=== PATIENT | male | born 1950 | race Caucasian/White ===

== ENCOUNTER 2016-12-26 14:03 | Inpatient (IN) | payer OTHER ==
[~2016-12-26] VITALS: Ht 170.2 cm; Wt 80.7 kg
[~2016-12-26 14:03] MED LIST: ASPEC81 PO; LISI-729 PO; MESA1.2T PO; PRAV20TA PO; RISP0.5T10 PO
[2016-12-26] MEDS ORDERED: SODIUM CHLORIDE 0.9% 1000ML 1,000 ML IV STA (14:54)
--- NOTE | 2016-12-26 14:59 | EMERGENCY ROOM VISIT NOTE ---
History Report prepared by Su: Silviano Lazo Under the Supervision of: Dr. Ever Mccartney M.D. First contact with patient: 14:44 Chief Complaint: IRREGULAR HEARTBEAT Stated Complaint: AFIB Nursing Triage Summary: patient was having colonoscopy and was placed on the monitor. found to be in a flutter fib and was brought to the ER for evaluation. denies pain or shorntess of breath History of Present Illness The patient is a 66 year old male who presents to the Emergency Room for an episode of an irregular heartbeat that was discovered prior to arrival today. He states that he was getting evaluated for a colonoscopy that was scheduled for today, when he was found to be in atrial fibrillation. The patient says that this may have happened before, as he thinks he was mentioned by a doctor about an irregular heartbeat during a prior operation. The patient notes that he feels fine and has been feeling fine, with no feelings of palpitations. He adds that he has been eating and drinking well. He denies any chest pain, shortness of breath, nausea, vomiting, headaches, abdominal pain, or dizziness. The patient has Crohn's disease, but has had no recent flare-ups. He has no history of stroke or diabetes. The patient is on Lisinopril daily. He has a history of an aortic valve replacement for a bicuspid valve, as well as a splenectomy for a ruptured spleen. Source of History: patient Onset: Prior to arrival today Position: other (heart) Quality: other (irregular heartbeat - afib) Timing: other (episode) Associated Symptoms: No headache, No chest pain, No SOB, No nausea, No vomiting, No abdominal pain Note: Associated symptoms: Feeling fine. Denies dizziness. Review of Systems See HPI for pertinent positives and negatives. A total of ten systems were reviewed and were otherwise negative. Past Medical & Surgical Medical Problems: (1) HTN (hypertension) Surgical Problems: (1) Aortic valve replaced (2) History of splenectomy Family History Cancer Social History Smoking Status: Never Smoker Smokeless Tobacco Use: No Alcohol Use: occasionally Marital Status: Housing Status: lives with family Occupation Status: employed Current/Historical Medications Scheduled Aspirin Enteric Coated (Ecotrin Or Generic *), 81 MG PO DAILY Lisinopril (Zestril), 5 MG PO DAILY Pravastatin (Pravachol ), 20 MG PO DAILY Risperidone (Risperdal), 0.5 MG PO BID Allergies Coded Allergies: No Known Allergies (Verified , 12/26/16) Physical Exam Vital Signs Date Time Temp Pulse Resp B/P (MAP) Pulse Ox O2 Delivery O2 Flow Rate FiO2 12/26/16 19:01 128/95 12/26/16 19:00 113 18 128/95 96 12/26/16 18:13 110 12/26/16 18:03 104 18 96 12/26/16 18:00 176/154 12/26/16 17:03 99 21 95 12/26/16 17:01 144/104 12/26/16 16:03 103 23 96 12/26/16 16:01 154/105 12/26/16 15:39 139/114 12/26/16 15:37 105 20 139/114 98 Room Air 12/26/16 15:20 143/121 12/26/16 15:10 98 Room Air 12/26/16 15:03 103 19 12/26/16 15:01 163/115 12/26/16 14:17 109 12/26/16 14:16 131/92 12/26/16 14:14 97 Room Air 12/26/16 14:10 36.6 100 20 140/108 97 Room Air 12/26/16 14:07 140/108 Physical Exam GENERAL: Awake, alert, well-appearing, in no distress HENT: Normocephalic, atraumatic. Oropharynx unremarkable. Dry mucous membranes. EYES: Normal conjunctiva. Sclera non-icteric. NECK: Supple. No nuchal rigidity. FROM. No JVD. RESPIRATORY: Clear to auscultation. CARDIAC: Regular heartbeat with ectopy. Extremities warm and well perfused. Pulses equal. ABDOMEN: Soft, non-distended. No tenderness to palpation. No rebound or guarding. No masses. RECTAL: Deferred. MUSCULOSKELETAL: Chest examination reveals no tenderness. The back is symmetrical on inspection without obvious abnormality. There is no CVA tenderness to palpation. No joint edema. LOWER EXTREMITIES: Calves are equal size bilaterally and non-tender. No edema. No discoloration. NEURO: Normal sensorium. No sensory or motor deficits noted. SKIN: No rash or jaundice noted. Medical Decision & Procedures ER Provider Diagnostic Interpretation: X-ray: Per my interpretation, radiologist review. CHEST ONE VIEW PORTABLE HISTORY: 66 years-old Male CHEST PAIN COMPARISON: Chest radiograph 08/05/2013 TECHNIQUE: Portable upright AP view of the chest. FINDINGS: Prior median sternotomy with aortic stent graft again noted. Cardiac silhouette is upper limits of normal. There is no pneumothorax or pleural effusion. There is minimal left lung base linear atelectasis or scarring in a subsegmental distribution. Prosthetic aortic valve is again seen. Metallic coils are seen within the central upper abdomen. The bones are grossly intact. IMPRESSION: No acute cardiopulmonary process. The above report was generated using voice recognition software. It may contain grammatical, syntax or spelling errors. Electronically signed by: Vikas Interiano M.D. 12/26/2016 3:11 PM Dictated Date/Time: 12/26/2016 3:10 PM Laboratory Results 12/26/16 14:27 Red Blood Count 4.84, Mean Corpuscular Volume 93.8, Mean Corpuscular Hemoglobin 31.8, Mean Corpuscular Hemoglobin Concent 33.9, Mean Platelet Volume 10.0, Neutrophils (%) (Auto) 47.1, Lymphocytes (%) (Auto) 37.5, Monocytes (%) (Auto) 12.9, Eosinophils (%) (Auto) 1.8, Basophils (%) (Auto) 0.6, Neutrophils # (Auto ) 3.91, Lymphocytes # (Auto) 3.11, Monocytes # (Auto) 1.07, Eosinophils # (Auto ) 0.15, Basophils # (Auto) 0.05 Test 12/26/16 14:27 White Blood Count 8.30 K/uL (4.8-10.8) Red Blood Count 4.84 M/uL (4.7-6.1) Hemoglobin 15.4 g/dL (14.0-18.0) Hematocrit 45.4 % (42-52) Mean Corpuscular Volume 93.8 fL (80-100) Mean Corpuscular Hemoglobin 31.8 pg (25-34) Mean Corpuscular Hemoglobin Concent 33.9 g/dl (32-36) Platelet Count 317 K/uL (130-400) Mean Platelet Volume 10.0 fL (7.4-10.4) Neutrophils (%) (Auto) 47.1 % Lymphocytes (%) (Auto) 37.5 % Monocytes (%) (Auto) 12.9 % Eosinophils (%) (Auto) 1.8 % Basophils (%) (Auto) 0.6 % Neutrophils # (Auto) 3.91 K/uL (1.4-6.5) Lymphocytes # (Auto) 3.11 K/uL (1.2-3.4) Monocytes # (Auto) 1.07 K/uL (0.11-0.59) Eosinophils # (Auto) 0.15 K/uL (0-0.5) Basophils # (Auto) 0.05 K/uL (0-0.2) RDW Standard Deviation 48.3 fL (36.4-46.3) RDW Coefficient of Variation 14.1 % (11.5-14.5) Immature Granulocyte % (Auto) 0.1 % Immature Granulocyte # (Auto) 0.01 K/uL (0.00-0.02) Thyroid Stimulating Hormone (TSH) 1.190 uIu/ml (0.300-4.500) Laboratory results reviewed by me Medications Administered Medications (Trade) Dose Ordered Sig/Rosemarie Route Start Time Stop Time Status Last Admin Dose Admin Sodium Chloride 1,000 ml @ 999 mls/hr Q1H1M STAT IV 12/26/16 14:54 12/26/16 15:54 DC 12/26/16 14:54 999 MLS/HR Metoprolol Tartrate (Lopressor Tab) 25 mg NOW STAT PO 12/26/16 18:17 12/26/16 18:21 DC 12/26/16 19:09 25 MG Heparin Sodium (Porcine) (Heparin Iv Bolus) 10,000 unit STK-MED ONCE .ROUTE 12/26/16 19:26 12/26/16 19:27 DC 12/26/16 19:42 10,000 UNIT Heparin Sodium/ Dextrose (Heparin 25,000 Unit/500ml D5W) 25,000 unit STK-MED ONCE .ROUTE 12/26/16 19:26 12/26/16 19:27 DC 12/26/16 19:45 25,000 UNIT ECG Indication: palpitations Rate (beats per minute): 104 Rhythm: sinus tachycardia Findings: 1st degree AV block, PAC, no acute ischemic change, other (normal axis) Change: Repeat ECG: Atrial flutter with a rate of 104 bpm, variable AV block, QRS within normal limits, normal axis, no acute ischemic changes. ED Course 145: The patient was evaluated in room C5. A complete history and physical exam was performed. 145: Ordered NSS 1000 ml @ 999 mls/hr IV. 1800: I reevaluated and updated the patient. 1806: I discussed the patient with Dr. Torsten Desai cardiology. 1813: Upon reexamination, the patient was resting. I discussed the test results and treatment plan with him. The patient will be evaluated for further management. 1816: Ordered Heparin Sodium/Dextrose 1 ea N/A, Lopressor Tab 25 mg PO. 183: I discussed the patient with Sirena Desai - she will evaluate the patient for further treatment. Medical Decision I reviewed the patient's past medical history, medications, and the nursing notes as described above. Differential diagnoses: new onset atrial fibrillation, other arrhythmia, dehydration, electrolyte imbalance, infectious cough, pneumonia, bronchitis, ACS less likely, CHF less likely. Patient is a 66-year-old gentleman with a past medical history of Crohn's disease on mesalamine, well as aortic valve replacement secondary to a bicuspid aortic valve was history of coarctation of the aorta is to emergency department after accidentally having been found in a new atrial flutter when preparing for colonoscopy today. Thus, patient was sent to emergency department for evaluation. She denies any lightheadedness chest pain, shortness of breath, palpitations, lightheadedness and otherwise reports feeling in his normal state of health. Upon arrival the patient initially had a sinus tachycardia AV block versus flutter, however after hydration repeat EKG showing clear A flutter with variable he bleed AV block. Labs otherwise unremarkable including TSH. Chest x -ray negative. I discussed the case with cardiology who upon further review of the patient's medical history recommends that since CHADSVASC > 2 will require anticoagulation. Considering this patient's prior vascular disease recommends admission for further evaluation to determine optimal therapeutic approach. Recommends heparin for now and otherwise agrees with low-dose metoprolol for rate control. I discussed this with the patient who was agreeable for admission. Case d/w medicine team who will admit to medicine service for further management and cardiology consultation. Medication Reconcilliation Current Medication List: was personally reviewed by me Blood Pressure Screening Patient's blood pressure: Elevated blood pressure Referred to hospitalist. Consults Time Called: 1803 Consulting Physician: Dr. Torsten Desai cardiology Returned Call: 1806 I discussed the patient with Dr. Torsten Desai cardiology. Additional Consults: Time Called: 1829 Consulted Physician: Sirena Desai Returned Call: 1830 Additional Comments: I discussed the patient with Sirena Desai - she will evaluate the patient for further treatment. Impression Primary Impression: New onset atrial flutter Scribe Attestation The scribe's documentation has been prepared under my direction and personally reviewed by me in its entirety. I confirm that the note above accurately reflects all work, treatment, procedures, and medical decision making performed by me. Departure Information Dispostion Being Evaluated By Hospitalist Referrals Violet Mitchell M.D. (PCP) Patient Instructions My [facility]
--- NOTE | 2016-12-26 15:12 | DIAGNOSTIC IMAGING REPORT ---
CHEST ONE VIEW PORTABLE HISTORY: 66 years-old Male CHEST PAIN COMPARISON: Chest radiograph 08/05/2013 TECHNIQUE: Portable upright AP view of the chest. FINDINGS: Prior median sternotomy with aortic stent graft again noted. Cardiac silhouette is upper limits of normal. There is no pneumothorax or pleural effusion. There is minimal left lung base linear atelectasis or scarring in a subsegmental distribution. Prosthetic aortic valve is again seen. Metallic coils are seen within the central upper abdomen. The bones are grossly intact. IMPRESSION: No acute cardiopulmonary process. The above report was generated using voice recognition software. It may contain grammatical, syntax or spelling errors. Electronically signed by: Vikas Interiano M.D. 12/26/2016 3:11 PM Dictated Date/Time: 12/26/2016 3:10 PM
[2016-12-26 15:13] LABS: BASO % 0.6 %; BASO ABS # 0.05 K/uL (0-0.2); COMPLETE YES; EOS % 1.8 %; HEMATOCRIT 45.4 % (42-52); IG% 0.1 %; LYMPH % 37.5 %; LYMPH ABS # 3.11 K/uL (1.2-3.4); MEAN CELL VOLUME 93.8 fL (80-100); MEAN CORPUSCULAR HEMOGLOBIN 31.8 pg (25-34); MEAN CORPUSCULAR HGB CONC 33.9 g/dl (32-36); MONO % 12.9 %; NEUT % 47.1 %; PLATELET COUNT 317 K/uL (130-400); RED BLOOD COUNT 4.84 M/uL (4.7-6.1)
[2016-12-26 15:21] LABS: BUN/CREATININE RATIO 10.9 (10-20); CALCIUM 8.7 mg/dl (8.5-10.1); CREATININE 1.1 mg/dl (0.60-1.40); POTASSIUM 4.1 mmol/L (3.5-5.1)
[2016-12-26 15:32] LABS: THYROID STIMULATING HORMONE 1.19 uIu/ml (0.300-4.500)
[2016-12-26] MEDS ORDERED: METOPROLOL TARTRATE 50 MG TAB PO STA (18:17)
[2016-12-26] MEDS ORDERED: HEPARIN 25000 UNIT/500 ML D5W ONE (19:26)
[2016-12-26] MEDS ORDERED: HEPARIN SOD (PORCINE) 1000 UNIT/ML 10 ML VIAL ONE (19:26)
[2016-12-26] MEDS ORDERED: ACETAMINOPHEN 325 MG TAB PO PRN (19:30)
[2016-12-26] MEDS ORDERED: ONDANSETRON INJ 2 MG/ML 2 ML VIAL IV PRN (19:30)
[2016-12-26] MEDS ORDERED: NITROGLYCERIN 0.4 MG SL PER TAB CHARGE SL PRN (19:30)
[2016-12-26] MEDS ORDERED: POLYETHYLENE (MIRALAX) 17 GM PACK PO PRN (19:30)
[2016-12-26] MEDS ORDERED: ZOLPIDEM TARTRATE 5 MG TAB PO PRN (19:30)
[2016-12-26] MEDS ORDERED: MAGNESIUM HYDROXIDE SUSP 30 ML UDC PO PRN (19:30)
[2016-12-26] MEDS ORDERED: ALUMINUM/MAGNESIUM/SIMETH (MAALOX MAX) 30 ML UDC PO PRN (19:30)
--- NOTE | 2016-12-26 19:59 | History and Physical ---
History & Physical Date & Time of Service: Dec 26, 2016 at 19:57 Chief Complaint: AFIB Primary Care Physician: Violet Mitchell M.D. History of Present Illness Source: patient This is a 66 yo Male with past medical hx of Mood disorder ( Schizophrenia ? ) , Crohn's colitis , hx of bicuspid heart valve S/P AVR with prosthetic valve replacement , coarctation of aorta s/p repair of thoracic coarctation with stent graft , h/o spontaneous rupture of splenic artery aneurysm , hx of hepatic artery aneurysm was scheduled to have routine colonoscopy done today for inflammatory bowel disease , prior to procedure -EKG done [facility] @ 12: 20 PM shows possible Aflutter with variable degree block , ventricular rate 109 pt was sent to ED for further evaluation pt denies of any symptom of SOB /SEWELL /palpitation /lightheadedness /increased fatigue /decreased exercise tolerance today or in recent few weeks mentions of felt dizzy while going to bathroom multiple time last night for the colonoscopy prep but symptom resolved after rest this morning at [facility] Endoscopy suite -did not had any discomfort or symptom , no symptom after arrival to ED and there after pt was given 25 mg PO Lopressor , started on low dose iV heparin in ED Past Medical/Surgical History Medical Problems: (1) HTN (hypertension) Status: Chronic Surgical Problems: (1) Aortic valve replaced Status: Resolved (2) History of splenectomy Status: Resolved Family History Cancer Social History Smoking Status: Never Smoker Smokeless Tobacco Use: No Marital Status: Occupational Status: employed Immunizations History of Influenza Vaccine: Unknown History of Tetanus Vaccine?: Unknown History of Pneumococcal: Yes Pneumococcal Date: May 30, 2006 History of Hepatitis B Vaccine: No Multi-Drug Resistant Organisms History of MDRO: No Allergies Coded Allergies: No Known Allergies (Verified , 12/26/16) Home Medications Scheduled Aspirin Enteric Coated (Ecotrin Or Generic *), 81 MG PO DAILY Lisinopril (Zestril), 5 MG PO DAILY Pravastatin (Pravachol ), 20 MG PO DAILY Risperidone (Risperdal), 0.5 MG PO BID Review of Systems Constitutional: No fever, No chills, No sweats, No weight loss, No weakness, No fatigue, No problem reported Respiratory: No cough, No sputum, No wheezing, No shortness of breath, No dyspnea on exertion, No dyspnea at rest, No hemoptysis, No problem reported Cardiovascular: No chest pain, No orthopnea, No PND, No edema, No claudication , No palpitations, No problem reported Abdomen: No pain, No nausea, No vomiting, No diarrhea, No constipation, No GI bleeding, No problem reported Genitourinary - Male: No hematuria, No dysuria, No urinary frequency, No urinary urgency, No urinary hesitancy, No urinary retention, No urinary incontinence, No penile discharge, No lesions, No impotence, No problem reported Neurologic: No memory loss, No paralysis, No weakness, No numbness/tingling, No vertigo, No balance problems, No problem reported Psychiatric: No depression symptoms, No anhedonism, No anxiety, No insomnia, No substance abuse, No problem reported Physical Exam Vital Signs Date Time Temp Pulse Resp B/P (MAP) Pulse Ox O2 Delivery O2 Flow Rate FiO2 12/26/16 19:01 128/95 12/26/16 19:00 113 18 128/95 96 12/26/16 18:13 110 12/26/16 18:03 104 18 96 12/26/16 18:00 176/154 12/26/16 17:03 99 21 95 12/26/16 17:01 144/104 12/26/16 16:03 103 23 96 12/26/16 16:01 154/105 12/26/16 15:39 139/114 12/26/16 15:37 105 20 139/114 98 Room Air 12/26/16 15:20 143/121 12/26/16 15:10 98 Room Air 12/26/16 15:03 103 19 12/26/16 15:01 163/115 12/26/16 14:17 109 12/26/16 14:16 131/92 12/26/16 14:14 97 Room Air 12/26/16 14:10 36.6 100 20 140/108 97 Room Air 12/26/16 14:07 140/108 General Appearance: no apparent distress Head: normocephalic, atraumatic Eyes: sclerae normal Neck: supple, no adenopathy, thyroid normal, no carotid bruits Respiratory/Chest: chest non-tender, lungs clear, normal breath sounds, no respiratory distress Cardiovascular: no edema, no JVD, normal peripheral pulses, + irregularly irregular Abdomen/GI: normal bowel sounds, non tender, soft Extremities/Musculoskelatal: normal capillary refill, no pedal edema Neurologic/Psych: no motor/sensory deficits, alert, normal mood/affect, oriented x 3 Skin: normal color, warm/dry, no rash Lymphatic: no adenopathy Diagnostics Laboratory Results Results Past 24 Hours Test 12/26/16 14:27 12/26/16 19:26 Range/Units White Blood Count 8.30 4.8-10.8 K/uL Red Blood Count 4.84 4.7-6.1 M/uL Hemoglobin 15.4 14.0-18.0 g/dL Hematocrit 45.4 42-52 % Mean Corpuscular Volume 93.8 80-100 fL Mean Corpuscular Hemoglobin 31.8 25-34 pg Mean Corpuscular Hemoglobin Concent 33.9 32-36 g/dl Platelet Count 317 130-400 K/uL Mean Platelet Volume 10.0 7.4-10.4 fL Neutrophils (%) (Auto) 47.1 % Lymphocytes (%) (Auto) 37.5 % Monocytes (%) (Auto) 12.9 % Eosinophils (%) (Auto) 1.8 % Basophils (%) (Auto) 0.6 % Neutrophils # (Auto) 3.91 1.4-6.5 K/uL Lymphocytes # (Auto) 3.11 1.2-3.4 K/uL Monocytes # (Auto) 1.07 0.11-0.59 K/uL Eosinophils # (Auto) 0.15 0-0.5 K/uL Basophils # (Auto) 0.05 0-0.2 K/uL RDW Standard Deviation 48.3 36.4-46.3 fL RDW Coefficient of Variation 14.1 11.5-14.5 % Immature Granulocyte % (Auto) 0.1 % Immature Granulocyte # (Auto) 0.01 0.00-0.02 K/uL Activated Partial Thromboplast Time 27.0 21.0-31.0 SECONDS Partial Thromboplastin Ratio 1.0 Sodium Level 138 136-145 mmol/L Potassium Level 4.1 3.5-5.1 mmol/L Chloride Level 107 98-107 mmol/L Carbon Dioxide Level 24 21-32 mmol/L Anion Gap 7.0 3-11 mmol/L Blood Urea Nitrogen 12 7-18 mg/dl Creatinine 1.10 0.60-1.40 mg/dl Est Creatinine Clear Calc Drug Dose 63.4 ml/min Estimated GFR () 81.8 Estimated GFR (Non- 70.6 BUN/Creatinine Ratio 10.9 10-20 Random Glucose 85 70-99 mg/dl Calcium Level 8.7 8.5-10.1 mg/dl Magnesium Level 2.0 1.8-2.4 mg/dl Thyroid Stimulating Hormone (TSH) 1.190 0.300-4.500 uIu/ml Creatine Kinase MB Ratio 0-3.0 Diagnostic Radiology CHEST ONE VIEW PORTABLE HISTORY: 66 years-old Male CHEST PAIN COMPARISON: Chest radiograph 08/05/2013 TECHNIQUE: Portable upright AP view of the chest. FINDINGS: Prior median sternotomy with aortic stent graft again noted. Cardiac silhouette is upper limits of normal. There is no pneumothorax or pleural effusion. There is minimal left lung base linear atelectasis or scarring in a subsegmental distribution. Prosthetic aortic valve is again seen. Metallic coils are seen within the central upper abdomen. The bones are grossly intact. IMPRESSION: No acute cardiopulmonary process. EKG Aflutter with variable AV block HR 104 Qtc 428 Impression Assessment and Plan ARRHYTHMIA/AFLUTTER new diagnosis pt remains symptom free no prior hx of arrhythmia hx of syncope with colonoscopy prep in July 2013 , had out pt Holter 08/17/13 - showed sinus rhythm with frequent PVC 's episodes of dizzy spell was associated with sinus bradycardia with no prolong pause or heart block Cardiac stress test on 08/04/13 : negative for stress induced angina , monitor in tele serial cardiac markers , resting ECHO ordered PO Lopressor 25 mg x1 given in ED will cont Lopressor BID ( started on low dose 12.5 mg -will defer to Cardiology for further adjustment ) IV heparin wt based protocol for stroke prophylaxis further d/w of chronic anticoagulation -Coumadin Vs NOAC will be discussed by Cardiology HX OF CROHN'S DISEASE : follows with GI [facility] Dr Hernandez was on Lialda in past -discontinued due to non compliance not on any active tx for IBD no report of diarrhea /abdominal pain or blood in stool was schedule to have routine colonoscopy today 12/26/16 was cancelled due to cardiac arrhythmia HTN : cont Lisinopril -home med HYPERLIPIDEMIA ; Cont Pravastatin fasting lipid panel ordered in AM labs DEPRESSION /MOOD DISORDER : will hold Risperdal in setting of cardiac arrhythmia FULL CODE DVT PROPHYLAXIS : IV heparin wt based protocol DISPOSITION : expected to be discharged home when medically stable Medicine follow up with Dr Mitchell will need to establish care with Cardiology for ongoing follow up Level of Care Telemetry Resuscitation Status FULL RESUSCITATION VTE Prophylaxis VTE Risk Assessment Done? Y/N: Yes Risk Level: Moderate Additional Copies To Violet Mitchell M.D.
[2016-12-26] MEDS ORDERED: HEPARIN 25,000 UNIT/500ML D5W 500 ML IV PRN (20:45)
[2016-12-26 20:53] VITALS: BP 151/115; PULSE 104; TEMP 36.5; O2SAT 94; Ht 170.2 cm; Wt 80.7 kg
[2016-12-26] MEDS: METOPROLOL TARTRATE 25 MG TAB PO SCH (21:41)
[2016-12-26 22:24] LABS: CKMB/CK RATIO 1.3 (0-3.0)
[2016-12-26 22:35] VITALS: BP 136/76
--- NOTE | 2016-12-26 22:41 | Progress Note ---
Progress Note Date of Service Dec 26, 2016. Progress Note d DIMER elevated > 3000 ordered for CTA of chest to R/O PE ( possible cause of Aflutter ? ) lower ext Doppler for DVT IVF NSS @ 80 ml/hr X1 liter pt got colonoscopic prep yesterday , will get contrast study for CT chest follow PRP in AM
[2016-12-26] MEDS ORDERED: LORAZEPAM INJ 0.5 MG in SYRINGE 0.75 ML IV PRN (22:45)
[2016-12-26] MEDS ORDERED: LORAZEPAM 2 MG/ML 1 ML VIAL IV PRN (22:45)
[2016-12-26] MEDS ORDERED: SODIUM CHLORIDE 0.9% 1000ML 1,000 ML IV SCH (22:45)
[2016-12-26] MEDS ORDERED: OPTIRAY 320 IV PRN (22:45)
[2016-12-27 03:00] VITALS: BP 138/97; PULSE 114; TEMP 36.5; O2SAT 95
[2016-12-27 03:00] LABS: CKMB/CK RATIO 1.4 (0-3.0)
[2016-12-27 03:07] LABS: CALCIUM 8.3 mg/dl (8.5-10.1); CREATININE 0.96 mg/dl (0.60-1.40)
[2016-12-27 03:10] LABS: CHOLESTEROL/HDL RATIO 3.4
[2016-12-27 03:49] LABS: PARTIAL THROMBOPLASTIN RATIO 4.3
--- NOTE | 2016-12-27 06:52 | DIAGNOSTIC IMAGING REPORT ---
CT ANGIOGRAPHY OF THE CHEST, PULMONARY EMBOLUS PROTOCOL CLINICAL HISTORY: Elevated d-dimer. Atrial flutter. COMPARISON STUDY: Chest CT August 04, 2013 and chest radiograph December 26, 2016. TECHNIQUE: Following IV administration of 91 mL of [id number]-320, helical axial images of the chest were obtained utilizing the pulmonary embolus protocol. Maximal intensity projections and sagittal and coronal reformats were viewed on an independent 3D workstation. IV contrast was administered without complication. A dose lowering technique was utilized adhering to the principles of ALARA. FINDINGS: No pulmonary embolus is identified. Moderate cardiomegaly is noted. A prosthetic aortic valve is noted as well as graft repair of the ascending aorta and an endovascular stent within the aortic arch and proximal to mid descending thoracic aorta. The postoperative appearance is unchanged since CT of August 04, 2013. Thoracic aortic opacification is suboptimal but the appearance of the aorta is unchanged and there is no evidence for dissection within opacified portions of the thoracic aorta. There is no pericardial effusion. No enlarged thoracic lymph nodes are present central airways are patent. No consolidation to suggest pneumonia is present. Subpleural linear and groundglass opacities favor atelectasis. There is no pneumothorax or pleural effusion. Central airways are patent. Bony thorax is unremarkable. Visualized portions of the upper abdomen demonstrate mild gallbladder distention and endovascular coils likely within the hepatic artery. IMPRESSION: 1. No pulmonary emboli identified. 2. No acute intrathoracic findings. 3. Stable postoperative findings consistent with aortic valve replacement, graft repair of the ascending aorta and thoracic aortic stent placement. 4. Mild gallbladder distention which could be correlated with right upper quadrant pain. Electronically signed by: Aubrey Middleton M.D. 12/27/2016 6:51 AM Dictated Date/Time: 12/27/2016 6:41 AM
--- NOTE | 2016-12-27 07:13 | DIAGNOSTIC IMAGING REPORT ---
BILATERAL LOWER EXTREMITY VENOUS DOPPLER HISTORY: No onset atrial fibrillation. EVALUATION FOR DVT /ELEVATED D DIMER COMPARISON STUDY: None. FINDINGS: There is normal compressibility, flow, and augmentation within the bilateral lower extremity deep venous systems. IMPRESSION: No DVT within the right or left lower extremity. Electronically signed by: Marvin Ham M.D. 12/27/2016 7:11 AM Dictated Date/Time: 12/27/2016 7:11 AM
[2016-12-27 07:56] VITALS: BP 130/88; PULSE 113; TEMP 36.5; O2SAT 95
[2016-12-27] MEDS: PRAVASTATIN SOD 20 MG TAB PO SCH (08:13)
[2016-12-27] MEDS: ASPIRIN 81 MG ECTAB PO SCH (08:13)
[2016-12-27] MEDS: LISINOPRIL 5 MG TAB PO SCH (08:13)
[2016-12-27] MEDS: METOPROLOL TARTRATE 25 MG TAB PO SCH (08:16)
--- NOTE | 2016-12-27 09:16 | ECHOCARDIOGRAM REPORT ---
*NOTICE TO RECEIVING [facility] This information is strictly Confidential and protected under [place] law. [place] law prohibits you from making any further disclosure of this information unless further disclosure is expressly permitted by the written consent of the person to whom it pertains or is authorized by law. A general authorization for the release of medical or other information is not sufficient for this purpose. Hospital accepts no responsibility if the information is made available to any other person, INCLUDING THE PATIENT. Interpretation Summary * Name: YOLANDA EATON Study Date: 12/27/2016 07:32 AM BP: 138/97 mmHg * Patient Location: C.2T\S\S242\S\2 HR: 114 * : 1950 (M/d/yyyy) Gender: Male Height: 67 in * Age: 66 yrs Ethnicity: [place] Weight: 174 lb * Ordering Physician: Rena Prieto * Referring Physician: Becca Melendez * Performed By: Nimo Velásquez RCS * * Reason For Study: A-FIB * BSA: 1.9 m2 * The study was technically adequate. * There is no comparison study available. * -- Conclusions -- * Ejection Fraction = 60-65%. * There is mild concentric left ventricular hypertrophy. * The left atrium is moderately dilated. * There is a bioprosthetic aortic valve. * Bioprosthetic leaflets are thick and move well. * Systolic gradients are within acceptable range for this type of bioprosthesis. * No significant bioprosthetic valve regurgitation. * There is mild tricuspid regurgitation. * S/p aortic root replacement. * Normal aortic root and ascending aorta diameter. Procedure Details * A complete two-dimensional transthoracic echocardiogram was performed (2D, M-mode, Doppler and color flow Doppler). Left Ventricle * The left ventricle is normal in size. * There is no thrombus. * There is mild concentric left ventricular hypertrophy. * Ejection Fraction = 60-65%. * Left ventricular systolic function is normal. * The left ventricular wall motion is normal. Right Ventricle * The right ventricle is normal size. * The right ventricular systolic function is qualitatively normal. Atria * The left atrium is moderately dilated. * Right atrial size is normal. * There is no evidence of atrial septal defect, but resolution does not allow assessment for a patent foramen ovale. Mitral Valve * The mitral valve is normal. * There is no mitral valve stenosis. * There is trace mitral regurgitation. Tricuspid Valve * The tricuspid valve is normal. * There is no tricuspid stenosis. * There is mild tricuspid regurgitation. * Doppler findings do not suggest pulmonary hypertension. Aortic Valve * There is a bioprosthetic aortic valve. * Bioprosthetic leaflets are thick and move well. * Systolic gradients are within acceptable range for this type of bioprosthesis. No significant bioprosthetic valve regurgitation. Pulmonic Valve * The pulmonary valve is not well seen, but the Doppler examination is normal without significant regurgitation or stenosis. Great Vessels * S/p aortic root replacement. Normal aortic root and ascending aorta diameter. Pericardium/Pleural * There is no pericardial effusion. Great Vessels * Normal inferior vena cava diameter and respiratory variation suggests normal central venous pressure. MMode 2D Measurements and Calculations IVSd 1.0 cm IVSs 1.3 cm LVIDd 3.8 cm LVIDs 2.6 cm LVPWd 1.0 cm LVPWs 1.3 cm IVS/LVPW 10 FS 31.2 % EDV(Teich) 62.9 ml ESV(Teich) 25.4 ml EF(Teich) 59.7 % EDV(cubed) 56.0 ml ESV(cubed) 18.2 ml EF(cubed) 67.4 % % IVS thick 20.7 % % LVPW thick 23.8 % LV mass(C)d 125.8 grams LV mass(C)dI 66.0 grams/m\S\2 LV mass(C)s 101.1 grams LV mass(C)sI 53.1 grams/m\S\2 CO(Teich) 4.3 l/min CI(Teich) 2.2 l/min/m\S\2 SV(Teich) 37.6 ml SI(Teich) 19.7 ml/m\S\2 CO(cubed) 4.3 l/min CI(cubed) 2.3 l/min/m\S\2 SV(cubed) 37.7 ml SI(cubed) 19.8 ml/m\S\2 Ao root diam 3.3 cm Ao root area 8.7 cm\S\2 LA dimension 4.8 cm asc Aorta Diam 3.0 cm LA/Ao 1.4 LVAd ap4 30.2 cm\S\2 LVLd ap4 7.9 cm EDV(MOD-sp4) 94.0 ml LVAs ap4 17.2 cm\S\2 LVLs ap4 7.0 cm ESV(MOD-sp4) 36.0 ml EF(MOD-sp4) 61.7 % LVAd ap2 24.6 cm\S\2 LVLd ap2 7.4 cm EDV(MOD-sp2) 65.0 ml LVAs ap2 15.2 cm\S\2 LVLs ap2 6.6 cm ESV(MOD-sp2) 29.0 ml EF(MOD-sp2) 55.4 % CO(MOD-sp4) 6.6 l/min CI(MOD-sp4) 3.5 l/min/m\S\2 SV(MOD-sp4) 58.0 ml SI(MOD-sp4) 30.4 ml/m\S\2 CO(MOD-sp2) 4.1 l/min CI(MOD-sp2) 2.2 l/min/m\S\2 SV(MOD-sp2) 36.0 ml SI(MOD-sp2) 18.9 ml/m\S\2 Doppler Measurements and Calculations MV E max ro 118.8 cm/sec MV P1/2t max ro 141.2 cm/sec MV P1/2t 43.3 msec MVA(P1/2t) 5.1 cm\S\2 MV dec slope 954.6 cm/sec\S\2 MV dec time 0.14 sec Ao V2 max 182.5 cm/sec Ao max PG 13.3 mmHg Ao max PG (full) 9.7 mmHg Ao V2 mean 114.3 cm/sec Ao mean PG 6.3 mmHg Ao mean PG (full) 4.6 mmHg Ao V2 VTI 31.1 cm LV V1 max PG 3.6 mmHg LV V1 mean PG 1.7 mmHg LV V1 max 95.0 cm/sec LV V1 mean 60.0 cm/sec LV V1 VTI 15.4 cm SV(Ao) 270.3 ml SI(Ao) 141.8 ml/m\S\2 PA V2 max 99.9 cm/sec PA max PG 4.0 mmHg TR max ro 218.5 cm/sec
[2016-12-27 11:01] LABS: PARTIAL THROMBOPLASTIN RATIO 2.3
[2016-12-27 11:06] LABS: CKMB/CK RATIO 1.4 (0-3.0)
--- NOTE | 2016-12-27 11:55 | CARDIOLOGY CONSULTATION ---
DATE OF CONSULTATION: 12/27/2016 REASON FOR CONSULTATION: Atrial flutter. REFERRING PHYSICIAN: Dr. Rena Prieto. HISTORY OF PRESENT ILLNESS: Mr. 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 The patient was scheduled for colonoscopy on December 26 and was found to be in atrial flutter with variable AV conduction. The patient notes some mild palpitations over the past few months. Denies any chest discomfort or unusual shortness of breath. His functional capacity has been stable. His ECG confirmed atrial flutter. He has been lost to cardiology followup since 2013. Previously followed with Dr. Walker. Overnight telemetry demonstrates atrial flutter with heart rates ranging from 90-110 beats per minute. He has received 2 doses of oral metoprolol. He was placed on intravenous heparin infusion. The patient was not on AV nancy blocking agents prior to admission. He offers no other complaints at this time. REVIEW OF SYSTEMS: The pertinent positives noted above, a comprehensive 10-system review is otherwise negative. PAST MEDICAL HISTORY: 1. Bicuspid aortic valve, status post bioprosthetic AVR and Dacron graft repair of the ascending aorta. 2. Coarctation, status post stenting. 3. Hepatic artery aneurysm, status post embolization. 4. Spontaneous rupture of splenic artery, status post splenectomy. 5. Functional schizophrenia. 6. Hypertension. 7. History of syncope with questionable sinus node dysfunction in the setting of colonoscopy prep in the past. PAST SURGICAL HISTORY: As noted above. FAMILY HISTORY: Negative for premature CAD or sudden cardiac . SOCIAL HISTORY: Lifelong nonsmoker. He is and lives with his . He is employed at [employer]. ALLERGIES: No known drug allergies. CURRENT OUTPATIENT MEDICATIONS: 1. Aspirin 81 mg daily. 2. Zestril 5 mg. 3. Pravastatin 20 mg daily. 4. Risperdal 0.5 mg twice daily. Preliminary resting 2D transthoracic echo demonstrates preserved LV systolic function with a bioprosthetic aortic valve and normal gradients. No regional wall motion abnormalities. LABORATORY DATA: Troponins are negative. Sodium 139, potassium 4.0, chloride 109, CO2 is 24, BUN is 14, and creatinine is 0.96. White blood cell count is 8.30, hemoglobin is 15.4, and platelet count is 317. APTT is 111.9 at 02:54 this morning. TSH is 1.190. PHYSICAL EXAMINATION: VITAL SIGNS: Temperature 36.5 degrees Celsius, pulse is 100 beats per minute and irregular, respiratory rate is 20 breaths per minute, blood pressure 130/88 and SaO2 is 95% on room air. GENERAL: NAD, awake, alert and oriented x3. THROAT: His mucous membranes are moist. No scleral icterus. Conjunctivae pink. NECK: Supple. There is no JVD, no HJR, and no carotid bruit. HEART: Regularwith a normal S1 and S2. There is a 2/6 systolic ejection murmur heard best at the right second intercostal space without radiation. LUNGS: Clear without rales, rhonchi, or wheeze. ABDOMEN: Soft and nontender. No rebound or guarding. Normal bowel sounds. EXTREMITIES: Warm and dry. There is no clubbing, cyanosis, or edema. NEUROLOGIC: Demonstrates no focal motor deficit. FINAL IMPRESSION: 1. Paroxysmal atrial flutter with borderline rate control. The patient is asymptomatic at this time. 2. History of bioprosthetic aortic valve replacement due to bicuspid aortic valve as well as ascending aortic aneurysm, status post Dacron graft placement -- stable per review of resting 2D transthoracic echo. 3. History of coarctation, status post stenting. 4. Hypertension -- controlled. 5. History of splenic arterial rupture, status post splenectomy. 6. History of possible sinus node dysfunction in the setting of colonoscopy prep and bradycardia in the past. PLAN AND RECOMMENDATIONS: I had a long discussion with the patient regarding his newly diagnosed atrial flutter, treatment options, and associated stroke risk. Recommend anticoagulation with Coumadin and rate control with beta lauri therapy. He is asymptomatic at this time. We discussed the use of subcutaneous Lovenox injection as a bridge as well as the risks of Coumadin. The patient is agreeable. He will continue metoprolol 25 mg twice daily. We will discontinue intravenous heparin and wait approximately 2 hours to begin subcutaneous Lovenox injection. We will arrange for anticoagulation clinic followup through [facility] and close cardiology followup with Dr. Walker next week. Thank you for allowing me to take part in the care of your patient. SUMANTH
[2016-12-27 12:00] VITALS: BP 125/95; PULSE 109; TEMP 36.5; O2SAT 96
[2016-12-27] MEDS ORDERED: WARFARIN SOD 5 MG TAB PO ONE (12:15)
[2016-12-27] MEDS ORDERED: METOPROLOL TARTRATE 25 MG TAB PO ONE (12:30)
[2016-12-27] MEDS: ENOXAPARIN 80 MG/0.8 ML SYR SQ SCH (14:29)
[2016-12-27 15:40] VITALS: BP 118/84; PULSE 96; TEMP 36.6; O2SAT 96
--- NOTE | 2016-12-27 16:21 | Progress Note ---
Medicine Progress Note Date & Time of Visit: Dec 27, 2016 at 16:16. Subjective patient seen laying in bed, comfortable not in distress states he feels ok overall denies chest pain, dyspnea, palpitations, dizziness, nausea denies bleeding no other symptoms Objective Last 8 Hrs Date Time Temp Pulse Resp B/P (MAP) Pulse Ox O2 Delivery O2 Flow Rate FiO2 12/27/16 16:00 Room Air 12/27/16 15:40 36.6 96 20 118/84 (95) 96 Room Air 12/27/16 12:00 Room Air 12/27/16 12:00 36.5 109 19 125/95 (105) 96 Room Air Physical Exam: General- oriented x 3, not in distress, speaks in sentences with no effort Head- atraumatic Eyes- EOMI, anicteric ENT- oropharynx clear Neck- supple, no JVD, no adenopathy, Lungs- clear breath sounds bilaterally Heart- mild tachycardia, irregularly irregular rhythm; no murmurs Abdomen- normal bowel sounds, soft, nontender Extremities- no pretibial edema, no calf tenderness; peripheral pulses intact Neuro- alert, oriented x 3; no gross focal deficits Skin- warm & dry Laboratory Results: Last 24 Hours Test 12/26/16 21:39 12/27/16 02:15 12/27/16 02:54 12/27/16 10:19 D-Dimer 3630 ug/L FEU Total Creatine Kinase 150 U/L 136 U/L 138 U/L Creatine Kinase MB 2.0 ng/ml 1.9 ng/ml 2.0 ng/ml Creatine Kinase MB Ratio 1.3 1.4 1.4 Troponin I 0.017 ng/ml 0.016 ng/ml < 0.015 ng/ml Hepatitis C Antibody Screen NEG Sodium Level 139 mmol/L Potassium Level 4.0 mmol/L Chloride Level 109 mmol/L Carbon Dioxide Level 24 mmol/L Anion Gap 6.0 mmol/L Blood Urea Nitrogen 14 mg/dl Creatinine 0.96 mg/dl Est Creatinine Clear Calc Drug Dose 72.7 ml/min Estimated GFR () 96.4 Estimated GFR (Non- 83.2 BUN/Creatinine Ratio 15.0 Random Glucose 96 mg/dl Calcium Level 8.3 mg/dl Magnesium Level 2.0 mg/dl Triglycerides Level 145 mg/dl Cholesterol Level 142 mg/dl HDL Cholesterol 42 mg/dl LDL Cholesterol, Calculated 71 mg/dl VLDL Cholesterol, Calculated 29 mg/dl Cholesterol/HDL Ratio 3.4 Activated Partial Thromboplast Time 111.9 SECONDS 60.4 SECONDS Partial Thromboplastin Ratio 4.3 2.3 Assessment & Plan NEW ONSET ATRIAL FLUTTER echo noted evaluated by [facility] Dr. Sarmiento continue Metoprolol 25mg po BID now on coumadin + Lovenox bridge -- HR 100-120s asymptomatic continue to monitor -- will need to establish with coumadin clinic HX OF CROHN'S DISEASE follows with GI [facility] Dr Hernandez was on Lialda in past -discontinued due to non compliance not on any active tx for IBD Colonoscopy was cancelled due to atrial flutter - no GI symptoms - ff up with GI as scheduled HTN cont Lisinopril -home med HYPERLIPIDEMIA ; Cont Pravastatin fasting lipid panel ordered in AM labs DEPRESSION /MOOD DISORDER : continue Risperidone FULL CODE DVT PROPHYLAXIS : Lovenox DISPOSITION : anticipate d/c home tomorrow Follow up with PCP Dr. Mitchell [facility] Level of Care Telemetry Resuscitation Status FULL RESUSCITATION VTE Prophylaxis VTE Risk Assessment Done? Y/N: Yes Risk Level: Moderate Additional Copies To Violet Mitchell M.D. Current Inpatient Medications: Current Inpatient Medications Medications (Trade) Dose Ordered Sig/Rosemarie Route Start Time Stop Time Status Last Admin Dose Admin Acetaminophen (Tylenol Tab) 650 mg Q4H PRN PO 12/26/16 19:30 01/25/17 19:29 Al Hydrox/Mg Hydrox/Simethicone (Maalox Max Susp) 15 ml Q4H PRN PO 12/26/16 19:30 01/25/17 19:29 Magnesium Hydroxide (Milk Of Magnesia Susp) 30 ml Q12H PRN PO 12/26/16 19:30 01/25/17 19:29 Zolpidem Tartrate (Ambien Tab) 5 mg HSZ PRN PO 12/26/16 19:30 01/25/17 19:29 Ondansetron HCl (Zofran Inj) 4 mg Q6H PRN IV 12/26/16 19:30 01/25/17 19:29 Nitroglycerin (Nitrostat Tab) 0.4 mg UD PRN SL 12/26/16 19:30 01/25/17 19:29 Aspirin (Ecotrin Tab) 81 mg QAM PO 12/27/16 09:00 01/26/17 08:59 12/27/16 08:13 81 MG Polyethylene (Miralax Powder Packet) 17 gm DAILY PRN PO 12/26/16 19:30 01/25/17 19:29 Lisinopril (Zestril Tab) 5 mg DAILY PO 12/27/16 09:00 01/26/17 08:59 12/27/16 08:13 5 MG Pravastatin Sodium (Pravachol Tab) 20 mg DAILY PO 12/27/16 09:00 01/26/17 08:59 12/27/16 08:13 20 MG Lorazepam (Ativan Inj) 0.5 mg Q4H PRN IV 12/26/16 22:45 01/25/17 22:44 Lorazepam 0.5 mg/ Syringe 1 ml @ 1 mls/min Q4H PRN IV 12/26/16 22:45 01/25/17 22:44 Ioversol (Optiray 320) 100 ml UD PRN IV 12/26/16 22:45 12/30/16 22:44 Metoprolol Tartrate (Lopressor Tab) 25 mg BID PO 12/27/16 21:00 01/25/17 20:59 Enoxaparin Sodium (Lovenox Inj) 80 mg Q12H SQ 12/27/16 14:00 01/26/17 13:59 12/27/16 14:29 80 MG
[2016-12-27 19:03] VITALS: BP 125/85; PULSE 101; TEMP 36.6; O2SAT 97
[2016-12-27] MEDS ORDERED: RISPERIDONE 0.5 MG TAB PO SCH (21:00)
[2016-12-27] MEDS ORDERED: METOPROLOL TARTRATE 25 MG TAB PO SCH (21:00)
[2016-12-27 23:21] VITALS: BP 90/56; PULSE 60; TEMP 36.7; O2SAT 97
[2016-12-27] MEDS ORDERED: ATROPINE SULFATE 0.1 MG/ML 5ML SYR IV ONE (23:30)
--- NOTE | 2016-12-27 23:34 | Progress Note ---
Progress Note Date of Service Dec 27, 2016. Progress Note notified by Nursing pt became severely Bradycardic after getting Evening dose of Lopressor 25 mg PO on monitor HR was 26 , pt was asymptomatic stat 12 lead EKG done shows persistent Afib with HR in 50's no ST-T wave change noted Lopressor D/boubacar ; pacer pad applied pt evaluated at bedside by myself -denies of any discomfort of dizzy spell , SOB or chest heaviness feels comfortable D/w relations manager cardiology Dr Hodgson , asked to hold of Lopressor avoid Atropine cont tele monitoring pt will be evaluated by Cardiology in AM
[2016-12-28] MEDS: ENOXAPARIN 80 MG/0.8 ML SYR SQ SCH ×2 (01:49→13:46)
[2016-12-28 02:36] VITALS: BP 90/60; PULSE 48; TEMP 36.4; O2SAT 95
[2016-12-28 07:55] LABS: INR 1.1 (0.9-1.1)
[2016-12-28] MEDS: LISINOPRIL 5 MG TAB PO SCH (07:55)
[2016-12-28] MEDS: PRAVASTATIN SOD 20 MG TAB PO SCH (07:55)
[2016-12-28] MEDS: ASPIRIN 81 MG ECTAB PO SCH (07:55)
[2016-12-28 08:00] VITALS: BP 100/63; PULSE 50; TEMP 36.5; O2SAT 97
[2016-12-28] MEDS ORDERED: LOVENOX TEACHING KIT ONE (11:15)
[2016-12-28 11:20] LABS: BASO % 0.4 %; BASO ABS # 0.04 K/uL (0-0.2); COMPLETE YES; EOS % 3.3 %; HEMATOCRIT 38.9 % (42-52); IG% 0.2 %; LYMPH % 32.7 %; LYMPH ABS # 3.03 K/uL (1.2-3.4); MEAN CELL VOLUME 93.5 fL (80-100); MEAN CORPUSCULAR HEMOGLOBIN 32.2 pg (25-34); MEAN CORPUSCULAR HGB CONC 34.4 g/dl (32-36); MEAN PLATELET VOLUME 9.4 fL (7.4-10.4); MONO % 12.5 %; NEUT % 50.9 %; PLATELET COUNT 273 K/uL (130-400); RED BLOOD COUNT 4.16 M/uL (4.7-6.1); WHITE BLOOD COUNT 9.26 K/uL (4.8-10.8)
--- NOTE | 2016-12-28 11:29 | CARDIOLOGY CONSULTATION ---
DATE OF CONSULTATION: 12/28/2016 The patient seen and examined. Chart, medications, telemetry reviewed. SUBJECTIVE: The patient feels well this morning. Notes no events overnight though was awakened after telemetry last evening demonstrated profound bradycardia with junctional rhythm, rates in the 30s. He noted no associated syncope. Denied any chest pains or discomfort, feels well this morning. Overnight he converted from AFib flutter to sinus bradycardia. Notes no fevers, chills or productive cough. Appetite is good. He has had no bleeding difficulties with current use of Lovenox and Coumadin. PHYSICAL EXAMINATION: VITAL SIGNS: Heart rate is 50, blood pressure is 100/63, O2 saturations 97% on room air. HEENT: Normocephalic and atraumatic. NECK: Thin. There is no jugular venous distention. There are no carotid bruits. LUNGS: Clear to auscultation. CARDIOVASCULAR: Regular with a grade 2/6 systolic murmur. There is no diastolic murmur. ABDOMEN: Soft, nontender. EXTREMITIES: Without cyanosis or clubbing. There are intact distal pulses. There is no brachial femoral delay. LABORATORY DATA: EKG this morning reveals sinus bradycardia at a rate of 51. Telemetry as described last night demonstrated transient junctional rhythm. Laboratory studies are pending from this morning. IMPRESSION: A 66-year-old male with a past complex cardiac history including prior aortic valve replacement and ascending aortic aneurysm repair in 2012 as well as coarctation stenting in association with bicuspid aortic valve. The patient was admitted with an atrial fibrillation flutter with elevated ventricular response rates. He has now subsequently converted back to sinus rhythm though had transient junctional rhythm and marked bradycardia overnight asymptomatically. PLAN: We will maintain telemetry another 24 hours, hold beta lauri. Discussed with the patient. The patient has borderline indications for possible future pacemaker insertion. We will follow telemetry, increase activities in hospital, assess for recurrence of atrial arrhythmias. In the interim, continue anticoagulants. We will follow patient in the hospital.
[2016-12-28 11:47] LABS: BUN/CREATININE RATIO 16.9 (10-20); CALCIUM 8.5 mg/dl (8.5-10.1); CREATININE 1.1 mg/dl (0.60-1.40); POTASSIUM 4.4 mmol/L (3.5-5.1)
[2016-12-28 12:10] VITALS: BP 102/68; PULSE 69; TEMP 36.6; O2SAT 96
[2016-12-28 15:44] VITALS: BP 107/63; PULSE 43; TEMP 36.6; O2SAT 98
--- NOTE | 2016-12-28 17:37 | Progress Note ---
Medicine Progress Note Date & Time of Visit: Dec 28, 2016 at 17:34. Subjective noted to have bradycardia episodes overnight but asymptomatic this AM, telemetry shows HR 60, sinus rhythm alert, not in distress, comfortable denies dizziness, nausea, chest pain, dyspnea, palpitations no bleeding denies other symptoms Objective Last 8 Hrs Date Time Temp Pulse Resp B/P (MAP) Pulse Ox O2 Delivery O2 Flow Rate FiO2 12/28/16 16:00 Room Air 12/28/16 15:44 36.6 43 22 107/63 (78) 98 Room Air 12/28/16 12:10 36.6 69 18 102/68 (79) 96 Room Air 12/28/16 12:00 Room Air Physical Exam: General- oriented x 3, not in distress, speaks in sentences with no effort Eyes- anicteric Neck- no JVD Lungs- clear breath sounds bilaterally, no rales /wheezes Heart- low normal rate, regular rhythm; no murmurs Abdomen- normal bowel sounds, soft, nontender Extremities- no pretibial edema, no calf tenderness Neuro- alert, oriented x 3; no gross focal deficits Skin- warm & dry Laboratory Results: Last 24 Hours Test 12/28/16 07:11 12/28/16 11:03 Prothrombin Time 12.0 SECONDS Prothromb Time International Ratio 1.1 Magnesium Level 2.0 mg/dl White Blood Count 9.26 K/uL Red Blood Count 4.16 M/uL Hemoglobin 13.4 g/dL Hematocrit 38.9 % Mean Corpuscular Volume 93.5 fL Mean Corpuscular Hemoglobin 32.2 pg Mean Corpuscular Hemoglobin Concent 34.4 g/dl Platelet Count 273 K/uL Mean Platelet Volume 9.4 fL Neutrophils (%) (Auto) 50.9 % Lymphocytes (%) (Auto) 32.7 % Monocytes (%) (Auto) 12.5 % Eosinophils (%) (Auto) 3.3 % Basophils (%) (Auto) 0.4 % Neutrophils # (Auto) 4.70 K/uL Lymphocytes # (Auto) 3.03 K/uL Monocytes # (Auto) 1.16 K/uL Eosinophils # (Auto) 0.31 K/uL Basophils # (Auto) 0.04 K/uL RDW Standard Deviation 48.1 fL RDW Coefficient of Variation 14.1 % Immature Granulocyte % (Auto) 0.2 % Immature Granulocyte # (Auto) 0.02 K/uL Sodium Level 138 mmol/L Potassium Level 4.4 mmol/L Chloride Level 106 mmol/L Carbon Dioxide Level 26 mmol/L Anion Gap 6.0 mmol/L Blood Urea Nitrogen 19 mg/dl Creatinine 1.10 mg/dl Est Creatinine Clear Calc Drug Dose 69.2 ml/min Estimated GFR () 81.8 Estimated GFR (Non- 70.6 BUN/Creatinine Ratio 16.9 Random Glucose 97 mg/dl Calcium Level 8.5 mg/dl Assessment & Plan NEW ONSET ATRIAL FLUTTER echo noted HOLD Metoprolol 25mg po BID due to bradycardia continue on coumadin + Lovenox bridge -- discussed with Dr. Hodgson monitor off Metoprolol -- may need pacemaker placement HX OF CROHN'S DISEASE follows with GI [facility] Dr Wolf was on Lialda in past -discontinued due to non compliance not on any active tx for IBD Colonoscopy was cancelled due to atrial flutter - no GI symptoms - ff up with GI as scheduled HTN hold Lisinopril for borderline low BP HYPERLIPIDEMIA ; Cont Pravastatin DEPRESSION /MOOD DISORDER : continue Risperidone FULL CODE DVT PROPHYLAXIS : Lovenox DISPOSITION : pending Follow up with PCP Dr. Mitchell [facility] Level of Care Telemetry Resuscitation Status FULL RESUSCITATION VTE Prophylaxis VTE Risk Assessment Done? Y/N: Yes Risk Level: Moderate Additional Copies To Violet Mitchell M.D. Current Inpatient Medications: Current Inpatient Medications Medications (Trade) Dose Ordered Sig/Rosemarie Route Start Time Stop Time Status Last Admin Dose Admin Acetaminophen (Tylenol Tab) 650 mg Q4H PRN PO 12/26/16 19:30 01/25/17 19:29 Al Hydrox/Mg Hydrox/Simethicone (Maalox Max Susp) 15 ml Q4H PRN PO 12/26/16 19:30 01/25/17 19:29 Magnesium Hydroxide (Milk Of Magnesia Susp) 30 ml Q12H PRN PO 12/26/16 19:30 01/25/17 19:29 Ondansetron HCl (Zofran Inj) 4 mg Q6H PRN IV 12/26/16 19:30 01/25/17 19:29 Nitroglycerin (Nitrostat Tab) 0.4 mg UD PRN SL 12/26/16 19:30 01/25/17 19:29 Aspirin (Ecotrin Tab) 81 mg QAM PO 12/27/16 09:00 01/26/17 08:59 12/28/16 07:55 81 MG Polyethylene (Miralax Powder Packet) 17 gm DAILY PRN PO 12/26/16 19:30 01/25/17 19:29 Pravastatin Sodium (Pravachol Tab) 20 mg DAILY PO 12/27/16 09:00 01/26/17 08:59 12/28/16 07:55 20 MG Lorazepam (Ativan Inj) 0.5 mg Q4H PRN IV 12/26/16 22:45 01/25/17 22:44 Lorazepam 0.5 mg/ Syringe 1 ml @ 1 mls/min Q4H PRN IV 12/26/16 22:45 01/25/17 22:44 Ioversol (Optiray 320) 100 ml UD PRN IV 12/26/16 22:45 12/30/16 22:44 Enoxaparin Sodium (Lovenox Inj) 80 mg Q12H SQ 12/27/16 14:00 01/26/17 13:59 12/28/16 13:46 80 MG
[2016-12-28 19:49] VITALS: BP 100/62; PULSE 53; TEMP 36.8; O2SAT 96
[2016-12-28 23:05] VITALS: BP 122/75; PULSE 52; TEMP 36.6; O2SAT 96
[2016-12-29] MEDS: ENOXAPARIN 80 MG/0.8 ML SYR SQ SCH ×2 (02:25→14:45)
[2016-12-29 03:41] VITALS: BP 109/71; PULSE 45; TEMP 36.7; O2SAT 96
[2016-12-29 08:40] VITALS: BP 107/61; PULSE 47; TEMP 36.5; O2SAT 95
[2016-12-29] MEDS: PRAVASTATIN SOD 20 MG TAB PO SCH (08:42)
[2016-12-29] MEDS: ASPIRIN 81 MG ECTAB PO SCH (08:42)
[2016-12-29 11:34] VITALS: BP 114/69; PULSE 64; TEMP 36.8; O2SAT 97
--- NOTE | 2016-12-29 11:45 | CARDIOLOGY PROGRESS NOTE ---
DATE: 12/29/2016 CARDIOLOGY CONSULTATION FOLLOWUP NOTE The patient was seen and examined. Chart, medications, and telemetry were reviewed. SUBJECTIVE: The patient feels well this morning. Notes no complaints. Notes no dizziness or lightheadedness. Has been ambulatory without any issues. Notes no bleeding difficulties. OBJECTIVE: VITAL SIGNS: Heart rate is 50. Blood pressure is 107/61. Telemetry reveals sinus mechanism with intermittent atrial ectopic beats, blocked atrial beats and intermittent ventricular beats. No pauses or profound bradyarrhythmias. HEENT: Normocephalic and atraumatic. NECK: Thin. There is no jugular venous distention. There is no carotid delay. LUNGS: Clear to auscultation. CARDIOVASCULAR: Regular with a grade 2/6 systolic murmur. There is no diastolic murmur. ABDOMEN: Soft and nontender. EXTREMITIES: Without cyanosis or clubbing. There is no peripheral edema. There are intact distal pulses. DATA: INR today is 1.1. EKG today reveals sinus rhythm with blocked PACs and atrial trigeminy. IMPRESSION: A 66-year-old male presented asymptomatically for colonoscopy, found to be in atrial fibrillation/flutter at that time, was brought to the hospital for treatment initiated with anticoagulation with oral metoprolol and did develop significant bradycardia with conversion to sinus mechanism. He has had no further profound bradyarrhythmias. RECOMMENDATIONS: We will continue to withhold further beta lauri or AV nancy blocking medications. Continue anticoagulation initiation. We will plan on patient transition to Coumadin with Lovenox bridge. Close clinical cardiac followup will be arranged with outpatient event monitor order as the patient has borderline tachybrady syndrome and ultimately warrant pacemaker insertion. No absolute indications for such at this time.
--- NOTE | 2016-12-29 15:19 | Progress Note ---
Medicine Progress Note Date & Time of Visit: Dec 29, 2016 at 15:12. Subjective patient seen resting in bed, comfortable in good spirits states he feels well overall no recurrence of tachy/bradyarrhythmia no bleeding states he feels better overall states he is ready and would like to be discharged today Objective Last 8 Hrs Date Time Temp Pulse Resp B/P (MAP) Pulse Ox O2 Delivery O2 Flow Rate FiO2 12/29/16 12:00 Room Air 12/29/16 11:34 36.8 64 18 114/69 (84) 97 Room Air 12/29/16 08:40 36.5 47 18 107/61 (76) 95 Room Air 12/29/16 08:00 Room Air Physical Exam: General- oriented x 3, not in distress, speaks in sentences with no effort Neck- no JVD Lungs- clear breath sounds , no rales /wheezes b/l Heart- low normal rate, regular rhythm; no murmurs Abdomen- normal bowel sounds, soft, nontender Extremities- no pretibial edema, no calf tenderness Neuro- alert, oriented x 3; no gross focal deficits Skin- warm & dry Laboratory Results: Last 24 Hours Test 12/29/16 06:30 Magnesium Level 2.1 mg/dl Assessment & Plan NEW ONSET ATRIAL FLUTTER echo noted HOLD Metoprolol 25mg po BID due to bradycardia continue on coumadin + Lovenox bridge -- discussed with Dr. Hodgson -- close Cardiology ff up will need Cardiac Monitoring to r/o Tachy-Van Syndrome -- d/c on Coumadin 3mg po daily, with Lovenox bridge needs to establish with Coumadin clinic HX OF CROHN'S DISEASE follows with GI [facility] Dr Wolf was on Lialda in past -discontinued due to non compliance not on any active tx for IBD Colonoscopy was cancelled due to atrial flutter - no GI symptoms - ff up with GI as scheduled HTN BP borderline low decrease Lisinopril to 2.5mg po daily HYPERLIPIDEMIA ; Cont Pravastatin DEPRESSION /MOOD DISORDER : continue Risperidone FULL CODE DVT PROPHYLAXIS : Lovenox DISPOSITION : d/c home today ff up with: PCP Dr. Mitchell in 1 week Refractory Worker in 1-2 weeks Coumadin Clinic this week Level of Care Telemetry Resuscitation Status FULL RESUSCITATION VTE Prophylaxis VTE Risk Assessment Done? Y/N: Yes Risk Level: Moderate Additional Copies To Violet Mitchell M.D. Current Inpatient Medications: Current Inpatient Medications Medications (Trade) Dose Ordered Sig/Rosemarie Route Start Time Stop Time Status Last Admin Dose Admin Acetaminophen (Tylenol Tab) 650 mg Q4H PRN PO 12/26/16 19:30 01/25/17 19:29 Al Hydrox/Mg Hydrox/Simethicone (Maalox Max Susp) 15 ml Q4H PRN PO 12/26/16 19:30 01/25/17 19:29 Magnesium Hydroxide (Milk Of Magnesia Susp) 30 ml Q12H PRN PO 12/26/16 19:30 01/25/17 19:29 Ondansetron HCl (Zofran Inj) 4 mg Q6H PRN IV 12/26/16 19:30 01/25/17 19:29 Nitroglycerin (Nitrostat Tab) 0.4 mg UD PRN SL 12/26/16 19:30 01/25/17 19:29 Aspirin (Ecotrin Tab) 81 mg QAM PO 12/27/16 09:00 01/26/17 08:59 12/29/16 08:42 81 MG Polyethylene (Miralax Powder Packet) 17 gm DAILY PRN PO 12/26/16 19:30 01/25/17 19:29 Pravastatin Sodium (Pravachol Tab) 20 mg DAILY PO 12/27/16 09:00 01/26/17 08:59 12/29/16 08:42 20 MG Lorazepam (Ativan Inj) 0.5 mg Q4H PRN IV 12/26/16 22:45 01/25/17 22:44 Lorazepam 0.5 mg/ Syringe 1 ml @ 1 mls/min Q4H PRN IV 12/26/16 22:45 01/25/17 22:44 Ioversol (Optiray 320) 100 ml UD PRN IV 12/26/16 22:45 12/30/16 22:44 Enoxaparin Sodium (Lovenox Inj) 80 mg Q12H SQ 12/27/16 14:00 01/26/17 13:59 12/29/16 14:45 80 MG
[2016-12-29] MEDS ORDERED: LISI-729 PO (15:21)
[2016-12-29] MEDS ORDERED: LVNIS80 SQ (15:21)
--- NOTE | 2016-12-29 15:27 | Discharge Instructions ---
Discharge Instructions Date of Service Dec 29, 2016. Admission Reason for Admission: New Onset Atrial Flutter Discharge Discharge Diagnosis / Problem: ATRIAL FLUTTER Discharge Goals Goal(s): Diagnostic testing, Therapeutic intervention Activity Recommendations Activity Limitations: as noted below (NO HEAVY EXERTION UNTIL RE-EVALUATED BY PRIMARY CARE PHYSICIAN) Lifting Limitations: until after follow-up appointment Exercise/Sports Limitations: until after follow-up appointment . Instructions / Follow-Up Instructions / Follow-Up PLEASE REVIEW YOUR NEW MEDICATIONS LIST AND FOLLOW INSTRUCTIONS CAREFULLY. YOU WILL NEED TO FOLLOW UP WITH COUMADIN CLINIC IN [facility] FOR INSTRUCTIONS REGARDING BLOOD WORK, DOSING OF LOVENOX AND COUMADIN. THEY WILL BE CALLING YOU IN 1-2 DAYS FOR INSTRUCTIONS. IF YOU ARE HAVING CHEST PAIN, SHORTNESS OF BREATH, HEART RACING, DIZZINESS, WEAKNESS, CALL IMMEDIATELY. IF YOU ARE HAVING SIGNS OF BLEEDING, CALL YOUR PRIMARY CARE PHYSICIAN OR RETURN TO ER IMMEDIATELY. FOLLOW UP WITH DR. SMITH ON SATURDAY DECEMBER 31, 2016 11:45AM. FOLLOW UP WITH CARE COMPANION DR. AMIN IN 1-2 WEEKS. Medication Instructions: * Warfarin is a medicine prescribed to prevent blood clots * Warfarin will thin your blood and help prevent new clots * Take your medications exactly as directed * Never skip a dose. Never take a double dose. If you miss a dose, take it as soon as you remember * It is important for your doctor to monitor your prothrombin time (PT). This is a lab test * Keep your appointment for lab tests Risk of Adverse Drug Reactions and Interactions: * Warfarin increases your risk of bleeding * The food you eat and other medications you take can affect how Warfarin works in your body * Ask your doctor about daily aspirin therapy * It is very important to talk with your doctor about all of the other medicines , antibiotics, vitamins or herbal products that you are taking * All of your medication must be approved by your doctor, including new medicines, as well as medicines you have taken before you started taking Warfarin Diet: * In order for Warfarin to work properly, it is important to keep your intake of Vitamin K as consistent as possible * You should avoid any sudden change in Vitamin K intake * Report any significant changes in your diet or weight to your doctor Call your Primary Care doctor if you experience any of the following: * Swelling or Pain in your leg * Sudden, continuous pain deep in a muscle * Pain that worsens when you are active or when you stand still for a long time * Chest Pain * Sudden Shortness of Breath * Rapid or pounding heart beat * Fainting * Dizziness * Cough with blood or bloody sputum * Sweating more than normal * Bruises * Heavy or uncontrolled bleeding * Blood in your urine, stool or vomit * Black or tarry stools Caring for Your Self at Home: * Avoid sitting, standing or lying down for long periods without moving your legs and feet * When traveling by car, stop to get out and move around at least once every 3 hours * On long airplane, train or bus rides, get up and move around when possible * If you can't get up, wiggle your toes and tighten your calves to keep your blood moving Follow Up: It is important for you to keep your follow up appointments with your medical provider. Current Hospital Diet Patient's current hospital diet: AHA Diet (Heart Healthy) Discharge Diet Recommended Diet: AHA Diet (Heart Healthy) Pending Studies Studies pending at discharge: yes List of pending studies: REPEAT BLOODWORK C/O ANTICOAGULATION CLINIC (CLINIC WILL CALL YOU REGARDING APPOINTMENT) Laboratory Results Lipid Panel Test 12/27/16 02:15 Range/Units Triglycerides Level 145 0-150 mg/dl Cholesterol Level 142 0-200 mg/dl HDL Cholesterol 42 mg/dl Cholesterol/HDL Ratio 3.4 LDL Cholesterol, Calculated 71 mg/dl Medical Emergencies . Who to Call and When: Medical Emergencies: If at any time you feel your situation is an emergency, please call 911 immediately. . Non-Emergent Contact Non-Emergency issues call your: Primary Care Provider Call Non-Emergent contact if: you have a fever, you have any medication questions . . "Provider Documentation" section prepared by Carlos Enrique Parr. . VTE Core Measure Inpt VTE Proph given/why not?: Enoxaparin (Lovenox)SQ
[2016-12-29] MEDS ORDERED: CMD3 PO (15:28)
--- NOTE | 2016-12-29 15:37 | Discharge Summary ---
Discharge Summary Date of Service Dec 29, 2016. Discharge Summary Admission Date: Dec 26, 2016 at 19:28 Discharge Date: Dec 29, 2016 Discharge Disposition: Home Principal Diagnosis: NEW ONSET ATRIAL FLUTTER Secondary Diagnoses/Problems: Please refer to hospital course below. Procedures: ECHO: * Ejection Fraction = 60-65%. * There is mild concentric left ventricular hypertrophy. * The left atrium is moderately dilated. * There is a bioprosthetic aortic valve. * Bioprosthetic leaflets are thick and move well. * Systolic gradients are within acceptable range for this type of bioprosthesis. * No significant bioprosthetic valve regurgitation. * There is mild tricuspid regurgitation. * S/p aortic root replacement. * Normal aortic root and ascending aorta diameter. CT ANGIOGRAM OF THE CHEST IMPRESSION: 1. No pulmonary emboli identified. 2. No acute intrathoracic findings. 3. Stable postoperative findings consistent with aortic valve replacement, graft repair of the ascending aorta and thoracic aortic stent placement. 4. Mild gallbladder distention which could be correlated with right upper quadrant pain. DOPPLER US OF THE LEGS No DVT Consultations: Treatment Coordinator Dr. Hodgson/Torsten Pending Studies/Follow-Up: Please refer to hospital course below. Medication Reconciliation New Medications: Warfarin Sod (Coumadin) 3 Mg Tab 1 TAB PO DAILY for 30 Days, #30 TABS 1 Refill TAKE DAILY AT 4:00 PM Enoxaparin (Lovenox) 80 Mg/0.8 Ml Inj 80 MG SQ Q12H for 7 Days, #14 UNITS 1 Refill Changed Medications: Lisinopril (Zestril) 5 Mg Tab 2.5 MG PO DAILY for 30 Days, #15 TAB 1 Refill (Changed from: 5 MG; Refills: ) Continued Medications: Aspirin Enteric Coated (Ecotrin Or Generic *) 81 Mg Ectab 81 MG PO DAILY Pravastatin (Pravachol ) 20 Mg Tab 20 MG PO DAILY Risperidone (Risperdal) 0.5 Mg Tab 0.5 MG PO BID Admission Information HPI (per Admitting provider): This is a 66 yo Male with past medical hx of Mood disorder ( Schizophrenia ? ) , Crohn's colitis , hx of bicuspid heart valve S/P AVR with prosthetic valve replacement , coarctation of aorta s/p repair of thoracic coarctation with stent graft , h/o spontaneous rupture of splenic artery aneurysm , hx of hepatic artery aneurysm was scheduled to have routine colonoscopy done today for inflammatory bowel disease , prior to procedure -EKG done [facility] @ 12: 20 PM shows possible Aflutter with variable degree block , ventricular rate 109 pt was sent to ED for further evaluation pt denies of any symptom of SOB /SEWELL /palpitation /lightheadedness /increased fatigue /decreased exercise tolerance today or in recent few weeks mentions of felt dizzy while going to bathroom multiple time last night for the colonoscopy prep but symptom resolved after rest this morning at [facility] Endoscopy suite -did not had any discomfort or symptom , no symptom after arrival to ED and there after pt was given 25 mg PO Lopressor , started on low dose iV heparin in ED Physical Exam (per Admitting): General Appearance: no apparent distress Head: normocephalic, atraumatic Eyes: sclerae normal Neck: supple, no adenopathy, thyroid normal, no carotid bruits Respiratory/Chest: chest non-tender, lungs clear, normal breath sounds, no respiratory distress Cardiovascular: no edema, no JVD, normal peripheral pulses, + irregularly irregular Abdomen/GI: normal bowel sounds, non tender, soft Extremities/Musculoskelatal: normal capillary refill, no pedal edema Neurologic/Psych: no motor/sensory deficits, alert, normal mood/affect, oriented x 3 Skin: normal color, warm/dry, no rash Lymphatic: no adenopathy Hospital Course NEW ONSET ATRIAL FLUTTER -- found to have atrial flutter in RVR before colonoscopy Treatment Coordinator consulted Metoprolol BID started, as well as Lovenox + Coumadin however, patient noted to have profound bradycardia, Metoprolol thus held -- discussed with Dr. Hodgson will need Cardiac Monitoring to r/o Tachy-Van Syndrome, may need Pacemaker Placement ff up with Treatment Coordinator in 1-2 weeks -- d/c on Coumadin 3mg po daily, with Lovenox bridge needs to establish with Coumadin clinic HX OF CROHN'S DISEASE follows with GI [facility] Dr Wolf was on Lialda in past -discontinued due to non compliance not on any active tx for IBD Colonoscopy was cancelled due to atrial flutter - no GI symptoms - ff up with GI as scheduled HTN BP on the low side decrease Lisinopril to 2.5mg po daily monitor as outpatient HYPERLIPIDEMIA Cont Pravastatin DEPRESSION /MOOD DISORDER : continue Risperidone DISPOSITION : d/c home today ff up with: PCP Dr. Mitchell in 1 week Treatment Coordinator in 1-2 weeks Coumadin Clinic this week Total time spent on discharge = 40 minutes This includes examination of the patient, discharge planning, medication reconciliation, and communication with other providers. Discharge Instructions Discharge Instructions Date of Service Dec 29, 2016. Admission Reason for Admission: New Onset Atrial Flutter Discharge Discharge Diagnosis / Problem: ATRIAL FLUTTER Discharge Goals Goal(s): Diagnostic testing, Therapeutic intervention Activity Recommendations Activity Limitations: as noted below (NO HEAVY EXERTION UNTIL RE-EVALUATED BY PRIMARY CARE PHYSICIAN) Lifting Limitations: until after follow-up appointment Exercise/Sports Limitations: until after follow-up appointment . Instructions / Follow-Up Instructions / Follow-Up PLEASE REVIEW YOUR NEW MEDICATIONS LIST AND FOLLOW INSTRUCTIONS CAREFULLY. YOU WILL NEED TO FOLLOW UP WITH COUMADIN CLINIC IN [facility] FOR INSTRUCTIONS REGARDING BLOOD WORK, DOSING OF LOVENOX AND COUMADIN. THEY WILL BE CALLING YOU IN 1-2 DAYS FOR INSTRUCTIONS. IF YOU ARE HAVING CHEST PAIN, SHORTNESS OF BREATH, HEART RACING, DIZZINESS, WEAKNESS, CALL 01-03- IMMEDIATELY. IF YOU ARE HAVING SIGNS OF BLEEDING, CALL YOUR PRIMARY CARE PHYSICIAN OR RETURN TO ER IMMEDIATELY. FOLLOW UP WITH DR. MITCHELL ON SATURDAY DECEMBER 31, 2016 11:45AM. FOLLOW UP WITH INFORMATION ASSURANCE ENGINEER DR. HODGSON IN 1-2 WEEKS. Medication Instructions: * Warfarin is a medicine prescribed to prevent blood clots * Warfarin will thin your blood and help prevent new clots * Take your medications exactly as directed * Never skip a dose. Never take a double dose. If you miss a dose, take it as soon as you remember * It is important for your doctor to monitor your prothrombin time (PT). This is a lab test * Keep your appointment for lab tests Risk of Adverse Drug Reactions and Interactions: * Warfarin increases your risk of bleeding * The food you eat and other medications you take can affect how Warfarin works in your body * Ask your doctor about daily aspirin therapy * It is very important to talk with your doctor about all of the other medicines , antibiotics, vitamins or herbal products that you are taking * All of your medication must be approved by your doctor, including new medicines, as well as medicines you have taken before you started taking Warfarin Diet: * In order for Warfarin to work properly, it is important to keep your intake of Vitamin K as consistent as possible * You should avoid any sudden change in Vitamin K intake * Report any significant changes in your diet or weight to your doctor Call your Primary Care doctor if you experience any of the following: * Swelling or Pain in your leg * Sudden, continuous pain deep in a muscle * Pain that worsens when you are active or when you stand still for a long time * Chest Pain * Sudden Shortness of Breath * Rapid or pounding heart beat * Fainting * Dizziness * Cough with blood or bloody sputum * Sweating more than normal * Bruises * Heavy or uncontrolled bleeding * Blood in your urine, stool or vomit * Black or tarry stools Caring for Your Self at Home: * Avoid sitting, standing or lying down for long periods without moving your legs and feet * When traveling by car, stop to get out and move around at least once every 3 hours * On long airplane, train or bus rides, get up and move around when possible * If you can't get up, wiggle your toes and tighten your calves to keep your blood moving Follow Up: It is important for you to keep your follow up appointments with your medical provider. Current Hospital Diet Patient's current hospital diet: AHA Diet (Heart Healthy) Discharge Diet Recommended Diet: AHA Diet (Heart Healthy) Pending Studies Studies pending at discharge: yes List of pending studies: REPEAT BLOODWORK C/O ANTICOAGULATION CLINIC (CLINIC WILL CALL YOU REGARDING APPOINTMENT)
[2016-12-29 15:42] VITALS: BP 118/70; PULSE 68; TEMP 36.6; O2SAT 96
[2016-12-29 15:51] VITALS: BP 118/70; PULSE 68; TEMP 36.6; O2SAT 96
[2016-12-29] MEDS ORDERED: ENOXAPARIN 80 MG/0.8 ML SYR SQ SCH (16:00)
[2016-12-29] MEDS ORDERED: WARFARIN SOD 3 MG TAB PO SCH (16:00)
== END 2016-12-29 17:42 | disposition home or self-care (01) | DRG 310 ==
LOC: EDBD 14:03 → C.EDC 14:04 → C.2T 19:28 → ENRESERV 19:45 → C.2T 12-29 03:41
PROVIDERS: ADMIT Hospitalist; ATTEND Internal Medicine
DX: I48.92 Unspecified atrial flutter (principal); I10 Essential (primary) hypertension; E78.5 Hyperlipidemia, unspecified; F32.9 Major depressive disorder, single episode, unspecified; F20.9 Schizophrenia, unspecified; Z95.2 Presence of prosthetic heart valve; Z79.82 Long term (current) use of aspirin; Z80.9 Family history of malignant neoplasm, unspecified

== ENCOUNTER 2017-11-19 07:03 | Inpatient (IN) | payer OTHER ==
[2017-11-19] VITALS (23 sets, daily range): BP systolic 77–170; BP diastolic 53–99; PULSE 46–108; TEMP 36.6–36.9; O2SAT 73–99; Ht 167.6 cm; Wt 81.3 kg
[~2017-11-19] VITALS: Ht 167.6 cm; Wt 81.3 kg
[~2017-11-19 07:03] MED LIST changes: +CMD3 PO; +LVNIS80 SQ; -MESA1.2T PO
[2017-11-19] MEDS ORDERED: FENTANYL CITRATE INJ 50 MCG/1 ML 2 ML VIAL ONE (08:12)
[2017-11-19] MEDS ORDERED: MIDAZOLAM HCL 1 MG/ML 2ML VIAL ONE (08:12)
--- NOTE | 2017-11-19 08:14 | History & Physical Bridge Note ---
H&P Re-Evaluation Bridge Note: I have examined the patient, reviewed the History & Physical and in the interval since the performance of the History & Physical I have noted the following changes of clinical significance: No changes noted
[2017-11-19] MEDS ORDERED: METO25TA3 PO (08:29)
[2017-11-19] MEDS ORDERED: MAGN400T6 PO (08:29)
--- NOTE | 2017-11-19 08:31 | Pre Sedation Assessment ---
Pre Sedation Assessment General Date of Sedation: Nov 19, 2017. Vital Signs Past 12 Hours Date Time Temp Pulse Resp B/P (MAP) Pulse Ox O2 Delivery O2 Flow Rate FiO2 11/19/17 07:37 36.8 108 12 119/93 (102) 97 Room Air Review Cardiovascular: no edema, no JVD, no murmur, normal peripheral pulses, + irregularly irregular Lungs: chest non-tender, lungs clear, normal breath sounds, no respiratory distress, no accessory muscle use Pre-Sedation Airway Assessment Smoking Status: Never Smoker Hx of Sleep Apnea: No Short Thick Neck: No Thyro-mental Distance: > 3 Finger Breadths Oral Cavity: WNL Mallampati Classification: Class II ASA Classification: Class II NPO Status Date of Last Intake of Fluids: Nov 18, 2017 Time of Last Intake of Fluids: 2358 Date of Last Intake of Solids: Nov 18, 2017 Time of Last Intake of Solids: 2358 Notes The planned sedation has been discussed with the patient. Informed Consent was obtained. I have identified the patient, determined the appropriateness of sedation and have assessed the patient immediately prior to the procedure. All medicine(s) and interventions are by my order.
--- NOTE | 2017-11-19 09:07 | [facility] Post Operative Brief Note ---
Immediate Operative Summary Operative Date Nov 19, 2017. Pre-Operative Diagnosis symptomatic atrial flutter with rvr Post-Operative Diagnosis same Procedure(s) Performed DC cardioversion start time: stop time: Surgeon Aaron [employer] Surgeon(s) Bernice JARAMILLO Estimated Blood Loss none Findings See Below (Pt adequately sedated. 300J of DC energy delivered. Immediately post cardioversion patient did not regain an organized rhythm and became asystolic. Immediately received external pacing at 60 beats per minute. Code blue called. Pt maintained airway and saturations. Atropine given. MAP lowered from 50 to 20 capture maintained. Narcan 0.4mg given and spontaneous sinus rhythm regained.) uatsdin of sinus rhythm after a brief period of asystole Specimens none Anesthesia Type IV Sedat Cons RN Only Disposition Accompanied Pt To Recover: ICU Overlapping Procedure I was present for: the critical portions of procedure. I was immediately available: during the entire case Back up surgeon: was not required during procedure
--- NOTE | 2017-11-19 09:15 | Procedure Note ---
Procedure Note Date of Service Nov 19, 2017. Procedure Note Informed consent obtained. Benefits and alternatives discussed, patient in agreement to proceed. Pt prepped. Adequate conscious sedation achieved with a total of Versed 3mg and Fentanyl 75mcg. 300J of DC energy delivered with cessation of atrial flutter,however, spontaneous rhythm did not occur. Defibrillator changed to external pacing mode with rate at 60 bpm. Immediate successful capture achieved. Patient responsive and complaining of pain with a MAP at 50, changed to 20, capture maintained, pt comfortable. Atropine given. Code blue called. Spontaneous [place] rhythm regained. Narcan 0.4 mg given. Time of pacer dependence approx 60 seconds throughout patient maintained his airway and saturations critical care present at bedside at which time patient in [place] sinus bradycardia and pacer turned off flumazenil 0.2mg given, pt awake and conversant. discussed case with critical care, will admit for observation overnight in ICU will leave external pacer on with a rate of 40 bpm, MAP of 20 obviously, hold metoprolol Discussed above plan with patient and he is agreement to overnight observation attempted to contact and friend, Clarke, his newspaper delivery driver by phone, no answer, will try again Start time:835 stop time: [id number]
--- NOTE | 2017-11-19 09:16 | Post Sedation Assessment ---
Post Sedation Assessment General Date of Sedation Nov 19, 2017. Vital Signs: Vital Signs Past 12 Hours Date Time Temp Pulse Resp B/P (MAP) Pulse Ox O2 Delivery O2 Flow Rate FiO2 11/19/17 07:37 36.8 108 12 119/93 (102) 97 Room Air Post Procedure Recovery Score Activity: (2) Moves 4 extremities * Respiration: (2) Deep breath/cough Circulation: (2) +/-20% PreAnes Value Consciousness: (2) Fully Awake Oxygen Saturation: (2) > 92% On Room Air Discharge Sedation Level of Care: Higher Level of Care Post Sedation Plan see procedure note for details procedure complicated by asystole will observe in ICU overnight
--- NOTE | 2017-11-19 10:12 | HISTORY & PHYSICAL EXAMINATION ---
DATE OF ADMISSION: 11/19/2017 REASON FOR CONSULTATION: Asystole, status post cardioversion. HISTORY OF PRESENT ILLNESS: Mr. Soto is a very pleasant 67-year-old gentleman who follows with myself as an outpatient for his history of AVR and paroxysmal atrial fibrillation/flutter. He presented to [facility] as an outpatient on 11/19/2017 for a planned outpatient cardioversion for his symptomatic atrial flutter. The patient's INRs have been consistently therapeutic, so the risks and benefits of the procedure were discussed with the patient as well as the alternative treatments. He stated that he agreed to proceed with the procedure. The patient was prepped in the cardiopulmonary lab per usual. He received adequate conscious sedation with a total of Versed 3 mg and fentanyl 75 mcg. Once he was adequately sedated, 300 joules of direct current energy were delivered, which was successful in terminating the atrial flutter; however, the patient did not return to spontaneous [place] rhythm. The external defibrillator was immediately turned to external pacing mode and patient was paced at 60 beats per minute with a MAP of 50. With this, the patient was responsive and started complaining of pain from the pacer shocks. The MAP was decreased to 20. Capture was maintained and he was given atropine. A code blue was called and the patient was given Narcan 0.4 mg. Throughout this, the patient maintained his own airway and is on saturations. After approximately 60 seconds of pacing, the patient's [place] sinus rhythm was restored in the 50s and the pacer output was discontinued. The critical care team arrived at the bedside and it was discussed and agreed that we will keep the patient for overnight observation given this asystolic episode. No external chest compressions were necessary. The patient again maintained his saturations and was asystolic for only a few seconds before pacing was achieved. PAST SURGICAL HISTORY: 1. Stenting of coarctation of the aorta. 2. Aortic valve replacement with a bioprosthetic valve along with graft repair of the ascending aorta. 3. Splenectomy, status post spontaneous splenic artery rupture. 4. Colonoscopy. 5. Hepatic artery aneurysm embolization. PAST MEDICAL ILLNESSES: 1. Paroxysmal atrial fibrillation. 2. History of bicuspid aortic valve, status post aortic valve replacement. 3. Aortic coarctation, status post stenting and follow up graft repair. 4. Hypertension. 5. History of schizophrenia. 6. GERD. 7. Anxiety. FAMILY HISTORY: Noncontributory. SOCIAL HISTORY: The patient denies any alcohol, tobacco, or recreational drug use. He is and lives at home with his . He is currently employed at a local [employer]. REVIEW OF SYSTEMS: As per HPI. All review of systems reviewed and negative at this time. ALLERGIES: No known drug allergies. MEDICATIONS AN OUTPATIENT: 1. Metoprolol succinate 25 mg daily. 2. Pravastatin 20 mg daily. 3. Coumadin as directed by the Coumadin clinic. 4. Magnesium oxide 400 mg daily. 5. Amoxicillin prior to dental procedures. 6. Lisinopril 2.5 mg daily. PHYSICAL EXAMINATION: VITALS: Temperature is 36.8, pulse 56, respiratory rate 12, blood pressure 93/62. GENERAL: Awake, alert, and oriented x3, in no acute distress. HEENT: Normocephalic, atraumatic. Pupils equal, round, reactive to light and accommodation. Extraocular muscles intact. Anicteric sclerae. Moist mucous membranes. NECK: No JVD. No bruit. CARDIOVASCULAR: Regular, but slow. Slight 2/6 mid to late systolic ejection murmur greatest at the left sternal border second intercostal space without radiation. No rubs. PULMONARY: Clear to auscultation bilaterally. No rales, rhonchi, or wheezing. ABDOMEN: Bowel sounds x4, soft. No rebound, guarding, or tenderness. No organomegaly. EXTREMITIES: No clubbing, cyanosis, or edema. +2 pedal pulses bilaterally. SKIN: Warm and dry. TEST RESULTS: Preprocedure EKG confirmed atrial flutter with variable rate response to 108 beats per minute. IMPRESSION: 1. Brief period of asystole, status post cardioversion, resolved. 2. Symptomatic atrial flutter with rapid ventricular response, status post cardioversion. 3. History of aortic valve replacement along with aortic graft repair. RECOMMENDATIONS: The patient responded very nicely and appropriately to the immediate treatment given after the cardioversion. He is now resting comfortably in the ICU. He is no longer requiring external pacing. However, the external pacer will remain in place with a baseline rate at 40 beats per minute and a MAP of 20 should he down again. His blood pressure was initially a little on the low side, so will be given 500 mL of normal saline over 2 hours. Obviously, his metoprolol will not be restarted. Here, I took all of his medications this morning, so no other medications will be given at this time. The patient was counseled that should his rates remain significantly bradycardic, then pacemaker placement may be indicated, but again further recommendations will follow after observation on telemetry. I greatly appreciate critical care team's aid in the care of the patient.
[2017-11-19 10:19] LABS: BASO % 0.6 %; BASO ABS # 0.05 K/uL (0-0.2); EOS % 2.8 %; EOS ABS # 0.23 K/uL (0-0.5); HEMATOCRIT 42.2 % (42-52); HEMOGLOBIN 14.3 g/dL (14.0-18.0); IG# 0.02 K/uL (0.00-0.02); LYMPH % 31.6 %; LYMPH ABS # 2.63 K/uL (1.2-3.4); MEAN CELL VOLUME 95.9 fL (80-100); MEAN CORPUSCULAR HEMOGLOBIN 32.5 pg (25-34); MEAN CORPUSCULAR HGB CONC 33.9 g/dl (32-36); MEAN PLATELET VOLUME 9.5 fL (7.4-10.4); MONO ABS # 0.83 K/uL (0.11-0.59); NEUT % 54.8 %; NEUT ABS # 4.57 K/uL (1.4-6.5); PLATELET COUNT 277 K/uL (130-400); RED CELL DISTRIBUTION WIDTH CV 14.3 % (11.5-14.5); RED CELL DISTRIBUTION WIDTH SD 50.5 fL (36.4-46.3); WHITE BLOOD COUNT 8.33 K/uL (4.8-10.8)
[2017-11-19 10:38] LABS: CALCIUM 8.3 mg/dl (8.5-10.1); CREATININE 1.03 mg/dl (0.60-1.40); POTASSIUM 4.7 mmol/L (3.5-5.1)
[2017-11-19] MEDS ORDERED: NURSING VERBAL MED ORDER ONE ×3 (10:45→22:30)
[2017-11-19] MEDS ORDERED: SODIUM CHLORIDE 0.9% 500ML 500 ML IV ONE (11:00)
[2017-11-19] MEDS: SODIUM CHLORIDE 0.9% 1000ML 1,000 ML IV SCH ×2 (11:48→20:50)
[2017-11-19] MEDS ORDERED: CALCIUM GLUCONATE 10% 1,000 MG in SODIUM CHLORIDE 0.9% 50ML 50 ML IV STA (15:12)
--- NOTE | 2017-11-19 15:12 | Critical Care Consultation ---
Critical Care Consultation Date of Consultation: Nov 19, 2017. Attending Physician: Adan Walker D.O. Reason for Consultation: Postop management status post cardioversion. History of Present Illness Dear Dr. Walker: Thank you for your kind referral of Mr. Soto to critical care service. This is 67-year-old gentleman with history of paroxysmal A. fib/atrial flutter, has been maintained on Coumadin, aortic valve replacement with bioprosthetic valve, history of stenting of coarctation of the aorta, hyperlipidemia, hypertension, presented to the hospital for elective cardioversion. The patient received moderate sedation for the procedure, and underwent the procedure successfully however postprocedure, the patient had few seconds of asystole and then had bradycardia and depressed respiratory drive which responded to flumazenil and Narcan. The patient woke up and maintained his airways appropriately, was answering questions properly, his blood pressure came up and maintained at 97 systolic. Patient transferred to the ICU for further management. Pacer pads were placed on his chest and the patient did not require any active pacing. When I interviewed the patient, the patient was fully awake, following commands and answering questions, shortly after the waking up, he denies any sore throat , no shortness of breath, no chest pain, he was totally asymptomatic. No cough no hemoptysis. He denies any edema in his periphery in the past, no pain in his calves, no dizziness or near syncopal episode at the moment. The rest of his review of system was unremarkable. He does not remember the event. 2 hours later the patient was able to tolerate oral intake and has been monitored in the ICU, with solid vital signs, no issues whatsoever. Family History Cancer Social History Smoking Status: Never Smoker Marital Status: Housing Status: lives with family Occupation Status: employed Allergies Coded Allergies: No Known Allergies (Verified , 12/26/16) Home Medications Scheduled Lisinopril (Zestril), 2.5 MG PO DAILY Magnesium Oxide (Mag-Ox), 400 MG PO DAILY Metoprolol Succ (Toprol Xl) (Toprol-Xl), 25 MG PO DAILY Pravastatin (Pravachol ), 20 MG PO DAILY Warfarin Sod (Coumadin), 1 TAB PO DAILY Current Inpatient Medications Current Inpatient Medications Medications (Trade) Dose Ordered Sig/Rosemarie Route Start Time Stop Time Status Last Admin Dose Admin Sodium Chloride 1,000 ml @ 100 mls/hr Q10H IV 11/19/17 11:00 12/19/17 10:59 11/19/17 11:48 100 MLS/HR Review of Systems Constitutional: No fever, No chills, No sweats, No weight loss, No weakness, No fatigue, No problem reported Eyes: No worsening of vision, No eye pain, No redness, No discharge, No diplopia, No problem reported ENT: No hearing loss, No unusual epistaxis, No nasal symptoms, No sore throat, No tinnitus, No dental problems, No trouble swallowing, No problem reported Respiratory: No cough, No sputum, No wheezing, No shortness of breath, No dyspnea on exertion, No dyspnea at rest, No hemoptysis, No problem reported Cardiovascular: No chest pain, No orthopnea, No PND, No edema, No claudication , No palpitations, No problem reported Abdomen: No pain, No nausea, No vomiting, No diarrhea, No constipation, No GI bleeding, No problem reported Musculoskeletal: No joint pain, No muscle pain, No swelling, No calf pain, No problem reported Genitourinary - Male: No hematuria, No dysuria, No urinary frequency, No urinary urgency, No urinary hesitancy, No urinary retention, No urinary incontinence, No penile discharge, No lesions, No impotence, No problem reported Neurologic: No memory loss, No paralysis, No weakness, No numbness/tingling, No vertigo, No balance problems, No problem reported Psychiatric: No depression symptoms, No anhedonism, No anxiety, No insomnia, No substance abuse, No problem reported Endocrine: No fatigue, No excessive thirst, No excessive urination, No problem reported Integumentary: No rash, No itch, No new/changing skin lesions, No color change , No bleeding, No problem reported Allergic / Immunologic: No environmental allergies, No seasonal allergies, No pet sensitivities, No food allergies, No hives, No frequent infections, No poor healing, No prolonged convalescence, No problem reported Physical Exam Date Time Temp Pulse Resp B/P (MAP) Pulse Ox O2 Delivery O2 Flow Rate FiO2 11/19/17 14:00 49 17 109/57 (74) 97 Room Air 11/19/17 13:00 36.7 50 20 105/59 (74) 96 Room Air 11/19/17 12:49 Room Air 11/19/17 12:31 50 23 108/62 (77) 96 Room Air 11/19/17 12:01 68 23 113/70 (84) 93 Room Air 11/19/17 11:32 54 23 118/76 (90) 99 Room Air 11/19/17 11:01 46 18 92/53 (66) 96 Room Air 11/19/17 10:31 52 14 103/67 (79) 97 Room Air 11/19/17 10:01 49 20 93/60 (71) 97 Room Air 11/19/17 09:31 50 16 86/61 (69) 95 Room Air 11/19/17 09:15 53 15 77/58 (64) 95 Room Air 11/19/17 09:00 36.6 51 14 93/61 Room Air 11/19/17 09:00 36.6 53 14 77/58 (64) 97 Room Air 11/19/17 08:57 76 18 106/67 (80) 98 Nasal Cannula 6 11/19/17 08:54 88 18 102/72 (82) 99 Nasal Cannula 6 11/19/17 08:49 102 18 110/76 (87) 99 Nasal Cannula 6 11/19/17 08:47 52 23 110/77 (88) 99 Nasal Cannula 6 11/19/17 08:41 Nasal Cannula 2 11/19/17 08:40 107 11 119/88 95 Nasal Cannula 2 11/19/17 08:36 107 10 125/99 98 Nasal Cannula 2 11/19/17 07:37 36.8 108 12 119/93 (102) 97 Room Air General Appearance: WD/WN, no apparent distress Eyes: EOMI ENT: normal throat exam Neck: trachea midline Respiratory: breath sounds normal Cardiovasular: regular rate/rhythm, normal S1S2, no M/G/R (Bradycardia) Abdomen: non tender, normal bowel sounds, no rebound, no guarding Upper Extremities: no edema Lower Extremities: no edema Neuro: alert, oriented x 3, normal motor exam Psychiatric: normal affect Laboratory Results Last 24 Hours Test 11/19/17 10:02 White Blood Count 8.33 K/uL Red Blood Count 4.40 M/uL Hemoglobin 14.3 g/dL Hematocrit 42.2 % Mean Corpuscular Volume 95.9 fL Mean Corpuscular Hemoglobin 32.5 pg Mean Corpuscular Hemoglobin Concent 33.9 g/dl Platelet Count 277 K/uL Mean Platelet Volume 9.5 fL Neutrophils (%) (Auto) 54.8 % Lymphocytes (%) (Auto) 31.6 % Monocytes (%) (Auto) 10.0 % Eosinophils (%) (Auto) 2.8 % Basophils (%) (Auto) 0.6 % Neutrophils # (Auto) 4.57 K/uL Lymphocytes # (Auto) 2.63 K/uL Monocytes # (Auto) 0.83 K/uL Eosinophils # (Auto) 0.23 K/uL Basophils # (Auto) 0.05 K/uL RDW Standard Deviation 50.5 fL RDW Coefficient of Variation 14.3 % Immature Granulocyte % (Auto) 0.2 % Immature Granulocyte # (Auto) 0.02 K/uL Sodium Level 139 mmol/L Potassium Level 4.7 mmol/L Chloride Level 108 mmol/L Carbon Dioxide Level 26 mmol/L Anion Gap 5.0 mmol/L Blood Urea Nitrogen 12 mg/dl Creatinine 1.03 mg/dl Est Creatinine Clear Calc Drug Dose 71.6 ml/min Estimated GFR () 87.9 Estimated GFR (Non- 75.9 BUN/Creatinine Ratio 12.0 Random Glucose 89 mg/dl Calcium Level 8.3 mg/dl Diagnostic Results EKG was reviewed which showed bradycardia in the range of 45-55 with occasional PACs, remains in normal sinus rhythm, the patient blood pressure has been maintained also systolic blood pressure 102/65 and increase to 135/75 when he is awake. No stridor, S1-S2 bradycardia, distant breath sounds bilaterally, abdomen is benign, no edema. Labs also were reviewed as well personally. Assessment & Plan 1. Somnolence, postprocedure, very, and responded very well to flumazenil and Narcan. No recurrence of somnolence at this point. Patient monitored for the past several hours and has been fully awake following commands and answering questions. 2. A flutter/A. fib, status post cardioversion, currently the patient is in sinus bradycardia with occasional PACs, did not require pacing with external pads. 3. History of aortic valve replacement with bioprosthetic valve. 4. History of hypertension on low-dose lisinopril. 5. History of splenectomy. Plan: 1. Continue to monitor the patient in the ICU. 2. Appreciate Dr. Walker input. 3. Further management of his cardiac arrhythmia per Dr. Walker. 4. Check labs including electrolytes. 5. The patient is on Coumadin, therapeutic at this point, will continue. 6. Oral intake. 7. Patient already prophylaxed for DVT. 8. CBC was reviewed and appear to be stable. 9. Continue hydrating the patient with normal saline at 100 an hour. Patient received already a bolus of 500. Blood pressure has been stable. 7. Calcium has been slightly low, will replace it. Discussed in details with the staff, patient monitored on several occasions throughout the day, the patient appeared to be stable hemodynamically, I will continue to monitor. CCT 35 minutes.
--- NOTE | 2017-11-19 15:21 | Progress Note ---
Progress Note Date of Service Nov 19, 2017. Progress Note Pt remains completely asymptomatic. Unfortunately, remains bradycardic into the 40's and even into 30's for periods. So, will ask our senior category manager, Dr. 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
--- NOTE | 2017-11-19 15:44 | Cardiology Consultation ---
Cardiology Consultation Date of Service Nov 19, 2017. Cardiology Consultation Full EP consult dictated; in brief patient with early signs of tachy-tricia syndrome. Will probably eventually need a pacemaker in his lifetime but at this juncture if he remains asymptotic and ambulates ok then no indication for pacemaker as an inpatient. I will see him as an outpatient in 1-2 weeks. Would consider stopping metoprolol. Would turn external pacing off and just have it at the bedside.
[2017-11-19] MEDS ORDERED: ONDANSETRON INJ 2 MG/ML 2 ML VIAL ONE (22:20)
[2017-11-20] VITALS (14 sets, daily range): BP systolic 93–134; BP diastolic 58–69; PULSE 47–69; TEMP 36.8; O2SAT 87–96
[2017-11-20] MEDS: SODIUM CHLORIDE 0.9% 1000ML 1,000 ML IV SCH (06:30)
--- NOTE | 2017-11-20 07:00 | Clinical Documentation Query ---
RUBY Quezada : CLINICAL DOCUMENTATION QUERY Patient is a 67 year old male admitted s/p DC cardioversion for symptomatic atrial flutter with RVR. Operative note states the following: "300J of DC energy delivered. Immediately post cardioversion patient did not regain an organized rhythm and became asystolic. Immediately received external pacing at 60 beats per minute. Code blue called." As appropriate, consider explicitly stating whether this electrical dose was synchronized (or not) as a 300J monophasic dose could be considered defibrillatory, and cannot be assumed to have been synchronized unless stated as such. In turn, this will identify the outcome as an adverse event versus a complication of care. Thank you. In your clinical opinion is this patient being managed for: ( x ) Asystole, s/p synchronized cardioversion ( ) Asystole, s/p unsynchronized cardioversion, a complication of care ( ) Not Agree ( ) Other explanation of clinical findings (No explanation is considered a No Response) ( ) Unable to determine ( ) Need to Discuss (Phone CDS or qliq) (No discussion is considered a No Response) The medical record reflects the following clinical findings, treatment, and risk factors. Clinical Indicators: As above Treatment: Transcutaneous pacing, ICU admission, cake former consultation Risk Factors: Synchronized versus unsynchronized deliverance of electrical energy Please clarify and document your clinical opinion in the progress notes and discharge summary. Terms such as "probable", "suspected", "likely", "questionable", "possible", or "still to be ruled out" are acceptable. IF IN AGREEMENT, YOU MUST DOCUMENT ABOVE DIAGNOSTIC STATEMENT IN DAILY PROGRESS NOTES AND DISCHARGE SUMMARY. This document is not part of the patient's record. Thank You, Gustavo Juarez, ELLA [phone]
--- NOTE | 2017-11-20 08:51 | Cardiology Follow-Up ---
Subjective Subjective Date of Service: Nov 20, 2017. Pt evaluation today including: conversation w/ patient, physical exam, chart review, lab review, review of studies, review of inpatient medication list Additional Details: Pt seen and examined, oob in chair without complaint. Denies cp, sob, palpitations, lightheadedness or dizziness. States that he is anxious for discharge. Tele reviewed: sinus rhythm/bradycardia with occasional PAC's. No sustained arrhythmias. No significant pauses. Problem List Medical Problems: (1) New onset atrial flutter Status: Acute Review of Systems Respiratory: No see HPI, No cough, No sputum, No wheezing, No shortness of breath, No dyspnea on exertion, No dyspnea at rest, No hemoptysis, No problem reported Cardiac: No see HPI, No chest pain, No orthopnea, No PND, No edema, No claudication, No palpitations, No problem reported Objective Vital Signs Last Vital Signs Documentation Date Time Temp Pulse Resp B/P (MAP) Pulse Ox O2 Delivery O2 Flow Rate FiO2 11/20/17 06:01 36.8 48 16 121/68 (85) 96 11/19/17 23:01 Room Air 11/19/17 08:57 6 Physical Exam: General Appearance: WD/WN, no apparent distress Eyes: bilateral eyes normal inspection, bilateral eyes PERRL, bilateral eyes EOMI ENT: normal ENT inspection, hearing grossly normal, pharynx normal Neck: supple, no adenopathy, thyroid normal, no JVD, no carotid bruits, trachea midline Respiratory/Chest: chest non-tender, lungs clear, normal breath sounds, no respiratory distress, no accessory muscle use Cardiovascular: regular rate, rhythm, no edema, no JVD, + bradycardia, + systolic murmur, + gallop/S4 Abdomen: normal bowel sounds, non tender, soft, no organomegaly Extremities: normal range of motion, non-tender, normal inspection, no pedal edema, no calf tenderness Neurologic/Psychiatric: credit professional II-XII nml as tested, no motor/sensory deficits, alert, normal mood/affect, oriented x 3 Skin: normal color, warm/dry, no rash Lymphatic: no adenopathy Assessment and Plan 1. atrial flutter s/p successful cardioversion remains therapeutic on warfarin will d/c metoprolol 2. 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 Levin at [facility] will d/c to home now once ride available
--- NOTE | 2017-11-20 08:57 | Discharge Instructions ---
Discharge Instructions Date of Service Nov 20, 2017. Admission Reason for Admission: Bradycardia Associated With Anesthesia Discharge Discharge Diagnosis / Problem: bradycardia with anesthesia Discharge Goals Goal(s): Decrease discomfort, Improve function Activity Recommendations Activity Limitations: resume your previous activity Lifting Limitations: none Exercise/Sports Limitations: none May Resume Sexual Activity: when tolerated Shower/Bathe: no limitations Driving or Machine Use: only when asymptomatic . Instructions / Follow-Up Instructions / Follow-Up Follow up with Drs. Levin and Khai Walker[facility] Cardiology will call to schedule appointments Current Hospital Diet Patient's current hospital diet: AHA Diet (Heart Healthy) Discharge Diet Recommended Diet: Regular Diet Procedures Procedures Performed: DC cardioversion start time: stop time: Pending Studies Studies pending at discharge: no Medical Emergencies . Who to Call and When: Medical Emergencies: If at any time you feel your situation is an emergency, please call 911 immediately. . Non-Emergent Contact Non-Emergency issues call your: Primary Care Provider . . "Provider Documentation" section prepared by Adan Walker. .
[2017-11-20] MEDS ORDERED: FLUMAZENIL 0.1 MG/1 ML 10 ML VIAL IV ONE (11:53)
[2017-11-20] MEDS ORDERED: NALOXONE HCL INJ 0.4 MG/1 ML VIAL/CARP IV ONE (11:53)
[2017-11-20] MEDS ORDERED: ATROPINE SULFATE 0.1 MG/ML 10 ML SYR IV ONE (11:53)
--- NOTE | 2017-11-20 12:04 | DISCHARGE SUMMARY ---
DATE OF DISCHARGE: 11/20/2017. HOSPITAL COURSE: Mr. Soto is a very pleasant 67-year-old gentleman who presented to [facility] on 11/19/2017 for an elective outpatient cardioversion for his atrial flutter. The patient underwent cardioversion, which was successful in terminating the atrial flutter. Unfortunately, he became asystolic immediately status post cardioversion and external pacing was required to maintain circulation. During this time, the patient maintained his own airway and was saturating well and did not require ventilator support greater than O2 by mask. The patient was paced for about 60 seconds and then he completely regained consciousness. His procedure sedation was reversed with Narcan and flumazenil and he remained awake and conversant. His external pacer was turned down from a MAP of 50, which the patient was complaining of pain with to 20 with a baseline heart rate of 16 and he was transferred to the intensive care unit where the basal rate was turned down to 40. In the intensive care unit, he remained in the 40s and 50s and then heart rates gradually elevated to the 50s and 60s and 70s with ambulation on 11/20/2017. He had an uneventful night. His metoprolol was obviously held and on the morning of 11/20/2017, the patient was discharged to home after being seen by electrophysiology. There was no indication for urgent pacemaker placement at this time, but this likely represents signs of conduction system disease and the patient will likely require pacemaker placement in the future and we will follow him closely as an outpatient. The patient was counseled ____ immediately or present himself to the nearest Emergency Department should these develop. The suspicion is that the patient will likely go back into atrial flutter at some point which would become symptomatic and he will require permanent pacemaker placement prior to cardioversion. PROCEDURES: ____ cardioversion. COMPLICATIONS: As above. MEDICATIONS ON DISCHARGE: 1. Pravastatin 20 mg daily. 2. Magnesium oxide 400 mg daily. 3. Lisinopril 2.5 mg daily. 4. Resume Coumadin as directed by the Anticoagulation Clinic. MEDICAL FOLLOWUP: My office will call him to set up follow up with myself and Dr. Levin as an outpatient. RESTRICTIONS: The patient has no specific cardiac restrictions at this time, but again was cautioned that if any of the above symptoms develop, he should seek immediate medical attention and obviously should not drive.
--- NOTE | 2017-11-25 13:12 | CARDIOLOGY CONSULTATION ---
DATE OF CONSULTATION: 11/19/2017 REASON FOR CONSULTATION: Concern for tachybrady syndrome. REFERRING PHYSICIAN: Dr. Walker. HISTORY OF PRESENT ILLNESS: This is a 67-year-old gentleman who was admitted to [facility] today to undergo an elective cardioversion due to probably an atypical atrial flutter. He has a history of atrial fibrillation back in December and did need to get synchronized cardioversion but did convert on his own and was started on low dose beta lauri back then in 12/2016. Limited by the dosing of beta lauri due to his marked sinus bradycardia. He presented to our [facility] office recently back in flutter and symptomatic, so he came in today for cardioversion. During the cardioversion, he did have a prolonged conversion pause and presented back with some ventricular escape before finally returning to marked sinus bradycardia. He was transferred to the ICU with transcutaneous pacing pads on and is being monitored here. Electrophysiology was consulted due to the conversion pause. Patient tells me that he has never had any lightheadedness, dizziness, or near syncope when he is in sinus rhythm. He did have some mild like shortness of breath, heart failure type symptoms when he was in the atrial flutter. He otherwise denies any chest pains. Denies any nausea, vomiting, diarrhea, constipation. PAST MEDICAL HISTORY: Coarctation of the aorta, status post stenting, bicuspid aortic valve, status post AVR with a bioprosthetic valve and a graft repair of the ascending aorta in 2012, history of schizophrenia, spontaneous rupture of the splenic artery, status post splenectomy, hepatic artery aneurysm, status post embolization, hypertension, hyperlipidemia, paroxysmal atrial fibrillation, on Coumadin and very low dose beta lauri due to marked sinus bradycardia, anxiety, gastroesophageal reflux disease, PAST SURGICAL HISTORY: Colonoscopy, diagnostic coil embolization of the hepatic aneurysm in 2013, endovascular repair of the subclavian artery in 2012, splenectomy in 2006, the AVR was in 2012 along with repair of the ascending aorta. FAMILY HISTORY: Negative for any sudden cardiac or premature coronary/cardiac disease. SOCIAL HISTORY: He is a lifelong nonsmoker, no alcohol use. ALLERGIES: No known drug allergies. MEDICATIONS: Home medications include lisinopril 2.5 mg daily, Toprol 25 mg daily, pravastatin 20 mg daily, and Coumadin. REVIEW OF SYSTEMS: All other 10 point review of systems reviewed and essentially negative at this time. See HPI for pertinent positive. PHYSICAL EXAMINATION: VITAL SIGNS: Blood pressure 109/57, temperature 36 degrees Celsius, respirations 17, heart rate 49, oxygen saturation is 97% on room air. GENERAL: She is awake, alert, oriented x3, in no acute distress, lying down in the bed. HEENT: Normocephalic and atraumatic. Extraocular motions intact. Sclerae are nonicteric. Mucous membranes are moist. NECK: Supple. No carotid bruits appreciated. No JVD. CARDIOVASCULAR: Normal S1 and S2. No significant murmur appreciated. Bradycardia. PULMONARY: Clear to auscultation bilaterally. No wheezes, rales, rhonchi. ABDOMEN: Positive bowel sounds. Soft, nontender, nondistended. EXTREMITIES: No clubbing or cyanosis about his fingers. There is no edema of the bilateral lower extremities. Peripheral pulses intact. SKIN: Grossly intact. NEUROLOGIC: Grossly intact. PERTINENT TESTING: A 12-lead ECG telemetry is marked sinus bradycardia in the 40s to 50s. Prior ECGs reviewed from the office on 10/27/2017, atypical atrial flutter, 93 beats per minute, inferior NH, cannot rule out anterior NH, QTc 462 msec. An echocardiogram on 12/27/2016, ejection fraction of 60%-65%, mild LVH, bioprosthetic AVR, mild tricuspid regurgitation, status post aortic root replacement. EKG: On 11/19/2017, atrial flutter, 109 beats a minute, post cardioversion sinus bradycardia at 48 beats per minute, otherwise normal intervals. Hematology on 11/19/2017, hemoglobin 8.3, hematocrit 14.3, hemoglobin 42, platelets 277. BMP: Sodium 139, potassium 4.7, chloride 108, carbon dioxide 27, BUN 12, creatinine 1, glucose 89, calcium 8.3. IMPRESSION: 1. Tachybrady syndrome, early signs with a long conversion pause today. 2. Paroxysmal atypical atrial flutter and atrial fibrillation, on Coumadin, no longer on low dose beta lauri due to tachybrady syndrome. 3. History of bicuspid aortic valve, status post aortic valve replacement with a bioprosthetic as well as aortic root replacement. 4. History of coarctation of the aorta, status post stenting. 5. History of schizophrenia, not on any medications. 6. Hyperlipidemia. 7. History of hepatic artery aneurysm, status post embolization. 8. History of splenic artery rupture and splenectomy in 2006. PLAN: Would discontinue him from the transcutaneous pacing. Monitor him overnight in the ICU. Would not give him back any beta blockers. Have him walk around tomorrow, and if he feels okay, then he can go home. I will see him in the office as an outpatient in about 1 month's time. At that point, we should discuss the possible need for a pacemaker, especially if he does go back into atrial flutter/atrial fibrillation. Deeming on that, he will need some type of further beta lauri or antiarrhythmic medication, and we will not be able to give this unless he has a pacemaker to prevent him from the bradycardia. The patient understood these recommendations.
== END 2017-11-20 11:54 | disposition home or self-care (01) | DRG 308 ==
LOC: C.CPL 07:03 → C.MSICU 09:45
PROVIDERS: ADMIT Internal Medicine; ATTEND Internal Medicine Cardiovascular Disease
PROC: 5A1223Z Performance of Cardiac Pacing, Continuous (ICD-10-PCS; principal; 2017-11-19 08:00)
PROC: 5A2204Z Restoration of Cardiac Rhythm, Single (ICD-10-PCS; principal; 2017-11-19 08:00)
DX: I49.5 Sick sinus syndrome (principal); I46.2 Cardiac arrest due to underlying cardiac condition; I48.4 Atypical atrial flutter; I48.0 Paroxysmal atrial fibrillation; I11.9 Hypertensive heart disease without heart failure; E78.5 Hyperlipidemia, unspecified; Z79.899 Other long term (current) drug therapy; Z79.01 Long term (current) use of anticoagulants; Z95.2 Presence of prosthetic heart valve; Z87.74 Personal history of (corrected) congenital malformations of heart and circulatory system; Z90.81 Acquired absence of spleen; Z80.42 Family history of malignant neoplasm of prostate; Z80.0 Family history of malignant neoplasm of digestive organs; Z81.8 Family history of other mental and behavioral disorders; Z82.61 Family history of arthritis; Z82.3 Family history of stroke; Z82.49 Family history of ischemic heart disease and other diseases of the circulatory system

== ENCOUNTER 2019-10-29 20:21 | Inpatient (IN) ==
[2019-10-29] MEDS ORDERED: PANTOprazole 80 MG in DEXTROSE 5% 100 ML IV ONE (21:29)
[2019-10-29] MEDS ORDERED: PANTOPRAZOLE BOLUS/DRIP 1 EA IV STA (21:29)
[2019-10-29 21:51] LABS: Basophils # (auto) 0.02 K/uL (0-0.2); Basophils % (auto) 0.1 %; Eosinophils # (auto) 0.07 K/uL (0-0.5); Eosinophils % (auto) 0.5 %; Hematocrit (blood only) 39.9 % (42-52); Hemoglobin 13.7 g/dL (14.0-18.0); Immature Granulocytes # (auto) 0.04 K/uL (0.00-0.02); Immature Granulocytes % (auto) 0.3 %; Lymphocytes # (auto) 2.34 K/uL (1.2-3.4); Mean Corpuscular Hemoglobin 32.2 pg (25-34); Mean Corpuscular Hgb Conc 34.3 g/dL (32-36); Mean Corpuscular Volume 93.7 fL (80-100); Mean Platelet Volume 9.3 fL (7.4-10.4); Monocytes # (auto) 2.12 K/uL (0.11-0.59); Monocytes % (auto) 15.4 %; Neutrophils # (auto) 9.15 K/uL (1.4-6.5); Neutrophils % (auto) 66.7 %; Platelet Count 260 K/uL (130-400); RDW Coefficient of Variation 14.6 % (11.5-14.5); RDW Standard Deviation 49.9 fL (36.4-46.3); Red Blood Count 4.26 M/uL (4.7-6.1); White Blood Count 13.74 K/uL (4.8-10.8)
[2019-10-29 22:02] LABS: INR 1.5 (0.9-1.1); Partial Thromboplastin Ratio 1.1; Partial Thromboplastin Time 31.9 Seconds (21.0-31.0); Prothrombin Time 15.6 Seconds (9.0-12.0)
[2019-10-29 22:02] LABS: iSTAT Creatinine 1.1 mg/dl (0.6-1.3); iSTAT Ionized Calcium 1.07 mmol/l (1.12-1.32); iSTAT Potassium 3.8 mmol/L (3.3-5.0)
[2019-10-29] MEDS ORDERED: IOVERSOL 100ml IV PRN (22:03)
[2019-10-29 22:08] LABS: Alanine Aminotransferase 35 U/L (12-78); Albumin Level 3.5 gm/dl (3.4-5.0); Aspartate Aminotransferase 26 U/L (15-37); BUN Creatinine Ratio 19.3 (10-20); Blood Urea Nitrogen 24 mg/dl (7-18); Calcium 8.6 mg/dl (8.5-10.1); Carbon Dioxide 23 mmol/L (21-32); Chloride 107 mmol/L (98-107); Est GFR (African American) 69.3; Est GFR (Non-African American) 59.8; Glucose 112 mg/dl (70-99); Potassium 3.8 mmol/L (3.5-5.1); Sodium 137 mmol/L (136-145)
[2019-10-29 22:11] LABS: Albumin Globulin Ratio 0.8 (0.9-2); Alkaline Phosphatase 68 U/L (45-117); Bilirubin,Total 0.6 mg/dl (0.2-1); Globulin 4.1 gm/dl (2.5-4.0); Total Protein 7.6 gm/dl (6.4-8.2)
[2019-10-29] MEDS: PANTOprazole 40 MG in DEXTROSE 5% 100 ML IV SCH (22:37)
--- NOTE | 2019-10-30 01:10 | Emergency Department Note ---
History of Present Illness General Chief complaint: Abdominal Pain Stated complaint: BAD STOMACH PAINS, BLACK STOOL, DAMARIS Time Seen by Provider: 10/29/19 21:18 Source: patient, RN notes reviewed and old records reviewed Mode of arrival: ambulatory Limitations: no limitations History of Present Illness Provider complaint: Black stool, weakness, abdominal pain Location: abdomen Radiation: non-radiation Severity: moderate Pain Consistency: + colicky Maximum Pain Intensity: 8 Current Pain Intensity: 8 Quality: + burning Relieved By: + immobilization Exacerbated By: + movement Associated symptoms: + nausea/vomiting and + weakness; no chest pain, no diaphoresis, no fever/chills and no shortness of breath Treatments prior to arrival: none This is a 69-year-old male who presents the emergency department complaining of abdominal pain that has been ongoing for the past several hours. The patient describes the pain as a burning sensation. In addition to the pain the patient also has black tarry stool. The patient is on Coumadin. He has not taken anything for the pain. Moving makes the pain worse while holding still allows the pain to go away. Home Medications Home Medications Medication Instructions Recorded Confirmed Type acetaminophen [Acetaminophen Extra 1,000 mg PO Q6H PRN 06/16/18 10/29/19 History Strength] garlic 1,000 mg PO QAM 06/16/18 10/29/19 History lisinopril 2.5 mg PO QAM 06/16/18 10/29/19 History magnesium oxide 400 mg PO QAM 06/16/18 10/29/19 History pravastatin 20 mg PO QAM 06/16/18 10/29/19 History warfarin 3 mg PO QAM 06/16/18 10/29/19 History metoprolol succinate 25 mg PO QPM 10/29/19 10/29/19 History metoprolol succinate 50 mg PO QAM 10/29/19 10/29/19 History Allergies Allergy/AdvReac Type Severity Reaction Status Date / Time No Known Allergies Allergy Verified 10/29/19 22:48 Past Med/Surg History Medical History Atrial fibrillation Crohns disease Hearing deficit History of cardioversion 11/19/17 Hyperlipidemia Hypertension On anticoagulant therapy Surgical History History of aortic valve replacement 2008 @ [facility]--follows with Dr. 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 Beliefs That Will Affect Care: None marital status: Current Living Situation: Spouse Other Information That Helps Us Care for You: No Feels Safe at Home: Yes Safety Concerns: Feels Safe At This Time Smoking Status: Never smoker Second Hand Exposure: No ; Hx Alcohol Use: No Hx Substance Use: No Review of Systems A total of 10 systems reviewed and were otherwise negative Physical Exam Vital Signs Vital Signs - 24 hr 10/29/19 20:29 10/29/19 22:35 10/30/19 01:00 Temperature 37.9 C H Temperature Source Oral Pulse Rate 98 H Pulse Rate [Right Finger] 82 63 Respiratory Rate 18 24 18 Respiratory Effort / Characteristics Non-Labored Respiratory Depth Normal Blood Pressure 211/149 H Blood Pressure [Right Arm] 157/97 H 114/68 Blood Pressure Mean 169 Blood Pressure Mean [Right Arm] 117 83 Pulse Oximetry 97 96 94 Oxygen Delivery Method Room Air Room Air Sepsis Recent Fever Within 48 Hours No Sepsis Action Taken by Nursing No Action Required VITAL SIGNS - Vital signs and nursing notes were reviewed. GENERAL - 69-year-old male appearing stated age who is in no acute distress. Communicates well with provider and answers questions appropriately. SKIN - Without rashes. HEAD - NC/AT. EYES - PERRL with EOMI bilaterally. Sclera anicteric. Palpebral conjunctiva pink and moist with no injection noted. EARS - No deformities of external structures noted on gross examination bila terally. No pain elicited with palpation of the tragus bilaterally. External auditory canals without discharge or otorrhea. Tympanic membranes pearly kaufman without retraction or bulging. No fluid or purulent material visualized behind the TM. Handle of malleus, umbo, cone of light, pars tensa/flaccid all easily visualized. NOSE - Midline and without cyanosis. No epistaxis or purulent drainage noted. Septum midline without deviation or septal hematoma noted. MOUTH/OROPHARYNX - Without perioral cyanosis. Buccal mucosa pink and moist and without leukoplakia. Tongue midline with equal elevation of palate bilaterally. No tonsillar hypertrophy, erythema, or exudates noted. dentition noted. NECK - Neck with FROM. Supple to palpation. lymphadenopathy noted. No nuchal rigidity. LUNGS - Chest wall symmetric without accessory muscle use, intercostals retractions, or central cyanosis. Normal vesicular breath sounds CTA B/L. No wheezes, rales, or rhonchi appreciated. CARDIAC - RRR with S1/S2. No murmur, rubs, or gallops appreciated. ABDOMEN - Abdominal contour without pulsations or visible masses. BS normoactive all four quadrants. No tenderness, palpable masses, hepatosplenomegaly, or ascites noted. Rectal: Black tarry +melena No masses noted EXTREMITIES - No clubbing or peripheral cyanosis. No pretibial edema present. +3/5 radial, posterior tibial, and dorsalis pedis pulses palpated throughout. +5/5 strength noted in UE/LE bilaterally. NEUROLOGIC - Cranial nerves II through XII grossly intact. Sensory intact to light touch throughout. Patellar reflexes +2/4. PSYCH - A&Ox3 and cooperates fully with examiner. Pt is very pleasant and interacts well with examiner. Course Administered Medications Sodium Chloride (Nss 1000ml) 1,000 mls @ 80 mls/hr IV .[id number] [facility] Stop: 11/29/19 03:19 Last Admin: 10/30/19 14:02 Dose: 80 mls/hr Documented by: [id number] Infusion: 10/30/19 14:02 Dose: 80 mls/hr Documented by: [id number] Admin: 10/30/19 05:33 Dose: 80 mls/hr Documented by: [id number] [facility]op[facility] Stop: 11/29/19 08:59 Last Admin: 10/30/19 08:04 Dose: 2.5 mg Documented by: [id number] Magnesium Oxide (Mag-Ox) [facility] [place] Stop: 11/29/19 08:59 Last Admin: 10/30/19 08:06 Dose: 400 mg Documented by: [id number] Metoprolol Succinate (Toprol Xl) 50 mg PO [facility] Stop: 11/29/19 08:59 Last Admin: 10/30/19 08:06 Dose: Not Given Documented by: [id number] Pravastatin Sodium (Pravachol) 20 mg PO [facility] Stop: 11/29/19 08:59 Last Admin: 10/30/19 08:04 Dose: 20 mg Documented by: [id number] Discontinued Medications Pantoprazole Sodium (Protonix Bolus/Drip) 0 mls @ 1 mls/hr IV ONE STA Stop: 10/29/19 21:30 Last Infusion: 10/29/19 23:12 Dose: 0 mls/hr Documented by: [id number] Admin: 10/29/19 22:35 Dose: 1 mls/hr Documented by: [id number] Pantoprazole Sodium 40 mg/ (Dextrose) 100 mls @ 20 mls/hr IV Q5H [facility] Stop: 11/28/19 21:44 Last Infusion: 10/30/19 10:50 Dose: 0 mg/hr, 0 mls/hr Documented by: [id number] Admin: 10/30/19 09:47 Dose: 8 mg/hr, 20 mls/hr Documented by: [id number] Infusion: 10/30/19 09:47 Dose: 8 mg/hr, 20 mls/hr Documented by: [id number] Admin: 10/30/19 05:34 Dose: 8 mg/hr, 20 mls/hr Documented by: [id number] Admin: 10/29/19 22:37 Dose: Not Given Documented by: [id number] Pantoprazole Sodium 80 mg/ (Dextrose) 120 mls @ 400 mls/hr IV NOW ONE Stop: 10/29/19 21:46 Last Infusion: 10/29/19 23:10 Dose: 0 mls/hr Documented by: [id number] Infusion: 10/29/19 22:58 Dose: 0 mls/hr Documented by: [id number] Admin: 10/29/19 22:35 Dose: 400 mls/hr Documented by: [id number] Ioversol (Optiray 320 100ml) 93 ml IV ONCE PRN PRN Reason: Interaction Checking Stop: 11/02/19 22:02 Last Admin: 10/29/19 22:03 Dose: 1 ml Documented by: [id number] Medical Decision Making Differential Diagnosis Appendicitis, testicular torsion, infections, diverticulitis, UTI, obstruction, mesenteric ischemia, aortic pathology, inflammatory bowel disease, renal colic, PUD, pancreatitis, biliary pathology, hernia, volvulus, constipation, as well as other pathologies. Medical Records Attestation: I reviewed the patient's medical records. Home Medications Current Medication List: was personally reviewed by me Laboratory Data Attestation: I reviewed the patient's lab results. Result diagrams: 10/30/19 12:42 10/30/19 07:16 Lab Results 10/29/19 10/29/19 10/29/19 Range/Units 21:34 21:34 21:34 WBC 13.74 H (4.8-10.8) K/uL RBC 4.26 L (4.7-6.1) M/uL Hgb 13.7 L (14.0-18.0) g/dL POC Hgb (14.0-18.0) g/dl Hct 39.9 L (42-52) % POC Hct (42-52) % MCV 93.7 (80-100) fL MCH 32.2 (25-34) pg MCHC 34.3 (32-36) g/dL RDW Std Deviation 49.9 H (36.4-46.3) fL RDW Coeff of Trice 14.6 H (11.5-14.5) % Plt Count 260 (130-400) K/uL MPV 9.3 (7.4-10.4) fL Immature Gran % (Auto) 0.3 % Neut % (Auto) 66.7 % Lymph % (Auto) 17.0 % [place] % (Auto) 15.4 % Eos % (Auto) 0.5 % Baso % (Auto) 0.1 % Neut # (Auto) 9.15 H (1.4-6.5) K/uL Lymph # (Auto) 2.34 (1.2-3.4) K/uL [place] # (Auto) 2.12 H (0.11-0.59) K/uL Eos # (Auto) 0.07 (0-0.5) K/uL Baso # (Auto) 0.02 (0-0.2) K/uL Immature Gran # (Auto) 0.04 H (0.00-0.02) K/uL PT 15.6 H (9.0-12.0) Seconds INR 1.5 H (0.9-1.1) APTT 31.9 H (21.0-31.0) Seconds PTT Ratio 1.1 POC Sodium (135-144) mmol/L Sodium (136-145) mmol/L POC Potassium (3.3-5.0) mmol/L Potassium (3.5-5.1) mmol/L POC Chloride (101-112) mmol/L Chloride (98-107) mmol/L Carbon Dioxide (21-32) mmol/L POC Total CO2 (24-31) mmol/L Anion Gap (3-11) POC Anion Gap (16-25) mmol/L POC BUN (7-18) mg/dl BUN (7-18) mg/dl Creatinine (0.6-1.4) mg/dl POC Creatinine (0.6-1.3) mg/dl Est Cr Clr Drug Dosing Est GFR ( Amer) Est GFR (Non-Af Amer) BUN/Creatinine Ratio (10-20) Glucose (70-99) mg/dl POC Glucose (other) (70-99) mg/dl Calcium (8.5-10.1) mg/dl POC Ioniz Calcium Na (1.12-1.32) mmol/l Total Bilirubin (0.2-1) mg/dl AST (15-37) U/L ALT (12-78) U/L Alkaline Phosphatase (45-117) U/L Total Protein (6.4-8.2) gm/dl Albumin (3.4-5.0) gm/dl Globulin (2.5-4.0) gm/dl Albumin/Globulin Ratio (0.9-2) Blood Type A Positive Antibody Screen NEGATIVE 10/29/19 10/29/19 Range/Units 21:34 21:47 WBC (4.8-10.8) K/uL RBC (4.7-6.1) M/uL Hgb (14.0-18.0) g/dL POC Hgb 15.0 (14.0-18.0) g/dl Hct (42-52) % POC Hct 44 (42-52) % MCV (80-100) fL MCH (25-34) pg MCHC (32-36) g/dL RDW Std Deviation (36.4-46.3) fL RDW Coeff of Trice (11.5-14.5) % Plt Count (130-400) K/uL MPV (7.4-10.4) fL Immature Gran % (Auto) % Neut % (Auto) % Lymph % (Auto) % [place] % (Auto) % Eos % (Auto) % Baso % (Auto) % Neut # (Auto) (1.4-6.5) K/uL Lymph # (Auto) (1.2-3.4) K/uL [place] # (Auto) (0.11-0.59) K/uL Eos # (Auto) (0-0.5) K/uL Baso # (Auto) (0-0.2) K/uL Immature Gran # (Auto) (0.00-0.02) K/uL PT (9.0-12.0) Seconds INR (0.9-1.1) APTT (21.0-31.0) Seconds PTT Ratio POC Sodium 138 (135-144) mmol/L Sodium 137 (136-145) mmol/L POC Potassium 3.8 (3.3-5.0) mmol/L Potassium 3.8 (3.5-5.1) mmol/L POC Chloride 105 (101-112) mmol/L Chloride 107 (98-107) mmol/L Carbon Dioxide 23 (21-32) mmol/L POC Total CO2 23 L (24-31) mmol/L Anion Gap 8.0 (3-11) POC Anion Gap 16.0 (16-25) mmol/L POC BUN 26 H (7-18) mg/dl BUN 24 H (7-18) mg/dl Creatinine 1.24 (0.6-1.4) mg/dl POC Creatinine 1.1 (0.6-1.3) mg/dl Est Cr Clr Drug Dosing Not Reportable Est GFR ( Amer) 69.3 Est GFR (Non-Af Amer) 59.8 BUN/Creatinine Ratio 19.3 (10-20) Glucose 112 H (70-99) mg/dl POC Glucose (other) 115 H (70-99) mg/dl Calcium 8.6 (8.5-10.1) mg/dl POC Ioniz Calcium Na 1.07 L (1.12-1.32) mmol/l Total Bilirubin 0.6 (0.2-1) mg/dl AST 26 (15-37) U/L ALT 35 (12-78) U/L Alkaline Phosphatase 68 (45-117) U/L Total Protein 7.6 (6.4-8.2) gm/dl Albumin 3.5 (3.4-5.0) gm/dl Globulin 4.1 H (2.5-4.0) gm/dl Albumin/Globulin Ratio 0.8 L (0.9-2) Blood Type Antibody Screen Imaging Data Radiologist's Impression: CT abdomen pelvis with contrast: Sigmoid diverticulosis without diverticulitis. Normal appendix. Thick-walled loop of jejunum in the left upper quadrant which could represent nonspecific enteritis in the appropriate clinical setting. The gallbladder is mildly distended. No calcified stones. Embolization material within the delicia hepatis with adjacent artifact. Splenectomy. Fat-containing left inguinal hernia ECG Data Attestation: I personally reviewed and interpreted this ECG as follows: Indication: abdominal pain Rate (beats per minute): 103 Rhythm: sinus tachycardia Findings: + Q waves (Anterior) Comparison ECG Date: from (11/19/2017) Change: no significant change MDM Narrative Patient was seen and evaluated as above in room C10. Review was performed of nu rsing notes and vital signs. I did review pertinent previous visits and patient history. After obtaining a thorough history and physical examination the above work up was performed. This is a 69-year-old male who presents emergency department complaining of black tarry stools along with generalized weakness. The patient's hemoglobin is 13.7. CAT scan the abdomen pelvis does not show any acute process. He was started on a Protonix bolus and drip. I did discuss the case with the hospitalist service who did agree to admit the patient. Patient is in agreement with the treatment plan. An order was placed for continuous cardiac monitoring. The monitor shows a rate of 82 with Normal Sinus rhythm. The patient was evaluated during the global COVID-19 pandemic, and that diagnosis was suspected/considered upon their initial presentation. Their evaluation, treatment and testing was consistent with current guidelines for patients who present with complaints or symptoms that may be related to COVID- 19. Impression & Plan Acute GI bleeding Discharge Plan Visit Data *Final* Discharge Date/Time: 10/30/19 02:58 Chief Complaint: Abdominal Pain Stated Complaint: BAD STOMACH PAINS, BLACK STOOL, DAMARIS ED Provider: Ryan Lai Discharge Problem: Acute GI bleeding Patient Disposition: Admitted As Inpatient Discharge Instructions Interventions: ED Discharge Assessment Last Done: 10/30/19 02:58
--- NOTE | 2019-10-30 02:33 | History and Physical Report ---
DATE OF ADMISSION: 10/30/2019 CHIEF COMPLAINT: Melena. HISTORY OF PRESENT ILLNESS: This is a 69-year-old male with past medical history significant for paroxysmal atrial fibrillation and atypical flutter status post DCCV in 2018, on Coumadin, hypertension, hyperlipidemia, bicuspid aortic valve, status post bioprosthetic aortic valve replacement as well as aortic root replacement, history of coarctation of aorta status post stenting, history of hepatic artery aneurysm, status post embolization, history of splenic artery rupture and splenectomy in 2006, history of regional enteritis of the small intestine, Peyronie's disease, anxiety state, history of schizophrenia, who lives with his , comes here because of melena. The patient says since night he has abdominal pain. morning, he had an episode of nausea, vomiting, and today again he can started having abdominal pain and he noticed some black stools and also an episode of small amount of blood in the stools. Currently, resting comfortably and hemodynamically stable. Denies any other complaints. No chest pain, no shortness of breath, no cough, no nausea, no vomiting, no loss of sense of smell or taste. No headache, no blurred vision, no earache, no runny nose. Normal bowel and bladder movements. No swelling in the legs. Ambulating okay. ALLERGIES: No known drug allergies. PAST MEDICAL HISTORY: As mentioned above. PAST SURGICAL HISTORY: Multiple colonoscopies, embolization of hepatic artery aneurysm, exploratory laparotomy with ligation of splenic artery aneurysm and splenectomy, bioprosthetic aortic valve replacement, repair of thoracic aortic coarctation with Medtronic stent graft. MEDICATIONS: The patient is on metoprolol XL 50 mg p.o. daily and 25 mg in the evening, Coumadin 3 mg as directed, magnesium oxide 400 mg p.o. daily, pravastatin 20 mg p.o. daily, lisinopril 2.5 mg p.o. daily, amoxicillin 2 grams 1 hour prior to dental procedure. FAMILY HISTORY: Significant for father had prostate cancer; mother has arthritis; maternal grandfather had cancer; paternal grandfather had stroke; son has ADHD. SOCIAL HISTORY: . No smoking, no alcohol, no drug use. REVIEW OF SYSTEMS: As per HPI. Rest of the review of systems negative. PHYSICAL EXAMINATION: GENERAL: The patient is of moderate build, not in acute distress. VITAL SIGNS: Temperature 37.9, pulse 63, respiratory rate 18, blood pressure 114/68, oxygen 94% on room air. HEENT: No pallor, no icterus. Pupils equal, round, and reactive to light. NECK: No JVD, no neck masses. CARDIOVASCULAR: S1, S2 heard, regular rate and rhythm, no murmur, no gallop. RESPIRATORY SYSTEM: Normal AP diameter. No accessory muscle use. No wheezing, no crackles. ABDOMEN: Soft, bowel sounds present. Mild tenderness in the periumbilical region. No guarding, no rigidity. CENTRAL NERVOUS SYSTEM: Cranial nerves II-XII grossly intact. Nonfocal. EXTREMITIES: No edema, no erythema. LABORATORY DATA: WBC 13.7, hemoglobin 13.7, hematocrit 39.9, platelets 260. PT 15.6, INR 1.5, APTT 31.9. Sodium 137, potassium 3.8, chloride 107, BUN 24, creatinine 1.2, serum glucose 112, total bilirubin 0.6, AST 76, ALT 35, alkaline phosphatase 66. IMAGING: CT of the abdomen and pelvis preliminary report shows sigmoid diverticulosis without diverticulitis. Normal appendix, nonspecific enteritis. Gallbladder mildly distended. No gallstones. Splenectomy. Fat-containing left inguinal hernia. EKG: Sinus tachycardia with PACs at a rate of 103. ASSESSMENT AND PLAN: This is a 69-year-old male who presents with melena. 1. Melena and abdominal pain. Hemoglobin is 11.6. Follow Hemoccult. H and H q6hrs. Patient has Coumadin. INR is subtherapeutic at 1.5. We will follow H and H q. 6 hours, Protonix drip, n.p.o., IV gentle fluids. Consult GI in a.m. Blood consent obtained. . Monitor in the med/surg tele. 2. History of paroxysmal atrial fibrillation, on Toprol-XL. Rate is under control, on Coumadin. INR is therapeutic. Coumadin is held for gastrointestinal bleed. 3. History of hypertension, on lisinopril and Toprol-XL, which will monitor. 4. Hyperlipidemia. Continue statin. 5. History of bicuspid aortic valve status post bioprosthetic aortic valve replacement. 6. Deep venous thrombosis prophylaxis, sequential compression devices for now. 7. Disposition, closely monitor in the med/surg tele. Level 1 full code. Expect to discharge home and follow with family doctor. Social service to help with discharge planning. SUMANTH
[2019-10-30] MEDS ORDERED: PANTOprazole 40 MG in DEXTROSE 5% 100 ML IV SCH (03:20)
[2019-10-30] MEDS ORDERED: NITROGLYCERIN SL 0.4 MG/TAB TAB SL PRN (03:20)
[2019-10-30] MEDS ORDERED: ACETAMINOPHEN 325 MG TAB PO PRN (03:20)
[2019-10-30] MEDS ORDERED: ONDANSETRON INJ 2 MG/ML 2 ML VIAL IV PRN ×2 (03:20→10:06)
[2019-10-30] MEDS: SODIUM CHLORIDE 0.9% 1000ML 1,000 ML IV SCH ×2 (05:33→14:02)
[2019-10-30] MEDS: PANTOprazole 40 MG in DEXTROSE 5% 100 ML IV SCH ×2 (05:34→09:47)
--- NOTE | 2019-10-30 06:33 | CT Scan Report ---
CT abd pelvis IV con only CT DOSE: 415.45 mGy.cm HISTORY: Pain. Bleeding. Pt c/o LLQ abd paiin, GI bleed TECHNIQUE: Multiaxial CT images of the abdomen and pelvis were performed following the use of intrave nous contrast. A dose lowering technique was utilized adhering to the principles of ALARA. COMPARISON STUDY: None. FINDINGS: High density material within the delicia hepatis region possibly post operative. Possible sma ll gallstones. Mild gallbladder distention with slight thickening of gallbladder wall. Kidneys enhance uniformly. Several loops of small bowel demonstrating mild enteritis. The colon demonstrates a chronic colonic diverticulosis. There is no evidence for acute diverticuliti s. IMPRESSION: 1. Postoperative change of the delicia hepatis. 2. Moderate gallbladder distention with potential of a slight gallbladder wall thickening and several small gallstones. 3. Prior splenectomy. 4. Mild small bowel enteritis. ACT 112: Negative or not required by law. The above report was generated using voice recognition software. It may contain grammatical, syntax or spelling errors. Electronically signed by: Hans Sheth M.D. 10/30/2019 6:32 AM
[2019-10-30 07:24] LABS: Basophils # (auto) 0.04 K/uL (0-0.2); Basophils % (auto) 0.3 %; Eosinophils # (auto) 0.24 K/uL (0-0.5); Hematocrit (blood only) 37.6 % (42-52); Hemoglobin 12.7 g/dL (14.0-18.0); Immature Granulocytes # (auto) 0.02 K/uL (0.00-0.02); Immature Granulocytes % (auto) 0.2 %; Lymphocytes # (auto) 2.97 K/uL (1.2-3.4); Lymphocytes % (auto) 25.3 %; Mean Corpuscular Hgb Conc 33.8 g/dL (32-36); Mean Corpuscular Volume 94.7 fL (80-100); Mean Platelet Volume 9.2 fL (7.4-10.4); Monocytes # (auto) 1.73 K/uL (0.11-0.59); Monocytes % (auto) 14.8 %; Neutrophils # (auto) 6.72 K/uL (1.4-6.5); Neutrophils % (auto) 57.4 %; Platelet Count 243 K/uL (130-400); RDW Coefficient of Variation 14.6 % (11.5-14.5); RDW Standard Deviation 50.5 fL (36.4-46.3); Red Blood Count 3.97 M/uL (4.7-6.1); White Blood Count 11.72 K/uL (4.8-10.8)
[2019-10-30 07:34] LABS: INR 1.5 (0.9-1.1); Prothrombin Time 15.9 Seconds (9.0-12.0)
[2019-10-30] MEDS: PRAVASTATIN SOD 20 MG TAB PO SCH (08:04)
[2019-10-30] MEDS: MAGNESIUM OXIDE 400 MG TAB PO SCH (08:06)
[2019-10-30] MEDS: METOPROLOL SUCC 50MG EXT REL TAB PO SCH (08:06)
[2019-10-30 08:09] LABS: BUN Creatinine Ratio 20.4 (10-20); Calcium 8.2 mg/dl (8.5-10.1); Creatinine Clr Calc Pharmacy 71.7 ml/min; Est GFR (Non-African American) 78.5; Magnesium 2.2 mg/dl (1.8-2.4); Potassium 3.5 mmol/L (3.5-5.1)
--- NOTE | 2019-10-30 09:02 | Anesthesiology Consultation ---
Date of Service October 30, 2019 Assessment & Plan (1) Encounter for pre-operative examination: Chart Review Chart Review: Acceptable Risk for Surgery Consults Requested none ASA ASA3 Proposed Anesthesia Anesthesia Type: MAC Risk / Benefits Reviewed With: PT / POA / Parent / Guardian, Accepts Plan and Informed Consent Obtained History Surgery Operation Date: 10/30/19 10:00 Proposed Procedures p Esophagogastroduodenoscopy Dr Alfonso Hamilton Height/Weight Height: 5 ft 6 in Weight: 79.3 kg Allergies Allergy/AdvReac Type Severity Reaction Status Date / Time No Known Allergies Allergy Verified 10/29/19 22:48 Medications Home Medications Medication Instructions Recorded Confirmed Last Taken acetaminophen [Acetaminophen Extra 1,000 mg PO Q6H PRN 06/16/18 10/29/19 Unknown Strength] garlic 1,000 mg PO QAM 06/16/18 10/29/19 10/29/19 lisinopril 2.5 mg PO QAM 06/16/18 10/29/19 10/29/19 magnesium oxide 400 mg PO QAM 06/16/18 10/29/19 10/29/19 pravastatin 20 mg PO QAM 06/16/18 10/29/19 10/29/19 warfarin 3 mg PO QAM 06/16/18 10/29/19 10/29/19 3 MG metoprolol succinate 25 mg PO QPM 10/29/19 10/29/19 Unknown metoprolol succinate 50 mg PO QAM 10/29/19 10/29/19 10/29/19 50 MG Active Medications Generic Name Dose Route Start Last Admin Trade Name Freq PRN Reason Stop Dose Admin Pantoprazole Sodium 40 mg/ 100 mls @ 20 mls/hr 10/29/19 21:45 10/30/19 09:47 Dextrose IV 11/28/19 21:44 8 mg/hr Q5H LILIBETH 20 mls/hr Administration 8 MG/HR Sodium Chloride 1,000 mls @ 80 mls/hr 10/30/19 03:20 10/30/19 05:33 Nss 1000ml IV 11/29/19 03:19 80 mls/hr .[id number] LILIBETH Administration Lisinopril 2.5 mg 10/30/19 09:00 10/30/19 08:04 Zestril PO 07/27/20 08:59 2.5 mg QAM LILIBETH Administration Magnesium Oxide 400 mg 10/30/19 09:00 10/30/19 08:06 Mag-Ox PO 11/29/19 08:59 400 mg QAM LILIBETH Administration Metoprolol Succinate 50 mg 10/30/19 09:00 10/30/19 08:06 Toprol Xl PO 11/29/19 08:59 Not Given QAM LILIBETH Pravastatin Sodium 20 mg 10/30/19 09:00 10/30/19 08:04 Pravachol PO 11/29/19 08:59 20 mg QAM LILIBETH Administration NPO Date Last Intake of Fluids: 10/29/19 Time Last Intake of Fluids: 21:00 Date Last Intake of Solids: 10/29/19 Time Last Intake of Solids: 21:00 Past Medical History Medical History Atrial fibrillation Crohns disease Hearing deficit History of cardioversion 11/19/17 Hyperlipidemia Hypertension On anticoagulant therapy Exercise / Class Metabolic Activity II 4-5 Yardwork/Stairs/Walk up hill Past Family History Family History Other No family history of adverse response to anesthesia Past Surgical History Surgical History History of aortic valve replacement 2008 @ [facility]--follows with Dr. 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 Status post aortic coarctation [place] [facility] [place] Anesthesia History No Hx of Anesthesia Complications and No Family Hx of Anesthesia Complications History of PONV No Hx of PONV and No Hx of Motion Sickness Social History Smoking Status: Never smoker Hx Alcohol Use: No Hx Substance Use: No substance use type: does not use Physical Exam Vital Signs Last Vital Signs Temp 98.6 F 10/30/19 08:20 Pulse 50 L 10/30/19 08:20 Resp 17 10/30/19 08:20 BP 117/69 10/30/19 08:20 Pulse Ox 98 10/30/19 08:20 ENMT Mouth: + poor dentition Thyromental Distance: > or= 3.5 Finger Breadths Mallampati Class: II Neck normal visual inspection Respiratory normal respiratory effort Auscultation: lungs clear to auscultation bilaterally Cardiovascular Rate/Rhythm: regular rate and regular rhythm Testing Laboratory Results 10/30/19 07:16 10/30/19 07:16 PT 15.9 Seconds (9.0-12.0) H 10/30/19 07:16 INR 1.5 (0.9-1.1) H 10/30/19 07:16 APTT 31.9 Seconds (21.0-31.0) H 10/29/19 21:34 Blood Type A Positive 10/29/19 21:34 Antibody Screen NEGATIVE 10/29/19 21:34 10/29/19 21:47 POC Glucose (other) 115 H Electrocardiogram Date: 10/29/19 Sinus tachycardia with Premature atrial complexes with Aberrant conduction, rate 103 bpm Cannot rule out Anterior infarct (cited on or before 26-DEC-2016) Abnormal ECG When compared with ECG of 19-NOV-2017 10:38, Aberrant conduction is now Present Vent. rate has increased BY 55 BPM QT has lengthened
--- NOTE | 2019-10-30 09:17 | Gastrointestinal Consultation ---
Date of Consultation October 30, 2019 Assessment & Plan (1) Melena: Patient presenting to the hospital for evaluation of melena. Given the patient's history I wonder about arteriovenous malformations or perhaps peptic ulcer disease. We will make arrangements for upper endoscopy today for further evaluation. If negative then the patient will have an elective colonoscopy early next week given his prior history of Crohn's disease. Recommendations N.P.o. today Continue Protonix drip Hold anticoagulants and antiplatelet agents place History of Present Illness Reason for Consultation: Melena Requesting Physician: Dr. Madden/Talisha Attending Physician: Edgar Madden MD History of Present Illness This is a 69-year-old male with multiple medical problems to include paroxysmal atrial fibrillation, atrial flutter hypertension hypercholesterolemia and a bicuspid aortic valve who presented to the emergency room for evaluation of melena ongoing for 3 days prior to admission. 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 In addition he had a bovine valve placed to his aortic valve for problems related to bicuspid aortic valve. Patient denies having fevers, chills sweats or Reiger's. He notes that he has dark sticky stool multiple times per day. The patient has had a prior colonoscopy with who wonders if he may have underlying inflammatory bowel disease. At the present time the patient is on no occasions for this particular condition. He denies having difficulty with swallowing pain with swallowing, nausea vomiting or gross bleeding from the rectum. Allergies Allergy/AdvReac Type Severity Reaction Status Date / Time No Known Allergies Allergy Verified 10/29/19 22:48 Home Medications Home Medications Medication Instructions Recorded Confirmed Type acetaminophen [Acetaminophen Extra 1,000 mg PO Q6H PRN 06/16/18 10/29/19 History Strength] garlic 1,000 mg PO QAM 06/16/18 10/29/19 History lisinopril 2.5 mg PO QAM 06/16/18 10/29/19 History magnesium oxide 400 mg PO QAM 06/16/18 10/29/19 History pravastatin 20 mg PO QAM 06/16/18 10/29/19 History warfarin 3 mg PO QAM 06/16/18 10/29/19 History metoprolol succinate 25 mg PO QPM 10/29/19 10/29/19 History metoprolol succinate 50 mg PO QAM 10/29/19 10/29/19 History Patient History Medical History Atrial fibrillation Crohns disease Hearing deficit History of cardioversion 11/19/17 Hyperlipidemia Hypertension On anticoagulant therapy Surgical History History of aortic valve replacement 2008 @ [facility]--follows with Dr. 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 Status post aortic coarctation stent placement 07/04/2012 [place] [facility] [place] Family History Other No family history of adverse response to anesthesia Social History Preferred Language: Mongolian Communication Ability: Effective Electromechanic Required: No Beliefs That Will Affect Care: None Current Living Situation: Spouse Other Information That Helps Us Care for You: No Feels Safe at Home: Yes Safety Concerns: Feels Safe At This Time Smoking Status: Never smoker Second Hand Exposure: No ; Hx Alcohol Use: No Hx Substance Use: No Review of Systems Constitutional: no fever, no sweats, no malaise and no weight loss Eyes: no diplopia Ear, Nose, Mouth, Throat: no ear trauma Respiratory: no change in sputum Cardiovascular: no chest pain with activity Gastrointestinal: no abdominal pain, no bloating, no early satiety, no nausea, no vomiting and no hematemesis Genitourinary: no urinary frequency Musculoskeletal: no radicular pain Neurologic: no falls Psychiatric: no hopelessness Hematologic / Lymphatic: + coagulopathy Physical Exam Constitutional: WD/WN, vitals as above Eyes: PERRL, conjunctivae normal, anicteric sclerae Neck: trachea midline, no thyromegaly Respiratory: normal respiratory effort, lungs clear to auscultation Cardiovascular: Heart Sounds: + click and + murmur Gastrointestinal (Abdomen): normal bowel sounds, soft, nontender, no hepatosplenomegaly Skin: normal turgor; no rashes Results & Data ([facility]) Vital Signs (Past 12 Hours) Vital Signs Temp Pulse Pulse Resp BP Pulse Ox 10/30/19 08:20 37.0 C 50 L 17 117/69 98 10/30/19 06:05 40 L 10/30/19 03:20 36.6 C 51 L 16 152/77 H 98 10/30/19 02:50 58 L 18 99/67 L 98 10/30/19 01:00 63 18 114/68 94 10/29/19 22:35 82 24 157/97 H 96 Laboratory Results Laboratory Results - last 24 hr 10/29/19 10/29/19 10/29/19 21:34 21:34 21:34 WBC 13.74 H RBC 4.26 L Hgb 13.7 L POC Hgb Hct 39.9 L POC Hct MCV 93.7 MCH 32.2 MCHC 34.3 RDW Std Deviation 49.9 H RDW Coeff of Tirce 14.6 H Plt Count 260 MPV 9.3 Immature Gran % (Auto) 0.3 Neut % (Auto) 66.7 Lymph % (Auto) 17.0 [place] % (Auto) 15.4 Eos % (Auto) 0.5 Baso % (Auto) 0.1 Neut # (Auto) 9.15 H Lymph # (Auto) 2.34 [place] # (Auto) 2.12 H Eos # (Auto) 0.07 Baso # (Auto) 0.02 Immature Gran # (Auto) 0.04 H PT 15.6 H INR 1.5 H APTT 31.9 H PTT Ratio 1.1 POC Sodium Sodium POC Potassium Potassium POC Chloride Chloride Carbon Dioxide POC Total CO2 Anion Gap POC Anion Gap POC BUN BUN Creatinine POC Creatinine Est Cr Clr Drug Dosing Est GFR ( Amer) Est GFR (Non-Af Amer) BUN/Creatinine Ratio Glucose POC Glucose (other) Calcium POC Ioniz Calcium Na Magnesium Total Bilirubin AST ALT Alkaline Phosphatase Total Protein Albumin Globulin Albumin/Globulin Ratio COVID-19 PCR Hepatitis C Ab Screen Blood Type A Positive Antibody Screen NEGATIVE 10/29/19 10/29/19 10/30/19 21:34 21:47 07:16 WBC 11.72 H RBC 3.97 L Hgb 12.7 L POC Hgb 15.0 Hct 37.6 L POC Hct 44 MCV 94.7 MCH 32.0 MCHC 33.8 RDW Std Deviation 50.5 H RDW Coeff of Trice 14.6 H Plt Count 243 MPV 9.2 Immature Gran % (Auto) 0.2 Neut % (Auto) 57.4 Lymph % (Auto) 25.3 [place] % (Auto) 14.8 Eos % (Auto) 2.0 Baso % (Auto) 0.3 Neut # (Auto) 6.72 H Lymph # (Auto) 2.97 [place] # (Auto) 1.73 H Eos # (Auto) 0.24 Baso # (Auto) 0.04 Immature Gran # (Auto) 0.02 PT INR APTT PTT Ratio POC Sodium 138 Sodium 137 POC Potassium 3.8 Potassium 3.8 POC Chloride 105 Chloride 107 Carbon Dioxide 23 POC Total CO2 23 L Anion Gap 8.0 POC Anion Gap 16.0 POC BUN 26 H BUN 24 H Creatinine 1.24 POC Creatinine 1.1 Est Cr Clr Drug Dosing Not Reportable Est GFR ( Amer) 69.3 Est GFR (Non-Af Amer) 59.8 BUN/Creatinine Ratio 19.3 Glucose 112 H POC Glucose (other) 115 H Calcium 8.6 POC Ioniz Calcium Na 1.07 L Magnesium Total Bilirubin 0.6 AST 26 ALT 35 Alkaline Phosphatase 68 Total Protein 7.6 Albumin 3.5 Globulin 4.1 H Albumin/Globulin Ratio 0.8 L COVID-19 PCR Hepatitis C Ab Screen Blood Type Antibody Screen 10/30/19 10/30/19 10/30/19 07:16 07:16 07:16 WBC RBC Hgb POC Hgb Hct POC Hct MCV MCH MCHC RDW Std Deviation RDW Coeff of Trice Plt Count MPV Immature Gran % (Auto) Neut % (Auto) Lymph % (Auto) [place] % (Auto) Eos % (Auto) Baso % (Auto) Neut # (Auto) Lymph # (Auto) [place] # (Auto) Eos # (Auto) Baso # (Auto) Immature Gran # (Auto) PT 15.9 H INR 1.5 H APTT PTT Ratio POC Sodium Sodium 138 POC Potassium Potassium 3.5 POC Chloride Chloride 108 H Carbon Dioxide 24 POC Total CO2 Anion Gap 7.0 POC Anion Gap POC BUN BUN 20 H Creatinine 0.99 POC Creatinine Est Cr Clr Drug Dosing 71.7 Est GFR ( Amer) 91.0 Est GFR (Non-Af Amer) 78.5 BUN/Creatinine Ratio 20.4 H Glucose 84 POC Glucose (other) Calcium 8.2 L POC Ioniz Calcium Na Magnesium 2.2 Total Bilirubin AST ALT Alkaline Phosphatase Total Protein Albumin Globulin Albumin/Globulin Ratio COVID-19 PCR Hepatitis C Ab Screen Pending Blood Type Antibody Screen 10/30/19 07:50 WBC RBC Hgb POC Hgb Hct POC Hct MCV MCH MCHC RDW Std Deviation RDW Coeff of Trice Plt Count MPV Immature Gran % (Auto) Neut % (Auto) Lymph % (Auto) [place] % (Auto) Eos % (Auto) Baso % (Auto) Neut # (Auto) Lymph # (Auto) [place] # (Auto) Eos # (Auto) Baso # (Auto) Immature Gran # (Auto) PT INR APTT PTT Ratio POC Sodium Sodium POC Potassium Potassium POC Chloride Chloride Carbon Dioxide POC Total CO2 Anion Gap POC Anion Gap POC BUN BUN Creatinine POC Creatinine Est Cr Clr Drug Dosing Est GFR ( Amer) Est GFR (Non-Af Amer) BUN/Creatinine Ratio Glucose POC Glucose (other) Calcium POC Ioniz Calcium Na Magnesium Total Bilirubin AST ALT Alkaline Phosphatase Total Protein Albumin Globulin Albumin/Globulin Ratio COVID-19 PCR Pending Hepatitis C Ab Screen Blood Type Antibody Screen Diagnostic Findings CT abd pelvis IV con only CT DOSE: 415.45 mGy.cm HISTORY: Pain. Bleeding. Pt c/o LLQ abd paiin, GI bleed TECHNIQUE: Multiaxial CT images of the abdomen and pelvis were performed following the use of intravenous contrast. A dose lowering technique was ut ilized adhering to the principles of ALARA. COMPARISON STUDY: None. FINDINGS: High density material within the delicia hepatis region possibly post operative. Possible small gallstones. Mild gallbladder distention with slight thickening of gallbladder wall. Kidneys enhance uniformly. Several loops of small bowel demonstrating mild enteritis. The colon demonstrates a chronic colonic diverticulosis. There is no evidence for acute diverticulitis. IMPRESSION: 1. Postoperative change of the delicia hepatis. 2. Moderate gallbladder distention with potential of a slight gallbladder wall thickening and several small gallstones. 3. Prior splenectomy. 4. Mild small bowel enteritis.
[2019-10-30] MEDS ORDERED: ePHEDrine sulfate 50 MG/ML AMP IV PRN (10:06)
[2019-10-30] MEDS ORDERED: fentaNYL citrate 100 MCG/2 ML VIAL IV PRN (10:06)
[2019-10-30] MEDS ORDERED: ATROPINE SULFATE 0.1 MG/ML 10ML SYR IV PRN (10:06)
[2019-10-30] MEDS ORDERED: LIDOCAINE HCL 2% 2 ML VIAL/AMP(20MG/ML) INFIL ONE (10:10)
[2019-10-30] MEDS ORDERED: PROPOFOL IV EMULSION 10 MG/ML 20 ML VIAL IV ONE (10:10)
--- NOTE | 2019-10-30 10:20 | Post Operative Brief Note ---
Immediate Post Op Note v1 Date of Surgery October 30, 2019 Pre & Post Diagnosis Operation Date: 10/30/19 10:00 Pre-Op Diagnosis: MELENA Post-Op Diagnosis: Hiatal Hernia I identified the patient and participated in the time-out.: Yes Procedure Operation Date: 10/30/19 10:00 Actual Procedures p Esophagogastroduodenoscopy (Not Applicable) - Feliciano Hamilton Surgeon Feliciano Hamilton Solid State Tester None Estimated Blood Loss 0 Findings Consistent with Post-Op Diagnosis
--- NOTE | 2019-10-30 10:24 | Communication Note ---
Date of Service: October 30, 2019 The patient underwent upper endoscopy this morning for melena. Findings Small hiatal hernia, upper endoscopy otherwise normal Recommendations Liquid diet over the weekend NPO at PR on 11/01/19 Colonoscopy can be performed on Friday by Dr. Esqueda Bowel Preparation written for tomorrow evening Please call with any questions or concerns otherwise coverage to resume on Friday morning for this patient
--- NOTE | 2019-10-30 10:27 | GI REPORT ---
Patient Name: Danis Soto Procedure Date: 10/30/2019 10:08 AM Date of : 1950 Admit Type: Inpatient Age: 69 Gender: Male Attending MD: Feliciano Hamilton DO Procedure: Upper GI endoscopy Providers: Feliciano Hamilton DO Referring MD: Edgar Madden Indications: Melena Medicines: Monitored Anesthesia Care Complications: No immediate complications. Estimated blood loss: Minimal. Estimated Blood Loss: Estimated blood loss was minimal. Procedure: Pre-Anesthesia Assessment: - Prior to the procedure, a History and Physical was performed, and patient medications, allergies and sensitivities were reviewed. The patient's tolerance of previous anesthesia was reviewed. - The risks and benefits of the procedure and the sedation options and risks were discussed with the patient. All questions were answered and informed consent was obtained. - Patient identification and proposed procedure were verified prior to the procedure by the physician, the nurse and the division plant engineer. The procedure was verified in the procedure room. - Pre-procedure physical examination revealed no contraindications to sedation. - ASA Grade Assessment: III - A patient with severe systemic disease. - After reviewing the risks and benefits, the patient was deemed in satisfactory condition to undergo the procedure. - The anesthesia plan was to use monitored anesthesia care (MAC). - Immediately prior to administration of medications, the patient was re-assessed for adequacy to receive sedatives. - The heart rate, respiratory rate, oxygen saturations, blood pressure, adequacy of pulmonary ventilation, and response to care were monitored throughout the procedure. - The physical status of the patient was re-assessed after the procedure. After obtaining informed consent, the endoscope was passed under direct vision. Throughout the procedure, the patient's blood pressure, pulse, and oxygen saturations were monitored continuously. The Endoscope was introduced through the mouth, and advanced to the fourth part of duodenum. The upper GI endoscopy was accomplished without difficulty. The patient tolerated the procedure well. Findings: The examined esophagus was normal. A small hiatal hernia was found. The proximal extent of the gastric folds (end of tubular esophagus) was 39 cm from the incisors. The hiatal narrowing was 40 cm from the incisors. The Z-line was 39 cm from the incisors. The entire examined stomach was normal. The examined duodenum was normal. Impression: - Normal esophagus. - Small hiatal hernia. - Normal stomach. - Normal examined duodenum. - No specimens collected. Recommendation: - [facility]. - Perform a colonoscopy, can be scheduled for Friday as an inpatient. Feliciano Hamilton D.O. Feliciano Hamilton, 10/30/2019 10:26:58 AM This report has been signed electronically. Note Initiated On: 10/30/2019 10:08 AM Number of Addenda: 0 I attest to the content of the Intraoperative Record and orders documented therein, exceptions below {[id number]}
--- NOTE | 2019-10-30 10:35 | Anesthesiology Progress Note ---
Date of Service October 30, 2019 Anesthesia Post Procedure Vital Signs Vital Signs: Temp Pulse Pulse Pulse Resp BP BP 10/30/19 10:25 97.2 F L 54 L 16 94/52 L 10/30/19 10:02 98.1 F 49 L 16 117/51 L 10/30/19 08:20 98.6 F 50 L 17 117/69 10/30/19 08:00 51 L 10/30/19 06:05 40 L 10/30/19 03:20 97.9 F 51 L 16 152/77 H 10/30/19 02:50 58 L 18 99/67 L 10/30/19 01:00 63 18 114/68 10/29/19 22:35 82 24 157/97 H 10/29/19 20:29 100.2 F H 98 H 18 211/149 H Pulse Ox 10/30/19 10:25 98 10/30/19 10:02 100 10/30/19 08:20 98 10/30/19 08:00 10/30/19 06:05 10/30/19 03:20 98 10/30/19 02:50 98 10/30/19 01:00 94 10/29/19 22:35 96 10/29/19 20:29 97 Transfer of Care Handoff Completed per policy Notes Mental Status: alert / awake / arousable and participated in evaluation Patient Amnestic to Procedure: Yes Nausea / Vomiting: adequately controlled Pain: adequately controlled Airway Patency, RR, SpO2: stable & adequate BP & HR: stable & adequate Hydration State: stable & adequate Anesthetic Complications: no major complications apparent and Pt Satisfied with anesthetic care
--- NOTE | 2019-10-30 10:49 | Electrocardiogram Report ---
Test Reason : Blood Pressure : / mmHG Vent. Rate : 103 BPM Atrial Rate : 103 BPM P-R Int : 190 ms QRS Dur : 082 ms QT Int : 370 ms P-R-T Axes : 076 -17 071 degrees QTc Int : 484 ms Sinus tachycardia with Premature atrial complexes with Aberrant conduction Abnormal ECG When compared with ECG of 19-NOV-2017 10:38, Aberrant conduction is now Present Vent. rate has increased BY 55 BPM QT has lengthened Confirmed by Tenzin Osborne ([id number]) on 10/30/2019 10:48:58 AM Referred By: REFERRED SELF Confirmed By:Alexis Osborne
[2019-10-30 13:01] LABS: Hematocrit (blood only) 36.3 % (42-52); Hemoglobin 12.2 g/dL (14.0-18.0)
--- NOTE | 2019-10-30 14:18 | Hospitalist Progress Note ---
Date of Service October 30, 2019 Assessment & Plan (1) Acute GI bleeding: Presented with lower abdominal pain with melena and occasionally bright red blood per rectum Hemoglobin was removed over 12 Status post negative EGD Appreciate GI input and recommendation Will have colonoscopy on Friday (2) Melena: Negative EGD and no drop in hemoglobin (3) HTN (hypertension): Blood pressure is controlled,we will continue current medication (4) Paroxysmal atrial fibrillation: Heart rate is controlled and seems to be in the lower side at 50 With bicuspid aortic valve (5) Hyperlipidemia: Continue statin continue Toprol DVT prophylaxis SCDs Admission and Anticipated Discharge Date Admission Date: October 30, 2019 Subjective The patient was seen and examined in medical floor He is status post EGD without any evidence of bleeding Complains to have minimal epigastric pain Denies any other symptoms Review of Systems Review of Systems: All systems reviewed and are unremarkable except as noted below Gastrointestinal: + abdominal pain (Minimal epigastric and lower abdominal discomfort), + constipation and + blood in stools Physical Exam Physical Exam: Lying in bed comfortably Constitutional: well developed and well nourished; no acute distress and not ill appearing Eyes: PERRL, conjunctivae normal, anicteric sclerae ENMT: external ear and nose normal, oropharynx normal Neck: trachea midline, no thyromegaly Respiratory: normal respiratory effort; no respiratory distress Auscultation: lungs clear to auscultation bilaterally Cardiovascular: Rate/Rhythm: regular rate and regular rhythm Heart Sounds: no murmur Gastrointestinal (Abdomen): Inspection/Auscultation: abdomen normal to inspection and normal bowel sounds; abdomen not distended Percussi on/Palpation: + abdomen tender (Mildly tender in the epigastrium and lower quadrants) Musculoskeletal: No acute arthritis involving any joint Neurologic: moves all extremities; no focal motor deficits Results & Data Results & Data ([facility]) Vital Signs (Past 12 Hours) Vital Signs Temp Pulse Pulse Pulse Resp BP Pulse Ox 10/30/19 11:47 36.7 C 50 L 17 116/74 96 10/30/19 10:46 36.8 C 55 L 16 129/75 100 10/30/19 10:35 36.5 C 62 16 114/67 98 10/30/19 10:25 36.2 C L 54 L 16 94/52 L 98 10/30/19 10:02 36.7 C 49 L 16 117/51 L 100 10/30/19 08:20 37.0 C 50 L 17 117/69 98 10/30/19 08:00 51 L 10/30/19 06:05 40 L 10/30/19 03:20 36.6 C 51 L 16 152/77 H 98 10/30/19 02:50 58 L 18 99/67 L 98 Laboratory Results Short CBC 10/29/19 10/30/19 10/30/19 Range/Units 21:34 07:16 12:42 WBC 13.74 H 11.72 H (4.8-10.8) K/uL Hgb 13.7 L 12.7 L 12.2 L (14.0-18.0) g/dL Hct 39.9 L 37.6 L 36.3 L (42-52) % Plt Count 260 243 (130-400) K/uL BMP 10/29/19 10/30/19 21:34 07:16 Sodium 137 138 Potassium 3.8 3.5 Chloride 107 108 H Carbon Dioxide 23 24 BUN 24 H 20 H Creatinine 1.24 0.99 Glucose 112 H 84 Calcium 8.6 8.2 L Liver Function 10/29/19 Range/Units 21:34 Total Bilirubin 0.6 (0.2-1) mg/dl AST 26 (15-37) U/L ALT 35 (12-78) U/L Alkaline Phosphatase 68 (45-117) U/L Albumin 3.5 (3.4-5.0) gm/dl Medications Administered Current Inpatient Medications Acetaminophen (Tylenol) 650 mg PO Q4H PRN PRN Reason: Pain or Fever Stop: 11/29/19 03:19 Sodium Chloride (Nss 1000ml) 1,000 mls @ 80 mls/hr IV .[id number] [facility] Stop: 11/29/19 03:19 Last Admin: 10/30/19 14:02 Dose: 80 mls/hr Documented by: Lisinopril (Zestril) 2.5 mg PO [facility] Stop: 11/29/19 08:59 Last Admin: 10/30/19 08:04 Dose: 2.5 mg Documented by: Magnesium Oxide (Mag-Ox) 400 mg PO [facility] Stop: 11/29/19 08:59 Last Admin: 10/30/19 08:06 Dose: 400 mg Documented by: Metoprolol Succinate (Toprol Xl) 50 mg PO QAM [facility] Stop: 11/29/19 08:59 Last Admin: 10/30/19 08:06 Dose: Not Given Documented by: Metoprolol Succinate (Toprol Xl) 25 mg PO QPM [facility] Stop: 11/29/19 20:59 Nitroglycerin (Nitrostat) 0.4 mg SL UD PRN PRN Reason: Chest Pain Stop: 11/29/19 03:19 Ondansetron HCl (Zofran) 4 mg IV Q6H PRN PRN Reason: Nausea Stop: 11/29/19 03:19 Polyethylene Glycol/Electrolytes (Golytely) 1 dose PO TODAY@1800 [facility] Stop: 10/31/19 23:59 Pravastatin S[facility]achol) [facility] Stop: 11/29/19 08:59 Last Admin: 10/30/19 08:04 Dose: 20 mg Documented by:
[2019-10-30 20:17] LABS: Hematocrit (blood only) 35.8 % (42-52); Hemoglobin 11.9 g/dL (14.0-18.0)
[2019-10-30] MEDS: METOPROLOL SUCC 25MG EXT REL TAB PO SCH (20:58)
[2019-10-31] MEDS: SODIUM CHLORIDE 0.9% 1000ML 1,000 ML IV SCH ×2 (02:32→14:54)
[2019-10-31] MEDS: PRAVASTATIN SOD 20 MG TAB PO SCH (08:12)
[2019-10-31] MEDS: MAGNESIUM OXIDE 400 MG TAB PO SCH (08:12)
[2019-10-31] MEDS: METOPROLOL SUCC 50MG EXT REL TAB PO SCH (08:13)
--- NOTE | 2019-10-31 08:27 | Communication Note ---
Date of Service: October 31, 2019 The patient underwent upper endoscopy yesterday for history of melena. No evidence of lesion within the upper digestive tract causing his symptoms. I have made arrangements for the patient to have colonoscopy tomorrow. Bowel Preparation written May have clear liquids today N.P.o. at midnight
--- NOTE | 2019-10-31 13:19 | Hospitalist Progress Note ---
Date of Service October 31, 2019 Assessment & Plan (1) Acute GI bleeding: Presented with lower abdominal pain with melena and occasionally bright red blood per rectum Hemoglobin was removed over 12 Status post negative EGD Appreciate GI input and recommendation No more black stool and no more bright red blood per rectum Minimal abdominal discomfort Will have colonoscopy on Friday (2) Melena: Negative EGD and no drop in hemoglobin No more melena Hemoglobin remains stable (3) HTN (hypertension): Blood pressure is controlled,we will continue current medication (4) Paroxysmal atrial fibrillation: Heart rate is controlled and seems to be in the lower side at 50 With bicuspid aortic valve (5) Hyperlipidemia: Continue statin continue Toprol DVT prophylaxis SCDs Admission and Anticipated Discharge Date Admission Date: October 30, 2019 Subjective The patient was seen and examined in medical floor He is status post EGD without any evidence of bleeding Complains to have minimal epigastric pain Denies any other symptoms 10/31/2019 The patient was seen and examined in medical floor He has been feeling a lot better He did not have any more black stool and the lower abdominal pain/discomfort has improved Review of Systems Review of Systems: All systems reviewed and are unremarkable except as noted b elow Gastrointestinal: + abdominal pain (Minimal epigastric and lower abdominal discomfort), + constipation and + blood in stools Physical Exam Physical Exam: Lying in bed comfortably Constitutional: well developed and well nourished; no acute distress and not ill appearing Eyes: PERRL, conjunctivae normal, anicteric sclerae ENMT: external ear and nose normal, oropharynx normal Neck: trachea midline, no thyromegaly Respiratory: normal respiratory effort; no respiratory distress Auscultation: lungs clear to auscultation bilaterally Cardiovascular: Rate/Rhythm: regular rate and regular rhythm Heart Sounds: + murmur Gastrointestinal (Abdomen): Inspection/Auscultation: abdomen normal to inspection and normal bowel sounds; abdomen not distended Percussion/Palpation: + abdomen tender (Mildly tender in the epigastrium and lower quadrants) and abdomen soft Musculoskeletal: No acute arthritis involving any joints Neurologic: moves all extremities; no focal motor deficits Lymphatic: no cervical or axillary lymphadenopathy Results & Data Results & Data ([facility]) Vital Signs (Past 12 Hours) Vital Signs Temp Pulse Pulse Pulse Resp BP Pulse Ox 10/31/19 11:42 36.6 C 42 L 16 101/52 L 97 10/31/19 08:15 50 L 10/31/19 07:57 36.9 C 50 L 17 126/72 96 10/31/19 04:09 36.9 C 64 18 117/70 97 Laboratory Results Short CBC 10/30/19 Range/Units 19:10 Hgb 11.9 L (14.0-18.0) g/dL Hct 35.8 L (42-52) % Medications Administered Current Inpatient Medications Acetaminophen (Tylenol) 650 mg PO Q4H PRN PRN Reason: Pain or Fever Stop: 11/29/19 03:19 Sodium Chloride (Nss 1000ml) 1,000 mls @ 80 mls/hr IV .[id number] [facility] Stop: 11/29/19 03:19 Last Admin: 10/31/19 02:32 Dose: 80 mls/hr Documented by: Lisinopril (Zestril) 2.5 mg PO [facility] Stop: 11/29/19 08:59 Last Admin: 10/31/19 08:12 Dose: 2.5 mg Documented by: Magnesium Oxide (Mag-Ox) 400 mg PO [facility] Stop: 11/29/19 08:59 Last Admin: 10/31/19 08:12 Dose: 400 mg Documented by: Metoprolol Succinate (Toprol Xl) 50 mg PO [facility] Stop: 11/29/19 08:59 Last Admin: 10/31/19 08:13 Dose: 50 mg Documented by: Metoprolol Succinate (Toprol Xl) 25 mg PO QPM [facility] Stop: 11/29/19 20:59 Last Admin: 10/30/19 20:58 Dose: 25 mg Documented by: Nitroglycerin (Nitrostat) 0.4 mg SL UD PRN PRN Reason: Chest Pain Stop: 11/29/19 03:19 Ondansetron HCl (Zofran) 4 mg IV Q6H PRN PRN Reason: Nausea Stop: 11/29/19 03:19 Polyethylene Glycol/Electrolytes (Golytely) 1 dose PO TODAY@1800 [facility] Stop: 10/31/19 23:59 Pravastatin Sodium (Pravachol) 20 mg PO [facility] Stop: 11/29/19 08:59 Last Admin: 10/31/19 08:12 Dose: 20 mg Documented by:
[2019-10-31] MEDS ORDERED: LAVAGE SOLUTION 4000ML PO SCH (18:00)
[2019-10-31] MEDS: METOPROLOL SUCC 25MG EXT REL TAB PO SCH (20:42)
[2019-11-01] MEDS: SODIUM CHLORIDE 0.9% 1000ML 1,000 ML IV SCH ×2 (03:33→15:48)
[2019-11-01] MEDS: METOPROLOL SUCC 50MG EXT REL TAB PO SCH (07:34)
[2019-11-01] MEDS: PRAVASTATIN SOD 20 MG TAB PO SCH (07:34)
[2019-11-01] MEDS: MAGNESIUM OXIDE 400 MG TAB PO SCH (07:34)
--- NOTE | 2019-11-01 09:01 | Communication Note ---
Date of Service: November 01, 2019 Pt was scheduled for colonoscopy eval today. However he didn't complete bowel prep. Reported having brown loose stools this AM. Will postpone Colonoscopy to tomorrow 11/02/2019. May have CL diet today, keep NPO after midnight. Monitor H/H and transfuse prn Continue to hold Coumadin for now
--- NOTE | 2019-11-01 15:45 | Hospitalist Progress Note ---
Date of Service November 01, 2019 Assessment & Plan (1) Acute GI bleeding: Presented with lower abdominal pain with melena and occasionally bright red blood per rectum Hemoglobin was removed over 12 Status post negative EGD Appreciate GI input and recommendation No more black stool and no more bright red blood per rectum Minimal abdominal discomfort Will have colonoscopy tomorrow that is 11/02/2019 (2) Melena: Negative EGD and no drop in hemoglobin No more melena Hemoglobin remains stable (3) HTN (hypertension): Blood pressure is controlled,we will continue current medication (4) Paroxysmal atrial fibrillation: Heart rate is controlled and seems to be in the lower side at 50 With bicuspid aortic valve Has cardiology appointment as an outpatient in [place] on Friday He will need to go with disc for CT (5) Hyperlipidemia: Continue statin continue Toprol DVT prophylaxis SCDs Admission and Anticipated Discharge Date Admission Date: October 30, 2019 Subjective The patient was seen and examined in medical floor He is status post EGD without any evidence of bleeding Complains to have minimal epigastric pain Denies any other symptoms 10/31/2019 The patient was seen and examined in medical floor He has been feeling a lot better He did not have any more black stool and the lower abdominal pain/discomfort has improved 11/01/2019 The patient was seen and examined in medical floor He was sent back from colonoscopy and the preparation was not acute He will have colonoscopy tomorrow Denies any acute symptoms Review of Systems Review of Systems: All systems reviewed and are unremarkable except as noted below Gastrointestinal: no abdominal pain (Minimal epigastric and lower abdominal discomfort), no constipation and no blood in stools Physical Exam Physical Exam: Lying in bed comfortably Constitutional: well developed and well nourished; no acute distress and not ill appearing Eyes: PERRL, conjunctivae normal, anicteric sclerae ENMT: external ear and nose normal, oropharynx normal Neck: trachea midline, no thyromegaly Respiratory: normal respiratory effort; no respiratory distress Ausculta tion: lungs clear to auscultation bilaterally Cardiovascular: Rate/Rhythm: regular rate and regular rhythm Heart Sounds: + murmur Gastrointestinal (Abdomen): Inspection/Auscultation: abdomen normal to inspection and normal bowel sounds; abdomen not distended Percussion/Palpation: + abdomen tender (Mildly tender in the epigastrium and lower quadrants) and abdomen soft Neurologic: moves all extremities; no focal motor deficits Alert, awake and oriented x3 Lymphatic: no cervical or axillary lymphadenopathy Results & Data Results & Data ([facility]) Vital Signs (Past 12 Hours) Vital Signs Temp Pulse Resp BP Pulse Ox 11/01/19 15:04 36.3 C L 49 L 18 137/77 96 11/01/19 11:38 36.6 C 64 20 163/86 H 97 11/01/19 07:42 36.8 C 43 L 18 140/78 99 11/01/19 04:00 36.6 C 45 L 18 126/79 97 Medications Administered Current Inpatient Medications Acetaminophen (Tylenol) 650 mg PO Q4H PRN PRN Reason: Pain or Fever Stop: 11/29/19 03:19 Sodium Chloride (Nss 1000ml) 1,000 mls @ 80 mls/hr IV .[id number] [facility] Stop: 11/29/19 03:19 Last Admin: 11/01/19 03:33 Dose: 80 mls/hr Documented by: Lisinopril (Zestril) 2.5 mg PO [facility] Stop: 11/29/19 08:59 Last Admin: 11/01/19 07:34 Dose: 2.5 mg Documented by: Magnesium Oxide (Mag-Ox) 400 mg PO [facility] Stop: 11/29/19 08:59 Last Admin: 11/01/19 07:34 Dose: 400 mg Documented by: Metoprolol Succinate (Toprol Xl) 50 mg PO [facility] Stop: 11/29/19 08:59 Last Admin: 11/01/19 07:34 Dose: 50 mg Documented by: Metoprolol Succinate (Toprol Xl) 25 mg PO QPM [facility] Stop: 11/29/19 20:59 Last Admin: 10/31/19 20:42 Dose: Not Given Documented by: Nitroglycerin (Nitrostat) 0.4 mg SL UD PRN PRN Reason: Chest Pain Stop: 11/29/19 03:19 Ondansetron HCl (Zofran) 4 mg IV Q6H PRN PRN Reason: Nausea Stop: 11/29/19 03:19 Pravastatin Sodium (Pravachol) 20 mg PO [facility] Stop: 11/29/19 08:59 Last Admin: 11/01/19 07:34 Dose: 20 mg Documented by:
[2019-11-01] MEDS: METOPROLOL SUCC 25MG EXT REL TAB PO SCH (21:35)
[2019-11-02] MEDS: SODIUM CHLORIDE 0.9% 1000ML 1,000 ML IV SCH ×2 (02:58→18:42)
[2019-11-02] MEDS: PRAVASTATIN SOD 20 MG TAB PO SCH (08:20)
[2019-11-02] MEDS: METOPROLOL SUCC 50MG EXT REL TAB PO SCH (08:20)
[2019-11-02] MEDS: MAGNESIUM OXIDE 400 MG TAB PO SCH (08:20)
--- NOTE | 2019-11-02 08:35 | Gastroenterology Progress Note ---
Date of Service November 02, 2019 Assessment & Plan (1) Melena: Pt is a 69 y/o male w hx of Crohn's disease (not on meds), Afib on Coumadin who presented w melena. EGD 10/29 negative for source of GI bleed. He is scheduled for colonoscopy eval today - Keep NPO for colonoscopy by Dr. Esqueda today - Monitor H/H and transfuse prn - GI will give further recs after colonoscopy is completed Admission and Anticipated Discharge Date Admission Date: October 30, 2019 Supervising Physician Co-Signing Physician Notes I have personally seen and examined the patient with KEMI Martin. Her note reflects my exam and findings. I agree with her impression and plan. For colonoscopy today. Will need f/u with Dr. Melendez as out patient. Cuate Esqueda M.D. Subjective Pt completed bowel prep last evening. Last BM clear yellowish per his report. He denies abd pain, n/v, CP, SOB. Review of Systems Review of Systems: All systems reviewed & are unremarkable except as noted in HPI & below Physical Exam Constitutional: WD/WN, vitals as above well groomed, cooperative and comfortable Eyes: PERRL, conjunctivae normal, anicteric sclerae ENMT: external ear and nose normal, oropharynx normal Respiratory: normal respiratory effort, lungs clear to auscultation Cardiovascular: RRR, no murmur, no edema Gastrointestinal (Abdomen): normal bowel sounds, soft, nontender, no hepatosplenomegaly Skin: no rashes, warm and dry no jaundice Psychiatric: A+Ox3, euthymic affect Lymphatic: no lymphedema Results & Data ([facility]) Vital Signs (Past 12 Hours) Vital Signs Temp Pulse Pulse Resp BP BP Pulse Ox 11/02/19 07:00 36.6 C 46 L 18 136/70 99 11/02/19 04:27 37.0 C 67 18 113/66 95 11/02/19 03:13 43 L 11/01/19 23:00 36.6 C 49 L 20 137/78 96 11/01/19 22:31 54 L
--- NOTE | 2019-11-02 12:50 | Anesthesiology Consultation ---
Date of Service November 02, 2019 occ UE numbess hx [place] Assessment & Plan (1) Encounter for pre-operative examination: History Surgery Operation Date: 10/30/19 10:00 Proposed Procedures p Esophagogastroduodenoscopy Dr Alfonso Hamilton Operation Date: 11/02/19 16:30 Proposed Procedures p Colonoscopy Dr Dheeraj Esqueda Height/Weight Height: 5 ft 6 in Weight: 78.4 kg Allergies Allergy/AdvReac Type Severity Reaction Status Date / Time No Known Allergies Allergy Verified 10/29/19 22:48 Medications Home Medications Medication Instructions Recorded Confirmed Last Taken acetaminophen [Acetaminophen Extra 1,000 mg PO Q6H PRN 06/16/18 10/29/19 Unknown Strength] garlic 1,000 mg PO QAM 06/16/18 10/29/19 10/29/19 lisinopril 2.5 mg PO QAM 06/16/18 10/29/19 10/29/19 magnesium oxide 400 mg PO QAM 06/16/18 10/29/19 10/29/19 pravastatin 20 mg PO QAM 06/16/18 10/29/19 10/29/19 warfarin 3 mg PO QAM 06/16/18 10/29/19 10/29/19 3 MG metoprolol succinate 25 mg PO QPM 10/29/19 10/29/19 Unknown metoprolol succinate 50 mg PO QAM 10/29/19 10/29/19 10/29/19 50 MG Active Medications Generic Name Dose Route Start Last Admin Trade Name Freq PRN Reason Stop Dose Admin Sodium Chloride 1,000 mls @ 80 mls/hr 10/30/19 03:20 11/02/19 02:58 Nss 1000ml IV 11/29/19 03:19 80 mls/hr .[id number] LILIBETH Administration Lisinopril 2.5 mg 10/30/19 09:00 11/02/19 08:21 Zestril PO 11/29/19 08:59 Not Given QAM LILIBETH Magnesium Oxide 400 mg 10/30/19 09:00 11/02/19 08:20 Mag-Ox PO 11/29/19 08:59 Not Given QAM LILIBETH Metoprolol Succinate 50 mg 10/30/19 09:00 11/02/19 08:20 Toprol Xl PO 11/29/19 08:59 Not Given QAM LILIBETH Metoprolol Succinate 25 mg 10/30/19 21:00 11/01/19 21:35 Toprol Xl PO 11/29/19 20:59 Not Given QPM LILIBETH Pravastatin Sodium 20 mg 10/30/19 09:00 11/02/19 08:20 Pravachol PO 11/29/19 08:59 Not Given QAM LILIBETH NPO Date Last Intake of Fluids: 10/29/19 Time Last Intake of Fluids: 21:00 Date Last Intake of Solids: 10/29/19 Time Last Intake of Solids: 21:00 Past Medical History Medical History Atrial fibrillation Crohns disease Hearing deficit History of cardioversion 11/19/17 Hyperlipidemia Hypertension On anticoagulant therapy Past Family History Family History Other No family history of adverse response to anesthesia Past Surgical History Surgical History History of aortic valve replacement 2008 @ [facility]--follows with Dr. 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 Status post aortic coarctation stent placement 07/04/2012 @ [facility] [place] Social History Smoking Status: Never smoker Hx Alcohol Use: No Hx Substance Use: No substance use type: does not use Physical Exam Vital Signs Last Vital Signs Temp 36.6 C 11/02/19 13:22 Pulse 46 L 11/02/19 13:22 Resp 16 11/02/19 13:22 BP 162/80 H 11/02/19 13:22 Pulse Ox 99 11/02/19 13:22 Testing Laboratory Results 10/30/19 19:10 10/30/19 07:16 PT 15.9 Seconds (9.0-12.0) H 10/30/19 07:16 INR 1.5 (0.9-1.1) H 10/30/19 07:16 APTT 31.9 Seconds (21.0-31.0) H 10/29/19 21:34 Blood Type A Positive 10/29/19 21:34 Antibody Screen NEGATIVE 10/29/19 21:34 Electrocardiogram Date: 10/29/19 Sinus tachycardia with Premature atrial complexes with Aberrant conduction, rate 103 bpm Cannot rule out Anterior infarct (cited on or before 26-DEC-2016) Abnormal ECG When compared with ECG of 19-NOV-2017 10:38, Aberrant conduction is now Present Vent. rate has increased BY 55 BPM QT has lengthened
--- NOTE | 2019-11-02 13:23 | History & Physical Report ---
Date of Service November 02, 2019 Assessment & Plan (1) GI bleed: stable for colonoscopy History of Present Illness Chief Complaint: GI bleeding Primary Care Provider: NO PCP Pt with GI bleeding for colonoscopy Allergies Allergy/AdvReac Type Severity Reaction Status Date / Time No Known Allergies Allergy Verified 10/29/19 22:48 Home Medications Home Medications Medication Instructions Recorded Confirmed Type acetaminophen [Acetaminophen Extra 1,000 mg PO Q6H PRN 06/16/18 10/29/19 History Strength] garlic 1,000 mg PO QAM 06/16/18 10/29/19 History lisinopril 2.5 mg PO QAM 06/16/18 10/29/19 History magnesium oxide 400 mg PO QAM 06/16/18 10/29/19 History pravastatin 20 mg PO QAM 06/16/18 10/29/19 History warfarin 3 mg PO QAM 06/16/18 10/29/19 History metoprolol succinate 25 mg PO QPM 10/29/19 10/29/19 History metoprolol succinate 50 mg PO QAM 10/29/19 10/29/19 History Past Med/Surg History Medical History Atrial fibrillation Crohns disease Hearing deficit History of cardioversion 11/19/17 Hyperlipidemia Hypertension On anticoagulant therapy Surgical History History of aortic valve replacement 2008 @ [facility]--follows with Dr. 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: No Beliefs That Will Affect Care: None marital status: Current Living Situation: Spouse Other Information That Helps Us Care for You: No Feels Safe at Home: Yes Safety Concerns: Feels Safe At This Time Smoking Status: Never smoker Second Hand Exposure: No ; Hx Alcohol Use: No Hx Substance Use: No Physical Exam Constitutional: WD/WN, vitals as above Respiratory: normal respiratory effort, lungs clear to auscultation Cardiovascular: RRR, no murmur, no edema Gastrointestinal (Abdomen): normal bowel sounds, soft, nontender, no hepatosplenomegaly Results & Data Vital Signs (Past 12 Hours) Vital Signs Temp Pulse Pulse Resp BP Pulse Ox 11/02/19 11:00 36.5 C 51 L 16 127/73 100 11/02/19 07:00 36.6 C 46 L 18 136/70 99 11/02/19 04:27 37.0 C 67 18 113/66 95 11/02/19 03:13 43 L Code Status & VTE Plan VTE Prophylaxis Plan VTE Prophylaxis will be ordered: Yes
--- NOTE | 2019-11-02 13:27 | Electrocardiogram Report ---
Test Reason : Blood Pressure : / mmHG Vent. Rate : 042 BPM Atrial Rate : 051 BPM P-R Int : 000 ms QRS Dur : 086 ms QT Int : 532 ms P-R-T Axes : 000 -03 068 degrees QTc Int : 444 ms Junctional bradycardia Poor R wave progression, consider anterior WI vs. lead placement vs. LVH Abnormal ECG When compared with ECG of 29-OCT-2019 21:37, Junctional rhythm has replaced Sinus rhythm Vent. rate has decreased BY 61 BPM Confirmed by Adan Maciel ([id number]) on 11/02/2019 1:27:06 PM Referred By: REFERRED SELF Confirmed By:Adan Maciel
[2019-11-02] MEDS ORDERED: LIDOCAINE HCL 2% 2 ML VIAL/AMP(20MG/ML) INFIL ONE (13:46)
[2019-11-02] MEDS ORDERED: PROPOFOL IV EMULSION 10 MG/ML 20 ML VIAL IV ONE (13:46)
--- NOTE | 2019-11-02 14:21 | GI REPORT ---
Patient Name: Danis Soto Procedure Date: 11/02/2019 1:00 PM Date of : 1950 Admit Type: Inpatient Age: 69 Gender: Male Attending MD: Cuate Esqueda MD Procedure: Colonoscopy Providers: Cuate Esqueda MD Referring MD: Edgar Madden Indications: Melena Medicines: See the Anesthesia note for documentation of the administered medications Complications: No immediate complications. Estimated Blood Loss: Estimated blood loss was minimal. Procedure: Pre-Anesthesia Assessment: - Prior to the procedure, a History and Physical was performed, and patient medications, allergies and sensitivities were reviewed. The patient's tolerance of previous anesthesia was reviewed. - The risks and benefits of the procedure and the sedation options and risks were discussed with the patient. All questions were answered and informed consent was obtained. - Patient identification and proposed procedure were verified prior to the procedure by the physician and the nurse. The procedure was verified in the pre-procedure area. - Pre-procedure physical examination revealed no contraindications to sedation. - After reviewing the risks and benefits, the patient was deemed in satisfactory condition to undergo the procedure. After I obtained informed consent, the scope was passed under direct vision. Throughout the procedure, the patient's blood pressure, pulse, and oxygen saturations were monitored continuously. The Colonoscope was introduced through the anus and advanced to the terminal ileum, with identification of the appendiceal orifice and IC valve. The colonoscopy was performed without difficulty. The patient tolerated the procedure well. The quality of the bowel preparation was good. Findings: The perianal and digital rectal examinations were normal. The terminal ileum appeared normal. Inflammation characterized by erythema, friability, granularity and shallow ulcerations was found in the cecum and left colon. This was moderate in severity. Biopsies were taken with a cold forceps for histology. Verification of patient identification for the specimen was done by the physician and nurse using the patient's name and medical record number. Estimated blood loss was minimal. Many small-mouthed diverticula were found in the sigmoid colon. No additional abnormalities were found on retroflexion. Impression: - The examined portion of the ileum was normal. - Inflammatory bowel disease of the cecum and left colon with sparing of the rectum. This was moderate in severity. Biopsied. - Diverticulosis in the sigmoid colon. Recommendation: - [facility]. Cuate Esqueda M.D. Cuate Esqueda MD 11/02/2019 2:21:14 PM This report has been signed electronically. Note Initiated On: 11/02/2019 1:00 PM Number of Addenda: 0 I attest to the content of the Intraoperative Record and orders documented therein, exceptions below {[id number]}
--- NOTE | 2019-11-02 14:58 | Anesthesiology Progress Note ---
Date of Service November 02, 2019 Anesthesia Post Procedure Vital Signs Vital Signs: Temp Pulse Pulse Pulse Resp BP BP 11/02/19 14:37 53 L 16 115/81 11/02/19 14:22 44 L 16 103/67 11/02/19 14:07 51 L 16 117/62 11/02/19 13:22 36.6 C 46 L 16 162/80 H 11/02/19 11:00 36.5 C 51 L 16 127/73 11/02/19 07:00 36.6 C 46 L 18 136/70 11/02/19 04:27 37.0 C 67 18 113/66 11/02/19 03:13 43 L 11/01/19 23:00 36.6 C 49 L 20 137/78 11/01/19 22:31 54 L 11/01/19 19:00 36.8 C 53 L 20 183/89 H 11/01/19 16:00 49 L 11/01/19 15:04 36.3 C L 49 L 18 137/77 Pulse Ox 11/02/19 14:37 99 11/02/19 14:22 99 11/02/19 14:07 96 11/02/19 13:22 99 11/02/19 11:00 100 11/02/19 07:00 99 11/02/19 04:27 95 11/02/19 03:13 11/01/19 23:00 96 11/01/19 22:31 11/01/19 19:00 98 11/01/19 16:00 11/01/19 15:04 96 Transfer of Care Handoff Completed per policy Notes Mental Status: alert / awake / arousable and participated in evaluation Patient Amnestic to Procedure: Yes Nausea / Vomiting: adequately controlled Pain: adequately controlled Airway Patency, RR, SpO2: stable & adequate BP & HR: stable & adequate Hydration State: stable & adequate Anesthetic Complications: no major complications apparent and Pt Satisfied with anesthetic care
[2019-11-02] MEDS: POTASSIUM CHLORIDE / WTR 10 MEQ/100 ML PLCT IV SCH ×2 (15:16→15:17)
[2019-11-02 15:49] LABS: BUN Creatinine Ratio 8.8 (10-20); Calcium 8.7 mg/dl (8.5-10.1); Est GFR (African American) 92.1; Est GFR (Non-African American) 79.5; Magnesium 2.1 mg/dl (1.8-2.4); Potassium 4.2 mmol/L (3.5-5.1)
--- NOTE | 2019-11-02 16:59 | Hospitalist Progress Note ---
Date of Service November 02, 2019 Assessment & Plan (1) Acute GI bleeding: Presented with lower abdominal pain with melena and occasionally bright red blood per rectum Hemoglobin was removed over 12 Status post negative EGD Appreciate GI input and recommendation No more black stool and no more bright red blood per rectum Minimal abdominal discomfort Will have colonoscopy tomorrow that is 11/02/2019 Colonoscopy did not show active Crohn's colitis without any bleeding Will start mesalamine 600 mg 3 times daily as advised We will start Coumadin from tonight (2) Melena: Negative EGD and no drop in hemoglobin No more melena and/or hematochezia Hemoglobin remains stable (3) HTN (hypertension): Blood pressure is controlled,we will continue current medication (4) Paroxysmal atrial fibrillation: Heart rate is controlled and seems to be in the lower side at 50 With bicuspid aortic valve Has cardiology appointment as an outpatient in [place] on Friday He will need to go with disc for CT Bradycardia Noted to have asymptomatic bradycardia for the last 2 or 3 days Went down below 40 last night EKG did not show possible junctional rhythm Electrolytes are unremarkable We will hold beta-lauri for tonight and tomorrow morning If the heart rate is improved we will likely DC home tomorrow otherwise cardiology evaluation in the hospital (5) Hyperlipidemia: Continue statin continue Toprol DVT prophylaxis SCDs Coumadin restarted Admission and Anticipated Discharge Date Admission Date: October 30, 2019 Subjective The patient was seen and examined in medical floor He is status post EGD without any evidence of bleeding Complains to have minimal epigastric pain Denies any other symptoms 10/31/2019 The patient was seen and examined in medical floor He has been feeling a lot better He did not have any more black stool and the lower abdominal pain/discomfort has improved 11/01/2019 The patient was seen and examined in medical floor He was sent back from colonoscopy and the preparation was not acute He will have colonoscopy tomorrow Denies any acute symptoms 11/02/2019 The patient was seen and examined in medical telemetry unit He was noted to have low heart rate around upper 40s for the last 2 days It went down to below 39 last night without any symptoms He is a status post colonoscopy which revealed active Crohn's disease without any bleeding He denies any cardiac symptoms Review of Systems Review of Systems: All systems reviewed and are unremarkable except as noted below Physical Exam Physical Exam: Lying in bed comfortably Constitutional: well developed and well nourished; no acute distress and not ill appearing Eyes: PERRL, conjunctivae normal, anicteric sclerae ENMT: external ear and nose normal, oropharynx normal Neck: trachea midline, no thyromegaly Respiratory: normal respiratory effort; no respiratory distress Auscultation: lungs clear to auscultation bilaterally Cardiovascular: Rate/Rhythm: regular rate, regular rhythm and + bradycardic Heart Sounds: + murmur Gastrointestinal (Abdomen): Inspection/Auscultation: abdomen normal to inspection and normal bowel sounds; abdomen not distended Percussion/Palpation: + abdomen tender (Mildly tender in the epigastrium and lower quadrants) and abdomen soft Musculoskeletal: No acute arthritis involving any joints Neurologic: moves all extremities; no focal motor deficits Lymphatic: no cervical or axillary lymphadenopathy Results & Data Results & Data ([facility]) Vital Signs (Past 12 Hours) Vital Signs Temp Pulse Resp BP Pulse Ox 11/02/19 15:52 37.0 C 47 L 18 169/70 H 98 11/02/19 15:00 36.6 C 49 L 18 165/90 H 95 11/02/19 14:37 53 L 16 115/81 99 11/02/19 14:22 44 L 16 103/67 99 11/02/19 14:07 51 L 16 117/62 96 11/02/19 13:22 36.6 C 46 L 16 162/80 H 99 11/02/19 11:00 36.5 C 51 L 16 127/73 100 11/02/19 07:00 36.6 C 46 L 18 136/70 99 Laboratory Results [facility] 11/02/19 15:00 Sodium 137 Potassium 4.2 Chloride 107 Carbon Dioxide 24 BUN 9 Creatinine 0.98 Glucose 72 Calcium 8.7 Medications Administered Current Inpatient Medications Acetaminophen (Tylenol) 650 mg PO Q4H PRN PRN Reason: Pain or Fever Stop: 11/29/19 03:19 Sodium Chloride (Nss 1000ml) 1,000 mls @ 80 mls/hr IV .[id number] LILIBETH Stop: 11/29/19 03:19 Last Infusion: 11/02/19 16:38 Dose: Infused Documented by: Potassium Chloride (K Camacho / Wtr) 10 meq in 100 mls @ 100 mls/hr IV Q1H LILIBETH Stop: 11/02/19 16:59 Last Infusion: 11/02/19 15:45 Dose: 80 mls/hr Documented by: Lisinopril (Zestril) 5 mg PO QAM [facility] Stop: 12/03/19 08:59 Magnesium Oxide (Mag-Ox) 400 mg PO QAM [facility] Stop: 11/29/19 08:59 Last Admin: 11/02/19 08:20 Dose: Not Given Documented by: Mesalamine (Mesalamine) 1,600 mg PO TID [facility] Stop: 12/02/19 20:59 Metoprolol Succinate (Toprol Xl) 50 mg PO QAM [facility] Stop: 11/29/19 08:59 Last Admin: 11/02/19 08:20 Dose: Not Given Documented by: Metoprolol Succinate (Toprol Xl) 25 mg PO QPM [facility] Stop: 11/29/19 20:59 Last Admin: 11/01/19 21:35 Dose: Not Given Documented by: Nitroglycerin (Nitrostat) 0.4 mg SL UD PRN PRN Reason: Chest Pain Stop: 11/29/19 03:19 Ondansetron HCl (Zofran) 4 mg IV Q6H PRN PRN Reason: Nausea Stop: 11/29/19 03:19 Pravastatin Sodium (Pravachol) 20 mg PO QAWW [facility] Stop: 11/29/19 08:59 Last Admin: 11/02/19 08:20 Dose: Not Given Documented by: Warfarin Sodium (Coumadin) 3 mg PO DAILY@1600 [facility] Stop: 12/02/19 16:29
[2019-11-02] MEDS: WARFARIN SOD 3 MG TAB PO SCH (17:24)
[2019-11-02] MEDS: MESALAMINE 800 MG TABCR PO SCH (17:26)
[2019-11-03] MEDS: SODIUM CHLORIDE 0.9% 1000ML 1,000 ML IV SCH ×2 (04:55→17:17)
[2019-11-03] MEDS: MESALAMINE 800 MG TABCR PO SCH ×3 (07:37→16:43)
[2019-11-03] MEDS: PRAVASTATIN SOD 20 MG TAB PO SCH (07:37)
[2019-11-03] MEDS: lisinopriL 5 MG TAB PO SCH (07:37)
[2019-11-03] MEDS: MAGNESIUM OXIDE 400 MG TAB PO SCH (07:37)
[2019-11-03 08:17] LABS: INR 1.2 (0.9-1.1); Prothrombin Time 12.3 Seconds (9.0-12.0)
[2019-11-03 08:39] LABS: BUN Creatinine Ratio 10.1 (10-20); Calcium 8.3 mg/dl (8.5-10.1); Creatinine Clr Calc Pharmacy 73.6 ml/min; Est GFR (African American) 95.6; Est GFR (Non-African American) 82.5; Potassium 4.1 mmol/L (3.5-5.1)
--- NOTE | 2019-11-03 08:49 | Anesthesiology Progress Note ---
Date of Service November 03, 2019 Anesthesia Post Procedure Vital Signs Vital Signs: Temp Pulse Pulse Resp BP BP Pulse Ox 11/03/19 07:39 36.9 C 48 L 20 129/75 96 11/03/19 04:00 37.1 C 67 18 117/61 96 11/02/19 23:54 36.9 C 52 L 18 150/83 H 97 11/02/19 22:20 49 L 11/02/19 19:17 36.3 C L 56 L 19 167/76 H 98 11/02/19 15:52 37.0 C 47 L 18 169/70 H 98 11/02/19 15:00 36.6 C 45 L 49 L 18 165/90 H 95 11/02/19 14:37 53 L 16 115/81 99 11/02/19 14:22 44 L 16 103/67 99 11/02/19 14:07 51 L 16 117/62 96 11/02/19 13:22 36.6 C 46 L 16 162/80 H 99 11/02/19 11:00 36.5 C 51 L 16 127/73 100 Notes Mental Status: alert / awake / arousable and participated in evaluation Patient Amnestic to Procedure: Yes Nausea / Vomiting: adequately controlled Pain: adequately controlled Airway Patency, RR, SpO2: stable & adequate BP & HR: stable & adequate Hydration State: stable & adequate Anesthetic Complications: no major complications apparent and Pt Satisfied with anesthetic care
--- NOTE | 2019-11-03 09:11 | Cardiology Consultation ---
Date of Consultation November 03, 2019 Assessment & Plan (1) Bradycardia: Patient with history of congenital/structural heart disease as noted in the HPI. 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 He had been prescribed metoprolol succinate 50 mg daily in the a.m. and 25 mg at night prior to this hospital stay. Beta-lauri was held yesterday due to bradycardia. This may have been part been due to high vagal tone in the setting of abdominal comfort. At present, anticipate he will tolerate going back on succinate perhaps a dose of 50 mg by mouth daily. Now however I think it would be most prudent to start with metoprolol tartrate 25 mg daily to make sure that he tolerates this well. We will discuss timing of initiating his Coumadin with the primary service. Echocardiogram has been requested and will be reviewed. History of Present Illness Attending Physician: Holden Haji MD History of Present Illness Danis Soto is a 69 year old male seen in cardiology consultation per the request of Dr Jiang for the evaluation of bradycardia. 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 The patient states that he had onset of abdominal discomfort when he went to go to work [employer] a week ago. He was able to complete his afternoon shift, but the discomfort persisted, prompting hospitalization. He had also noted tarry stools. Been followed by GI, and underwent EGD and colonoscopy. Colonoscopy, yesterday, 11/02/2019 revealed inflammatory bowel disease of the cecum and left colon with sparing of the rectum. Diverticulosis of the sigmoid colon also noted. He reverted back to sinus rhythm as documented on repeat EKG performed this morning at 924 with sinus rhythm at 71 bpm, first-degree AV block, NH interval 212 ms. Coumadin remains on hold, INR within normal limits. Cardiology consulted because patient noted to have intermittent bradycardia. Yesterday at 12:24 PM the patient was noted to have junctional rhythm at 42 bpm with noted retrograde P waves. He denies any cardiac symptoms at around that time, he was awaiting colonoscopy, and he noted mild abdominal discomfort. 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 Allergies Allergy/AdvReac Type Severity Reaction Status Date / Time No Known Allergies Allergy Verified 10/29/19 22:48 Home Medications Home Medications Medication Instructions Recorded Confirmed Type acetaminophen [Acetaminophen Extra 1,000 mg PO Q6H PRN 06/16/18 10/29/19 History Strength] garlic 1,000 mg PO QAM 06/16/18 10/29/19 History lisinopril 2.5 mg PO QAM 06/16/18 10/29/19 History magnesium oxide 400 mg PO QAM 06/16/18 10/29/19 History pravastatin 20 mg PO QAM 06/16/18 10/29/19 History warfarin 3 mg PO QAM 06/16/18 10/29/19 History metoprolol succinate 25 mg PO QPM 10/29/19 10/29/19 History metoprolol succinate 50 mg PO QAM 10/29/19 10/29/19 History Patient History Medical History Atrial fibrillation Crohns disease Hearing deficit History of cardioversion 11/19/17 Hyperlipidemia Hypertension On anticoagulant therapy Surgical History History of aortic valve replacement 2008 @ [facility]--follows with Dr. 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 Status post aortic coarctation stent placement 07/04/2012 [place] [facility] [place] Family History Other No family history of adverse response to anesthesia Social History Preferred Language: Romanian Communication Ability: Effective Ssds Mk 2 Advanced Operator Required: No Beliefs That Will Affect Care: None marital status: Current Living Situation: Spouse Other Information That Helps Us Care for You: No Feels Safe at Home: Yes Safety Concerns: Feels Safe At This Time Smoking Status: Never smoker Second Hand Exposure: No ; Hx Alcohol Use: No Hx Substance Use: No Review of Systems Review of Systems: All systems reviewed & are unremarkable except as noted in HPI & below Physical Exam Physical Exam: Temp Pulse Resp BP Pulse Ox 36.9 C 48 L 20 129/75 96 11/03/19 07:39 11/03/19 07:39 11/03/19 07:39 11/03/19 07:39 11/03/19 07:39 Constitutional: WD/WN, vitals as above Cardiovascular: RRR, no murmur, no edema Gastrointestinal (Abdomen): normal bowel sounds, soft, nontender, no hepatosplenomegaly Musculoskeletal: no cyanosis or clubbing, extremities motor strength 5/5 Neurologic: PERRL, EOMI, accommodation nl, no face palsy, no dysarthria Results & Data ([facility]) Vital Signs (Past 12 Hours) Vital Signs Temp Pulse Pulse Resp BP BP Pulse Ox 11/03/19 07:39 36.9 C 48 L 20 129/75 96 11/03/19 04:00 37.1 C 67 18 117/61 96 11/02/19 23:54 36.9 C 52 L 18 150/83 H 97 11/02/19 22:20 49 L Laboratory Results Coagulation Hemoglobin most recently assessed on 10/30/2019 was 11.9. INR today 11/03/2019, 1.2 11/03/19 Range/Units 07:26 PT 12.3 H (9.0-12.0) Seconds Comprehensive Metabolic Panel 11/02/19 11/03/19 Range/Units 15:00 07:26 Sodium 137 137 (136-145) mmol/L Potassium 4.2 4.1 (3.5-5.1) mmol/L Chloride 107 105 (98-107) mmol/L Carbon Dioxide 24 24 (21-32) mmol/L BUN 9 10 (7-18) mg/dl Creatinine 0.98 0.95 (0.6-1.4) mg/dl Glucose 72 75 (70-99) mg/dl Calcium 8.7 8.3 L (8.5-10.1) mg/dl Intake and Output 11/02/19 11/03/19 11/03/19 22:59 06:59 14:59 Intake Total 1525.667 / 2401.667 876 / 2401.667 Balance 1525.667 / 2401.667 876 / 2401.667 Intake: IV 1425.667 / 2101.667 676 / 2101.667 K RIDER / WTR 10 meq In 100 ml 101.667 / 101.667 @ 100 mls/hr IV Q1H LILIBETH Rx#: [id number] Nss 1000ML 1,000 ml @ 80 mls/hr 1324 / 2000 676 / 2000 IV .[id number] LILIBETH Rx#:[id number] Oral 100 / 300 200 / 300 Other: # Unmeasured Voids 1 Weight 76.6 kg
[2019-11-03] MEDS ORDERED: PERFLUTREN LIPID MICROSPHERE (DEFINITY) IV ONE (10:24)
[2019-11-03] MEDS: METOPROLOL TARTRATE 25 MG TAB PO SCH (12:22)
--- NOTE | 2019-11-03 14:39 | Electrocardiogram Report ---
Test Reason : Blood Pressure : / mmHG Vent. Rate : 071 BPM Atrial Rate : 071 BPM P-R Int : 212 ms QRS Dur : 084 ms QT Int : 514 ms P-R-T Axes : 063 -03 061 degrees QTc Int : 558 ms Sinus rhythm with 1st degree A-V block with Premature atrial complexes Prolonged QT Abnormal ECG When compared with ECG of 02-NOV-2019 12:24, Sinus rhythm has replaced Junctional rhythm Vent. rate has increased BY 29 BPM QT has lengthened Confirmed by Adan Maciel ([id number]) on 11/03/2019 2:39:23 PM Referred By: REFERRED SELF Confirmed By:Adan Maciel
[2019-11-03] MEDS: WARFARIN SOD 3 MG TAB PO SCH (16:43)
--- NOTE | 2019-11-03 18:16 | Hospitalist Progress Note ---
Date of Service November 03, 2019 Assessment & Plan (1) Acute GI bleeding: Presented with lower abdominal pain with melena and occasionally bright red blood per rectum Acute GI bleeding Secondary to IBD --CT ABD:Postoperative change of the delicia hepatis. Moderate gallbladder distention with potential of a slight gallbladder wall thickening and several small gallstones. Prior splenectomy. Mild small bowel enteritis. --EGD:Normal esophagus. Small hiatal hernia. Normal stomach. Normal examined duodenum. No specimens collected. --Colonoscopy: The examined portion of the ileum was normal. Inflammatory bowel disease of the cecum and left colon with sparing of the rectum. This was moderate in severity. Biopsied. Diverticulosis in the sigmoid colon. Appreciate GI input and recommendation Started on Mesalamine 600 mg 3 times daily Ok to resume anticoagulation for afib as per GI Needs follow up with GI upon discharge Advance diet as tolerated (2) Melena: As above Monitor H&H (3) HTN (hypertension): Stable Continue current medications (4) Paroxysmal atrial fibrillation: H/O P.Afib H/O tachycardia-bradycardia syndrome Bradycardia currently Restarted metoprolol at reduced dose 25 mg daily Appreciate cardiology input Monitor on telemetry Resume Coumadin for anticoagulation (5) Hyperlipidemia: Continue statin DVT Px Coumadin Admission and Anticipated Discharge Date Admission Date: October 30, 2019 Subjective Patient is seen and examined at bedside Noted bradycardia Denies any recurrence of bleeding issues Tolerating diet Discussed with GI today Denies any chest pain, shortness of breath, dizziness, nausea, abdominal pain Offers no other complaints Review of Systems Review of Systems: All systems reviewed & are unremarkable except as noted in HPI & below Physical Exam Physical Exam: Physical Exam: Vitals signs as noted above General Appearance:Moderately built and nourished, no apparent distress Head: normocephalic, Atraumatic Eyes: normal inspection, EOMI Neck: supple, Trachea midline Respiratory/Chest: Normal breath sounds, CTA Cardiovascular: S1, S2, +Bradycardia, + murmur Abdomen/GI:Soft, Non tender, Bowel sounds present Extremities/Musculoskelatal:normal inspection, no edema Neurologic/Psych:AAOX3, grossly no focal neurological deficits Skin: normal color, warm Results & Data Results & Data ([facility]) Vital Signs (Past 12 Hours) Vital Signs Temp Pulse Pulse Resp BP Pulse Ox 11/03/19 16:15 47 L 11/03/19 15:36 36.6 C 48 L 16 147/81 H 98 11/03/19 11:38 36.4 C L 51 L 20 135/76 98 11/03/19 07:39 36.9 C 48 L 20 129/[address] [facility] 11/03/19 07:26 Sodium 137 Potassium 4.1 Chloride 105 Carbon Dioxide 24 BUN 10 Creatinine 0.95 Glucose 75 Calcium 8.3 L
[2019-11-04 06:16] LABS: Hematocrit (blood only) 36.7 % (42-52); Hemoglobin 12.1 g/dL (14.0-18.0)
[2019-11-04 06:28] LABS: INR 1.2 (0.9-1.1); Prothrombin Time 12.7 Seconds (9.0-12.0)
[2019-11-04 06:54] LABS: BUN Creatinine Ratio 10.3 (10-20); Calcium 8.5 mg/dl (8.5-10.1); Est GFR (African American) 92.1; Est GFR (Non-African American) 79.5; Magnesium 1.9 mg/dl (1.8-2.4); Potassium 4.1 mmol/L (3.5-5.1)
[2019-11-04] MEDS: METOPROLOL TARTRATE 25 MG TAB PO SCH (07:39)
[2019-11-04] MEDS: MESALAMINE 800 MG TABCR PO SCH ×3 (07:43→15:55)
[2019-11-04] MEDS: MAGNESIUM OXIDE 400 MG TAB PO SCH (07:44)
[2019-11-04] MEDS: PRAVASTATIN SOD 20 MG TAB PO SCH (07:44)
[2019-11-04] MEDS: lisinopriL 5 MG TAB PO SCH (07:44)
--- NOTE | 2019-11-04 09:55 | Cardiology Progress Note ---
Date of Service November 04, 2019 Assessment & Plan (1) Bradycardia: (2) Paroxysmal atrial fibrillation: (3) Acute GI bleeding: Reduce beta-lauri dose. Recommend Toprol-XL 50 mg daily. Continue other cardiovascular medications as previously ordered. Warfarin restarted. Monitor for any signs/symptoms of recurrent GI blood loss. No further inpatient cardiovascular testing or intervention at this time. Subjective Patient seen and examined at the bedside. Feeling well from a cardiovascular perspective. Denies lightheadedness, dizziness, syncope, or near syncope. Telemetry demonstrates sinus bradycardia as well as periodic junctional rhythm overnight. No evidence of recurrent atrial fibrillation. Denies recurrent melena, dark stools, or diarrhea. Requesting discharge if possible. Received 25 mg of metoprolol tartrate this a.m. Outpatient dose of beta-lauri, Toprol- XL 75 mg daily. Review of Systems Review of Systems: All systems reviewed & are unremarkable except as noted in HPI & below Physical Exam Constitutional: well developed and well nourished; no acute distress Respiratory: normal respiratory effort; no respiratory distress, no labored breathing and no retractions Auscultation: no diminished lung sounds, no crackles, no rales, no rhonchi and no wheezes Cardiovascular: Rate/Rhythm: regular rate and + bradycardic Heart Sounds: normal S1, normal S2 and + murmur (2/6 TIAGO) Vessels: radial pulses present; no JVD Extremities: no edema Gastrointestinal (Abdomen): Inspection/Auscultation: abdomen normal to inspection and normal bowel sounds; abdomen not distended Percussion/Palpation: abdomen soft; abdomen nontender, no guarding and abdomen not rigid Skin: no rashes, warm and dry Neurologic: moves all extremities; no focal motor deficits Speech / Cognition: normal speech Motor/Sensory: no tremor Psychiatric: A+Ox3, euthymic affect Results & Data Vital Signs (Past 12 Hours) Vital Signs Temp Pulse Pulse Resp BP BP Pulse Ox 11/04/19 08:47 58 L 11/04/19 07:21 36.4 C L 47 L 16 129/82 97 11/04/19 03:36 50 L 11/04/19 03:12 36.8 C 53 L 20 104/58 L 98 11/03/19 22:00 37.2 C 51 L 20 115/65 96
--- NOTE | 2019-11-04 14:55 | Hospitalist Progress Note ---
Date of Service November 04, 2019 Assessment & Plan (1) Acute GI bleeding: Presented with lower abdominal pain with melena and occasionally bright red blood per rectum Acute GI bleeding Secondary to IBD --CT ABD:Postoperative change of the delicia hepatis. Moderate gallbladder distention with potential of a slight gallbladder wall thickening and several small gallstones. Prior splenectomy. Mild small bowel enteritis. --EGD:Normal esophagus. Small hiatal hernia. Normal stomach. Normal examined duodenum. No specimens collected. --Colonoscopy: The examined portion of the ileum was normal. Inflammatory bowel disease of the cecum and left colon with sparing of the rectum. This was moderate in severity. Biopsied. Diverticulosis in the sigmoid colon. Appreciate GI input and recommendation Started on Mesalamine 600 mg 3 times daily Ok to resume anticoagulation for afib as per GI Needs follow up with GI upon discharge Tolerated diet No recurrence of bleeding Continue mesalamine until follow-up with GI as outpatient (2) Melena: As above Monitor H&H (3) HTN (hypertension): Stable Continue current medications (4) Paroxysmal atrial fibrillation: H/O P.Afib H/O tachycardia-bradycardia syndrome Bradycardia currently Restarted metoprolol at reduced dose 50 mg daily Appreciate cardiology input Monitor on telemetry Continue Coumadin for anticoagulation (5) Hyperlipidemia: Continue statin DVT Px Coumadin Admission and Anticipated Discharge Date Admission Date: October 30, 2019 Subjective Patient is seen and examined at bedside Doing well today Tolerated diet No bleeding issues Discussed with Cardiology and GI today Denies any chest pain, shortness of breath, dizziness, nausea, abdominal pain Review of Systems Review of Systems: All systems reviewed & are unremarkable except as noted in HPI & below Physical Exam Physical Exam: Physical Exam: Vitals signs as noted above General Appearance:Moderately built and nourished, no apparent distress Head: normocephalic, Atraumatic Eyes: normal inspection, EOMI Neck: supple, Trachea midline Respiratory/Chest: Normal breath sounds, CTA Cardiovascular: S1, S2, + murmur Abdomen/GI:Soft, Non tender, Bowel sounds present Extremities/Musculoskelatal:normal inspection, no edema Neurologic/Psych:AAOX3, grossly no focal neurological deficits Skin: normal color, warm Results & Data Results & Data ([facility]) Vital Signs (Past 12 Hours) Vital Signs Temp Pulse Pulse Resp BP BP Pulse Ox 11/04/19 11:01 36.4 C L 64 16 120/54 L 98 11/04/19 08:47 58 L 11/04/19 07:21 36.4 C L 47 L 16 129/82 97 11/04/19 03:36 50 L 11/04/19 03:12 36.8 C 53 L 20 104/58 L 98 Laboratory Results Short CBC 11/04/19 Range/Units 05:45 Hgb 12.1 L (14.0-18.0) g/dL Hct 36.7 L (42-52) % BMP 11/04/19 05:45 Sodium 138 Potassium 4.1 Chloride 107 Carbon Dioxide 25 BUN 10 Creatinine 0.98 Glucose 89 Calcium 8.5
--- NOTE | 2019-11-04 15:05 | Discharge Summary ---
Date of Service November 04, 2019 Admission HPI Per Admitting Provider CHIEF COMPLAINT: Melena. HISTORY OF PRESENT ILLNESS: This is a 69-year-old male with past medical history significant for paroxysmal atrial fibrillation and atypical flutter status post DCCV in 2018, on Coumadin, hypertension, hyperlipidemia, bicuspid aortic valve, status post bioprosthetic aortic valve replacement as well as aortic root replacement, history of coarctation of aorta status post stenting, history of hepatic artery aneurysm, status post embolization, history of splenic artery rupture and splenectomy in 2006, history of regional enteritis of the small intestine, Peyronie's disease, anxiety state, history of schizophrenia, who lives with his , comes here because of melena. The patient says since night he has abdominal pain. morning, he had an episode of nausea, vomiting, and today again he can started having abdominal pain and he noticed some black stools and also an episode of small amount of blood in the stools. Currently, resting comfortably and hemodynamically stable. Denies any other complaints. No chest pain, no shortness of breath, no cough, no nausea, no vomiting, no loss of sense of smell or taste. No headache, no blurred vision, no earache, no runny nose. Normal bowel and bladder movements. No swelling in the legs. Ambulating okay. Admission Exam Per Admitting Provider PHYSICAL EXAMINATION: GENERAL: The patient is of moderate build, not in acute distress. VITAL SIGNS: Temperature 37.9, pulse 63, respiratory rate 18, blood pressure 114/68, oxygen 94% on room air. HEENT: No pallor, no icterus. Pupils equal, round, and reactive to light. NECK: No JVD, no neck masses. CARDIOVASCULAR: S1, S2 heard, regular rate and rhythm, no murmur, no gallop. RESPIRATORY SYSTEM: Normal AP diameter. No accessory muscle use. No wheezing, no crackles. ABDOMEN: Soft, bowel sounds present. Mild tenderness in the periumbilical region. No guarding, no rigidity. CENTRAL NERVOUS SYSTEM: Cranial nerves II-XII grossly intact. Nonfocal. EXTREMITIES: No edema, no erythema. Principal Diagnosis Acute GI bleeding Inflammatory bowel disease Tachycardia bradycardia syndrome Discharge Data Allergies Allergy/AdvReac Type Severity Reaction Status Date / Time No Known Allergies Allergy Verified 10/29/19 22:48 Consultations 10/29/19 22:43 ED Decision to Admit Stat 10/30/19 03:20 Consult Case Management - Discharge Planning Routine 10/30/19 08:00 Consult Gastroenterology Routine 11/03/19 08:26 Consult Cardiology Routine Procedures Performed Operation Date: 10/30/19 10:00 Actual Procedures p Esophagogastroduodenoscopy(Not Applicable) - Feliciano Hamilton Operation Date: 11/02/19 16:30 Actual Procedures p Colonoscopy Biopsy Cytology - Cuate Esqueda -CT ABD:Postoperative change of the delicia hepatis. Moderate gallbladder distention with potential of a slight gallbladder wall thickening and several small gallstones. Prior splenectomy. Mild small bowel enteritis. --EGD:Normal esophagus. Small hiatal hernia. Normal stomach. Normal examined duodenum. No specimens collected. --Colonoscopy: The examined portion of the ileum was normal. Inflammatory bowel disease of the cecum and left colon with sparing of the rectum. This was moderate in severity. Biopsied. Diverticulosis in the sigmoid colon. Ordered Studies 10/29/19 21:29 CT abd pelvis IV con only Urgent Hospital Course (1) Acute GI bleeding: Presented with lower abdominal pain with melena and occasionally bright red blood per rectum Acute GI bleeding Secondary to IBD --CT ABD:Postoperative change of the delicia hepatis. Moderate gallbladder distention with potential of a slight gallbladder wall thickening and several small gallstones. Prior splenectomy. Mild small bowel enteritis. --EGD:Normal esophagus. Small hiatal hernia. Normal stomach. Normal examined duodenum. No specimens collected. --Colonoscopy: The examined portion of the ileum was normal. Inflammatory bowel disease of the cecum and left colon with sparing of the rectum. This was moderate in severity. Biopsied. Diverticulosis in the sigmoid colon. Appreciate GI input and recommendation Started on Mesalamine 600 mg 3 times daily Ok to resume anticoagulation for afib as per GI Needs follow up with GI upon discharge Tolerated diet No recurrence of bleeding Continue mesalamine until follow-up with GI as outpatient (2) Melena: As above Monitor H&H (3) HTN (hypertension): Stable Continue current medications (4) Paroxysmal atrial fibrillation: H/O P.Afib H/O tachycardia-bradycardia syndrome Bradycardia currently Restarted metoprolol at reduced dose 50 mg daily Appreciate cardiology input Monitor on telemetry Continue Coumadin for anticoagulation (5) Hyperlipidemia: Continue statin DVT Px Coumadin Total Time Total Time Spent Total Time Spent (In Minutes): 39 minutes Total Time Includes: Examination of the Patient, Discharge Planning, Medication Reconciliation, Communication With Other Providers and Other Discharge Plan Discharge Items Patient Disposition: Home - Self-Care Reason For Visit: MELENA Discharge Diagnosis: Acute GI bleeding Inflammatory bowel disease Tachycardia bradycardia syndrome Activity: Resume your previous activity Exercise/Sports: Gradually increase as tolerated Non-emergency contact: Primary Care Provider, Dance Teacher and Rn Admission Call non-emergency contact if: you have any medication questions, your symptoms worsen, your pain is not controlled, your pain is worsening, your pain is unusual for you, your pain is concerning for you and you have a fever Follow-up/Referrals: Jeffrey Fatima DO [Outside Practitioners] - 11/08/19 3:20 pm (11/08/2019 3:20 PM Provider Jeffrey Fatima DO [facility] If you need to reschedule your appointment, please call ) Diet: Heart Healthy Addtl Attending Provider Instructions: Follow-up with your primary care physician Dr. Fatima on November 08, 2019 at 3:20 PM Follow-up with your quahogger Dr.Donald Esqueda in 2-4 weeks Follow up with your Dance Teacher / in 2-4 weeks as advised by your Dance Teacher Follow-up with your Coumadin clinic, for monitoring your PT/INR and Coumadin dosing Seek immediate medical attention if your symptoms reoccur or worsen New Medications: Start taking mesalamine 1600 mg daily 3 times a day Discontinued Medication: Your evening dose of metoprolol succinate 25 mg daily is discontinued Pending Studies at Discharge: No Stand-Alone Forms: My [facility] ticckle, Smoking Cessation Medications and DC Order Prescriptions: New mesalamine 800 mg Tablet,Delayed Release (Dr/Ec) 1,600 mg PO TIDM 30 Days Qty: 180 RF: 0 Continued warfarin 3 mg Tablet 3 mg PO QAM RF: 0 pravastatin 20 mg Tablet 20 mg PO QAM RF: 0 lisinopril 2.5 mg Tablet 2.5 mg PO QAM RF: 0 magnesium oxide 400 mg Capsule 400 mg PO QAM RF: 0 acetaminophen [Acetaminophen Extra Strength] 500 mg Tablet 1,000 mg PO Q6H PRN (Reason: Pain) RF: 0 garlic 1,000 mg Capsule 1,000 mg PO QAM RF: 0 metoprolol succinate 50 mg tablet extended release 24 hr 50 mg PO QAM RF: 0 Discontinued metoprolol succinate 50 mg tablet extended release 24 hr 25 mg PO QPM RF: 0 Discharge Orders: Discharge Order (Routine); Ordered 11/04/19 Ordered By: Holden Haji Admission Data Admit Date/Time: 10/30/19 01:36 Attending Provider: Holden Haji Admit Provider: Ronnie Woodall Primary Care Provider: PCP,NO Other Providers: Ronnie Woodall ; Shaid Owen ; Deb Gaines ; Warren Hussein ; Lindsey Sutton ; Agustin Brown ; Feliciano Hamilton ; Becca Melendez ; Shelley Chacon ; Aiden Kim ; Cuate Esqueda ; Odette Lockwood ; Cammy Medeiros ; Angeline Kim ; Leola Mukherjee ; Sander Orellana ; Anders Tena Other Interventions: Discharge Summary Assessment (RN) Last Done: 11/04/19 15:27
[2019-11-04] MEDS: WARFARIN SOD 3 MG TAB PO SCH (15:54)
[2019-11-05] MEDS ORDERED: METOPROLOL SUCC 50MG EXT REL TAB PO SCH (09:00)
== END 2019-11-04 17:10 | disposition home or self-care (01) | DRG 391 ==
LOC: ED 20:21 → 2W 10-30 01:36 → SUATTDRO 10-30 01:36 → 2W 10-30 02:58

== ENCOUNTER 2019-11-23 09:08 | Observation (INO) ==
[2019-11-23] MEDS ORDERED: MIDAZOLAM HCL 5 MG/ML 1 ML VIAL ONE (10:24)
[2019-11-23] MEDS ORDERED: CEFAZOLIN 250 MG/ML 1 GM VIAL ONE (10:24)
[2019-11-23] MEDS ORDERED: fentaNYL citrate 100 MCG/2 ML VIAL ONE (10:24)
--- NOTE | 2019-11-23 11:35 | History & Physical Bridge Note ---
Date of Service November 23, 2019 History & Physical Bridge Note I have examined the patient, reviewed the History & Physical and in the interval since the performance of the History & Physical I have noted the following changes of clinical significance: pt had breakfast despite being told not to eat or drink after midnight. Procedure rescheduled for tomorrow 11/24/2019.
[2019-11-24] MEDS ORDERED: LIDOCAINE HCL 1% 20 ML VIAL ONE (12:18)
[2019-11-24] MEDS ORDERED: BUPIVACAINE 0.25% 30 ML VIAL ONE (12:18)
[2019-11-24] MEDS ORDERED: BACITRACIN INJ 50,000 UNIT VIAL ONE (12:18)
[2019-11-24] MEDS ORDERED: fentaNYL citrate 100 MCG/2 ML VIAL ONE ×2 (12:19→13:00)
[2019-11-24] MEDS ORDERED: MIDAZOLAM HCL 5 MG/ML 1 ML VIAL ONE ×2 (12:19→13:20)
[2019-11-24] MEDS ORDERED: CEFAZOLIN 250 MG/ML 1 GM VIAL ONE (12:19)
--- NOTE | 2019-11-24 12:21 | Pre Anesthesia Assessment ---
Date of Service November 24, 2019 Pre Sedation Assessment Vital Signs Temp Pulse Resp BP Pulse Ox 11/24/19 11:15 36.7 C 46 L 18 142/72 H 97 Cardiovascular + bradycardic Respiratory normal respiratory effort, lungs clear to auscultation Pre-Sedation Airway Assessment Smoking Status: Never smoker Short, Thick Neck: No Thyromental Distance: > or= 3.5 Finger Breadths Oral Cavity: + Chipped Teeth and + Dental Abnormalities Mallampati Class: III ASA: ASA2 NPO Status Date of Last Intake of Fluids: 11/24/19 Time of Last Intake of Fluids: 06:00 Date of Last Intake of Solid Food: 11/23/19 Time of Last Intake of Solid Foods: 18:00 Procedure Planning Contraindications for Sedation: none Current Medications Reviewed: Yes Notes The planned sedation has been discussed with the patient. Informed Consent was obtained. I have identified the patient, determined the appropriateness of sedation and have assessed the patient immediately prior to the procedure. All medicine(s) and interventions are by my order.
--- NOTE | 2019-11-24 12:21 | History & Physical Bridge Note ---
Date of Service November 24, 2019 History & Physical Bridge Note I have examined the patient, reviewed the History & Physical and in the interval since the performance of the History & Physical I have noted the following changes of clinical significance: no changes noted
--- NOTE | 2019-11-24 14:38 | Post Anesthesia Assessment ---
Date of Service November 24, 2019 Post Sedation Assessment Vital Signs Temp Pulse Resp BP Pulse Ox 11/24/19 14:33 18 156/90 H 97 11/24/19 11:15 36.7 C 46 L 18 142/72 H 97 Recovery Score Activity: Moves 4 extremities Respiration: Deep Breath/Cough Circulation: +/-20% PreAnes Value Consciousness: Fully Awake Oxygen Saturation: > 92% On Room Air Post Anesthesia Score: 10 Discharge Sedation Level of Care: Fast Track Phase II Post Sedation Plan On clinical assessment, the patient appears to have tolerated the sedation without complications. Patient is recovering as anticipated. Patient will continue to be monitored by nursing and may be discharged when sedation discharge criteria are met per below protocol. Upon Completions of procedure up to 15 minutes continue every 5 minute vital signs and the P.A.R. score; then discharge to a Phase I or Fast Track to Phase II per the following guidelines: * Discharge Patient to appropriate Phase II area if PAR is 8 or greater or return to pre- procedure baseline. The post - procedure orders will be as directed. * If PAR score is less than 8 or not return to pre-procedure baseline then patient will follow Phase I monitoring till PAR is reached for Phase II. The Phase I may be done in procedure room or may call to secure a Phase I area. * If naloxone or flumazenil are used for reversal, hold in Phase I for continued monitoring from when last reversal dose was given for a minimum of 60 minutes or longer pending the nurse and/or physician discretion of patient condition before discharge to Phase II. Please call the Sedation Physician to re-evaluate and complete post-note for discharge to Phase II area. Do NOT discharge from procedure sedation or Phase 1 until post- sedation evaluation note is complete by procedure /sedation MD Sedation Discharge Instructions to be given to the patient at discharge to home.
--- NOTE | 2019-11-24 14:39 | Operative Report ---
Post Operative Report Pre & Post Diagnosis TBS Operation Date: 11/24/19 12:00 <No data on this case meets the specified criteria> I identified the patient and participated in the time-out.: Yes Procedure Operation Date: 11/24/19 12:00 Actual Procedures p Pacer with A/V Leads (Dual) - Bhumika Levin DO Intracardiac EGM mapping with and HV Surgeon Bhumika Levin, DO Messenger Floorperson none Estimated Blood Loss 20 Findings Consistent with Post-Op Diagnosis Specimens none Description of Procedure see official report I attest to the content of the Intraoperative Record and any orders documented therein. Any exceptions are noted below.
--- NOTE | 2019-11-24 14:46 | Discharge Summary ---
Date of Service November 25, 2019 Admission HPI Per Admitting Provider Pt admitted for elective ppm. +fatigue and Dizziness Admission Exam Per Admitting Provider aaox3, NAD NC/AT, EOMI Supple No JVD +bradycardia S1/S2, + murmur CTA b/l no w/r/r soft nt/nd no LE edema b/l skin intact no focal deficits Principal Diagnosis TBS s/p ppm Discharge Exam aaox3, NAD NC/AT, EOMI Supple No JVD Nrl S1/S2, + murmur CTA b/l no w/r/r soft nt/nd no LE edema b/l skin intact no focal deficits left pectoral incision intact, no hematoma mild ecchymosis Discharge Data Allergies Allergy/AdvReac Type Severity Reaction Status Date / Time No Known Allergies Allergy Verified 11/24/19 11:30 Procedures Performed Operation Date: 11/24/19 12:00 Actual Procedures p Pacer with A/V Leads (Dual) - Bhumika Levin DO Ordered Studies CXR: No PTX, Leads in place ECG: AP-VS Pacemaker Interrogation: Normal function stable lead testing since implant 11/23/19 06:29 CL Cath Imgs for PACS use only Routine 11/24/19 06:45 EP Lab Images for PACS ONCE Hospital Course (1) Tachy-tricia syndrome: Total Time Total Time Spent Total Time Spent (In Minutes): 40 Total Time Includes: Examination of the Patient, Discharge Planning, Medication Reconciliation and Other Discharge Plan Discharge Items Patient Disposition: Home - Self-Care Reason For Visit: Tachy-Tricia Syndrome Discharge Diagnosis: TBS s/p ppm Condition on Discharge: Good Activity: As commented below Activity Comment: Do not lift the left elbow over the left shoulder for 1 month Lifting: No more than 10 pounds Lifting Comment: do not lift more than 10 pounds with the left arm for 2 weeks Bathing: Keep incision dry Bathing Comment: keep dressing on and dry until wound check next week Sexual Activity: After two weeks Non-emergency contact: Processing Analyst Call non-emergency contact if: you have any medication questions Follow-up/Referrals: Jeffrey Fatima DO [Primary Care Provider] - Diet: Heart Healthy Addtl Attending Provider Instructions: device and wound check at [facility] next week Saturday 12/02 double check the time I believe it is 8:30 or 8:45 Pending Studies at Discharge: No Stand-Alone Forms: My [facility] Medications and DC Order Prescriptions: Continued warfarin 3 mg Tablet 3 mg PO QAM RF: 0 pravastatin 20 mg Tablet 20 mg PO QAM RF: 0 lisinopril 2.5 mg Tablet 2.5 mg PO QAM RF: 0 magnesium oxide 400 mg Capsule 400 mg PO QAM RF: 0 acetaminophen [Acetaminophen Extra Strength] 500 mg Tablet 1,000 mg PO Q6H PRN (Reason: Pain) RF: 0 garlic 1,000 mg Capsule 1,000 mg PO QAM RF: 0 metoprolol succinate 50 mg tablet extended release 24 hr 50 mg PO QAM RF: 0 mesalamine 800 mg Tablet,Delayed Release (Dr/Ec) 1,600 mg PO TIDM 30 Days Qty: 180 RF: 0 Discharge Orders: Discharge Order (Routine); Ordered 11/25/19 Ordered By: Bhumika Levin Admission Data Admit Date/Time: 11/24/19 13:18 Attending Provider: Bhumika Levin Admit Provider: Bhumika Levin Primary Care Provider: Jeffrey Fatima
[2019-11-24] MEDS ORDERED: OXYCODONE/ACETAMINOPHEN 5mg/325mg TAB PO PRN (15:39)
[2019-11-24] MEDS: ACETAMINOPHEN 325 MG TAB PO PRN (16:19)
[2019-11-24 16:58] LABS: INR 1.1 (0.9-1.1); Prothrombin Time 11.8 Seconds (9.0-12.0)
[2019-11-24] MEDS: MESALAMINE 800 MG TABCR PO SCH (17:52)
[2019-11-25 06:10] LABS: INR 1.1 (0.9-1.1); Prothrombin Time 11.4 Seconds (9.0-12.0)
[2019-11-25] MEDS: ACETAMINOPHEN 325 MG TAB PO PRN (06:12)
[2019-11-25] MEDS: MESALAMINE 800 MG TABCR PO SCH (08:13)
[2019-11-25] MEDS ORDERED: MAGNESIUM OXIDE 400 MG TAB PO SCH (09:00)
[2019-11-25] MEDS ORDERED: PRAVASTATIN SOD 20 MG TAB PO SCH (09:00)
[2019-11-25] MEDS ORDERED: METOPROLOL SUCC 50MG EXT REL TAB PO SCH (09:00)
--- NOTE | 2019-11-25 09:05 | XRay Report ---
TWO VIEW CHEST CLINICAL HISTORY: Status post pacemaker implantation. FINDINGS: PA and lateral chest radiographs are compared to study dated 08/05/2013 [facility]. The patient is status post midline sternotomy and aortic valve surgery. A 2- lead cardiac pacemaker has been placed and partially obscures the left upper chest. Leads project ove r the right atrial appendage and the right ventricle. A stent graft is noted in the thoracic aorta. T he heart is enlarged. The pulmonary vasculature is noncongested. Chronic interstitial thickening is s imilar to previous. No airspace consolidation or pleural effusion is identified. There is no pneumoth orax. The skeletal structures are osteopenic. The bony thorax appears intact. Degenerative change is seen in the thoracic spine. Coils are noted in the upper abdomen. IMPRESSION: 1. A 2-lead cardiac pacemaker has been placed as above. No pneumothorax is seen post procedure. 2. Cardiomegaly without radiographic evidence of congestive failure. 3. There is no airspace consolidation or pleural effusion identified. ACT 112: Negative or not required by law. Electronically signed by: Taqueria Hamilton M.D. 11/25/2019 9:03 AM
[2019-11-25] MEDS ORDERED: WARFARIN SOD 3 MG TAB PO SCH (16:00)
--- NOTE | 2019-11-25 22:40 | Electrocardiogram Report ---
Test Reason : Blood Pressure : / mmHG Vent. Rate : 066 BPM Atrial Rate : 066 BPM P-R Int : 000 ms QRS Dur : 084 ms QT Int : 440 ms P-R-T Axes : 000 -15 051 degrees QTc Int : 461 ms Atrial-paced rhythm with occasional supraventricular complexes Cannot rule out Inferior infarct (cited on or before 25-NOV-2019) Anterolateral infarct Abnormal ECG When compared with ECG of 03-NOV-2019 09:24, Electronic atrial pacemaker has replaced Sinus rhythm Anterolateral infarct is now Present QT has shortened Confirmed by Kane Paniagua ([id number]) on 11/25/2019 10:40:22 PM Referred By: Bhumika Levin Confirmed By:Kane Paniagua
--- NOTE | 2019-12-02 12:09 | Operative Report (OR) ---
DATE OF OPERATION: 11/24/2019 PREOPERATIVE DIAGNOSIS: Tachybrady syndrome. POSTOPERATIVE DIAGNOSIS: Tachybrady syndrome. PROCEDURE: Dual chamber rate responsive permanent pacemaker (the right ventricular lead is in the left bundle position) along with peripheral venogram and intracardiac mapping of the His bundle EGM under fluoroscopic guidance, peripheral venogram. SURGEON: Bhumika Levin DO. ASSISTANTS: None. ANESTHESIA: Monitored conscious sedation administered under my supervision by Lanny Kim. Start time 12:44, end time 14:21. Total of 8 mg of Versed, 200 mcg of fentanyl. INTRAVENOUS FLUIDS: 50 mL. ANTIBIOTICS: 1 gram of Ancef. CONTRAST: 20 mL. BLOOD LOSS: 20 mL URINE OUTPUT: Not applicable. SPECIMENS: None. FINDINGS: See below. DRAINS: None. INDICATIONS: This is a 69-year-old gentleman who has a past medical history for paroxysmal atrial fibrillation and an atypical flutter status post cardioversion in 11/2017 where he had a long conversion pause. CHADS2-VASc score of 2 and I have been following him for over a year and he had more persistent atrial fibrillation with rapid rate. So his AV nancy blockers were titrated, then most recently in October, he was admitted to [facility] with diverticulosis and he was found to be in a junctional rhythm, so his AV nancy blockers were slowly decreased. He then followed up with me reporting more episodes of dizziness and so it was recommended a pacemaker. He has other past medical history of hypertension, hyperlipidemia, bicuspid aortic valve where he is status post aortic valve replacement as well as the root replacement, history of hepatic artery aneurysm and splenectomy in 2006, obstructive sleep apnea on CPAP. Due to the evidence of tachybrady syndrome it was recommended a pacemaker. CONSENT: Consent was obtained prior to the patient going into electrophysiology lab. The patient was informed of the risks, benefits and alternatives of procedure. Risks include but not limited to sudden cardiac , cardiac arrhythmias, cerebrovascular accident, myocardial infarction, injury to the blood vessels, chamber of the heart, lung, bleeding, and infection. The patient understood these risks and agreed with procedure as planned. Informed consent was obtained. DESCRIPTION OF THE PROCEDURE: The patient was brought into the electrophysiology lab in a fasting state. He was connected to continuous cardiac monitoring. Timeout was performed to ensure patient identity and procedure itself. The patient was prepped and draped over the left infraclavicular space in normal surgical standard fashion. Monitored conscious sedation was given throughout the procedure for patient's comfort level. [place] precautions were maintained throughout the procedure. He received prophylactic antibiotics prior to incision. 10 mL of 1% lidocaine, bupivacaine mixture were given in the left deltopectoral groove. Blunt dissection performed down to identify the cephalic vein, however, none could be identified, so a peripheral venogram was performed to identify the axillary vein. Venous axillary access was obtained through a needlestick without any problems. Guidewire was inserted through the 8-Iceland[place] sheath without any resistance. The dilator was removed and a second guidewire was inserted through the 8-Icelandic sheath to allow for retained venous access. Sheath was removed, flushed, dilator reinserted over and then was reinserted along the guidewires. Guidewire and dilator removed. The preformed His sheath was then advanced over a Glidewire into the right ventricle and then the Glidewire and dilator removed. The lead was then advanced into the sheath and intracardiac mapping of the His bundle electrograms was performed, the AH was found to be 153 milliseconds, HV was 71 milliseconds. I then marked in [place] 30 where the His region was on the monitor and then I sean an imaginary line to the apex of the heart and 2 cm below this and marked another dot on the monitors and removed the catheter in [place] 30 down to the second dot area and counterclocking the catheter to have foreshortening sheath. I then went to [place] 30 and continued to counterclock and adjust the lead and sheath until the lead was up on the septum. I then did periodic started screwing the lead into the septum periodically monitoring the electrogram. Stim to the QRS peak in the lateral leads was shortening. I had acceptable electrogram morphology and pacing that I then gave a puff of contrast through the sheath to see that the sheath was up against the septum and know how much of the lead was in the septum. Then the sheath was slid under fluoroscopic guidance. I left the 8-[place]celandic sheath in the [place] position with the right atrial lead through the retained guidewire an 8-Icelandic sheath was inserted and the guidewire and dilator removed. The right atrial lead was then advanced into right atrium and positioned interatrial appendage under fluoroscopic guidance. There was adequate pacing and sensing thresholds and no diaphragmatic stimulation with output pacing. The 8-Icelandic sheath was peeled away and lead was fixated to pectoralis muscle using 0 silk suture. Then I slit the 8-Icelandic sheath over the left bundle lead and the lead was fixated to pectoralis muscle using 0 silk suture. Then the pocket was created using blunt dissection over the pectoralis muscle within the pectoralis fascia. Pocket was flushed with copious amounts of bacitracin saline wash and inspected for hemostasis. Pulse generator was then attached to leads making sure that the pins were in appropriate position, passed set screw and set screws were all tightened. Pulse generator was then placed in a Tyrx pouch, and then placed in the pocket, making sure that the leads were lying flat beneath the device. The incision was then closed in 3-layer fashion with 2-0 Vicryl interrupted suture followed by 3-0 Vicryl interrupted suture followed by 4-0 Monocryl running stitch and Dermabond was applied followed by a Telfa and micropore dressing. EQUIPMENT: 1. The pulse generator is a Medtronic Juju XT DMRI SureScan [id number], serial number [id number]. 2. Right atrial lead Medtronic 5076-52 cm, serial number [id number]. 3. Right ventricular lead, Medtronic 3830-69 cm, serial number [id number]. 4. Tyrx pouch reference [id number], lot number [id number], expiration 09/25/2020. INTRAOPERATIVE TESTIN. Right atrial lead: P waves 2.3 millivolts, impedance 728 ohms, threshold 1.7 volts at 0.5 milliseconds. 2. Right ventricular lead: R-wave 16.9 millivolts, impedance 950 ohms, threshold 0.9 volts at 0.4 milliseconds. FINAL PARAMETERS THROUGH THE DEVICE: 1. Right atrial lead: P waves 1.5 millivolts, impedance 551 ohms, threshold 1.5 volts at 0.4 milliseconds. 2. Right ventricular lead: R-wave 8.8 millivolts, impedance 1000 ohms, threshold 0.75 volts at 0.4 milliseconds. FINAL PARAMETERS: MVP 60/130, right atrial amplitude 3.5 volts, pulse width 0.4 milliseconds, sensitivity 0.3 millivolts. Right ventricular amplitude 3.5 volts, pulse width 0.4 milliseconds, sensitivity 0.9 millivolts. IMPRESSION: Successful implantation of a dual chamber rate responsive permanent pacemaker (with the right ventricular lead and a left bundle region) with a peripheral venogram and intracardiac mapping of the His bundle EGM under fluoroscopic guidance secondary to tachybrady syndrome. PLAN: Monitor patient overnight, 12-lead ECG, chest x-ray, he is not allowed lift left elbow or left shoulder for 1 month. He cannot lift more than 10 pounds with the left arm for 2 weeks. He is to leave the dressing on and dry until his wound check next week. I attest to the content of the Intraoperative Record and any orders documented therein. Any exceptions are noted below. CHUCKIED
== END 2019-11-25 10:15 | disposition home or self-care (01) ==
LOC: 2E 09:08 → EP 09:08

== ENCOUNTER 2020-11-24 16:54 | Inpatient (IN) ==
--- NOTE | 2020-11-24 20:10 | Emergency Department Note ---
History of Present Illness General Chief complaint: Leg Injury/Pain Stated complaint: SWOLLEN AND PAIN IN LEFT LEG Time Seen by Provider: 11/24/20 19:33 Source: patient Mode of arrival: ambulatory Limitations: no limitations History of Present Illness Provider complaint: LLE pain and bruising Onset (ago): day(s) 5 Radiation: distal Pain Consistency: + constant Maximum Pain Intensity: 4 Current Pain Intensity: 4 Quality: + constant Relieved By: + none Exacerbated By: + none Associated symptoms: + denies other symptoms This is a 62-year-old male presents emergency department complaining of left l ower extremity pain, swelling, and bruising. Patient states he first noticed pain in the left thigh on Friday that he thought was related to a cramp or isacc horse. He states this was persistent and worsened throughout the week and yesterday he saw another provider who stated that if his symptoms worsened he should come to the emergency room. Patient states 3 days in he noticed bruising involving in the area of pain in his thigh, and as the week persisted the pain and bruising seem to be tracking inferiorly and by today was now down in the ankle and foot. Patient denies any recent trauma, heavy lifting, or change in activity. Patient states he does still work part-time and occasionall y lifts items which weigh anywhere from 20 to 30 pounds. Patient is anticoagulated due to a mechanical valve. He states his last check of his INR was 1.8. Patient denies any other recent illness. Denies any direct trauma or injury. No prior similar episodes. No joint pain. No fevers or chills. Pt seen during a time of high acuity and national emergency pandemic while wearing PPE. Home Medications Medication Instructions Recorded Confirmed Type garlic 1,000 mg capsule (garlic 1,000 mg PO QAM 06/16/18 11/24/20 History oil) magnesium oxide 400 mg PO QAM 06/16/18 11/24/20 History pravastatin 20 mg tablet 20 mg PO QAM 06/16/18 11/24/20 History warfarin 3 mg tablet (Jantoven) 3 mg PO QAM 06/16/18 11/24/20 History metoprolol succinate 50 mg 100 mg PO QAM 10/29/19 11/24/20 History tablet,extended release 24 hr (Toprol XL) Collagen Supplement 1 dose PO QAM 08/29/20 11/24/20 History mesalamine 800 mg tablet,delayed 800 mg PO TID 08/29/20 11/24/20 History release (Asacol HD) dronedarone 400 mg tablet (Multaq) 400 mg PO BID 11/13/20 11/24/20 History Allergies Allergy/AdvReac Type Severity Reaction Status Date / Time Iodinated Contrast Media AdvReac Severe nausea and Unverified 11/24/20 21:43 itchy legs Past Med/Surg History Medical History Atrial fibrillation Bicuspid aortic valve S/p AVR 2008 (bioprosthetic) Crohns disease Hearing deficit Hyperlipidemia Hypertension On anticoagulant therapy warfarin daily Pacemaker 11/2019 - [facility] last check approx 3 mo ago Sleep apnea cpap Surgical History History of aortic valve replacement with aortic/ascending aorta graft repair- 2008 @ [facility]--follows with Dr. 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 [place] Family History Other No family history of adverse response to anesthesia Social History Smoking Status: Never smoker Second Hand Exposure: No; Hx Alcohol Use: No Hx Substance Use: No Preferred Language: Sinhala Communication Ability: Effective Pathology Technologist Required: No Beliefs That Will Affect Care: None marital status: Current Living Situation: Spouse Other Information That Helps Us Care for You: No Feels Safe at Home: Yes Safety Concerns: Feels Safe At This Time Assistive Devices: Cane Assistive Devices Comment: temporary cane use Review of Systems A total of 10 systems reviewed and were otherwise negative All systems reviewed & are unremarkable except as noted in HPI & below Physical Exam Vital Signs Vital Signs - 24 hr 11/24/20 17:02 11/24/20 20:00 11/24/20 21:22 Temperature 36.3 C L Temperature Source Temporal Artery Scan Pulse Rate 78 Pulse Rate [Finger] Pulse Rate [Left] 63 74 Pulse Rhythm [Finger] Pulse Rhythm [Left] Regular Regular Pulse Strength [Finger] Pulse Strength [Left] Normal Normal Respiratory Rate 20 18 19 Respiratory Effort / Characteristics Non-Labored Non-Labored Respiratory Depth Normal Normal Normal Respiratory Pattern Regular Regular Blood Pressure 160/78 H Blood Pressure [Left Arm] 183/104 H 141/84 H Blood Pressure Mean 105 Blood Pressure Mean [Left Arm] 130 103 Blood Pressure Position [Left Arm] Lying Lying Pulse Oximetry 99 99 Oxygen Delivery Method Room Air Room Air Room Air Oxygen Flow Rate Sepsis Recent Fever Within 48 Hours No Sepsis New/Unexplained Change in Mental Status No Sepsis Action Taken by Nursing No Action Required 11/24/20 21:55 11/24/20 21:58 11/24/20 22:02 Temperature Temperature Source Pulse Rate Pulse Rate [Finger] Pulse Rate [Left] 69 71 89 Pulse Rhythm [Finger] Regular Pulse Rhythm [Left] Regular Regular Regular Pulse Strength [Finger] Normal Pulse Strength [Left] Normal Normal Normal Respiratory Rate 22 22 20 Respiratory Effort / Characteristics Non-Labored Non-Labored Non-Labored Respiratory Depth Normal Normal Normal Respiratory Pattern Regular Regular Regular Blood Pressure Blood Pressure [Left Arm] 89/49 L 93/48 L 149/84 H Blood Pressure Mean Blood Pressure Mean [Left Arm] 62 63 105 Blood Pressure Position [Left Arm] Lying Lying Lying Pulse Oximetry 92 93 94 Oxygen Delivery Method Room Air Room Air Room Air Oxygen Flow Rate Sepsis Recent Fever Within 48 Hours Sepsis New/Unexplained Change in Mental Status Sepsis Action Taken by Nursing 11/24/20 22:13 11/24/20 22:16 11/24/20 22:20 Temperature Temperature Source Pulse Rate Pulse Rate [Finger] 84 Pulse Rate [Left] 72 86 Pulse Rhythm [Finger] Pulse Rhythm [Left] Regular Regular Pulse Strength [Finger] Pulse Strength [Left] Normal Normal Respiratory Rate 24 21 22 Respiratory Effort / Characteristics Non-Labored Non-Labored Spontaneous Short of Breath Respiratory Depth Normal Normal Respiratory Pattern Regular Regular Blood Pressure Blood Pressure [Left Arm] 110/74 125/92 Blood Pressure Mean Blood Pressure Mean [Left Arm] 86 103 Blood Pressure Position [Left Arm] Lying Lying Pulse Oximetry 100 97 94 Oxygen Delivery Method Nebulizer Nasal Cannula Oxygen Flow Rate 2 Sepsis Recent Fever Within 48 Hours Sepsis New/Unexplained Change in Mental Status Sepsis Action Taken by Nursing 11/24/20 22:46 Temperature Temperature Source Pulse Rate Pulse Rate [Finger] 60 Pulse Rate [Left] Pulse Rhythm [Finger] Regular Pulse Rhythm [Left] Pulse Strength [Finger] Normal Pulse Strength [Left] Respiratory Rate 22 Respiratory Effort / Characteristics Non-Labored Respiratory Depth Normal Respiratory Pattern Regular Blood Pressure Blood Pressure [Left Arm] 118/75 Blood Pressure Mean Blood Pressure Mean [Left Arm] 89 Blood Pressure Position [Left Arm] Lying Pulse Oximetry 99 Oxygen Delivery Method Room Air Oxygen Flow Rate Sepsis Recent Fever Within 48 Hours Sepsis New/Unexplained Change in Mental Status Sepsis Action Taken by Nursing GENERAL: alert, well appearing, well nourished, no distress, non-toxic EYE EXAM: normal conjunctiva, PERRL and EOM's grossly intact OROPHARYNX: no exudate, no erythema, lips, buccal mucosa, and tongue normal and mucous membranes are moist NECK: supple, no nuchal rigidity, no adenopathy, non-tender LUNGS: Clear to auscultation. Normal chest wall mechanics, no w/r/r HEART: no murmurs, S1 normal and S2 normal ABDOMEN: abdomen soft, non-tender, normo-active bowel sounds, no masses, no rebound or guarding. BACK: Back is symmetrical on inspection and there is no deformity, no midline tenderness, no CVA tenderness. SKIN: no rashes and no bruising UPPER EXTREMITIES: upper extremities are grossly normal. FROM, nml pulses b/l. LOWER EXTREMITIES: No pitting edema. FROM, nml pulses b/l. Obvious ecchymosis extending from the superior medial and anterior left lower extremity down the medial and anterior aspect to the knee and medially along the distal left lower extremity down to the medial foot and inferior to the medial malleolus. Edema is also noted. Compartments soft, no joint effusions. No deformity or evidence of trauma. Right lower extremity unremarkable. NEURO EXAM: Normal sensorium, cranial nerves II-XII grossly intact, normal speech, no gross weakness of arms, no gross weakness of legs. No pronator drift. Finger to nose intact. Gross sensation intact. Course Course 2154: I was called to the room by nursing staff due to concern for patient having an allergic reaction to the IV contrast. Patient I had originally discussed this, he states that when he has had IV dye and before it makes him nauseated. No history of difficulty breathing or anaphylaxis. On my arrival in the room patient appeared pale, stated he was nauseated, appeared to be getting diaphoretic, blood pressure had dropped to 89 systolic, and pulse ox was 91%. Patient stated it felt slightly hard to swallow. Benadryl, Pepcid, Solu-Medrol, Zofran, and racemic epinephrine neb ordered. IV fluids open wide. Patient improved after 5 to 7 minutes. Blood pressure back up to normal range, color improved. 2232: Patient now having increased pain and appearance of spasm in the left lower extremity. Color continues to improve, vital signs stable, denies any throat discomfort, trouble swallowing, trouble breathing, nausea, or pruritus. 2310: Updated patient on CT results. Patient states pain is improved but not resolved with additional meds for his leg spasms. We discussed disposition. 2320: Discussed with Dr. Woodall. Administered Medications Dronedarone (Dronedarone Hcl 400 Mg Tab) 400 mg PO BID [facility] Stop: 12/25/20 08:59 Last Admin: 11/25/20 20:48 Dose: 400 mg Documented by: [id number] Admin: 11/25/20 09:03 Dose: 400 mg Documented by: [id number] Magnesium Oxide (Magnesium Oxide 400 Mg Tab) 400 mg PO QAM [facility] Stop: 12/25/20 08:59 Last Admin: 11/25/20 09:04 Dose: 400 mg Documented by: [id number] Mesalamine (Mesalamine 800 Mg Tabcr) 800 mg PO TID [facility] Stop: 12/25/20 08:59 Last Admin: 11/25/20 20:47 Dose: 800 mg Documented by: [id number] Admin: 11/25/20 13:48 Dose: 800 mg Documented by: [id number] Admin: 11/25/20 09:04 Dose: 800 mg Documented by: [id number] Metoprolol Succinate (Metoprolol Succ 50mg Ext Rel Tab) [facility] [place] Stop: 12/25/20 08:59 Last Admin: 11/25/20 09:04 Dose: 100 mg Documented by: [id number] Pravastatin Sodium (Pravastatin Sod 20 Mg Tab) 20 [facility] [place] [place] Stop: 12/25/20 08:59 Last Admin: 11/25/20 09:04 Dose: 20 mg Documented by: [id number] Discontinued Medications Diphenhydramine HCl (Diphenhydramine 50 Mg/Ml Vial) 25 mg IV NOW STA Stop: 11/24/20 21:52 Last Admin: 11/24/20 21:56 Dose: 25 mg Documented by: [id number] Diphenhydramine HCl (Diphenhydramine 50 Mg/Ml Vial) Confirm Administered Dose 50 mg .ROUTE .STK-MED ONE Stop: 11/24/20 21:53 Last Admin: 11/24/20 21:58 Dose: Not Given Documented by: [id number] Epinephrine (Racepinephrine 2.25% Nebu Soln 0.5 Ml Vial) 0.5 ml NEB NOW STA Stop: 11/24/20 22:00 Last Admin: 11/24/20 22:06 Dose: 0.5 ml Documented by: [id number] Famotidine (Famotidine 20mg/5ml Iv Push) 20 mg IV ONE STA Stop: 11/24/20 21:52 Last Admin: 11/24/20 21:56 Dose: 20 mg Documented by: [id number] Famotidine (Famotidine 20mg/5ml Iv Push) Confirm Administered Dose 20 mg IV .STK-MED ONE Stop: 11/24/20 21:53 Last Admin: 11/24/20 21:58 Dose: Not Given Documented by: [id number] Fentanyl Citrate (Fentanyl Citrate 100 Mcg/2 Ml Vial) 50 mcg IV NOW STA Stop: 11/24/20 22:24 Last Admin: 11/24/20 22:31 Dose: 50 mcg Documented by: [id number] Sodium Chloride (Nss 1000ml) 1,000 mls @ 125 mls/hr IV .Q8H [facility] Stop: 12/24/20 20:14 Last Infusion: 11/25/20 02:47 Dose: 0 mls/hr Documented by: [id number] Admin: 11/24/20 20:20 Dose: 125 mls/hr Documented by: [id number] Acetaminophen (Ofirmev) 1,000 mg in 100 mls @ 400 mls/hr IV NOW STA Stop: 11/24/20 22:37 Last Infusion: 11/24/20 22:58 Dose: 0 mls/hr Documented by: [id number] Admin: 11/24/20 22:31 Dose: 400 mls/hr Documented by: [id number] Sodium Chloride (Nss 1000ml) 1,000 mls @ 100 mls/hr IV .Q10H [facility] Stop: 11/25/20 12:40 Last Infusion: 11/25/20 13:48 Dose: 0 mls/hr Documented by: [id number] Admin: 11/25/20 03:39 Dose: 100 mls/hr Documented by: [id number] Ioversol (Optiray 320 100ml) 93 ml IV ONCE ONE Stop: 11/24/20 21:38 Last Admin: 11/24/20 21:38 Dose: 93 ml Documented by: [id number] Methylprednisolone (Methylprednisolone 125 Mg/2 Ml Vial) 60 mg IV NOW STA Stop: 11/24/20 21:52 Last Admin: 11/24/20 21:57 Dose: 60 mg Documented by: [id number] Methylprednisolone (Methylprednisolone 125 Mg/2 Ml Vial) Confirm Administered Dose 125 mg .ROUTE .STK-MED ONE Stop: 11/24/20 21:53 Last Admin: 11/24/20 21:58 Dose: Not Given Documented by: [id number] Ondansetron HCl (Ondansetron Inj 2 Mg/Ml 2 Ml Vial) 4 mg IV NOW STA Stop: 11/24/20 22:00 Last Admin: 11/24/20 22:02 Dose: 4 mg Documented by: [id number] Ondansetron HCl (Ondansetron Inj 2 Mg/Ml 2 Ml Vial) Confirm Administered Dose 4 mg .ROUTE .STK-MED ONE Stop: 11/24/20 22:01 Last Admin: 11/24/20 22:03 Dose: Not Given Documented by: [id number] Medical Decision Making Differential Diagnosis Fracture, subluxation, dislocation, contusion, ligamentous injury, neurovasc ular, compartment syndrome, rhabdomyolysis, as well as other pathologies. Medical Records Attestation: I reviewed the patient's medical records. Home Medications Current Medication List: was personally reviewed by me Laboratory Data Attestation: I reviewed the patient's lab results. Result diagrams: 11/25/20 05:47 11/25/20 05:47 Lab Results 11/24/20 11/24/20 11/24/20 Range/Units 20:34 20:44 23:16 POC Hgb 12.6 L (14.0-18.0) g/dl POC Hct 37 L (42-52) % PT 16.5 H (9.0-12.0) Seconds INR 1.7 H (0.9-1.1) POC Sodium 139 (135-144) mmol/L POC Potassium 4.5 (3.3-5.0) mmol/L POC Chloride 100 L (101-112) mmol/L POC Total CO2 27 (24-31) mmol/L POC Anion Gap 17.0 (16-25) mmol/L POC BUN 17 (7-18) mg/dl POC Creatinine 1.1 (0.6-1.3) mg/dl POC Glucose (other) 88 (70-99) mg/dl POC Ioniz Calcium Na 1.17 (1.12-1.32) mmol/l COVID-19 Eval Order Covid19 at [facility] SARS-CoV-2 (PCR) (Negative) 11/24/20 Range/Units 23:16 POC Hgb (14.0-18.0) g/dl POC Hct (42-52) % PT (9.0-12.0) Seconds INR (0.9-1.1) POC Sodium (135-144) mmol/L POC Potassium (3.3-5.0) mmol/L POC Chloride (101-112) mmol/L POC Total CO2 (24-31) mmol/L POC Anion Gap (16-25) mmol/L POC BUN (7-18) mg/dl POC Creatinine (0.6-1.3) mg/dl POC Glucose (other) (70-99) mg/dl POC Ioniz Calcium Na (1.12-1.32) mmol/l COVID-19 Eval Order SARS-CoV-2 (PCR) NEGATIVE (Negative) Imaging Data Radiologist's Impression: CT pelvis: Compared to 10/29/2019. No evidence of acute fracture dislocation. Degenerative changes. Diverticulosis. Left greater than right fat-containing inguinal hernias. Radiologist: Marija Arriola MD CT left femur without contrast: No evidence of acute fracture. Ovoid hyperdense structure of the medial thigh musculature measuring approximately 4.4 x 3.4 x 6.3 cm. Differential cons iderations include hematoma or mass. Soft tissue stranding/edema. Bilateral hydroceles. Radiologist: Marija Arriola MD MDM Narrative This is a 62-year male who presents with increased left lower extremity pain, edema, and ecchymosis. No reported trauma. Symptoms appear to be extending inferiorly likely from gravitational pull of blood and fluids in the leg. Patient is anticoagulated due to history of an aortic valve repair. Patient's INR here was slightly subtherapeutic, H&H stable. Patient sent for CT imaging and did appear to have an allergic reaction to the IV contrast. This was fairly quickly reversed with medications and IV fluids. Patient was given racemic epi neb as a precaution. Patient did not require IM epinephrine. Patient continued to have pain in the leg and was given additional medications for this. Due to ongoing symptoms, unclear etiology, and allergic reaction noted, case discussed with hospitalist for additional evaluation and management. Is no evidence at this time for need for acute surgical intervention. No evidence of active extravasation or acute vascular process. An order was placed for continuous cardiac monitoring. The monitor shows a rate of with rhythm. Impression & Plan Acute leg pain, Ecchymosis, Edema Discharge Plan Visit Data Chief Complaint: Leg Injury/Pain Stated Complaint: SWOLLEN AND PAIN IN LEFT LEG ED Provider: Cady Viveros Discharge Problem: Acute leg pain, Ecchymosis, Edema Patient Disposition: Admitted As Inpatient Discharge Instructions Interventions: ED Discharge Assessment Last Done: 11/25/20 02:33 Discharge Problem: Acute leg pain Qualifiers: Laterality: left Qualified Code(s): M79.605 - Pain in left leg Edema Qualifiers: Edema type: unspecified Qualified Code(s): R60.9 - Edema, unspecified
[2020-11-24] MEDS ORDERED: SODIUM CHLORIDE 0.9% 1000ML 1,000 ML IV SCH (20:15)
[2020-11-24 20:56] LABS: iSTAT Creatinine 1.1 mg/dl (0.6-1.3); iSTAT Hemoglobin 12.6 g/dl (14.0-18.0); iSTAT Ionized Calcium 1.17 mmol/l (1.12-1.32); iSTAT Potassium 4.5 mmol/L (3.3-5.0)
[2020-11-24 20:57] LABS: INR 1.7 (0.9-1.1); Prothrombin Time 16.5 Seconds (9.0-12.0)
[2020-11-24] MEDS ORDERED: OPTIRAY 320 100ml IV ONE (21:37)
[2020-11-24] MEDS ORDERED: FAMOTIDINE 20MG/5ML IV PUSH IV STA (21:51)
[2020-11-24] MEDS ORDERED: methylPREDNISolone 125 MG/2 ML VIAL IV STA (21:51)
[2020-11-24] MEDS ORDERED: diphenhydrAMINE 50 MG/ML VIAL IV STA (21:51)
[2020-11-24] MEDS ORDERED: diphenhydrAMINE 50 MG/ML VIAL ONE (21:52)
[2020-11-24] MEDS ORDERED: FAMOTIDINE 20MG/5ML IV PUSH IV ONE (21:52)
[2020-11-24] MEDS ORDERED: methylPREDNISolone 125 MG/2 ML VIAL ONE (21:52)
[2020-11-24] MEDS ORDERED: RACEPINEPHRINE 2.25% NEBU SOLN 0.5 ML VIAL NEB STA (21:59)
[2020-11-24] MEDS ORDERED: ONDANSETRON INJ 2 MG/ML 2 ML VIAL IV STA (21:59)
[2020-11-24] MEDS ORDERED: ONDANSETRON INJ 2 MG/ML 2 ML VIAL ONE (22:00)
[2020-11-24] MEDS ORDERED: ACETAMINOPHEN 1,000 MG/100 ML VIAL IV STA (22:23)
[2020-11-24] MEDS ORDERED: fentaNYL citrate 100 MCG/2 ML VIAL IV STA (22:23)
[2020-11-25] MEDS ORDERED: SODIUM CHLORIDE 0.9% 1000ML 1,000 ML IV SCH (02:41)
[2020-11-25] MEDS ORDERED: NITROGLYCERIN SL 0.4 MG/TAB TAB SL PRN (02:41)
[2020-11-25] MEDS ORDERED: ACETAMINOPHEN 325 MG TAB PO PRN (02:41)
[2020-11-25] MEDS ORDERED: traMADol HCL 50 MG TABLET PO PRN (02:41)
[2020-11-25] MEDS ORDERED: POLYETHYLENE (MIRALAX) 17 GM PACK PO PRN (02:41)
--- NOTE | 2020-11-25 03:16 | History and Physical Report ---
DATE OF ADMISSION: 11/25/2020. CHIEF COMPLAINT: Left leg pain. HISTORY OF PRESENT ILLNESS: This is 70-year-old male with past medical history significant for hyperlipidemia, paroxysmal atrial fibrillation, history of junctional tachycardia, history of ectasia of artery, tachybrady syndrome, hypertension, hepatic artery aneurysm, coarctation of thoracic aorta, GERD, history of regional enteritis of small intestine, Crohn's disease, Peyronie disease, history of splenic artery rupture and splenectomy in 2006, history of prosthetic aortic valve replacement, cardiac pacemaker, who presents with left lower extremity pain since last Friday. He did not injure his leg, no weight lifting, but he noticed this pain in his left lower extremity and also a bruise and he came here. In the ER, his INR was 1.7. ER physician did a CAT scan of the femur and pelvic CT, which shows 4 x 3 x 6 cm hematoma, left thigh. Then, after coming from the CAT scan with contrast, the patient developed allergic reaction. He is complained of nausea, was diaphoretic, Blood pressure systolic dropped to 89 and pulse ox was 91% and hard to swallow. The patient received Benadryl, Pepcid, Solu-Medrol, Zofran and racemic epinephrine and IV fluids and the patient improved after 5 to 7 minutes and since then he is doing fine. Currently, resting comfortably and hemodynamically stable. Denies any chest pain, no shortness of breath, no cough, no headache, no blurred visions, no earache, no runny nose, no sore throat, no difficulty swallowing. Appetite is okay. No nausea, no abdominal pain. Normal bowel and bladder movements. He is using a cane to walk since the pain in the leg started. ALLERGIES: IODINATED CONTRAST MEDIA. PAST MEDICAL HISTORY: As mentioned above. PAST SURGICAL HISTORY: Colonoscopy, EGD, colonoscopy with biopsy, coil embolization of hepatic artery aneurysm, exploratory laparotomy with ligation of the splenic artery aneurysm and splenectomy in 2006, bioprosthetic aortic valve replacement, repair of thoracic aortic coarctation with Medtronic Valiant [place] stent graft. MEDICATIONS: The patient is on collagen supplement, magnesium oxide 400 mg p.o. a.m., Asacol 800 mg p.o. t.i.d., metoprolol succinate 100 mg p.o. a.m., Multaq 400 mg p.o. b.i.d., pravastatin 20 mg p.o. a.m., Warfarin 3 mg p.o. a.m. FAMILY HISTORY: Significant for father had prostate cancer; mother has arthritis; son has ADHD; paternal grandfather had stroke; maternal grandfather had cancer. SOCIAL HISTORY: Lives with his . No smoking, no alcohol, no drug use. REVIEW OF SYSTEMS: As per HPI. Rest of the review of systems is negative. PHYSICAL EXAMINATION: GENERAL: The patient is of moderate build, not in acute distress. VITAL SIGNS: Temperature 36.3, pulse 60, respiratory rate 22, blood pressure 118/75, oxygen 99% on room air. HEENT: Pupils equal, round and reactive to light. Oral mucosa moist. NECK: No JVD, no neck masses. CARDIOVASCULAR: S1 and S2 heard. Murmur in the aortic area. No gallop. RESPIRATORY SYSTEM: Normal AP diameter. No accessory muscle use. No wheezing, no crackles. ABDOMEN: Soft, bowel sounds present, nontender, no distention. CENTRAL NERVOUS SYSTEM: Cranial nerves II-XII grossly intact, nonfocal. EXTREMITIES: Right mild pedal edema present. Left lower extremity bruise from medial aspect of the thigh to the knee, some bruise seen. LABORATORY DATA: Hemoglobin 12.6, hematocrit 37. PT 16.5, INR 1.7. Sodium 139, potassium 4.5, chloride 100, bicarbonate 27, BUN 17, creatinine 1.1, serum glucose 88, ionized calcium 1.1. SARS-CoV-2 PCR negative. IMAGING DATA: Preliminary report of the left femur, no fracture, hyperdense structure at the medial thigh musculature measuring approximately 4.4 x 3.4 x 6.3 cm. Differential considerations include hematoma or mass, soft tissue stranding, edema, bilateral hydroceles. ASSESSMENT AND PLAN: This is a 70-year-old male who presents with left leg pain and found to have left thigh hematoma on CAT scan and he had developed an allergic reaction for the IV dye. 1. Left leg pain: Spontaneous left thigh hematoma. INR is 1.7. We will hold his Coumadin. Consult orthopedics in a.m. Consult PT/OT. Pain control, monitor in the hospital. 2. Allergic reaction to IV dye: The patient was somewhat diaphoretic. Systolic blood pressure dropped to 89 and oxygen was 91%. Received Benadryl, Pepcid, Solu-Medrol, racemic epinephrine and fluids and symptoms improved. Currently resting comfortably and hemodynamically stable. Will monitor. 3. History of paroxysmal atrial fibrillation: Holding his Coumadin. Continue his Multaq and Toprol-XL. Will monitor. 4. History of Crohn's disease: Continue his mesalamine. 5. Hyperlipidemia: Continue statin. 6. Hypertension. Continue his Toprol-XL. Monitor the blood pressure. 7. Tachybrady syndrome: s/p pace maker. 8.Status post aortic valve replacement with prosthetic valve.Patient says he is on Coumadin for aortic valve. But Epic says prosthetic valve. And on exam no obvious metallic sounds heard.Can recheck the valve type. 9.. Deep venous thrombosis prophylaxis: INR 1.7.not placing scds as patient has pain in left leg. DISPOSITION: Closely monitor in med tele. PT/OT prior to discharge. Social service to help with discharge planning. Job ID: [id number] [facility]ITALWeston
[2020-11-25 05:58] LABS: Basophils # (auto) 0.01 K/uL (0-0.2); Basophils % (auto) 0.1 %; Hematocrit (blood only) 37.4 % (42-52); Hemoglobin 12.6 g/dL (14.0-18.0); Immature Granulocytes # (auto) 0.02 K/uL (0.00-0.02); Immature Granulocytes % (auto) 0.2 %; Lymphocytes # (auto) 1.14 K/uL (1.2-3.4); Lymphocytes % (auto) 10.8 %; Mean Corpuscular Hemoglobin 31.9 pg (25-34); Mean Corpuscular Hgb Conc 33.7 g/dL (32-36); Mean Corpuscular Volume 94.7 fL (80-100); Mean Platelet Volume 8.7 fL (7.4-10.4); Monocytes # (auto) 0.07 K/uL (0.11-0.59); Monocytes % (auto) 0.7 %; Neutrophils # (auto) 9.32 K/uL (1.4-6.5); Neutrophils % (auto) 88.2 %; Platelet Count 286 K/uL (130-400); RDW Coefficient of Variation 13.6 % (11.5-14.5); RDW Standard Deviation 47.5 fL (36.4-46.3); Red Blood Count 3.95 M/uL (4.7-6.1); White Blood Count 10.56 K/uL (4.8-10.8)
[2020-11-25 06:13] LABS: INR 1.6 (0.9-1.1); Prothrombin Time 16.1 Seconds (9.0-12.0)
[2020-11-25 06:31] LABS: Calcium 8.2 mg/dl (8.5-10.1); Creatinine Clr Calc Pharmacy 77.4 ml/min; Est GFR (African American) 101.4 ml/min; Est GFR (Non-African American) 87.5 ml/min; Magnesium 2.2 mg/dl (1.8-2.4); Potassium 4.8 mmol/L (3.5-5.1)
--- NOTE | 2020-11-25 08:07 | CT Scan Report ---
CT of the pelvis with IV contrast only. Comparison: None. Correlation is made with CT of abdomen and pelvis performed on October 29, 2019. History: [place] ^B4B CTR ^left prox LE ecchymosis Technique: Axial images of the pelvis were performed from the iliac wings through the ischial tuberosities follo wing the administration of IV contrast. Findings: Bladder distends normally. No pelvic adenopathy is identified. Bowel loops are nondilated. Minimal diverticulosis of sigmoid colon without evidence of diverticuliti s. Mild bilateral fat-containing inguinal hernias. Prostate gland is not significantly enlarged. No major vascular abnormality is seen. No acute fracture or dislocation seen. Redemonstration of degenerative changes of the lower lumbar sp ine. IMPRESSION: No acute fracture dislocation. Diverticulosis of sigmoid colon without evidence of diverticulitis. Degenerative changes of the lower lumbar spine. The rest of findings as above. Electronically signed by: Sophia Anderson DO 11/25/2020 8:05 AM
--- NOTE | 2020-11-25 08:19 | CT Scan Report ---
CT femur LT w con CT DOSE: CLINICAL HISTORY: ecchymosis, edema TECHNIQUE: A dose lowering technique was utilized adhering to the principles of ALARA. COMPARISON STUDY: None. FINDINGS: No acute fracture dislocation seen. There is 2.6 x 5.4 x 3.1 cm area of slightly increased attenuation seen within abductor muscles of th e left thigh, possibly within sartorius which could represent hematoma however mass lesion cannot be completely ruled out. Patchy subcutaneous soft tissue edema of the left thigh is seen. IMPRESSION: 1. No acute fracture or dislocation 2. Possible hematoma within adductor musculature. Mass lesion cannot be completely ruled out. Follow -up evaluation on nonemergency basis after resolution of symptoms with ultrasound might be considered . ACT 112: Negative or not required by law. The above report was generated using voice recognition software. It may contain grammatical, syntax o r spelling errors. Electronically signed by: Sophia Anderson DO 11/25/2020 8:18 AM
[2020-11-25] MEDS ORDERED: COLLAGEN SUPPLEMENT PO SCH (09:00)
[2020-11-25] MEDS: DRONEDARONE HCL 400 MG TAB PO SCH ×2 (09:03→20:48)
[2020-11-25] MEDS: PRAVASTATIN SOD 20 MG TAB PO SCH (09:04)
[2020-11-25] MEDS: MAGNESIUM OXIDE 400 MG TAB PO SCH (09:04)
[2020-11-25] MEDS: MESALAMINE 800 MG TABCR PO SCH ×3 (09:04→20:47)
[2020-11-25] MEDS: METOPROLOL SUCC 50MG EXT REL TAB PO SCH (09:04)
--- NOTE | 2020-11-25 10:41 | Orthopedic Consultation ---
Date of Consultation November 25, 2020 Assessment & Plan (1) Hematoma: CT scan reviewed showing a 2-1/2 x 5 x 3 cm hematoma versus mass lesion. Case will be discussed with Dr. Llamas and I will have him see him later today for his input. Even though his INR was not extraordinarily elevated, and there was no injury involved, he could have likely had a slow bleed from his increased INR. Currently recommend ice to the left thigh and elevation. Limit activity at this time for the next 24 hours. I spoke to Bhavesh from physical therapy today and he states that the patient did very well and was independent with ambulation. I discussed with the patient that he should limit his ambulation trips at this time to the bathroom and also may be out into the hallway briefly. Increase activity as able over the next 24 hours. No surgical intervention at this time. Watch for signs of increasing hematoma with increased pain with ambulation and or changes in neurovascular status. History of Present Illness Reason for Consultation: Hematoma left thigh Attending Physician: Khanh Murry MD History of Present Illness Patient is a 70-year-old male with past medical history significant for hyperlipidemia, paroxysmal atrial fibrillation, history of junctional tachycardia, history of ectasia of artery, tachybrady syndrome, hypertension, hepatic artery aneurysm, coarctation of thoracic aorta, GERD, history of regional enteritis of small intestine, Crohn's disease, Peyronie disease, history of splenic artery rupture and splenectomy in 2006, history of prosthetic aortic valve replacement, cardiac pacemaker, on chronic Coumadin. Patient states that he began noticing pain in his left thigh on the medial aspect with ambulation on Friday of this last week. It slowly progressed over the week. He began noticing the bruising of the thigh and also bruising going down his leg. He took a home blood sample for his INR which showed to be 1.8. He tried to get into the [facility] clinic at [facility] to be examined however this was unsuccessful. He was then asked to come to the emergency room to be evaluated. He states that prior to coming in and when he was here that the pain in his thigh was the worst that it had been and he was having some difficulty ambulating. Currently today he states that his pain control is much better and that he is able to ambulate well. No other complaints at this time. Allergies Allergy/AdvReac Type Severity Reaction Status Date / Time Iodinated Contrast Media AdvReac Severe nausea and Unverified 11/24/20 21:43 itchy legs Home Medications Medication Instructions Recorded Confirmed Type garlic 1,000 mg capsule (garlic 1,000 mg PO QAM 06/16/18 11/24/20 History oil) magnesium oxide 400 mg PO QAM 06/16/18 11/24/20 History pravastatin 20 mg tablet 20 mg PO QAM 06/16/18 11/24/20 History warfarin 3 mg tablet (Jantoven) 3 mg PO QAM 06/16/18 11/24/20 History metoprolol succinate 50 mg 100 mg PO QAM 10/29/19 11/24/20 History tablet,extended release 24 hr (Toprol XL) Collagen Supplement 1 dose PO QAM 08/29/20 11/24/20 History mesalamine 800 mg tablet,delayed 800 mg PO TID 08/29/20 11/24/20 History release (Asacol HD) dronedarone 400 mg tablet (Multaq) 400 mg PO BID 11/13/20 11/24/20 History Patient History Medical History Atrial fibrillation Bicuspid aortic valve S/p AVR 2008 (bioprosthetic) Crohns disease Hearing deficit Hyperlipidemia Hypertension On anticoagulant therapy warfarin daily [facility] approx [facility] ago Sleep apnea cpap Surgical History History of aortic valve replacement with aortic/ascending aorta graft repair- 2008 @ [facility]--follows with Dr. 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 History of surgery 08/27/2013 coil embolization of hepatic artery aneurysm Status post aortic coarctation stent [place] [facility] [place] History Other No family history of adverse response to anesthesia Social History Smoking Status: Never smoker Second Hand Exposure: No; Hx Alcohol Use: No Hx Substance Use: No Preferred Language: Icelandic Communication Ability: Effective 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 He is in no acute distress, pleasant and cooperative. Focusing the exam on the left lower extremity, he has some mild swelling of the left thigh compared to the right. Ecchymosis is noted on the medial aspect mostly with ecchymosis traveling distally down to the foot and ankle. He has some mild pedal edema compared to the right. Both feet are cool to the touch and I cannot appreciate a dorsalis pedis pulse on either side. Capillary refill appears to be less than 2 seconds. He denies any decrease sensation of the left foot at this time and has good range of motion of his ankle and toes. Passive dorsiflexion of the left foot does not increase any pain in his calf or thigh. Axial loading of the left lower extremity does not cause any increased pain in the left lower extremity. Patient is able to take his left leg and go through a straight leg raise without difficulty or pain. He has good range of motion of the left hip and knee with flexion and extension, and has no pain with internal or external rotation, abduction,adduction. Patient states that most of his pain was with ambulation however he went through physical therapy this morning and did well. Currently he is comfortable. Results & Data ([facility]) Vital Signs (Past 12 Hours) Vital Signs Temp Pulse Pulse Resp BP Pulse Ox 11/25/20 10:03 62 11/25/20 07:19 36.6 C 74 18 119/76 97 11/25/20 06:00 61 11/25/20 02:41 36.4 C L 64 18 119/76 98 11/25/20 01:50 60 18 108/59 L 96 11/24/20 22:46 60 22 118/75 99 Diagnostic Findings Patient: YOLANDA EATON WAdmit Date: 11/25/20MR#: [id number]: [address]Acct ID:[id number]: [facility] Zip: [place], [place] [address]Dho: 70Location: 2WSex: MRoom/Bed: U409-1Xtr Phy: Lovely Khanh BlayneMykel, MDDiagnosis: LEG PAINPri Phy: KushalJeffrey schulte DOService Date: 11/24/20Fam Phy:Interpreting Phy: Sophia Anderson DOAdmit Phy: Ronnie Woodall MD Ordering Phy: Cady Viveros DO cc: ~ CT femur LT w con CT DOSE: CLINICAL HISTORY: ecchymosis, edema TECHNIQUE: A dose lowering technique was utilized adhering to the principles of ALARA. COMPARISON STUDY: None. FINDINGS: No acute fracture dislocation seen. There is 2.6 x 5.4 x 3.1 cm area of slightly increased attenuation seen within abductor muscles of the left thigh, possibly within sartorius which could represent hematoma however mass lesion cannot be completely ruled out. Patchy subcutaneous soft tissue edema of the left thigh is seen. IMPRESSION: 1. No acute fracture or dislocation 2. Possible hematoma within adductor musculature. Mass lesion cannot be completely ruled out. Follow-up evaluation on nonemergency basis after resolutio n of symptoms with ultrasound might be considered.
--- NOTE | 2020-11-25 12:20 | Cardiology Consultation ---
Date of Consultation November 25, 2020 Assessment & Plan (1) Hematoma: Traumatic versus spontaneous left lower extremity hematoma. Appreciate orthopedic surgery input. Hemoglobin is stable. Hold anticoagulation. Monitor for any expansion of hematoma or drop in hemoglobin. (2) Paroxysmal atrial fibrillation: Currently sinus rhythm status post cardioversion 11/14/2020. Pacemaker implanted November 2019. Continue Multaq for rhythm control strategy. Resume oral anticoagulation when bleeding risk is deemed safe/acceptable. (3) S/P AVR (aortic valve replacement): Bioprosthetic aortic valve replacement. History of Present Illness Reason for Consultation: Anticoagulation, hematoma Requesting Physician: Dr. Murry Attending Physician: Khanh Murry MD History of Present Illness 70-year-old patient with complex cardiovascular history noted below presented to the ER with a left lower extremity hematoma. Recent history significant for external direct-current cardioversion 11/15/[address] Tena. Patient denies any recent falls or injuries. Noted discomfort of his left medial thigh beginning last Friday. He works at [employer] and was able to complete work duties throughout the week. There is evidence of hematoma per CT. Currently pain controlled. INR subtherapeutic on admission. Warfarin currently on hold. Patient denies chest pain or shortness of breath. No lightheadedness, dizziness, syncope, or near syncope. Cardiac Problems Borderline tachycardia-bradycardia syndrome Paroxysmal atrial fibrillation & atypical atrial flutter s/p DCCV 11/19/2017 with a long conversion pause; [id number] 2 (age, HTN) Pacemaker implantation 11/23/2019 External direct-current cardioversion 11/14/2020 with addition of Multaq HTN HLD Bicuspid AV S/p AVR bioprosthetic as well as aortic root replacement, 2008, [facility] H/o coarctation of aorta s/p stenting, [facility] H/o hepatic artery aneurysm s/p embolization H/o splenic artery rupture & splenectomy in 2006 Allergies Allergy/AdvReac Type Severity Reaction Status Date / Time Iodinated Contrast Media AdvReac Severe nausea and Unverified 11/24/20 21:43 itchy legs Home Medications Medication Instructions Recorded Confirmed Type garlic 1,000 mg capsule (garlic 1,000 mg PO QAM 06/16/18 11/24/20 History oil) magnesium oxide 400 mg PO QAM 06/16/18 11/24/20 History pravastatin 20 mg tablet 20 mg PO QAM 06/16/18 11/24/20 History warfarin 3 mg tablet (Jantoven) 3 mg PO QAM 06/16/18 11/24/20 History metoprolol succinate 50 mg 100 mg PO QAM 10/29/19 11/24/20 History tablet,extended release 24 hr (Toprol XL) Collagen Supplement 1 dose PO QAM 08/29/20 11/24/20 History mesalamine 800 mg tablet,delayed 800 mg PO TID 08/29/20 11/24/20 History release (Asacol HD) dronedarone 400 mg tablet (Multaq) 400 mg PO BID 11/13/20 11/24/20 History Patient History Medical History Atrial fibrillation Bicuspid aortic valve S/p AVR 2008 (bioprosthetic) Crohns disease Hearing deficit Hyperlipidemia Hypertension On anticoagulant therapy warfarin daily Pacemaker 11/2019 - [facility] [employer] - last check approx 3 mo ago Sleep apnea cpap Surgical History History of aortic valve replacement with aortic/ascending aorta graft repair- 2008 @ [facility]--follows with Dr. 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 History of surgery 08/27/2013 coil embolization of hepatic artery aneurysm Status post aortic coarctation stent placement 07/04/2012 @ [facility] Family History Other No family history of adverse response to anesthesia Social History Smoking Status: Never smoker Second Hand Exposure: No; Hx Alcohol Use: No Hx Substance Use: No Preferred Language: Rwandan Communication Ability: Effective 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 Beliefs That Will Affect Care: None marital status: Current Living Situation: Spouse Other Information That Helps Us Care for You: No Feels Safe at Home: Yes Safety Concerns: Feels Safe At This Time Assistive Devices: Glasses Assistive Devices Comment: temporary cane use Review of Systems Review of Systems: All systems reviewed & are unremarkable except as noted in Subjective Physical Exam Constitutional: well nourished; no acute distress Respiratory: no respiratory distress and no labored breathing Auscultation: no crackles, no rales, no rhonchi and no wheezes Cardiovascular: Rate/Rhythm: regular rate and regular rhythm Heart Sounds: normal S1, normal S2 and + murmur (2/6 systolic ejection murmur heard best at the right second costal space) Gastrointestinal (Abdomen): Inspection/Auscultation: abdomen normal to inspection and normal bowel sounds; abdomen not distended and no abdominal edema Percussion/Palpation: abdomen soft; abdomen nontender, no guarding and abdomen not rigid Neurologic: CN's II-XI intact bilaterally and moves all extremities; no focal motor deficits Psychiatric: A+Ox3, euthymic affect Results & Data ([facility]) Vital Signs (Past 12 Hours) Vital Signs Temp Pulse Pulse Pulse Resp BP BP 11/25/20 12:00 36.6 C 62 14 120/70 11/25/20 10:03 62 11/25/20 07:19 36.6 C 74 18 119/76 11/25/20 06:00 61 11/25/20 02:41 36.4 C L 64 18 119/76 11/25/20 01:50 60 18 108/59 L Pulse Ox 11/25/20 12:00 96 11/25/20 10:03 11/25/20 07:19 97 11/25/20 06:00 11/25/20 02:41 98 11/25/20 01:50 96
--- NOTE | 2020-11-25 13:30 | CT Scan Report ---
CT femur LT wo con CLINICAL HISTORY: Follow-up hematoma. COMPARISON STUDY: CT of the left femur November 24, 2020. TECHNIQUE: Axial images of the left femur and thigh were obtained without intravenous contrast. Sagit zoie and coronal reconstructions were viewed. Automated exposure control was utilized for the study. A dose lowering technique was utilized adhering to the principles of ALARA. FINDINGS: No acute fracture within the left femur is noted. There is contrast within the bladder from recent contrast-enhanced CT. Note is made of a hyperdensity within the left sartorius muscle that me asures 3.9 x 3.2 cm. This measured 3.6 x 2.[address] of November 24, 2020. The hematoma measures 4.7 cm in craniocaudal dimension. This dimension was difficult to assess on prior CT. This represents an int ramuscular hematoma. No additional hematomas are identified on this exam. There is no left knee joint effusion. IMPRESSION: 1. Slight increase in size of an intramuscular hematoma within the left sartorius muscle since CT of November 24, 2020. 2. No acute fracture within the left femur. ACT 112: Negative or not required by law. Electronically signed by: Aubrey Middleton M.D. 11/25/2020 1:29 PM
[2020-11-26 06:25] LABS: Hematocrit (blood only) 35.6 % (42-52); Hemoglobin 11.6 g/dL (14.0-18.0)
[2020-11-26 06:32] LABS: INR 1.5 (0.9-1.1); Prothrombin Time 14.6 Seconds (9.0-12.0)
[2020-11-26 06:58] LABS: BUN Creatinine Ratio 23.2 (10-20); Calcium 8.4 mg/dl (8.5-10.1); Creatinine Clr Calc Pharmacy 75.3 ml/min; Est GFR (African American) 97.4 ml/min; Est GFR (Non-African American) 84.1 ml/min; Potassium 3.9 mmol/L (3.5-5.1)
[2020-11-26] MEDS: DRONEDARONE HCL 400 MG TAB PO SCH (08:55)
[2020-11-26] MEDS: MESALAMINE 800 MG TABCR PO SCH ×2 (08:55→14:20)
[2020-11-26] MEDS: METOPROLOL SUCC 50MG EXT REL TAB PO SCH (08:56)
[2020-11-26] MEDS: MAGNESIUM OXIDE 400 MG TAB PO SCH (08:56)
[2020-11-26] MEDS: PRAVASTATIN SOD 20 MG TAB PO SCH (08:56)
--- NOTE | 2020-11-26 13:25 | Cardiology Progress Note ---
Date of Service November 26, 2020 Assessment & Plan (1) Hematoma: Plan: Traumatic versus spontaneous left lower extremity hematoma. Appreciate orthopedic surgery input. Hemoglobin trending downward since yesterday. Monitor for any expansion of hematoma or drop in hemoglobin. Patient recently underwent direct-current cardioversion which places him at increased risk for embolic CVA, however, he was appropriately anticoagulated prior to that procedure. He remains in sinus rhythm. Currently risk of recurrent bleeding outweighs risk of CVA. Recommend hold warfarin for 1 week with close cardiology follow-up. Decision to resume anticoagulation with warfarin and/or transition to DOAC during appointment. (2) Paroxysmal atrial fibrillation: Plan: Currently sinus rhythm status post cardioversion 11/14/2020. Pacemaker implanted November 2019. Continue Multaq for rhythm control strategy. (3) S/P AVR (aortic valve replacement): Plan: Bioprosthetic aortic valve replacement. Admission and Anticipated Discharge Date Admission Date: November 25, 2020 Subjective Patient seen exam at the bedside. Notes left lower extremity discomfort. No evidence of expanding hematoma. Hemoglobin has trended downward from 11.6 to 12.6 g/dL. Telemetry reveals sinus bradycardia with heart rate ranging from 50- 60 bpm. Patient offers no additional concerns/complaints. Tolerating medications. Requesting discharge. Review of Systems Review of Systems: All systems reviewed & are unremarkable except as noted in Subjective Physical Exam Constitutional: well nourished; no acute distress Respiratory: no respiratory distress and no labored breathing Auscultation: no crackles, no rales, no rhonchi and no wheezes Cardiovascular: Rate/Rhythm: regular rate and regular rhythm Heart Sounds: normal S1, normal S2 and + murmur (2/6 systolic ejection murmur heard best at the right second costal space) Gastrointestinal (Abdomen): Inspection/Auscultation: abdomen normal to inspection and normal bowel sounds; abdomen not distended and no abdominal edema Percussion/Palpation: abdomen soft; abdomen nontender, no guarding and abdomen not rigid Musculoskeletal: Left lower extremity ecchymosis extending to the foot with left medial thigh palpable hematoma. Neurologic: CN's II-XI intact bilaterally and moves all extremities; no focal motor deficits Psychiatric: A+Ox3, euthymic affect Results & Data ([facility]) Vital Signs (Past 12 Hours) Vital Signs Temp Pulse Pulse Pulse Resp BP Pulse Ox 11/26/20 12:29 36.5 C 83 20 150/82 H 97 11/26/20 09:06 64 11/26/20 06:54 36.4 C L 65 20 156/84 H 97 11/26/20 03:10 36.6 C 68 20 116/67 98 11/26/20 01:20 69
[2020-11-26 14:49] LABS: Hematocrit (blood only) 36.4 % (42-52); Hemoglobin 12.4 g/dL (14.0-18.0)
--- NOTE | 2020-11-26 15:07 | Hospitalist Progress Note ---
Date of Service November 26, 2020 Assessment & Plan (1) Hematoma: (2) Acute leg pain: (3) S/P AVR (aortic valve replacement): Plan: This is a 70-year-old male who presents with left leg pain and found to have left thigh hematoma on CAT scan and he had developed an allergic reaction for the IV dye. 1. Left leg pain: Spontaneous left thigh hematoma. INR is 1.7 on admission. We will hold his Coumadin. Orthopedics consulted. Consult PT/OT. Pain control, monitor in the hospital. Patient is on Coumadin for paroxysmal A. fib, currently patient is not in A. fib, underwent cardioversion earlier this month. Current Hgb 12.4 (repeated this PM), stable from yesterday and no signs of increasing hematoma Recommend to hold warfarin for 1 week, then follow-up with cardiology, at that time possibly start warfarin or DOAC. Patient instructed to have his leg elevated, use ice pack, only minimal ambulation and no heavy lifting on discharge. Patient is agreement. 2. Allergic reaction to IV dye: The patient was somewhat diaphoretic. Systolic blood pressure dropped to 89 and oxygen was 91%. Received Benadryl, Pepcid, Solu-Medrol, racemic epinephrine and fluids and symptoms improved. Currently resting comfortably and hemodynamically stable. Will monitor. 3. History of paroxysmal atrial fibrillation: Holding his Coumadin. Continue his Multaq and Toprol-XL. Will monitor. 4. History of Crohn's disease: Continue his mesalamine. 5. Hyperlipidemia: Continue statin. 6. Hypertension. Continue his Toprol-XL. Monitor the blood pressure. 7. Tachybrady syndrome: s/p pace maker. 8.Status post aortic valve replacement with bioprosthetic valve. Patient says he is on Coumadin for aortic valve (told ED provider that he has a mechanical valve). But Epic says bioprosthetic valve. And on exam no obvious metallic sounds heard. Checked with cardiology as well. 9.. Deep venous thrombosis prophylaxis: INR 1.7.not placing scds as patient has pain in left leg. DISPOSITION: Plan to DC home, close follow-up with PCP and cardiology. Admission and Anticipated Discharge Date Admission Date: November 25, 2020 Subjective Patient seen in follow-up of left lower extremity hematoma Currently laying in bed in no acute distress His left lower extremity already feels much better, patient is able to ambulate in hallway without difficulty Denies any chest pain, shortness of breath, dizziness or lightheadedness No fevers or chills He is eager to be discharged home Review of Systems Constitutional: no fever and no chills Respiratory: no cough and no dyspnea Cardiovascular: no chest pain and no palpitations Gastrointestinal: no abdominal pain, no nausea and no vomiting Physical Exam Physical Exam: GENERAL: The patient is of moderate build, not in acute distress. HEENT: NC/AT, EOMI, Pupils equal, round and reactive to light. Oral mucosa moist. NECK: No JVD, no neck masses. CARDIOVASCULAR: S1 and S2 heard. Murmur in the aortic area. No gallop. RESPIRATORY: Normal AP diameter. No accessory muscle use. No wheezing, no crackles. ABDOMEN: Soft, bowel sounds present, nontender, no distention. NEURO: Alert and oriented x3, speech fluent, no facial asymmetry, moves extremities EXTREMITIES: Left lower extremity bruise from medial aspect of the thigh to the knee, some bruise seen. LLE mild edema (unchanged from previous exam) Results & Data Results & Data ([facility]) Vital Signs (Past 12 Hours) Vital Signs Temp Pulse Pulse Pulse Resp BP Pulse Ox 11/26/20 12:29 36.5 C 83 20 150/82 H 97 11/26/20 09:06 64 11/26/20 06:54 36.4 C L 65 20 156/84 H 97 11/26/20 03:10 36.6 C 68 20 116/67 98 Laboratory Results 11/26/20 11/26/20 11/26/20 Range/Units 14:20 06:05 06:05 Hgb 12.4 L (14.0-18.0) g/dL Hct 36.4 L (42-52) % PT 14.6 H (9.0-12.0) Seconds INR 1.5 H (0.9-1.1) Sodium 138 (136-145) mmol/L Potassium 3.9 D (3.5-5.1) mmol/L Chloride 107 (98-107) mmol/L Carbon Dioxide 26 (21-32) mmol/L Anion Gap 5.0 (3-11) BUN 22 H (7-18) mg/dl Creatinine 0.93 (0.6-1.4) mg/dl Est Cr Clr Drug Dosing 75.3 ml/min Est GFR ( Amer) 97.4 ml/min Est GFR (Non-Af Amer) 84.1 ml/min BUN/Creatinine Ratio 23.2 H (10-20) Glucose 87 (70-99) mg/dl Calcium 8.4 L (8.5-10.1) mg/dl 11/26/20 Range/Units 06:05 Hgb 11.6 L (14.0-18.0) g/dL Hct 35.6 L (42-52) % PT (9.0-12.0) Seconds INR (0.9-1.1) Sodium (136-145) mmol/L Potassium (3.5-5.1) mmol/L Chloride (98-107) mmol/L Carbon Dioxide (21-32) mmol/L Anion Gap (3-11) BUN (7-18) mg/dl Creatinine (0.6-1.4) mg/dl Est Cr Clr Drug Dosing ml/min Est GFR ( Amer) ml/min Est GFR (Non-Af Amer) ml/min BUN/Creatinine Ratio (10-20) Glucose (70-99) mg/dl Calcium (8.5-10.1) mg/dl Medications Administered Current Inpatient Medications Acetaminophen (Acetaminophen 325 Mg Tab) 650 mg PO Q4H PRN PRN Reason: Pain or Fever Stop: 12/25/20 02:40 Dronedarone (Dronedarone Hcl 400 Mg Tab) 400 mg PO BID [facility] Stop: 12/25/20 08:59 Last Admin: 11/26/20 08:55 Dose: 400 mg Documented by: Magnesium Oxide (Magnesium Oxide 400 Mg Tab) 400 mg PO QAM [facility] Stop: 12/25/20 08:59 Last Admin: 11/26/20 08:56 Dose: 400 mg Documented by: Mesalamine (Mesalamine 800 Mg Tabcr) 800 mg PO TID [facility] Stop: 12/25/20 08:59 Last Admin: 11/26/20 14:20 Dose: 800 mg Documented by: Metoprolol Succinate (Metoprolol Succ 50mg Ext Rel Tab) 100 mg PO [facility]AWW [facility] Stop: 12/25/20 08:59 Last Admin: 11/26/20 08:56 Dose: 100 mg Documented by: Nitroglycerin (Nitroglycerin Sl 0.4 Mg/Tab Tab) 0.4 mg SL UD PRN PRN Reason: Chest Pain Stop: 12/25/20 02:40 Polyethylene Glycol (Polyethylene (Miralax) 17 Gm Pack) 17 gm PO DAILY PRN PRN Reason: Constipation Stop: 12/25/20 02:40 Pravastatin Sodium (Pravastatin Sod 20 Mg Tab) 20 mg PO QAWW [facility] Stop: 12/25/20 08:59 Last Admin: 11/26/20 08:56 Dose: 20 mg Documented by: Tramadol HCl (Tramadol Hcl 50 Mg Tablet) 50 mg PO Q6H PRN PRN Reason: Pain Stop: 12/25/20 02:40 (1) Acute leg pain Laterality: left Qualified Code(s): M79.605 - Pain in left leg
--- NOTE | 2020-11-26 15:55 | Discharge Summary ---
Date of Service November 26, 2020 Admission HPI Per Admitting Provider This is 70-year-old male with past medical history significant for hyperlipidemia, paroxysmal atrial fibrillation, history of junctional tachycardia, history of ectasia of artery, tachybrady syndrome, hypertension, hepatic artery aneurysm, coarctation of thoracic aorta, GERD, history of regional enteritis of small intestine, Crohn's disease, Peyronie disease, history of splenic artery rupture and splenectomy in 2006, history of prosthetic aortic valve replacement, cardiac pacemaker, who presents with left lower extremity pain since last Friday. He did not injure his leg, no weight lifting, but he noticed this pain in his left lower extremity and also a bruise and he came here. In the ER, his INR was 1.7. ER physician did a CAT scan of the femur and pelvic CT, which shows 4 x 3 x 6 cm hematoma, left thigh. Then, after coming from the CAT scan with contrast, the patient developed allergic reaction. He is complained of nausea, was diaphoretic, Blood pressure systolic dropped to 89 and pulse ox was 91% and hard to swallow. The patient received Benadryl, Pepcid, Solu-Medrol, Zofran and racemic epinephrine and IV fluids and the patient improved after 5 to 7 minutes and since then he is doing fine. Currently, resting comfortably and hemodynamically stable. Denies any chest pain, no shortness of breath, no cough, no headache, no blurred visions, no earache, no runny nose, no sore throat, no difficulty swallowing. Appetite is okay. No nausea, no abdominal pain. Normal bowel and bladder movements. He is using a cane to walk since the pain in the leg started. Admission Exam Per Admitting Provider GENERAL: The patient is of moderate build, not in acute distress. VITAL SIGNS: Temperature 36.3, pulse 60, respiratory rate 22, blood pressure 118/75, oxygen 99% on room air. HEENT: Pupils equal, round and reactive to light. Oral mucosa moist. NECK: No JVD, no neck masses. CARDIOVASCULAR: S1 and S2 heard. Murmur in the aortic area. No gallop. RESPIRATORY SYSTEM: Normal AP diameter. No accessory muscle use. No wheezing, no crackles. ABDOMEN: Soft, bowel sounds present, nontender, no distention. CENTRAL NERVOUS SYSTEM: Cranial nerves II-XII grossly intact, nonfocal. EXTREMITIES: Right mild pedal edema present. Left lower extremity bruise from medial aspect of the thigh to the knee, some bruise seen. Principal Diagnosis Left thigh hematoma Discharge Exam GENERAL: The patient is of moderate build, not in acute distress. HEENT: NC/AT, EOMI, Pupils equal, round and reactive to light. Oral mucosa moist. NECK: No JVD, no neck masses. CARDIOVASCULAR: S1 and S2 heard. Murmur in the aortic area. No gallop. RESPIRATORY: Normal AP diameter. No accessory muscle use. No wheezing, no crackles. ABDOMEN: Soft, bowel sounds present, nontender, no distention. NEURO: Alert and oriented x3, speech fluent, no facial asymmetry, moves extremities EXTREMITIES: Left lower extremity bruise from medial aspect of the thigh to the knee, some bruise seen. LLE mild edema (unchanged from previous exam) Discharge Data Allergies Allergy/AdvReac Type Severity Reaction Status Date / Time Iodinated Contrast Media AdvReac Severe nausea and Unverified 11/24/20 21:43 itchy legs Consultations 11/25/20 07:59 Consult Cardiology Routine 11/25/20 08:00 Consult Orthopedic Surgery Routine Ordered Studies 11/24/20 20:06 CT femur LT w con Urgent IMPRESSION: 1. No acute fracture or dislocation 2. Possible hematoma within adductor musculature. Mass lesion cannot be completely ruled out. Follow-up evaluation on nonemergency basis after resolution of symptoms with ultrasound might be considered. CT pelvis w/IV con only Urgent IMPRESSION: No acute fracture dislocation. Diverticulosis of sigmoid colon without evidence of diverticulitis. Degenerative changes of the lower lumbar spine. The rest of findings as above. 11/25/20 12:06 CT femur LT wo con Routine IMPRESSION: 1. Slight increase in size of an intramuscular hematoma within the left sartorius muscle since CT of November 24, 2020. 2. No acute fracture within the left femur. Hospital Course (1) Hematoma: (2) Acute leg pain: (3) S/P AVR (aortic valve replacement): This is a 70-year-old male who presents with left leg pain and found to have left thigh hematoma on CAT scan and he had developed an allergic reaction for the IV dye. 1. Left leg pain: Spontaneous left thigh hematoma. INR is 1.7 on admission. We will hold his Coumadin. Orthopedics consulted. Consult PT/OT. Pain control, monitor in the hospital. Patient is on Coumadin for paroxysmal A. fib, currently patient is not in A. fib, underwent cardioversion earlier this month. Current Hgb 12.4 (repeated this PM), stable from yesterday and no signs of increasing hematoma Recommend to hold warfarin for 1 week, then follow-up with cardiology, at that time possibly resume warfarin or start DOAC. Patient instructed to have his leg elevated, use ice pack, only minimal ambulation and no heavy lifting on discharge. Patient is in agreement. 2. Allergic reaction to IV dye: The patient was somewhat diaphoretic. Systolic blood pressure dropped to 89 and oxygen was 91%. Received Benadryl, Pepcid, Solu-Medrol, racemic epinephrine and fluids and symptoms improved. Currently resting comfortably and hemodynamically stable. Will monitor. 3. History of paroxysmal atrial fibrillation: Holding his Coumadin. Continue his Multaq and Toprol-XL. Will monitor. 4. History of Crohn's disease: Continue his mesalamine. 5. Hyperlipidemia: Continue statin. 6. Hypertension. Continue his Toprol-XL. Monitor the blood pressure. 7. Tachybrady syndrome: s/p pace maker. 8.Status post aortic valve replacement with bioprosthetic valve. Patient says he is on Coumadin for aortic valve (told ED provider that he has a mechanical valve). But Epic says bioprosthetic valve. And on exam no obvious metallic sounds heard. Checked with cardiology as well. 9.. Deep venous thrombosis prophylaxis: INR 1.7.not placing scds as patient has pain in left leg. DISPOSITION: Plan to DC home, close follow-up with PCP and cardiology. Total Time Total Time Spent Total Time Spent (In Minutes): 35 Discharge Plan Discharge Items Patient Disposition: Home - Self-Care Reason For Visit: LEG PAIN Discharge Diagnosis: Left thigh hematoma Activity: Per Instructions section Activity Comment: Keep your leg elevated, use ice packs, limit ambulation Lifting: No more than 5 pounds Non-emergency contact: Primary Care Provider and Clip Coater Call non-emergency contact if: you have any medication questions and your symptoms worsen Follow-up/Referrals: Jeffrey Fatima DO [Primary Care Provider] - Diet: Heart Healthy Addtl Attending Provider Instructions: Follow-up with your primary care doctor and/or cardiology in 1 week. For 1 week, do not take your warfarin. Your blood count will need to be rechecked at that time and then you will need to discuss with your healthcare providers, about resuming warfarin. Make sure to limit your ambulation, rest, keep your leg elevated and use ice packs to help with hematoma reabsorption. As discussed, avoid lifting anything heavy, also avoid any possible trauma to your leg. Pending Studies at Discharge: No Stand-Alone Forms: My [facility], Smoking Cessation Medications and DC Order Prescriptions: Continued pravastatin 20 mg Tablet 20 mg PO QAM RF: 0 magnesium oxide 400 mg Capsule 400 mg PO QAM RF: 0 garlic [garlic oil] 1,000 mg Capsule 1,000 mg PO QAM RF: 0 metoprolol succinate [Toprol XL] 50 mg tablet extended release 24 hr 100 mg PO QAM RF: 0 Multaq 400 mg Tablet 400 mg PO BID RF: 0 mesalamine [Asacol HD] 800 mg Tablet,Delayed Release (Dr/Ec) 800 mg PO TID RF: 0 Collagen Supplement 1 dose PO QAM RF: 0 Discontinued warfarin [Jantoven] 3 mg Tablet 3 mg PO QAM RF: 0 Discharge Orders: Discharge Order (Routine); Ordered 11/26/20 Ordered By: Khanh Murry Admission Data Admit Date/Time: 11/25/20 01:25 Attending Provider: Khanh Murry Admit Provider: Ronnie Woodall Primary Care Provider: Jeffrey Fatima Other Providers: Gerson Llamas ; Brayden Sarmiento
== END 2020-11-26 16:50 | disposition home or self-care (01) | DRG 556 ==
LOC: ED 16:54 → 2W 11-25 01:25

== ENCOUNTER 2022-01-01 08:59 | Inpatient (IN) ==
[2022-01-01] MEDS ORDERED: NITROGLYCERIN SL 0.4 MG/TAB TAB SL PRN (09:39)
[2022-01-01] MEDS ORDERED: POLYETHYLENE (MIRALAX) 17 GM PACK PO PRN (09:39)
[2022-01-01] MEDS ORDERED: MAGNESIUM HYDROXIDE SUSP 30 ML UDC PO PRN (09:39)
[2022-01-01] MEDS ORDERED: ACETAMINOPHEN 325 MG TAB PO PRN (09:39)
[2022-01-01] MEDS ORDERED: ZOLPIDEM TARTRATE 5 MG TAB PO PRN (09:39)
[2022-01-01] MEDS ORDERED: ONDANSETRON INJ 2 MG/ML 2 ML VIAL IV PRN (09:39)
[2022-01-01] MEDS ORDERED: ALUMINUM/MAGNESIUM SUSP 30 ML UDC PO PRN (09:39)
--- NOTE | 2022-01-01 09:39 | History & Physical Report ---
Date of Service January 01, 2022 Assessment & Plan (1) Atrial fibrillation: (2) S/P AVR (aortic valve replacement): (3) Tachy-tricia syndrome: (4) Dyspnea on exertion: Plan Given increasing dyspnea with exertion and atrial fibrillation burden the patient will be admitted to telemetry for sotalol loading and possible DC cardioversion. Daily EKGs will be performed to monitor QT interval and continuous telemetry monitoring will be performed. Electrolytes should be obtained on a daily basis and repleted as necessary. INR levels to be followed, therapeutic as an outpatient. All other outpatient medications will be continued with the exception of dronedarone I will also ask the hospitalist team to follow the patient. History of Present Illness Chief Complaint: Dyspnea on exertion Primary Care Provider: Jeffrey Fatima DO Mr. Soto is a very pleasant 71-year-old gentleman who is been following with myself as an outpatient for his history of paroxysmal atrial fibrillation, bioprosthetic aortic valve replacement, ascending aortic repair and tachybradycardia syndrome status post permanent pacemaker placement. He was last seen by myself on 12/24/2021 with complaints of worsening dyspnea with exertion. He did have recent outpatient stress testing which was nonischemic. His pacer interrogation revealed increasing A. fib burden's the timing of which correlated with his symptoms. He was previously on dronedarone as an outpatient. I asked him to stop it at his last visit with the anticipation of admitting him to the hospital today for sotalol loading and possible DC cardioversion. PAST MEDICAL HISTORY: 1. Coarctation of aorta status post stenting 2. History of bicuspid aortic valve, status post aortic valve replacement with a bioprosthetic valve, along with graft repair of his ascending aorta a. Chest CT, followed by vascular surgery given aortic repair, and measurements from November 2021 were stable at 4.8 x [address] criteria. 3. 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 History of schizophrenia 5. Hepatic artery aneurysm status post embolization 6. Hypertension 7. Dyslipidemia 8. Paroxysmal atrial fibrillation/flutter,asymptomatic.[id number] score of2 (age, HTN) a. spontaneous thigh hematoma11/2020 on Coumadin, now tolerating Eliquis 9. Tachy-tricia syndrome status post permanent pacemaker placement Allergies Allergy/AdvReac Type Severity Reaction Status Date / Time Iodinated Contrast Media AdvReac Severe nausea and Unverified 11/24/20 21:43 itchy legs Home Medications Medication Instructions Recorded Confirmed Type garlic 1,000 mg capsule (garlic 1,000 mg PO QAM 06/16/18 11/24/20 History oil) magnesium oxide 400 mg PO QAM 06/16/18 11/24/20 History pravastatin 20 mg tablet 20 mg PO QAM 06/16/18 11/24/20 History metoprolol succinate 50 mg 100 mg PO QAM 10/29/19 11/24/20 History tablet,extended release 24 hr (Toprol XL) Collagen Supplement 1 dose PO QAM 08/29/20 11/24/20 History mesalamine 800 mg tablet,delayed 800 mg PO TID 08/29/20 11/24/20 History release (Asacol HD) dronedarone 400 mg tablet (Multaq) 400 mg PO BID 11/13/20 11/24/20 History Past Med/Surg History Medical History (Updated 01/01/22 @ 09:38 by Adan Walker DO) Atrial fibrillation Bicuspid aortic valve S/p AVR 2008 (bioprosthetic) Crohns disease Hearing deficit Hyperlipidemia Hypertension On anticoagulant therapy warfarin daily Pacemaker 11/2019 - [facility] - Field [employer] - last check approx 3 mo ago Sleep apnea cpap Surgical History History of aortic valve replacement with aortic/ascending aorta graft repair- 2008 @ [facility]--follows with Dr. 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 History of surgery 08/27/2013 coil embolization of hepatic artery aneurysm Status post aortic coarctation stent placement 07/04/2012 @ [facility] [place] Family History Other No family history of adverse response to anesthesia Social History Smoking Status: Never smoker Second Hand Exposure: No; Hx Alcohol Use: No Hx Substance Use: No Preferred Language: Albanian Communication Ability: Effective Short Order Fry Cook Required: No Beliefs That Will Affect Care: None marital status: Current Living Situation: Spouse Feels Safe at Home: Yes Assistive Devices: Glasses Review of Systems Review of Systems: All systems reviewed & are unremarkable except as noted in HPI & below Physical Exam Physical Exam: General: Awake, alert and oriented x 3. No acute distress. HEENT: Normocephalic, atraumatic. Pupils equal, round and reactive to light and accommodation. Extraocular muscles are intact. Anicteric sclera. Moist mucous membranes. Neck: No JVD. No bruit. Cardiovascular: irregularly irregular, unable to appreciate murmur, rub or gallop. Pulmonary: Clear to auscultation bilaterally. No rales, rhonchi, or wheezing. Abdomen: Bowel sounds x 4, soft. No rebound, guarding or tenderness. No organomegaly. Extremities: No clubbing, cyanosis or edema. +2 pedal pulses bilaterally. Skin: Warm and dry. Code Status & VTE Plan VTE Prophylaxis Plan VTE Prophylaxis will be ordered: No
[2022-01-01 12:30] LABS: Hematocrit (blood only) 41.4 % (40.1-51.0); Hemoglobin 14.1 g/dl (14.0-18.0); Mean Corpuscular Hemoglobin 32.3 pg (25.0-34.0); Mean Corpuscular Hgb Conc 34.1 g/dL (32.0-36.0); Mean Corpuscular Volume 94.7 fL (80.0-100.0); Mean Platelet Volume 9.1 fL (9.4-12.4); Platelet Count 257 K/uL (130-400); RDW Coefficient of Variation 13.5 % (11.5-14.5); RDW Standard Deviation 47.7 fL (36.4-46.3); Red Blood Count 4.37 M/uL (4.63-6.08); White Blood Count 7.99 K/ul (4.8-10.8)
--- NOTE | 2022-01-01 12:44 | Consultation ---
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 Atrial Fibrillation pt admitted to PCU and sotalol being initiated hold metoprolol and multaq has been d/c continue eliquis, pt missed a.m. dose so will give a one time dose now further recs per cardiology Hx of bioprosthetic AVR hx of ascending aortic repair TBS s/p PPM HTN HLD Crohns Disease continue all other outpt meds DVT ppx: Eliquis Dispo: PCU FULL CODE PCP: Kushal Pt was seen and examined in collaboration with Dr. Chadwick, please see addendum Supervising Physician Co-Signing Physician Notes Pt is a 71 y/o M with hx of Biscuspid aortic valve s/p AVR (bioprosthetic), Afib on eliquis, tachy-tricia syndrome s/p pacemaker, ascending aorta and descending aorta repair, Splenic artery rupture s/p splenectomy, hepatic artery aneurysm s/p embolization, hx of thigh hematoma on Coumadin, HTN, BPH, Cohns disease on mesalamine consulted for medical co-management -pt is currently admitted to cardiac service for Sotalol loading and possible cardioversion -Recent Lipid panel, CBC and CMP from clinic were unremarkable PE: NAd, well developed Cardiac: systolic murmur, irregular Lungs: CTA, no wheezing or crackles Abd: ND, soft, NT MSK: trace b/l pitting edema Psych: AAOX3, normal affect A/P: Afib on eliquis with hx of pacemaker placement: -pt did not take his morning meds including his eliquis -will continue eliquis but hold Metoprolol and Multaq per cardiology request -continue mg and pravastatin -Sotalol loading and follow up EKGs: managed by Cardiology Crohns disease: -continue mesalamine --- pt takes it BID at home BPH: -continue Flomax HTN: -will monitor VS with sotalol Agree with Fior Geiger PA-C History of Present Illness Requesting Physician: Dr. Walker Reason for Consultation: Medical Management Attending Physician: Adan Walker DO History of Present Illness This is a 71-year-old male who has a significant past medical history of paroxysmal atrial fibrillation, bioprosthetic aortic valve replacement, history of ascending aortic repair, tachybradycardia syndrome status post PPM, history of schizophrenia, spontaneous rupture of splenic artery status post splenectomy, HTN, HLD, Crohn's, hepatic artery aneurysm s/p embolization and history of spontaneous thigh hematoma while on Coumadin who presents for direct admission by cardiology for sotalol loading and possible DCCV. We have been consulted for medical management. Per patient, cardiology notes he has been experiencing worsening SEWELL. He did undergo outpatient nuclear stress testing which was negative for inducible ischemia. He does have a permanent pacemaker which was recently interrogated. Interrogation revealed increasing atrial fibrillation burden. This is likely felt to correlate with his symptoms of SEWELL. He previously was on Multaq and this has since been discontinued. He was admitted to initiate sotalol loading. Currently he states he feels well. He does complain of some dizziness with positional change. He denies any recent illness. Denies fever, chills, sweats, lightheadedness, syncope, chest pain, shortness breath at rest, cough, hemoptysis, nausea, vomiting, abdominal pain, change in bowel or urinary habits. He does have history of Crohn's disease but denies any diarrhea or hematochezia. This has been well controlled for many years on mesalamine. He does have history of iodine allergy. Allergies Allergy/AdvReac Type Severity Reaction Status Date / Time Iodinated Contrast Media AdvReac Severe nausea and Verified 01/01/22 13:33 itchy legs Home Medications Medication Instructions Recorded Confirmed Type garlic 1,000 mg capsule (garlic 1,000 mg PO QAM 06/16/18 01/01/22 History oil) magnesium oxide 400 mg PO QAM 06/16/18 01/01/22 History pravastatin 20 mg tablet 20 mg PO QAM 06/16/18 01/01/22 History metoprolol succinate 50 mg 100 mg PO QAM 10/29/19 01/01/22 History tablet,extended release 24 hr (Toprol XL) mesalamine 800 mg tablet,delayed 800 mg PO BID 08/29/20 01/01/22 History release (Asacol HD) apixaban 5 mg tablet (Eliquis) 5 mg PO BID 01/01/22 01/01/22 History metoprolol succinate 50 mg 50 mg PO QPM 01/01/22 01/01/22 History tablet,extended release 24 hr tamsulosin 0.4 mg capsule 0.4 mg PO DAILY 01/01/22 01/01/22 History Patient History Medical History Atrial fibrillation Bicuspid aortic valve S/p AVR 2008 (bioprosthetic) Crohns disease Hearing deficit Hyperlipidemia Hypertension On anticoagulant therapy warfarin daily Pacemaker 11/2019 - [facility] - [facility]DOM - last check approx 3 mo ago Sleep apnea cpap Surgical History History of aortic valve replacement with aortic/ascending aorta graft repair- 2008 @ [facility]--follows with Dr. 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 History of surgery 08/27/2013 coil embolization of hepatic artery aneurysm Status post aortic coarctation stent placement 07/04/2012 @ [facility] [place] Family History Father Cancer Other No family history of adverse response to anesthesia Social History Smoking Status: Never smoker Second Hand Exposure: No; Hx Alcohol Use: Yes Alcohol type: beer Hx Substance Use: No Preferred Language: Slovak Communication Ability: Effective Aviation Electrician Required: No Beliefs That Will Affect Care: None marital status: Current Living Situation: Alone Other Information That Helps Us Care for You: No Feels Safe at Home: Yes Safety Concerns: Feels Safe At This Time Assistive Devices: Glasses Review of Systems Review of Systems: All systems reviewed & are unremarkable except as noted in HPI & below Physical Exam Physical Exam: please refer to Dr. Chadwick addendum for physical exam findings Results & Data ([facility]) Vital Signs (Past 12 Hours) Vital Signs Temp Pulse Resp BP Pulse Ox O2 Del Method 01/01/22 11:23 36.6 C 63 18 127/63 96 Room Air Laboratory Results Short CBC 01/01/22 Range/Units 11:56 WBC 7.99 (4.8-10.8) K/ul Hgb 14.1 (14.0-18.0) g/dl Hct 41.4 (40.1-51.0) % Plt Count 257 (130-400) K/uL 01/01/22 01/01/22 01/01/22 Range/Units 11:56 11:56 11:56 WBC 7.99 (4.8-10.8) K/ul RBC 4.37 L (4.63-6.08) M/uL Hgb 14.1 (14.0-18.0) g/dl Hct 41.4 (40.1-51.0) % MCV 94.7 (80.0-100.0) fL MCH 32.3 (25.0-34.0) pg MCHC 34.1 (32.0-36.0) g/dL RDW Std Deviation 47.7 H (36.4-46.3) fL RDW Coeff of Trice 13.5 (11.5-14.5) % Plt Count 257 (130-400) K/uL MPV 9.1 L (9.4-12.4) fL Sodium 139 (136-145) mmol/L Potassium 4.1 (3.5-5.1) mmol/L Chloride 106 (98-107) mmol/L Carbon Dioxide 25 (21-32) mmol/L Anion Gap 8 (3-11) BUN 16 (6-23) mg/dl Creatinine 0.97 (0.6-1.4) mg/dl Est Cr Clr Drug Dosing Not Reportable Est GFR ( Amer) 91.9 ml/min Est GFR (Non-Af Amer) 79.3 ml/min BUN/Creatinine Ratio 16.5 (10-20) Glucose 83 (70-99(Fasting)) mg/dl Calcium 9.0 (8.5-10.1) mg/dl Magnesium 2.0 (1.7-2.4) mg/dl Total Bilirubin 0.7 (0.2-1.0) mg/dl AST 22 (13-39) U/L ALT 18 (7-52) U/L Alkaline Phosphatase 62 (34-104) U/L Total Protein 6.8 (6.0-8.3) gm/dl Albumin 4.2 (3.4-5.0) gm/dl Globulin 2.6 (2.5-4.0) gm/dl Albumin/Globulin Ratio 1.6 (0.9-2) TSH 1.264 (0.300-4.500) uIu/ml Medications Administered Current Inpatient Medications Acetaminophen (Acetaminophen 325 Mg Tab) 650 mg PO Q4H PRN PRN Reason: Pain or Fever Stop: 01/31/22 09:38 Al Hydrox/Mg Hydrox/Simethicone (Aluminum/Magnesium Susp 30 Ml Udc) 15 ml PO Q4H PRN PRN Reason: Dyspepsia Stop: 01/31/22 09:38 Apixaban (Apixaban 5 Mg Tablet) 5 mg PO BID LILIBETH Stop: 01/31/22 20:59 Magnesium Hydroxide (Magnesium Hydroxide Susp 30 Ml Udc) 30 ml PO Q12H PRN PRN Reason: Constipation Stop: 01/31/22 09:38 Nitroglycerin (Nitroglycerin Sl 0.4 Mg/Tab Tab) 0.4 mg SL UD PRN PRN Reason: Chest Pain Stop: 01/31/22 09:38 Ondansetron HCl (Ondansetron Inj 2 Mg/Ml 2 Ml Vial) 4 mg IV Q6H PRN PRN Reason: Nausea Stop: 01/31/22 09:38 Polyethylene Glycol (Polyethylene (Miralax) 17 Gm Pack) 17 gm PO DAILY PRN PRN Reason: Constipation Stop: 01/31/22 09:38 Sotalol HCl (Sotalol Hcl 80 Mg Tab) 80 mg PO BID LILIBETH Stop: 01/31/22 09:44 Zolpidem Tartrate (Zolpidem Tartrate 5 Mg Tab) 5 mg PO HS PRN PRN Reason: Sleep Stop: 01/31/22 09:38 ECG Rate (beats per minute): 70 Rhythm: atrial flutter
[2022-01-01 12:55] LABS: Alanine Aminotransferase 18 U/L (7-52); Albumin Globulin Ratio 1.6 (0.9-2); Albumin Level 4.2 gm/dl (3.4-5.0); Alkaline Phosphatase 62 U/L (34-104); Anion Gap 8 (3-11); Aspartate Aminotransferase 22 U/L (13-39); BUN Creatinine Ratio 16.5 (10-20); Bilirubin,Total 0.7 mg/dl (0.2-1.0); Blood Urea Nitrogen 16 mg/dl (6-23); Carbon Dioxide 25 mmol/L (21-32); Chloride 106 mmol/L (98-107); Est GFR (African American) 91.9 ml/min; Est GFR (Non-African American) 79.3 ml/min; Globulin 2.6 gm/dl (2.5-4.0); Glucose 83 mg/dl (70-99(Fasting)); Potassium 4.1 mmol/L (3.5-5.1); Sodium 139 mmol/L (136-145); Total Protein 6.8 gm/dl (6.0-8.3)
[2022-01-01] MEDS ORDERED: APIXABAN 5 MG TABLET PO STA (13:00)
[2022-01-01] MEDS: SOTALOL HCL 80 MG TAB PO SCH ×2 (13:02→20:08)
[2022-01-01] MEDS ORDERED: Patient's HEIGHT &/or WEIGHT Needed SCH (13:15)
[2022-01-01] MEDS: APIXABAN 5 MG TABLET PO SCH (20:09)
[2022-01-01] MEDS: MESALAMINE 800 MG TABCR PO SCH (20:09)
--- NOTE | 2022-01-02 05:57 | Electrocardiogram Report ---
Test Reason : Blood Pressure : / mmHG Vent. Rate : 070 BPM Atrial Rate : 250 BPM P-R Int : 000 ms QRS Dur : 094 ms QT Int : 414 ms P-R-T Axes : 098 006 024 degrees QTc Int : 447 ms Atrial flutter with variable A-V block with frequent ventricular-paced complexes Inferior infarct , age undetermined Abnormal ECG When compared with ECG of 14-NOV-2020 07:34, Vent. rate has increased BY 7 BPM Atrial flutter has replaced atrial pacing Confirmed by Kane Paniagua ([id number]) on 01/02/2022 5:57:16 AM Referred By: Adan Walker Confirmed By:Kane Paniagua
[2022-01-02] MEDS: APIXABAN 5 MG TABLET PO SCH ×2 (08:15→19:59)
[2022-01-02] MEDS: TAMSULOSIN HCL 0.4 MG CAP PO SCH (08:15)
[2022-01-02] MEDS: MESALAMINE 800 MG TABCR PO SCH ×2 (08:15→19:59)
[2022-01-02] MEDS: MAGNESIUM OXIDE 400 MG TAB PO SCH (08:15)
[2022-01-02] MEDS: PRAVASTATIN SOD 20 MG TAB PO SCH (09:43)
--- NOTE | 2022-01-02 10:24 | Electrocardiogram Report ---
Test Reason : Blood Pressure : / mmHG Vent. Rate : 070 BPM Atrial Rate : 250 BPM P-R Int : 000 ms QRS Dur : 094 ms QT Int : 414 ms P-R-T Axes : 098 006 024 degrees QTc Int : 447 ms Atrial flutter with variable A-V block with frequent ventricular-paced complexes Inferior infarct , age undetermined Abnormal ECG When compared with ECG of 14-NOV-2020 07:34, Vent. rate has increased BY 7 BPM Atrial flutter has replaced atrial pacing Confirmed by Kane Paniagua ([id number]) on 01/02/2022 5:57:16 AM Also confirmed by Kane Paniagua ([id number]), department editor Ady Almaguer ([id number]) on 01/02/2022 10:23:37 AM Referred By: Adan Walker Confirmed By:Kane Paniagua
--- NOTE | 2022-01-02 11:16 | Cardiology Progress Note ---
Date of Service January 02, 2022 Assessment & Plan (1) Atrial fibrillation: (2) S/P AVR (aortic valve replacement): (3) Tachy-tricia syndrome: (4) Dyspnea on exertion: Plan Given increasing dyspnea with exertion and atrial fibrillation burden the patient will be admitted to telemetry for sotalol loading and possible DC cardioversion. Daily EKGs will be performed to monitor QT interval and continuous telemetry monitoring will be performed. QT interval prolonged today but device changed from atrial to ventricular pacing so, this would not be a contraindication to continue with sotalol. Will continue sotalol 80 mg p.o. twice daily. No ventricular arrhythmias or ectopy on monitor Still with underlying atrial flutter. N.p.o. after midnight for possible DC cardioversion in the a.m. Admission and Anticipated Discharge Date Admission Date: January 01, 2022 Subjective Patient seen and examined. Chart reviewed. Telemetry reviewed. Continues to feel well without any cardiac complaints. Review of Systems Review of Systems: All systems reviewed & are unremarkable except as noted in HPI & below Physical Exam Physical Exam: General: Awake, alert and oriented x 3. No acute distress. HEENT: Normocephalic, atraumatic. Pupils equal, round and reactive to light and accommodation. Extraocular muscles are intact. Anicteric sclera. Moist mucous membranes. Neck: No JVD. No bruit. Cardiovascular: irregularly irregular, unable to appreciate murmur, rub or gallop. Pulmonary: Clear to auscultation bilaterally. No rales, rhonchi, or wheezing. Abdomen: Bowel sounds x 4, soft. No rebound, guarding or tenderness. No organomegaly. Extremities: No clubbing, cyanosis or edema. +2 pedal pulses bilaterally. Skin: Warm and dry. Results & Data ([facility]) Vital Signs (Past 12 Hours) Vital Signs Temp Pulse Pulse Resp BP Pulse Ox O2 Del Method 01/02/22 08:13 36.4 C L 63 18 134/94 99 Room Air 01/02/22 06:52 62 01/02/22 03:00 36.5 C 62 18 132/78 96 Room Air
[2022-01-02] MEDS: SOTALOL HCL 80 MG TAB PO SCH ×2 (11:31→19:59)
--- NOTE | 2022-01-02 12:51 | Hospitalist Progress Note ---
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 Atrial Fibrillation Currently getting sotalol dosing per [employer] Monitor serial EKG. QTc is 517 today Telemetry monitoring Continue eliquis Hx of bioprosthetic AVR hx of ascending aortic repair TBS s/p PPM HTN HLD Crohns Disease Continue home meds DVT ppx: Eliquis Dispo: PCU FULL CODE PCP: Kushal Admission and Anticipated Discharge Date Admission Date: January 01, 2022 Subjective Patient seen and examined. Reports some dizziness earlier today Denied chest pain, cough, shortness of breath, palpitation Denied any other complaints Physical Exam Constitutional: no acute distress Eyes: PERRL, conjunctivae normal, anicteric sclerae ENMT: external ear and nose normal, oropharynx normal Respiratory: normal respiratory effort, lungs clear to auscultation Cardiovascular: Rate/Rhythm: + irregularly irregular S1 S2 Gastrointestinal (Abdomen): normal bowel sounds, soft, nontender, no hepatosplenomegaly Musculoskeletal: No pedal edema Neurologic: PERRL, EOMI, accommodation nl, no face palsy, no dysarthria Normal gait Psychiatric: A+Ox3, euthymic affect Results & Data Results & Data ([facility]) Vital Signs (Past 12 Hours) Vital Signs Temp Pulse Pulse Resp BP Pulse Ox O2 Del Method 01/02/22 11:17 36.4 C L 66 16 154/99 H 97 Room Air 01/02/22 08:13 36.4 C L 63 18 134/94 99 Room Air 01/02/22 06:52 62 01/02/22 03:00 36.5 C 62 18 132/78 96 Room Air
--- NOTE | 2022-01-02 22:40 | Electrocardiogram Report ---
Test Reason : Blood Pressure : / mmHG Vent. Rate : 061 BPM Atrial Rate : 241 BPM P-R Int : 000 ms QRS Dur : 140 ms QT Int : 514 ms P-R-T Axes : 000 -27 084 degrees QTc Int : 517 ms Ventricular-paced rhythm Atrial flutter Abnormal ECG When compared with ECG of 01-JAN-2022 11:38, Vent. rate has decreased BY 9 BPM Confirmed by Kane Paniagua ([id number]) on 01/02/2022 10:40:30 PM Referred By: Adan Walker Confirmed By:Kane Paniagua
[2022-01-03] MEDS: PRAVASTATIN SOD 20 MG TAB PO SCH (08:10)
[2022-01-03] MEDS: MAGNESIUM OXIDE 400 MG TAB PO SCH (08:10)
[2022-01-03] MEDS: APIXABAN 5 MG TABLET PO SCH ×2 (08:10→21:03)
[2022-01-03] MEDS: TAMSULOSIN HCL 0.4 MG CAP PO SCH (08:10)
[2022-01-03] MEDS: MESALAMINE 800 MG TABCR PO SCH ×2 (08:10→21:03)
[2022-01-03] MEDS: SOTALOL HCL 80 MG TAB PO SCH ×2 (09:02→21:03)
[2022-01-03 09:38] LABS: BUN Creatinine Ratio 23.9 (10-20); Calcium 9.3 mg/dl (8.5-10.1); Creatinine Clr Calc Pharmacy 70.8 ml/min; Est GFR (Non-African American) 84.6 ml/min; Potassium 4.3 mmol/L (3.5-5.1)
[2022-01-03] MEDS ORDERED: fentaNYL citrate 100 MCG/2 ML VIAL ONE (10:44)
[2022-01-03] MEDS ORDERED: MIDAZOLAM HCL 5 MG/ML 1 ML VIAL ONE (10:44)
--- NOTE | 2022-01-03 10:47 | Pre Anesthesia Assessment ---
Date of Service January 03, 2022 Pre Sedation Assessment Vital Signs Temp Pulse Pulse Resp BP BP Pulse Ox 01/03/22 09:02 62 134/90 01/03/22 07:53 37.1 C 65 16 126/77 96 01/03/22 07:29 70 01/02/22 23:00 60 01/03/22 02:52 36.5 C 64 18 100/69 97 01/02/22 22:37 36.4 C L 68 18 108/69 97 01/02/22 19:40 37.0 C 63 20 144/83 H 96 01/02/22 16:08 36.4 C L 63 20 135/87 96 01/02/22 15:00 84 01/02/22 11:17 36.4 C L 66 16 154/99 H 97 O2 Del Method 01/03/22 09:02 01/03/22 07:53 Room Air 01/03/22 07:29 01/02/22 23:00 01/03/22 02:52 01/02/22 22:37 01/02/22 19:40 Room Air 01/02/22 16:08 Room Air 01/02/22 15:00 01/02/22 11:17 Room Air Pre-Sedation Airway Assessment Smoking Status: Never smoker Hx Sleep Apnea: No Notes The planned sedation has been discussed with the patient. Informed Consent was obtained. I have identified the patient, determined the appropriateness of sedation and have assessed the patient immediately prior to the procedure. All medicine(s) and interventions are by my order.
--- NOTE | 2022-01-03 11:34 | Post Anesthesia Assessment ---
Date of Service January 03, 2022 Post Sedation Assessment Vital Signs Temp Pulse Pulse Resp BP BP Pulse Ox 01/03/22 11:20 62 16 112/69 100 01/03/22 09:02 62 134/90 01/03/22 07:53 37.1 C 65 16 126/77 96 01/03/22 07:29 70 01/02/22 23:00 60 01/03/22 02:52 36.5 C 64 18 100/69 97 01/02/22 22:37 36.4 C L 68 18 108/69 97 01/02/22 19:40 37.0 C 63 20 144/83 H 96 01/02/22 16:08 36.4 C L 63 20 135/87 96 01/02/22 15:00 84 O2 Del Method O2 Flow Rate 01/03/22 11:20 Nasal Cannula 4 01/03/22 09:02 01/03/22 07:53 Room Air 01/03/22 07:29 01/02/22 23:00 01/03/22 02:52 01/02/22 22:37 01/02/22 19:40 Room Air 01/02/22 16:08 Room Air 01/02/22 15:00 Recovery Score Activity: Moves 4 extremities Respiration: Deep Breath/Cough Circulation: +/-20% PreAnes Value Consciousness: Arouseable (by name) Oxygen Saturation: > 92% On Room Air Post Anesthesia Score: 9 Discharge Sedation Level of Care: Fast Track Phase II Post Sedation Plan On clinical assessment, the patient appears to have tolerated the sedation without complications. Patient is recovering as anticipated. Patient will continue to be monitored by nursing and may be discharged when sedation discharge criteria are met per below protocol. Upon Completions of procedure up to 15 minutes continue every 5 minute vital signs and the P.A.R. score; then discharge to a Phase I or Fast Track to Phase II per the following guidelines: * Discharge Patient to appropriate Phase II area if PAR is 8 or greater or return to pre- procedure baseline. The post - procedure orders will be as directed. * If PAR score is less than 8 or not return to pre-procedure baseline then patient will follow Phase I monitoring till PAR is reached for Phase II. The Phase I may be done in procedure room or may call to secure a Phase I area. * If naloxone or flumazenil are used for reversal, hold in Phase I for continued monitoring from when last reversal dose was given for a minimum of 60 minutes or longer pending the nurse and/or physician discretion of patient condition before discharge to Phase II. Please call the Sedation Physician to re-evaluate and complete post-note for discharge to Phase II area. Do NOT discharge from procedure sedation or Phase 1 until post- sedation evaluation note is complete by procedure /sedation MD Sedation Discharge Instructions to be given to the patient at discharge to home.
--- NOTE | 2022-01-03 11:36 | Cardioversion ---
Date of Service January 03, 2022 Electrical Cardioversion Rpt Electrical Cardioversion Report Informed consent obtained. Patient prepped Adequate moderate sedation achieved with a total of Versed 2 mg and fentanyl 50 mcg. 3 and 60 J of energy delivered with successful cardioversion to normal sinus rhythm, with confirmation by twelve-lead EKG. Patient tolerated the procedure well. Start time: Stop time: Plan: Return to PCU.
--- NOTE | 2022-01-03 11:37 | Cardiology Progress Note ---
Date of Service January 03, 2022 Assessment & Plan (1) Atrial fibrillation: (2) S/P AVR (aortic valve replacement): (3) Tachy-tricia syndrome: (4) Dyspnea on exertion: Plan Given increasing dyspnea with exertion and atrial fibrillation burden the patient will be admitted to telemetry for sotalol loading and possible DC cardioversion. Daily EKGs will be performed to monitor QT interval and continuous telemetry monitoring will be performed. Patient's status post cardioversion In sinus rhythm with borderline QT prolongation. Will continue sotalol load with scheduled dose this a.m. and repeat EKG in the a.m. Likely DC to home tomorrow Continue Eliquis Admission and Anticipated Discharge Date Admission Date: January 01, 2022 Subjective Patient seen and examined. Chart reviewed. Telemetry reviewed. No complaints overnight. Review of Systems Review of Systems: All systems reviewed & are unremarkable except as noted in HPI & below Physical Exam Physical Exam: General: Awake, alert and oriented x 3. No acute distress. HEENT: Normocephalic, atraumatic. Pupils equal, round and reactive to light and accommodation. Extraocular muscles are intact. Anicteric sclera. Moist mucous membranes. Neck: No JVD. No bruit. Cardiovascular: Regular. Positive S-4. Normal S-1 and S-2. No S-3. 3/6 mid to late systolic ejection murmur, greatest at the right sternal border, second intercostal space with radiation to the bilateral carotids. No rubs. Pulmonary: Clear to auscultation bilaterally. No rales, rhonchi, or wheezing. Abdomen: Bowel sounds x 4, soft. No rebound, guarding or tenderness. No organomegaly. Extremities: No clubbing, cyanosis or edema. +2 pedal pulses bilaterally. Skin: Warm and dry. Results & Data ([facility]) Vital Signs (Past 12 Hours) Vital Signs Temp Pulse Pulse Resp BP BP Pulse Ox 01/03/22 11:20 62 16 112/69 100 01/03/22 09:02 62 134/90 01/03/22 07:53 37.1 C 65 16 126/77 96 01/03/22 07:29 70 01/03/22 02:52 36.5 C 64 18 100/69 97 O2 Del Method O2 Flow Rate 01/03/22 11:20 Nasal Cannula 4 01/03/22 09:02 01/03/22 07:53 Room Air 01/03/22 07:29 01/03/22 02:52
--- NOTE | 2022-01-03 12:28 | Hospitalist Progress Note ---
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 Atrial Fibrillation Getting sotalol loading QTc mildly prolonged S/p successful cardioversion today Currently in sinus rhythm Continue eliquis Hx of bioprosthetic AVR hx of ascending aortic repair TBS s/p PPM HTN HLD Crohns Disease Continue home meds DVT ppx: Eliquis Admission and Anticipated Discharge Date Admission Date: January 01, 2022 Subjective Patient seen and examined on return from cardioversion. Denied any new complaints today Physical Exam Constitutional: no acute distress Eyes: PERRL, conjunctivae normal, anicteric sclerae ENMT: external ear and nose normal, oropharynx normal Respiratory: normal respiratory effort, lungs clear to auscultation Cardiovascular: Rate/Rhythm: regular rate and regular rhythm S1 S2 Gastrointestinal (Abdomen): normal bowel sounds, soft, nontender, no hepatosplenomegaly Musculoskeletal: no cyanosis or clubbing, extremities motor strength 5/5 Neurologic: PERRL, EOMI, accommodation nl, no face palsy, no dysarthria Psychiatric: A+Ox3, euthymic affect Results & Data Results & Data ([facility]) Vital Signs (Past 12 Hours) Vital Signs Temp Pulse Pulse Resp BP BP Pulse Ox 01/03/22 12:22 62 104/63 97 01/03/22 12:08 36.5 C 66 20 106/64 99 01/03/22 11:52 60 14 97/57 L 99 01/03/22 11:37 61 14 118/79 97 01/03/22 11:22 62 14 91/62 L 97 01/03/22 11:20 62 16 112/69 100 01/03/22 09:02 62 134/90 01/03/22 07:53 37.1 C 65 16 126/77 96 01/03/22 07:29 70 01/03/22 02:52 36.5 C 64 18 100/69 97 O2 Del Method O2 Flow Rate 01/03/22 12:22 Room Air 01/03/22 12:08 Room Air 01/03/22 11:52 Room Air 01/03/22 11:37 Room Air 01/03/22 11:22 Room Air 01/03/22 11:20 Nasal Cannula 4 01/03/22 09:02 01/03/22 07:53 Room Air 01/03/22 07:29 01/03/22 02:52 Laboratory Results Abnormal lab results 01/03/22 Range/Units 08:56 Sodium 134 L (136-145) mmol/L BUN/Creatinine Ratio 23.9 H (10-20)
--- NOTE | 2022-01-03 17:50 | Electrocardiogram Report ---
Test Reason : Blood Pressure : / mmHG Vent. Rate : 064 BPM Atrial Rate : 234 BPM P-R Int : 000 ms QRS Dur : 134 ms QT Int : 506 ms P-R-T Axes : 000 -31 084 degrees QTc Int : 522 ms Atrial flutter vs ectopic atrial tachycardia Ventricular-paced rhythm Abnormal ECG When compared with ECG of 02-JAN-2022 06:21, Electronic ventricular pacemaker has replaced Atrial flutter Confirmed by Tenzin Osborne ([id number]) on 01/03/2022 5:50:50 PM Referred By: Adan Walker Confirmed By:Alexis Osborne
--- NOTE | 2022-01-03 17:56 | Electrocardiogram Report ---
Test Reason : Blood Pressure : / mmHG Vent. Rate : 063 BPM Atrial Rate : 288 BPM P-R Int : 304 ms QRS Dur : 088 ms QT Int : 488 ms P-R-T Axes : 000 -12 002 degrees QTc Int : 499 ms Poor data quality, interpretation may be adversely affected Atrial-paced rhythm with prolonged AV conduction Inferior infarct , age undetermined Abnormal ECG When compared with ECG of 03-JAN-2022 10:59, (unconfirmed) Vent. rate has increased BY 2 BPM Confirmed by Tenzin Osborne ([id number]) on 01/03/2022 5:56:28 PM Referred By: Adan Walker Confirmed By:Alexis Osborne
--- NOTE | 2022-01-03 17:56 | Electrocardiogram Report ---
Test Reason : Blood Pressure : / mmHG Vent. Rate : 061 BPM Atrial Rate : 241 BPM P-R Int : 000 ms QRS Dur : 090 ms QT Int : 506 ms P-R-T Axes : 000 -06 001 degrees QTc Int : 509 ms Poor data quality, interpretation may be adversely affected Ventricular-paced rhythm Abnormal ECG When compared with ECG of 03-JAN-2022 06:05, (unconfirmed) Vent. rate has decreased BY 3 BPM Confirmed by Tenzin Osborne ([id number]) on 01/03/2022 5:55:51 PM Referred By: Adan Walker Confirmed By:Alexis Osborne
--- NOTE | 2022-01-03 17:57 | Electrocardiogram Report ---
Test Reason : Blood Pressure : / mmHG Vent. Rate : 061 BPM Atrial Rate : 061 BPM P-R Int : 298 ms QRS Dur : 092 ms QT Int : 506 ms P-R-T Axes : 085 -10 -02 degrees QTc Int : 509 ms Atrial-paced rhythm with prolonged AV conduction with occasional ventricular-paced complexes Inferior infarct , age undetermined Prolonged QT Abnormal ECG When compared with ECG of 03-JAN-2022 11:09, (unconfirmed) Vent. rate has decreased BY 2 BPM Confirmed by Tenzin Osborne ([id number]) on 01/03/2022 5:56:49 PM Referred By: Adan Walker Confirmed By:Alexis Osborne
[2022-01-04] MEDS: MESALAMINE 800 MG TABCR PO SCH (07:39)
[2022-01-04] MEDS: MAGNESIUM OXIDE 400 MG TAB PO SCH (07:39)
[2022-01-04] MEDS: APIXABAN 5 MG TABLET PO SCH (07:39)
[2022-01-04] MEDS: SOTALOL HCL 80 MG TAB PO SCH (07:39)
[2022-01-04] MEDS: TAMSULOSIN HCL 0.4 MG CAP PO SCH (07:39)
[2022-01-04] MEDS: PRAVASTATIN SOD 20 MG TAB PO SCH (07:40)
--- NOTE | 2022-01-04 09:30 | Cardiology Progress Note ---
Date of Service January 04, 2022 Assessment & Plan (1) Atrial fibrillation: (2) S/P AVR (aortic valve replacement): (3) Tachy-tricia syndrome: (4) Dyspnea on exertion: Plan Given increasing dyspnea with exertion and atrial fibrillation burden the patient will be admitted to telemetry for sotalol loading and possible DC cardioversion. Daily EKGs will be performed to monitor QT interval and continuous telemetry monitoring will be performed. Patient's status post cardioversion In sinus rhythm with borderline QT prolongation. his QTc this AM is slightly increased compared to baseline AV pacing, 536 vs. 522 ms [facility] will need follow up with cardiology and repeat ekg in 1 week. his device will also be reinterrogated at that time to follow for any arrhyhtmias. cont eliquis ok to d/c to home Admission and Anticipated Discharge Date Admission Date: January 01, 2022 Subjective Patient seen and examined. Chart reviewed. Telemetry reviewed. Feeling well today. Anxious for discharge. Review of Systems Review of Systems: All systems reviewed & are unremarkable except as noted in HPI & below Physical Exam Physical Exam: General: Awake, alert and oriented x 3. No acute distress. HEENT: Normocephalic, atraumatic. Pupils equal, round and reactive to light and accommodation. Extraocular muscles are intact. Anicteric sclera. Moist mucous membranes. Neck: No JVD. No bruit. Cardiovascular: Regular. Positive S-4. Normal S-1 and S-2. No S-3. 3/6 mid to late systolic ejection murmur, greatest at the right sternal border, second intercostal space with radiation to the bilateral carotids. No rubs. Pulmonary: Clear to auscultation bilaterally. No rales, rhonchi, or wheezing. Abdomen: Bowel sounds x 4, soft. No rebound, guarding or tenderness. No organomegaly. Extremities: No clubbing, cyanosis or edema. +2 pedal pulses bilaterally. Skin: Warm and dry. Results & Data ([facility]) Vital Signs (Past 12 Hours) Vital Signs Temp Pulse Pulse Resp BP Pulse Ox O2 Del Method 01/04/22 08:14 37.1 C 74 20 144/91 H 98 Room Air 01/04/22 02:05 36.8 C 76 16 125/83 95 Room Air 01/03/22 23:48 75 01/03/22 23:38 36.5 C 76 18 96/63 L 96 Room Air
--- NOTE | 2022-01-04 12:00 | Hospitalist Progress Note ---
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 Atrial Fibrillation S/p sotalol loading and successful cardioversion Currently in sinus rhythm Continue eliquis Curently on sotalol Patient to follow up with Cardiology outpatient. Hx of bioprosthetic AVR hx of ascending aortic repair TBS s/p PPM HTN HLD Crohns Disease Continue home meds Admission and Anticipated Discharge Date Admission Date: January 01, 2022 Subjective Patient seen and examined Was successfully cardioverted yesterday Denied any new complaints today Physical Exam Constitutional: no acute distress Eyes: PERRL, conjunctivae normal, anicteric sclerae ENMT: external ear and nose normal, oropharynx normal Respiratory: normal respiratory effort, lungs clear to auscultation Cardiovascular: Rate/Rhythm: regular rate and regular rhythm S1 S2 Gastrointestinal (Abdomen): normal bowel sounds, soft, nontender, no hepatosplenomegaly Musculoskeletal: no cyanosis or clubbing, extremities motor strength 5/5 Neurologic: PERRL, EOMI, accommodation nl, no face palsy, no dysarthria Psychiatric: A+Ox3, euthymic affect Results & Data Results & Data ([facility]) Vital Signs (Past 12 Hours) Vital Signs Temp Pulse Pulse Resp BP Pulse Ox O2 Del Method 01/04/22 10:26 60 01/04/22 08:14 37.1 C 74 20 144/91 H 98 Room Air 01/04/22 02:05 36.8 C 76 16 125/83 95 Room Air
--- NOTE | 2022-01-04 12:17 | Discharge Summary ---
Date of Service January 04, 2022 Admission HPI Per Admitting Provider Mr. Soto is a very pleasant 71-year-old gentleman who is been following with myself as an outpatient for his history of paroxysmal atrial fibrillation, bioprosthetic aortic valve replacement, ascending aortic repair and tachybradycardia syndrome status post permanent pacemaker placement. He was last seen by myself on 12/24/2021 with complaints of worsening dyspnea with exertion. He did have recent outpatient stress testing which was nonischemic. His pacer interrogation revealed increasing A. fib burden's the timing of which correlated with his symptoms. He was previously on dronedarone as an outpatient. I asked him to stop it at his last visit with the anticipation of admitting him to the hospital today for sotalol loading and possible DC cardioversion. PAST MEDICAL HISTORY: 1. Coarctation of aorta status post stenting 2. History of bicuspid aortic valve, status post aortic valve replacement with a bioprosthetic valve, along with graft repair of his ascending aorta a. Chest CT, followed by vascular surgery given aortic repair, and measurements from November 2021 were stable at 4.8 x [address] criteria. 3. 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 History of schizophrenia 5. Hepatic artery aneurysm status post embolization 6. Hypertension 7. Dyslipidemia 8. Paroxysmal atrial fibrillation/flutter,asymptomatic.[id number] score of2 (age, HTN) a. spontaneous thigh hematoma11/2020 on Coumadin, now tolerating Eliquis 9. Tachy-tricia syndrome status post permanent pacemaker placement Principal Diagnosis paroxysmal atrial fibrillation Discharge Exam General: Awake, alert and oriented x 3. No acute distress. HEENT: Normocephalic, atraumatic. Pupils equal, round and reactive to light and accommodation. Extraocular muscles are intact. Anicteric sclera. Moist mucous membranes. Neck: No JVD. No bruit. Cardiovascular: Regular. Positive S-4. Normal S-1 and S-2. No S-3. 3/6 mid to late systolic ejection murmur, greatest at the right sternal border, second intercostal space with radiation to the bilateral carotids. No rubs. Pulmonary: Clear to auscultation bilaterally. No rales, rhonchi, or wheezing. Abdomen: Bowel sounds x 4, soft. No rebound, guarding or tenderness. No organomegaly. Extremities: No clubbing, cyanosis or edema. +2 pedal pulses bilaterally. Skin: Warm and dry. Discharge Data Allergies Allergy/AdvReac Type Severity Reaction Status Date / Time Iodinated Contrast Media AdvReac Severe nausea and Verified 01/01/22 13:33 itchy legs Consultations 01/01/22 09:44 Consult Hospitalist Routine Procedures Performed Operation Date: 01/03/22 10:30 Actual Procedures p Cardioversion - Adan Walker DO Hospital Course (1) Atrial fibrillation: (2) S/P AVR (aortic valve replacement): (3) Tachy-tricia syndrome: (4) Dyspnea on exertion: Plan Given increasing dyspnea with exertion and atrial fibrillation burden the patient will be admitted to telemetry for sotalol loading and possible DC car dioversion. Daily EKGs will be performed to monitor QT interval and continuous telemetry monitoring will be performed. Patient's status post cardioversion In sinus rhythm with borderline QT prolongation. his QTc this AM is slightly increased compared to baseline AV pacing, 536 vs. 522 ms will cont sotalol 80mg po bid at [facility] but will need follow up with cardiology and repeat ekg in 1 week. his device will also be reinterrogated at that time to follow for any arrhyhtmias. cont eliquis ok to d/c to home Total Time Total Time Spent Total Time Spent (In Minutes): 25 Discharge Plan Discharge Items Reason For Visit: SOTALOL LOADING Follow-up/Referrals: Jeffrey Fatima DO [Primary Care Provider] - (Date & Time 01/10/2022 4:20 PM Provider Jeffrey Fatima DO Department [facility] ) Medications and DC Order Prescriptions: No Action pravastatin 20 mg Tablet 20 mg PO QAM magnesium oxide 400 mg Capsule 400 mg PO QAM garlic [garlic oil] 1,000 mg Capsule 1,000 mg PO QAM metoprolol succinate [Toprol XL] 50 mg tablet extended release 24 hr 100 mg PO QAM tamsulosin 0.4 mg capsule 0.4 mg PO DAILY Eliquis 5 mg tablet 5 mg PO BID metoprolol succinate 50 mg tablet extended release 24 hr 50 mg PO QPM mesalamine [Asacol HD] 800 mg Tablet,Delayed Release (Dr/Ec) 800 mg PO BID Admission Data Admit Date/Time: 01/01/22 09:39 Attending Provider: Adan Walker Admit Provider: Adan Walker Primary Care Provider: Jeffrey Fatima
--- NOTE | 2022-01-04 15:00 | Electrocardiogram Report ---
Test Reason : Blood Pressure : / mmHG Vent. Rate : 077 BPM Atrial Rate : 077 BPM P-R Int : 192 ms QRS Dur : 136 ms QT Int : 474 ms P-R-T Axes : 094 -39 094 degrees QTc Int : 536 ms Atrial-sensed ventricular-paced rhythm Abnormal ECG When compared with ECG of 03-JAN-2022 11:13, Vent. rate has increased BY 16 BPM Confirmed by Tenzin Osborne ([id number]) on 01/04/2022 2:59:34 PM Referred By: Adan Walker Confirmed By:Alexis Osborne
== END 2022-01-04 13:10 | disposition home or self-care (01) | DRG 309 ==
LOC: 2E 09:39

== ENCOUNTER 2025-02-24 11:58 | Inpatient (IN) ==
--- NOTE | 2025-02-24 12:26 | Emergency Department Note ---
Impression & Plan Elevated troponin, Dizziness, History of aortic valve replacement ED Provider Note CHIEF COMPLAINT: Dizziness HISTORY OF PRESENTING ILLNESS: The patient is a 74-year-old male with a PMH hyperlipidemia, tachybradycardia syndrome, GI bleed, A-fib, HTN, aortic valve replacement who presents to the emergency department reporting for the last 2 days he has felt dizzy and had an upset stomach. Describes the dizziness as feeling lightheaded and the upset stomach as having loose stool. 2 days ago he had his aortic valve replaced at [facility]. The first replacement was in 2008 without complication. He reports at baseline he sometimes feels dizzy and forgetful but he feels as if it has worsened. He was evaluated at primary care who sent him here for a workup. The patient is on Eliquis however held it for his procedure and is to resume it tomorrow. He denies chest pain, shortness of breath, fever, abdominal pain, nausea or vomiting or urinary symptoms. REVIEW OF SYSTEMS: See HPI for pertinent positives and pertinent negatives. ALLERGIES: Iodinated contrast media MEDICATIONS: See below PAST MEDICAL HISTORY: See below PHYSICAL EXAM: VITALS: Vitals are noted on the nurses note and reviewed by myself. Vital signs stable. GENERAL: 74-year-old male, in no acute distress, nondiaphoretic, well-developed well-nourished. SKIN: Capillary refill less than 2 seconds. HEENT: Normocephalic. PERRLA. EOMI. Nares patent. Mucous membranes moist. Neck is supple without nuchal rigidity. HEART: Regular rate and rhythm without murmurs gallops or rubs. LUNGS: CTA BL without wheezes, rales or rhonchi. No retractions or accessory muscle use. ABDOMEN: Positive BS x 4. Soft, nontender, without masses or organomegaly. No guarding or rebound tenderness. MUSCULOSKELETAL: No gross musculoskeletal defects. No pedal edema. No calf tenderness. NEURO: Patient was alert and oriented to person place and time. No focal neurological deficits. DIFFERENTIAL DIAGNOSIS: Arrhythmia, pericardial effusion, prosthetic valve dysfunction, ND, anemia, orthostatic hypotension, stroke, sepsis, URI, among others. ED COURSE AND MEDICAL DECISION MAKING: HISTORY FROM INDEPENDENT HISTORIAN: The patient himself. MEDICATIONS GIVEN: No medications were given. MONITOR: Continuous monitoring specialist: Order was placed for continuous monitoring specialist. Patient was placed on the monitoring specialist and continuous pulse ox. Patient was noted to be in normal sinus rhythm at an initial rate of 66 bpm per my interpretation. EKG: EKG was interpreted by myself as ventricular paced rhythm. No obvious arrhythmia. No ST or T wave abnormality. QT interval 480 ms. No significant change when compared to previous EKG from 01/04/2022. INTERPRETATION OF LABS: I interpreted the labs with full lab results as below in the lab section of this note. Pertinent lab results discussed in the MDM section below. INTERPRETATION OF IMAGING: Imaging studies were interpreted by myself and read by radiology as per the imaging section of this note. Chest x-ray - Cardiomegaly and cardiac pacemaker with pulmonary vascular congestion. No consolidation or pleural effusion. CT head - No acute intracranial abnormality. ESCALATION OF CARE CONSIDERED: Escalation of care is considered as the patient presents with dizziness after an aortic valve replacement 2 days ago. A full workup was obtained showing an elevated troponin. The patient was admitted to medicine for further evaluation. CONSULTATIONS: On-call [facility] hospitalist - Presented the patient to the provider and his history of aortic valve replacement 2 days ago with worsening dizziness and loose stool. Workup was completed showing no significant findings however troponin is elevated. This may be secondary to procedure however due to the patient's symptoms I do feel he would benefit from further evaluation and monitoring. They agreed to admitting the patient to medicine. MDM SUMMARY: I evaluated the 74-year-old male who presents to the ER 2 days after aortic valve replacement with worsening dizziness and an upset stomach. See HPI and PE above. Patient's vitals are stable. He denies the need for symptom management. An EKG was obtained initial rate 66 bpm ventricularly paced. No other abnormality. Labs obtained showing leukocytosis WBC 16.72. Mild anemia. Hemoglobin 12.2. Hematocrit 35.2. When comparing this to patient's previous levels this is within his normal range. Mild hyponatremia sodium 134. No other electrolyte abnormality. No JAMES. Troponin initially elevated 651.6. Patient denies chest pain. Urinalysis shows no hematuria or bacteriuria. Physical exam is unremarkable however due to the patient's symptoms chest x-ray obtained showing cardiomegaly and cardiac pacemaker with pulmonary vascular congestion. No other abnormality. CT head shows no abnormality. Elevated troponin may be secondary to aortic valve replacement however due to the patient's symptoms I do believe he would benefit from admission to medicine and further evaluation. Patient denies chest pain and EKG unremarkable. [facility] They agreed to evaluating the patient and admitting him to medicine. Patient is agreeable to the treatment plan and all questions answered. The patient was admitted in stable condition. DIAGNOSIS: Elevated troponin, dizziness, history of aortic valve replacement The chart was completed utilizing [employer] Speech voice recognition software. Grammatical errors, random word insertions, pronoun errors, and incomplete sentences are an occasional consequence of this system due to software limitations, ambient noise, and hardware issues. Any formal questions or concerns about the content, text, or information contained within the body of this dictation should be directly addressed to the provider for clarification. Past Med/Surg History Problem List (Updated 02/28/25 @ 09:09 by Beryl Badillo PA-C) History of aortic valve replacement (Acute) Dizziness (Acute) Elevated troponin (Acute) HTN, goal below 130/80 Dyslipidemia, goal LDL below 70 Disorientation Nonobstructive atherosclerosis of coronary artery Chronic a-fib Nausea Leukocytosis Elevated troponin Lightheadedness Dizziness S/P TAVR (transcatheter aortic valve replacement) Severe aortic stenosis Dyspnea on exertion Atrial fibrillation S/P AVR (aortic valve replacement) Hematoma Acute leg pain (Acute) Ecchymosis (Acute) Edema (Acute) Bradycardia (Acute 08/04/13) Syncope (Acute 08/04/13) HTN (hypertension) (Chronic) Acute GI bleeding (Acute) Melena Paroxysmal atrial fibrillation GI bleed Tachy-tricia syndrome Pt admitted for elective ppm due to TBS; underwent procedure without any complications; monitored overnight and discharged home. 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 Beliefs That Will Affect Care: None marital status: Current Living Situation: Alone Feels Safe at Home: Yes Assistive Devices: None Allergies Allergies Allergy/AdvReac Type Severity Reaction Status Date / Time Iodinated Contrast Media AdvReac Severe nausea and Verified 02/24/25 13:57 itchy legs Home Meds Home Medications Medication Instructions Recorded Confirmed garlic 1,000 mg capsule (garlic 1,000 mg PO QAM 06/16/18 02/24/25 oil) magnesium oxide 400 mg PO QAM 06/16/18 02/24/25 pravastatin 20 mg tablet 20 mg PO QAM 06/16/18 02/24/25 mesalamine 800 mg tablet,delayed 800 mg PO BID 08/29/20 02/24/25 release (Asacol HD) tamsulosin 0.4 mg capsule 0.4 mg PO DAILY 01/01/22 02/24/25 fluticasone propionate 50 1 spray intranasal UD PRN 02/24/25 02/24/25 mcg/actuation nasal Congestion spray,suspension metoprolol succinate 50 mg 50 mg PO BID 02/24/25 02/24/25 tablet,extended release 24 hr Previous Rx's Medication Instructions Recorded apixaban 5 mg tablet (Eliquis) 5 mg PO BID #30 tabs 01/04/22 Results & Data (ED) Vital Signs Vital Signs - 24 hr 02/24/25 12:11 Temperature 36.6 C Temperature Source Oral Pulse Rate 76 Respiratory Rate 23 Blood Pressure 174/67 H Blood Pressure Mean 102 Pulse Oximetry 95 Oxygen Delivery Method Room Air Sepsis Recent Fever Within 48 Hours No Sepsis New/Unexplained Change in Mental Status N/A Sepsis Action Taken by Nursing No Action Required Laboratory Data 02/26/25 05:31 02/26/25 05:31 Lab Results 02/24/25 Range/Units 12:18 WBC 16.72 H (4.8-10.8) K/ul RBC 3.74 L (4.70-6.10) M/uL Hgb 12.2 L (14.0-18.0) g/dl Hct 35.2 L (42.0-52.0) % MCV 94.1 (80.0-100.0) fL MCH 32.6 (25.0-34.0) pg MCHC 34.7 (32.0-36.0) g/dL RDW Std Deviation 47.7 H (36.4-46.3) fL RDW Coeff of Trice 13.8 (11.5-14.5) % Plt Count 192 (130-400) K/uL MPV 9.5 (9.4-12.4) fL Immature Gran % (Auto) 0.4 % Neut % (Auto) 69.9 % Lymph % (Auto) 16.5 % Lucas % (Auto) 11.6 % Eos % (Auto) 1.3 % Baso % (Auto) 0.3 % Neut # (Auto) 11.69 H (1.40-6.50) K/uL Lymph # (Auto) 2.76 (1.20-3.40) K/uL Lucas # (Auto) 1.94 H (0.11-0.59) K/uL Eos # (Auto) 0.21 (0.00-0.50) K/uL Baso # (Auto) 0.05 (0.00-0.20) K/uL Immature Gran # (Auto) 0.07 (0.01-0.20) K/uL Sodium 134 L (136-145) mmol/L Potassium TNP Chloride 102 (98-107) mmol/L Carbon Dioxide 24 (21-32) mmol/L Anion Gap 8 (3-11) BUN 26 H (6-23) mg/dl Creatinine 1.03 (0.6-1.4) mg/dl Est Cr Clr Drug Dosing 63.4 ml/min eGFR 77.18 BUN/Creatinine Ratio 25.2 H (10-20) Glucose 121 H (70-99(Fasting)) mg/dl Calcium 8.8 (8.6-10.3) mg/dl Magnesium 2.3 (1.7-2.4) mg/dl Total Bilirubin 0.8 (0.2-1.0) mg/dl AST TNP ALT 10 (7-52) U/L Alkaline Phosphatase 62 (34-104) U/L Troponin I High Sens 651.6 H* (0-20) pg/ml Total Protein 6.9 (6.0-8.3) gm/dl Albumin 3.8 (3.4-5.0) gm/dl Globulin 3.1 (2.5-4.0) gm/dl Albumin/Globulin Ratio 1.2 (0.9-2) Lipase 22 (11-82) U/L Procalcitonin 0.07 (0-0.5) ng/ml Administered Medications Discontinued Medications Apixaban (Apixaban 5 Mg Tablet) 5 mg PO BID LILIBETH Stop: 03/27/25 08:59 Last Admin: 02/26/25 08:20 Dose: 5 mg Documented By: Admin: 02/25/25 20:04 Dose: 5 mg Documented By: Admin: 02/25/25 08:54 Dose: 5 mg Documented By: CIARA Sodium Chloride (Nss) 1,000 mls @ 125 mls/hr IV .Q8H LILIBETH Stop: 02/25/25 21:59 Last Infusion: 02/26/25 01:30 Dose: Infused Documented By: Admin: 02/25/25 20:02 Dose: 125 mls/hr Documented By: Infusion: 02/25/25 19:14 Dose: Infused Documented By: Admin: 02/25/25 11:14 Dose: 125 mls/hr Documented By: CIARA Mesalamine (Mesalamine 800 Mg Tabcr) 800 mg PO BID LILIBETH Stop: 03/26/25 20:59 Last Admin: 02/26/25 08:20 Dose: 800 mg Documented By: Admin: 02/25/25 20:04 Dose: 800 mg Documented By: Admin: 02/25/25 08:54 Dose: 800 mg Documented By: Admin: 02/24/25 20:40 Dose: 800 mg Documented By: KRT Metoprolol Succinate (Metoprolol Succ 50mg Ext Rel Tab) 50 mg PO BID LILIBETH Stop: 03/26/25 20:59 Last Admin: 02/26/25 08:21 Dose: 50 mg Documented By: Admin: 02/25/25 20:04 Dose: 50 mg Documented By: Admin: 02/25/25 08:54 Dose: 50 mg Documented By: Admin: 02/24/25 20:40 Dose: 50 mg Documented By: KRT Pravastatin Sodium (Pravastatin Sod 20 Mg Tab) 20 mg PO QAM LILIEBTH Stop: 03/27/25 08:59 Last Admin: 02/26/25 08:21 Dose: 20 mg Documented By: Admin: 02/25/25 08:54 Dose: 20 mg Documented By: EP Tamsulosin HCl (Tamsulosin Hcl 0.4 Mg Cap) 0.4 mg PO DAILY LILIBETH Stop: 03/27/25 08:59 Last Admin: 02/26/25 08:20 Dose: 0.4 mg Documented By: Admin: 02/25/25 08:54 Dose: 0.4 mg Documented By: EP Discharge Plan Visit Data Chief Complaint: Dizziness ED Provider: Sanjiv Hall ED Midlevel Provider: Beryl Badillo Discharge Problem: Elevated troponin, Dizziness, History of aortic valve replacement Patient Disposition: Admitted As Inpatient Condition: Good Discharge Instructions Interventions: ED Discharge Assessment Last Done: 02/24/25 15:32
[2025-02-24 12:49] LABS: Hematocrit (blood only) 35.2 % (42.0-52.0); Hemoglobin 12.2 g/dl (14.0-18.0); Immature Granulocytes # (auto) 0.07 K/uL (0.01-0.20); Immature Granulocytes % (auto) 0.4 %; Mean Corpuscular Hemoglobin 32.6 pg (25.0-34.0); Mean Corpuscular Volume 94.1 fL (80.0-100.0); Platelet Count 192 K/uL (130-400); RDW Standard Deviation 47.7 fL (36.4-46.3); Red Blood Count 3.74 M/uL (4.70-6.10); White Blood Count 16.72 K/ul (4.8-10.8)
--- NOTE | 2025-02-24 12:52 | XRay Report ---
SINGLE VIEW CHEST CLINICAL HISTORY: Dizziness FINDINGS: An AP, portable, upright chest radiograph is compared to study dated 11/25/2019 and correlat ed with chest CT dated 12/26/2016. The patient is status post midline sternotomy and cardiac valve lloyd prashant. A stent graft is seen in the thoracic aorta. A 2-lead cardiac pacemaker is unchanged in positio n. The heart is enlarged. There is pulmonary vascular congestion. There is bibasilar scarring/atelect asis. No airspace consolidation or pleural effusion is identified. No pneumothorax is seen. The skele zoie structures are osteopenic. The bony thorax is grossly intact. IMPRESSION: 1. Cardiomegaly and cardiac pacemaker with pulmonary vascular congestion. 2. No airspace consolidation or pleural effusion is identified. ACT 112: Negative or not required by law. Electronically signed by: Taqueria Hamilton M.D. 02/24/2025 12:51 PM
--- NOTE | 2025-02-24 13:17 | Emergency Department Note ---
ED Visit Note ED Physician Supervisory Note & Attestation: I was consulted by the Advanced Practice Provider, Beryl Badillo PA-C. I personally made/approved the management plan and take responsibility for the patient management. I performed a substantive portion of the visit. This includes the aspects of: MDM: Patient with worsening weakness/dizziness 2 days following aortic valve repair via vascular approach. Patient does have elevated troponin though is not having active chest pain. Troponin may just be elevated from recent cardiac manipulation however given symptoms I think would be [place] to monitor in hospital. Sanjiv Hall MD
--- NOTE | 2025-02-24 13:23 | CT Scan Report ---
CT SCAN OF THE BRAIN WITHOUT IV CONTRAST CLINICAL HISTORY: Dizziness COMPARISON STUDY: No priors TECHNIQUE: Unenhanced CT scan of the brain is performed from the vertex to the skull base. Images are reviewed in the axial, sagittal, coronal planes. A dose lowering technique was utilized adhering to the principles of ALARA. CT DOSE: 969.22 mGy.cm FINDINGS: Brain parenchyma: There is age-related involutional change noting mild subcortical and periventricula r microangiopathic disease. There is no hemorrhage, mass effect, or evidence of acute territorial isc hemia by CT criteria. Ridley-white matter differentiation is preserved. No extra-axial fluid collection is seen. Ventricles, sulci, cisterns: Prominent secondary to involutional change. Intracranial vasculature: There is atherosclerotic calcification of the cavernous carotid and vertebr al arteries. Calvarium: Unremarkable. Sinuses and mastoids: There is mild mucosal thickening in the left sphenoid sinus and the right maxil regan antrum. The mastoid air cells are well pneumatized. Cerumen fills the external auditory canals. Orbits: The bony orbits are grossly intact. IMPRESSION: There is no hemorrhage, mass effect, or evidence of acute territorial ischemia by CT gigi ferguson. ACT 112: Negative or not required by law. Electronically signed by: Taqueria Hamilton M.D. 02/24/2025 1:21 PM
[2025-02-24 13:33] LABS: Alanine Aminotransferase 10 U/L (7-52); Albumin Globulin Ratio 1.2 (0.9-2); Albumin Level 3.8 gm/dl (3.4-5.0); Alkaline Phosphatase 62 U/L (34-104); Anion Gap 8 (3-11); Bilirubin,Total 0.8 mg/dl (0.2-1.0); Blood Urea Nitrogen 26 mg/dl (6-23); Calcium 8.8 mg/dl (8.6-10.3); Carbon Dioxide 24 mmol/L (21-32); Chloride 102 mmol/L (98-107); Creatinine Clr Calc Pharmacy 63.4 ml/min; Globulin 3.1 gm/dl (2.5-4.0); Glucose 121 mg/dl (70-99(Fasting)); Lipase 22 U/L (11-82); Magnesium 2.3 mg/dl (1.7-2.4); Sodium 134 mmol/L (136-145); Total Protein 6.9 gm/dl (6.0-8.3)
--- NOTE | 2025-02-24 14:26 | History & Physical Report ---
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 Dizziness Nausea Intermittent dizziness x several months, not new. Woke up this AM with "uneasy stomach." [place] nauseous but ate breakfast without issue, no reported vomiting. Nausea improved at time of admission. Has not required any antiemetics. Head CT without any acute abnormalities. Unclear etiology for symptoms at this time. Will check orthostatics. Routine PT/OT evals. Could eventually consider brain MRI for further evaluation but will hold off for now given chronicity of dizziness. As needed antiemetics. If develops abdominal pain and/or recurrent nausea, could consider abdominal imaging for further evaluation. Symptomatic severe aortic stenosis s/p TAVR with Medtronic CoreValve on 02/22/2025 History of bicuspid aortic valve s/p aortic valve replacement with a bioprosthetic valve in 2008 S/p outpatient TAVR with #26mm Medtronic CoreValve FX Aortic Valve on 02/22/2025 performed at [facility] by Dr. Flores Aguillon. -Procedure completed without complications. -After the procedure CXRs were WNL. EKG postprocedure was unremarkable. TTE performed 02/23/2025 to assess aortic valve replacement and showed normal functioning of the aortic valve. Elevated troponin Initial troponin 651.6, repeat troponin pending. Question if elevated from mechanical trauma to the heart tissue s/p TAVR. EKG appears grossly unchanged compared to prior, ventricular-paced rhythm. TTE performed yesterday as mentioned above with LVEF 55-59%, trivial paravalvular aortic valve prosthesis regurgitation, no LV segmental wall motion abnormalities. Follow troponin trend. Monitor on telemetry. Will defer repeat TTE to cardiology given his last 1 was completed yesterday. Appreciate routine cardiology consult given his recent TAVR. Leukocytosis Had lab work completed yesterday which revealed leukocytosis with WBC = 17.5k. Leukocytosis noted on repeat lab work today, WBC slightly improved compared to yesterday = 16.72k. Pro-Ryan negative. No obvious infectious source at this time. CXR without evidence of consolidation. UA ordered but not yet collected. TTE yesterday without any obvious valvular issues. No reported fevers, chills or body aches. Blood cultures ordered and pending. Not meeting sepsis criteria, hemodynamically stable and well-appearing on exam. Feel can monitor off ABX for now pending UA and blood culture results. Persistent atrial fibrillation/flutter on chronic anticoagulation therapy with Eliquis Eliquis held 48 hours prior to TAVR procedure. Scheduled to restart Eliquis tomorrow morning, 02/25/2025. Rate-controlled. Continue Toprol-XL. Chronic SEWELL with negative stress testing as of April 2021 Respiratory status feels unchanged from baseline. Saturating well on RA. CXR did note some pulmonary vascular congestion. Will check BNP. Other chronic medical conditions: HLD - Continue statin. BPH - Continue Flomax. Crohn's disease - Continue mesalamine, remains well-controlled. DVT Prophylaxis: SCDs/TEDs only for now, Eliquis to resume tomorrow AM as per above Code Status: FULL CODE PCP: Mariaelena Dash DO Disposition: Admit to PCU Patient seen in collaboration with Dr. Murry. Please see addendum. I spent a total of 76 minutes coordinating, documenting, and providing care for this patient excluding time spent in the performance of separately billed services or time spent by another provider/QHP. This included personally reviewing all current laboratories and imaging studies, medical reconciliation, outpatient chart review and discussion with specialists. This chart was completed in part utilizing Speech Voice Recognition Software. Grammatical errors, random word insertions, pronoun errors, and incomplete sentences are an occasional consequence of this system due to software limitations, ambient noise, and hardware issues. Any formal questions or concerns about the content, text, or information contained within the body of this dictation should be directly addressed to the provider for clarification. 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 History obtained from the patient, discussion with ED provider and associated chart review. Patient seen at bedside in the ED with Dr. Murry. Underwent TAVR procedure 2 days ago at [facility]. Describes intermittent feeling of dizziness which started prior to the TAVR procedure. Patient states this has been ongoing for "months." No visual disturbances with this. No facial drooping, extremity paraesthesias or extremity weakness. Woke up this morning with nausea, no reported vomiting. Ate breakfast this morning which consisted of cereal and orange juice. Nausea has improved. Denies any chest pain. Chronic dyspnea on exertion with negative stress testing as of April 2021 which feels unchanged from baseline. No supplemental O2 use COLLAR TRIMMER. Some reported discomfort with urination. No hematuria. No reported fevers. Moved bowels this morning, soft. Bilateral groin insertion sites from TAVR procedure without induration or drainage, mildly TTP. Sites covered with Tegaderm. Very minimal erythema around the sites. Allergies Allergy/AdvReac Type Severity Reaction Status Date / Time Iodinated Contrast Media AdvReac Severe nausea and Verified 02/24/25 13:57 itchy legs Home Medications Medication Instructions Recorded Confirmed Type garlic 1,000 mg capsule (garlic 1,000 mg PO QAM 06/16/18 02/24/25 History oil) magnesium oxide 400 mg PO QAM 06/16/18 02/24/25 History pravastatin 20 mg tablet 20 mg PO QAM 06/16/18 02/24/25 History mesalamine 800 mg tablet,delayed 800 mg PO BID 08/29/20 02/24/25 History release (Asacol HD) tamsulosin 0.4 mg capsule 0.4 mg PO DAILY 01/01/22 02/24/25 History apixaban 5 mg tablet (Eliquis) 5 mg PO BID #30 tabs 01/04/22 02/24/25 Rx fluticasone propionate 50 1 spray intranasal UD PRN 02/24/25 02/24/25 History mcg/actuation nasal Congestion spray,suspension metoprolol succinate 50 mg 50 mg PO BID 02/24/25 02/24/25 History tablet,extended release 24 hr Past Med/Surg History Problem List (Updated 02/24/25 @ 16:29 by Hans Trevino) HTN, goal below 130/80 Dyslipidemia, goal LDL below 70 Disorientation Nonobstructive atherosclerosis of coronary artery Chronic a-fib Nausea Leukocytosis Elevated troponin Lightheadedness Dizziness S/P TAVR (transcatheter aortic valve replacement) Severe aortic stenosis Dyspnea on exertion Atrial fibrillation S/P AVR (aortic valve replacement) Hematoma Acute leg pain (Acute) Ecchymosis (Acute) Edema (Acute) Bradycardia (Acute 08/04/13) Syncope (Acute 08/04/13) HTN (hypertension) (Chronic) Acute GI bleeding (Acute) Melena Paroxysmal atrial fibrillation GI bleed Tachy-tricia syndrome Pt admitted for elective ppm due to TBS; underwent procedure without any complications; monitored overnight and discharged home. Encounter for pre-operative examination Hyperlipidemia Medical History Bicuspid aortic valve S/p AVR 2008 (bioprosthetic) Sleep apnea cpap Pacemaker 11/2019 - TBS - medtronic - last check approx 3 mo ago Crohns disease On anticoagulant therapy warfarin daily Hearing deficit Hypertension Surgical History History of cardiac catheterization 2008 [place] - no stents History of colonoscopy History of cardioversion 11/19/17 History of surgery 08/27/2013 coil embolization of hepatic artery aneurysm History of arthroscopy of left knee History of splenectomy secondary to splenic artery rupture Status post aortic coarctation stent placement 07/04/2012 @ [facility] [place] History of aortic valve replacement with aortic/ascending aorta graft repair- 2008 @ [facility]--follows with Dr. Walker Family History Father Cancer Other No family history of adverse response to anesthesia Social History Smoking Status: Never smoker Second Hand Exposure: No; Do You Dip or Chew Tobacco: No; Hx Alcohol Use: Yes Alcohol type: wine Hx Substance Use: No Preferred Language: [place]i Communication Ability: Effective Vet Tech Required: No Beliefs That Will Affect Care: None marital status: Current Living Situation: Alone Feels Safe at Home: Yes Safety Concerns: Feels Safe At This Time Assistive Devices: Glasses Review of Systems Review of Systems: At least ten systems reviewed and negative, except as noted in the HPI. Physical Exam Physical Exam: Please refer to Dr. Murry's addendum for physical examination findings. Results & Data Results & Data Vital Signs (Past 12 Hours) Vital Signs Temp Pulse Resp BP Pulse Ox O2 Del Method 02/24/25 13:21 67 02/24/25 12:11 36.6 C 76 23 174/67 H 95 Room Air 02/24/25 12:07 75 23 147/89 H 95 Room Air Laboratory Results Short CBC 02/24/25 Range/Units 12:18 WBC 16.72 H (4.8-10.8) K/ul Hgb 12.2 L (14.0-18.0) g/dl Hct 35.2 L (42.0-52.0) % Plt Count 192 (130-400) K/uL BMP 02/24/25 12:18 Sodium 134 L Potassium TNP Chloride 102 Carbon Dioxide 24 BUN 26 H Creatinine 1.03 Glucose 121 H Calcium 8.8 Liver Function 10/23/25 Range/Units 12:18 Total Bilirubin 0.8 (0.2-1.0) mg/dl AST TNP ALT 10 (7-52) U/L Alkaline Phosphatase 62 (34-104) U/L Albumin 3.8 (3.4-5.0) gm/dl Diagnostic Findings Head CT 02/24/25 12:29 CT SCAN OF THE BRAIN WITHOUT IV CONTRAST CLINICAL HISTORY: Dizziness COMPARISON STUDY: No priors TECHNIQUE: Unenhanced CT scan of the brain is performed from the vertex to the skull base. Images are reviewed in the axial, sagittal, coronal planes. A dose lowering technique was utilized adhering to the principles of ALARA. CT DOSE: 969.22 mGy.cm FINDINGS: Brain parenchyma: There is age-related involutional change noting mild subcortical and periventricular microangiopathic disease. There is no hemorrhage, mass effect, or evidence of acute territorial ischemia by CT criteria. Ridley-white matter differentiation is preserved. No extra-axial fluid collection is seen. Ventricles, sulci, cisterns: Prominent secondary to involutional change. Intracranial vasculature: There is atherosclerotic calcification of the cavernous carotid and vertebral arteries. Calvarium: Unremarkable. Sinuses and mastoids: There is mild mucosal thickening in the left sphenoid sinus and the right maxillary antrum. The mastoid air cells are well pneumatized. Cerumen fills the external auditory canals. Orbits: The bony orbits are grossly intact. IMPRESSION: There is no hemorrhage, mass effect, or evidence of acute territorial ischemia by CT criteria. ACT 112: Negative or not required by law. Electronically signed by: Taqueria Hamilton M.D. 02/24/2025 1:21 PM Chest X-Ray 02/24/25 12:30 SINGLE VIEW CHEST CLINICAL HISTORY: Dizziness FINDINGS: An AP, portable, upright chest radiograph is compared to study dated 11/25/2019 and correlated with chest CT dated 12/26/2016. The patient is status post midline sternotomy and cardiac valve surgery. A stent graft is seen in the thoracic aorta. A 2-lead cardiac pacemaker is unchanged in position. The heart is enlarged. There is pulmonary vascular congestion. There is bibasilar scarring/atelectasis. No airspace consolidation or pleural effusion is identified. No pneumothorax is seen. The skeletal structures are osteopenic. The bony thorax is grossly intact. IMPRESSION: 1. Cardiomegaly and cardiac pacemaker with pulmonary vascular congestion. 2. No airspace consolidation or pleural effusion is identified. ACT 112: Negative or not required by law. Electronically signed by: Taqueria Hamilton M.D. 02/24/2025 12:51 PM Supervising Physician Co-Signing Physician Notes Pt seen and examined by me, care coordinated w/ BMykel Cox PA-C, pls refer to her note above for further detail. 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 Underwent TAVR procedure 2 days ago at [facility]. Describes intermittent feeling of dizziness which started prior to the TAVR procedure. Patient states this has been ongoing for "months." No visual disturbances with this. No facial drooping, extremity paraesthesias or extremity weakness. Woke up this morning with nausea, no reported vomiting. Ate breakfast this morning which consisted of cereal and orange juice. Nausea has improved. Denies any chest pain. Chronic dyspnea on exertion with negative stress testing as of April 2021 which feels unchanged from baseline. No supplemental O2 use COLLAR TRIMMER. Some reported discomfort with urination. No hematuria. No reported fevers. Moved bowels this morning, reports soft stool. Nausea now resolved. Pt is sitting up in bed in NAD, awake, alert, answers appropriately.Lungs clear w/ minimal crackles at bases, no wheezing. Heart sounds regular. Abdomen soft, nontender. No LE edema, moves extremities. Bilateral groin insertion sites from TAVR procedure without induration or drainage, mildly TTP. Sites covered with Tegaderm. Pt with elevated WBC 16.9K, essentially unchanged from yesterday. No fevers reported. UA pending. For now holding any antibiotics. Ct head negative and dizziness for several months-may need further work-up in the future including brain MR if believed not secondary to / other known causes. Will further consult w/ cardiology given recent procedure, elev. troponin. MD Lovely
[2025-02-24] MEDS ORDERED: POLYETHYLENE (MIRALAX) 17 GM PACK PO PRN (15:51)
[2025-02-24] MEDS ORDERED: ONDANSETRON INJ 2 MG/ML 2 ML VIAL IV PRN (15:51)
[2025-02-24] MEDS ORDERED: MAGNESIUM HYDROXIDE SUSP 30 ML UDC PO PRN (15:51)
[2025-02-24] MEDS ORDERED: ACETAMINOPHEN 325 MG TAB PO PRN (15:51)
--- NOTE | 2025-02-24 16:17 | Cardiology Consultation ---
Date of Consultation February 24, 2025 Assessment & Plan (1) Disorientation: (2) Dizziness: (3) Elevated troponin: (4) S/P TAVR (transcatheter aortic valve replacement): (5) Chronic a-fib: (6) Nonobstructive atherosclerosis of coronary artery: (7) Bicuspid aortic valve: (8) Dyslipidemia, goal LDL below 70: (9) HTN, goal below 130/80: (10) Pacemaker: Plan 74-year-old male admitted after presentation via EMS with vague complaints including uneasy stomach, possible confusion, easily distraction. Patient status post February 22, 2025 transfemoral transcatheter valve in valve aortic valve replacement with a #26 mm Medtronic Corevalve FX Aortic Valve (inside of a 23 mm CE valve). Cardiology consultation requested secondary to elevated troponin.Elevated high-sensitivity troponin felt to be secondary to periprocedural myocardial injury and/or embolization, occurring in the absence of overt ischemic signs and/or symptoms, EKG nondiagnostic. Cardiac pacemaker in place, functioning appropriately via recent interrogation, chronically with underlying atrial fibrillation/flutter, currently off of anticoagulation (scheduled to be resumed in a.m. of 02/25/2025). Examination without volume overload. Neurological examination benign, without focal neurological deficit. CT imaging of the head without acute abnormality. Recommendations: * Refer for resting echocardiography * Resume apixaban (Eliquis) anticoagulation in AM of 02/25 * Consider addition of Pepcid * Continue metoprolol succinate and statin therapy. Supervising Physician Co-Signing Physician Notes Patient seen and examined. Past medical history, surgical history, social history and family history have been reviewed. The medical record and all the above studies have been reviewed. Case DW PRATEEK including management. Epigastric discomfort Constipation s/p TAVR Dizziness ?Confusion on admission - currently not confused AFib HTN HLD correct and f/u electrolytes continue Eliquis add antacid start statin continue metoprolol succinate adjust anti-HTN meds keeping systolic BP between 100-140 mmHg avoid hypovolemia keep patient euvolemic History of Present Illness Reason for Consultation: Elevated troponin status post TAVR 2 days ago Requesting Physician: [facility] Hospitalist Service, Marylu Cox PA-C Attending Physician: [facility] Hospitalist Service, Dr. Khanh Murry MD History of Present Illness Danis RoblesMykel Soto is a 74-year-old male who presented to the [facility] ER on February 24, 2025 via EMS. Patient describes getting up in the morning and eating breakfast then experiencing what he describes as "maybe a little bit of confusion, easily distracted." Patient called to schedule hospital discharge follow-up with [facility] and the receptionist scheduler noting that the patient seemed to be disoriented. Triage Nurse recommended ER evaluation via EMS. CT scan of the head without hemorrhage, mass effect, or evidence of acute territorial ischemia. Laboratory work notable for leukocytosis (status post prior splenectomy), mild anemia with hemoglobin 12.2, mild hyponatremia (134), mildly elevated BUN (26), normal creatinine (1.03). Random glucose 121 mg/dL. Cardiology consultation requested secondary to elevated troponin. High- sensitivity troponin elevated at 651.6 pg/mL. EKG nondiagnostic, ventricular paced rhythm with underlying coarse atrial fibrillation/flutter. Chest x-ray was interpreted by the radiologist revealing cardiomegaly with pulmonary vascular congestion. Patient denies chest pain, discomfort, tightness, pressure, pleuritic pain, etc. No sublingual nitroglycerin use. Denies tachypalpitations. Denies shortness of breath. Denies cough, chest congestion, orthopnea, or PND. Recent left lower extremity has resolved with the use of a compression sock, attributed to trauma. No current edema. No syncope. No fevers. No chills. No epistaxis, hemoptysis, melena, hematochezia, or hematuria. Problem List: Congenitally bicuspid aortic valve Status post aortic valve replacement with a bioprosthetic valve, along with graft repair of the ascending aorta, 2008 Coarctation of aorta status endovascular repair of the coarctation, 07/14/2012, by Dr. 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 Mother with pacemaker. Maternal grandfather with colorectal cancer. Paternal grandfather with a cerebral aneurysm Social History: Never smoker. No smokeless tobacco. Alcohol: One glass of wine every other day. circa four years ago. Works of [employer] near [facility]. Allergies Allergy/AdvReac Type Severity Reaction Status Date / Time Iodinated Contrast Media AdvReac Severe nausea and Verified 02/24/25 13:57 itchy legs Home Medications Medication Instructions Recorded Confirmed Type garlic 1,000 mg capsule (garlic 1,000 mg PO QAM 06/16/18 02/24/25 History oil) magnesium oxide 400 mg PO QAM 06/16/18 02/24/25 History pravastatin 20 mg tablet 20 mg PO QAM 06/16/18 02/24/25 History mesalamine 800 mg tablet,delayed 800 mg PO BID 08/29/20 02/24/25 History release (Asacol HD) tamsulosin 0.4 mg capsule 0.4 mg PO DAILY 01/01/22 02/24/25 History apixaban 5 mg tablet (Eliquis) 5 mg PO BID #30 tabs 01/04/22 02/24/25 Rx fluticasone propionate 50 1 spray intranasal UD PRN 02/24/25 02/24/25 History mcg/actuation nasal Congestion spray,suspension metoprolol succinate 50 mg 50 mg PO BID 02/24/25 02/24/25 History tablet,extended release 24 hr Patient History Medical History Bicuspid aortic valve S/p AVR 2008 (bioprosthetic) Sleep apnea cpap Pacemaker 11/2019 - [facility] - [employer] - last check approx 3 mo ago Crohns disease On anticoagulant therapy warfarin daily Hearing deficit Hypertension Surgical History History of cardiac catheterization 2008 [place] - no stents History of colonoscopy History of cardioversion 11/19/17 History of surgery 08/27/2013 coil embolization of hepatic artery aneurysm History of arthroscopy of left knee History of splenectomy secondary to splenic artery rupture Status post aortic coarctation [place] [facility] [place] of aortic valve replacement with aortic/ascending aorta graft repair- 2009 @ [facility]--follows with Dr. Walker Family History Father Cancer Other No family history of adverse response to anesthesia Social History Smoking Status: Never smoker Second Hand Exposure: No; Do You Dip or Chew Tobacco: No; Hx Alcohol Use: Yes Alcohol type: wine Hx Substance Use: No Preferred Language: Polish Communication Ability: Effective Commercial Lending Relationship Manager Required: No Beliefs That Will Affect Care: None marital status: Current Living Situation: Alone Feels Safe at Home: Yes Safety Concerns: Feels Safe At This Time Assistive Devices: Glasses Review of Systems Review of Systems: Complete Review of Systems: Constitutional: No recent colds, illness, fevers, chills, or night sweats. HEENT: No recent change in vision. Denies blurry vision, double vision, amaurosis fugax. Mouth: No trouble with speech, slurring words, etc. Pulmonary: Untreated obstructive sleep apnea. Denies history of asthma, emphysema, COPD, or PE. Cardiac: See above. GI/Abd: Bowels have been sluggish of weight. No dysphagia. No GERD. No melana or hematochezia. Vascular: No lower extremity claudication/PAD. Hematologic: Currently off of Eliquis, to resume in the a.m. of February 25, 2025. No abnormal bleeding. T Musculoskeletal: Arthritis. Skin: No rash. No tick bites. Neurologic: Denies history of seizure. No unilateral complaints. Male : Urinary hesitancy Complete Review of Systems is as stated above, negative, or noncontributory Physical Exam Physical Exam: General: Alert and oriented x 3. No acute distress. Pleasant. Comfortable. Cooperative. HENT: Normocephalic. Atraumatic. Eyes: PER. Conjunctiva pink, sclera clear. Neck: Transmitted systolic murmur to the base of the right carotid. No carotid bruit on the left. No JVD. No hepatojugular reflux. Heart: Regular, paced, 70 bpm. Grade II/ systolic ejection murmur. Grade I/ diastolic decrescendo murmur. No rub. Lungs: Dry left greater than right basilar crackles. Abdomen: +BS. Soft. Nontender. No masses or organomegaly. Femoral access sites on both the right and left look great, dressings fairly clean, dry, intact, without erythema, hematoma, or abnormal auscultation. Extremities: No clubbing, cyanosis, or edema. Pulses: radial=3/4, posterior tibial=3/4. Limited neurological examination is without focal deficits. Results & Data Vital Signs (Past 12 Hours) Vital Signs Temp Pulse Pulse Resp BP BP Pulse Ox 02/24/25 15:51 36.6 C 75 18 138/82 97 02/24/25 15:32 02/24/25 15:12 75 24 96 02/24/25 15:00 75 17 134/85 97 02/24/25 13:45 61 20 123/77 98 02/24/25 13:21 67 02/24/25 12:11 36.6 C 76 23 174/67 H 95 02/24/25 12:07 75 23 147/89 H 95 O2 Del Method 02/24/25 15:51 Room Air 02/24/25 15:32 Room Air 02/24/25 15:12 Nasal Cannula 02/24/25 15:00 Room Air 02/24/25 13:45 Room Air 02/24/25 13:21 02/24/25 12:11 Room Air 02/24/25 12:07 Room Air Laboratory Results Cardiac Enzymes 02/24/25 Range/Units 12:18 AST TNP Troponin I High Sens 651.6 H* (0-20) pg/ml CBC 02/24/25 Range/Units 12:18 WBC 16.72 H (4.8-10.8) K/ul RBC 3.74 L (4.70-6.10) M/uL Hgb 12.2 L (14.0-18.0) g/dl Hct 35.2 L (42.0-52.0) % Plt Count 192 (130-400) K/uL Neut # (Auto) 11.69 H (1.40-6.50) K/uL Lymph # (Auto) 2.76 (1.20-3.40) K/uL Bradley # (Auto) 1.94 H (0.11-0.59) K/uL Eos # (Auto) 0.21 (0.00-0.50) K/uL Baso # (Auto) 0.05 (0.00-0.20) K/uL Comprehensive Metabolic Panel 02/24/25 Range/Units 12:18 Sodium 134 L (136-145) mmol/L Potassium TNP Chloride 102 (98-107) mmol/L Carbon Dioxide 24 (21-32) mmol/L BUN 26 H (6-23) mg/dl Creatinine 1.03 (0.6-1.4) mg/dl Glucose 121 H (70-99(Fasting)) mg/dl Calcium 8.8 (8.6-10.3) mg/dl AST TNP ALT 10 (7-52) U/L Alkaline Phosphatase 62 (34-104) U/L Total Protein 6.9 (6.0-8.3) gm/dl Albumin 3.8 (3.4-5.0) gm/dl Intake and Output 02/24/25 02/24/25 02/24/25 06:59 14:59 22:59 Other: Weight 77.1 kg 77.1 kg Weight Measurement Method Built in Bedscale Standing Scale Patient Weight 02/25/25 06:59 Weight 77.1 kg Diagnostic Findings December 2023 [employer]io Monitor: 2 Ventricular Tachycardia runs occurred, the run with the fastest interval lasting 4 beats with a max rate of 136 bpm (avg 102 bpm); the run with the fastest interval was also the longest. Atrial Flutter occurred continuously (100% burden), ranging from 59-128 bpm (avg of 72 bpm). Possible Ventricular Pacing was present. Atrial Flutter may be possible Atrial Tachycardia with variable block. Isolated VEs were frequent (19.2%, [id number]), VE Couplets were rare (<1.0%, 228), and VE Triplets were rare (<1.0%, 4). Ventricular Bigeminy and Trigeminy were present. The patient recorded 34 event markers and 19 diary entries which correlated with atrial flutter with sensed ventricular ectopic beats. Impression: Persistent atrial flutter, average rate 73 beats per minute with frequent ventricular ectopy, intermittent ventricular pacing October 01, 2024 Coronary Angiography ([facility]): Mild luminal regularities January 14, 2025 pacemaker interrogation demonstrated appropriate function, 9.1 years remaining longevity. Mode: VVIR. Lower rate 60 bpm. Ventricular paced 72.3%. AT/AF monitoring disabled. February 22, 2025 Intraprocedural TTE Interpretation Summary (as per Dr. Perry): This was an intraprocedural TTE performed during the deployment of a #26 CoreValve TAVR (Valve in Valve) Pre-TAVR. The qualitative LV ejection fraction is 60-64% (normal). No LV segmental wall motion abnormalities. There is an aortic valve bioprosthetic present. There is calcification of the prosthetic valve with stenosis. Prior study reported severe stenosis, Doppler data could not confirm on this exam. There is no significant regurgitation present. At least mild pulmonary hypertension is present based on the TR jet velocity. Post- TAVR: The patient is status post TAVR with CoreValve prosthetic valve. Aortic valve prosthesis stenosis is absent. Trivial paravalvular aortic valve prost hesis regurgitation is present. No pericardial effusion is noted February 23, 2025 TTE Interpretation Summary (as per Dr. Perry): The qualitative LV ejection fraction is 55-59% (normal). No LV segmental wall motion abnormalities. The patient is status post TAVR with CoreValve prosthetic valve. Aortic valve prosthesis stenosis is absent. Trivial paravalvular aortic valve prosthesis regurgitation is present. No pericardial effusion is noted. February 24, 2025 EKG: Ventricular paced rhythm, underlying coarse atrial fibrillation versus flutter CT scan of the head without hemorrhage, mass effect, or evidence of acute territorial ischemia Admission chest x-ray with cardiomegaly, pulmonary vascular congestion, bibasilar scarring/atelectasis Medications Administered Home Medications Medication Instructions Recorded Confirmed Last Taken garlic 1,000 mg capsule (garlic 1,000 mg PO QAM 06/16/18 02/24/25 11/24/20 oil) magnesium oxide 400 mg PO QAM 06/16/18 02/24/25 11/24/20 pravastatin 20 mg tablet 20 mg PO QAM 06/16/18 02/24/25 11/24/20 mesalamine 800 mg tablet,delayed 800 mg PO BID 08/29/20 02/24/25 11/24/20 release (Asacol HD) tamsulosin 0.4 mg capsule 0.4 mg PO DAILY 01/01/22 02/24/25 Unknown apixaban 5 mg tablet (Eliquis) 5 mg PO BID #30 tabs 01/04/22 02/24/25 Unknown fluticasone propionate 50 1 spray intranasal UD PRN 02/24/25 02/24/25 Unknown mcg/actuation nasal Congestion spray,suspension metoprolol succinate 50 mg 50 mg PO BID 02/24/25 02/24/25 Unknown tablet,extended release 24 hr PG Care Time/CCT Total # of Minutes Spent Total Time Spent with Patient: Total time spent is greater than 50% in coordination of care (as documented) at patient's floor/unit and/or counseling patient. I spent a total of 77 minutes on the date of service in preparation, delivery, and documentation of the care provided to this patient excluding any time spent in the performance of separately billed services. This visit was a split-shared visit with the substantive portion of the medical decision making performed by the supervising group activities aide/billing provider, Dr. Acosta Coding Level of Care Code 34966 INT INP/OBS CARE 3/75MIN Diagnoses Disorientation R41.0 Dizziness R42 Elevated troponin R79.89 S/P TAVR (transcatheter aortic valve replacement) Z95.2 Chronic a-fib I48.20 Nonobstructive atherosclerosis of coronary artery I25.10 Bicuspid aortic valve Q23.1 Dyslipidemia, goal LDL below 70 E78.5 HTN, goal below 130/80 I10 Pacemaker Z95.0
[2025-02-24 16:59] LABS: Appearance Urine Clear (Clear); Glucose Urine UA Negative (Negative)
[2025-02-24] MEDS: METOPROLOL SUCC 50MG EXT REL TAB PO SCH (20:40)
[2025-02-24] MEDS: MESALAMINE 800 MG TABCR PO SCH (20:40)
[2025-02-25 03:13] LABS: Hematocrit (blood only) 36.0 % (42.0-52.0); Hemoglobin 12.1 g/dl (14.0-18.0); Immature Granulocytes # (auto) 0.04 K/uL (0.01-0.20); Immature Granulocytes % (auto) 0.3 %; Mean Corpuscular Hemoglobin 31.5 pg (25.0-34.0); Mean Corpuscular Volume 93.8 fL (80.0-100.0); Platelet Count 189 K/uL (130-400); RDW Standard Deviation 47.5 fL (36.4-46.3); Red Blood Count 3.84 M/uL (4.70-6.10); White Blood Count 12.81 K/ul (4.8-10.8)
[2025-02-25 03:29] LABS: Alanine Aminotransferase 11.0 U/L (7-52); Albumin Globulin Ratio 1.0 (0.9-2); Albumin Level 3.3 gm/dl (3.4-5.0); Alkaline Phosphatase 54.0 U/L (34-104); Anion Gap 7.0 (3-11); Bilirubin,Total 0.5 mg/dl (0.2-1.0); Blood Urea Nitrogen 23.0 mg/dl (6-23); Calcium 8.5 mg/dl (8.6-10.3); Carbon Dioxide 24.0 mmol/L (21-32); Chloride 103.0 mmol/L (98-107); Creatinine Clr Calc Pharmacy 64.0 ml/min; Globulin 3.2 gm/dl (2.5-4.0); Glucose 96.0 mg/dl (70-99(Fasting)); Magnesium 2.2 mg/dl (1.7-2.4); Potassium 4.8 mmol/L (3.5-5.1); Sodium 134.0 mmol/L (136-145); Total Protein 6.5 gm/dl (6.0-8.3)
--- NOTE | 2025-02-25 06:23 | Electrocardiogram Report ---
Test Reason : Blood Pressure : */* mmHG Vent. Rate : 66 BPM Atrial Rate : 63 BPM P-R Int : * ms QRS Dur : 142 ms QT Int : 458 ms P-R-T Axes : * -29 119 degrees QTcB Int : 480 ms Ventricular-paced rhythm Abnormal ECG When compared with ECG of 04-Jan-2022 05:01, Vent. rate has decreased by 11 bpm Confirmed by Kane Paniagua ([id number]) on 02/25/2025 6:22:57 AM Referred By: REFERRED SELF Confirmed By: Kane Paniagua
--- NOTE | 2025-02-25 08:29 | XCELERA ---
[id number]
[2025-02-25] MEDS: PRAVASTATIN SOD 20 MG TAB PO SCH (08:54)
[2025-02-25] MEDS: APIXABAN 5 MG TABLET PO SCH (08:54)
[2025-02-25] MEDS: TAMSULOSIN HCL 0.4 MG CAP PO SCH (08:54)
[2025-02-25] MEDS: SODIUM CHLORIDE 0.9% 1,000 ML IV SCH (11:14)
--- NOTE | 2025-02-25 11:32 | Hospitalist Progress Note ---
Date of Service February 25, 2025 Assessment & Plan (1) Dizziness: (2) Nausea: (3) Severe aortic stenosis: (4) S/P TAVR (transcatheter aortic valve replacement): (5) Elevated troponin: (6) Leukocytosis: Plan Patient is a 74-year-old male with past medical history significant for bicuspid aortic valve s/p aortic valve replacement with a bioprosthetic valve along with graft repair of his ascending aorta in 2008, symptomatic severe aortic stenosis s/p TAVR with Medtronic CoreValve on 02/22/2025, coarctation of the aorta s/p endovascular repair in July 2012, 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 Dizziness Orthostatic hypotension Possible BPPV Intermittent dizziness x several months, Head CT without any acute abnormalities. Orthostatic hypotension found to be positive Also reports intermittent dizziness with change of head position. Will start NS at 125 cc/h for 1.5 L; recheck orthostatic blood pressure PT OT consult for BPPV Symptomatic severe aortic stenosis s/p TAVR with Medtronic CoreValve on 02/22/2025 History of bicuspid aortic valve s/p aortic valve replacement with a bioprosthetic valve in 2008 S/p outpatient TAVR with #26mm Medtronic CoreValve FX Aortic Valve on 02/22/2025 performed at [facility] by Dr. Flores Aguillon. -Procedure completed without complications. -After the procedure CXRs were WNL. EKG postprocedure was unremarkable. TTE performed 02/23/2025 to assess aortic valve replacement and showed normal functioning of the aortic valve. Elevated troponin Demand Ischemia Initial troponin 651.6, repeat troponin downtrending TTE performed yesterday as mentioned above with LVEF 55-59%, trivial paravalvular aortic valve prosthesis regurgitation, no LV segmental wall motion abnormalities. Cardiology consulted; no additional test recomended Leukocytosis- Elevated on admission;monitor for fever and sign and symptoms of infection Persistent atrial fibrillation/flutter on chronic anticoagulation therapy with Eliquis On Metoprolol and eliquis-continue Other chronic medical conditions: HLD - Continue statin. BPH - Continue Flomax. Crohn's disease - Continue mesalamine, remains well-controlled. DVT Prophylaxis: eliquis Code Status: FULL CODE PCP: Mariaelena Dash DO Disposition: Admit to PCU Time spent evaluating patient, direct bedside care, chart review, placing orders, interpretation of diagnostic studies, discussion with consultants, patient, and family members, as well as other required patient management activities is 50 minutes Please note the above document was generated using voice recognition software. It may contain grammatical, syntax or spelling errors. Any formal questions or concerns about the content, text or information contained within the body of this dictation should be directly addressed to the provider for clarification Admission and Anticipated Discharge Date Admission Date: February 24, 2025 Subjective Patient seen and examined at bedside. He is sitting up at the side of the bed comfortably; reports dizziness on movement of his head. He also feels dizzy while standing up from a seated position. Denies chest pain or shortness of breath. Review of Systems Review of Systems: All systems reviewed & are unremarkable except as noted in Subjective Physical Exam Physical Exam: Constitutional: WD/WN, vitals as above, NAD, sitting up in bed, pleasant, conversing easily Respiratory: normal respiratory effort, lungs clear to auscultation, no wheeze, rales, rhonchi. Normal insp/exp effort, no accessory muscle use Cardiovascular: RRR, no murmur, no edema Vessels: no JVD or carotid bruit Chest: normal inspection of chest Abdomen: normal bowel sounds, soft, nontender, no hepatosplenomegaly Musculoskeletal: no cyanosis or clubbing, extremities motor strength 5/5 Skin: no rashes, warm and dry normal turgor Neurologic: PERRL, EOMI, accommodation nl, no face palsy, no dysarthria CN's II- XI intact bilaterally and moves all extremities Psychiatric: A+Ox3, euthymic affect Results & Data Results & Data Vital Signs (Past 12 Hours) Vital Signs Temp Pulse Pulse Resp BP Pulse Ox O2 Del Method 02/25/25 11:08 36.4 C L 64 18 118/70 98 Room Air 02/25/25 08:20 36.3 C L 64 18 127/79 98 Room Air 02/25/25 07:00 65 02/25/25 04:00 36.3 C L 65 18 126/85 95 Room Air
--- NOTE | 2025-02-25 17:29 | Cardiology Progress Note ---
Date of Service February 25, 2025 Assessment & Plan (1) Disorientation: (2) Dizziness: (3) Elevated troponin: (4) S/P TAVR (transcatheter aortic valve replacement): (5) Chronic a-fib: (6) Nonobstructive atherosclerosis of coronary artery: (7) Bicuspid aortic valve: (8) Dyslipidemia, goal LDL below 70: (9) HTN, goal below 130/80: (10) Pacemaker: Plan 74-year-old male admitted after presentation via EMS with vague complaints including uneasy stomach, possible confusion, easily distraction. Patient status post February 22, 2025 transfemoral transcatheter valve in valve aortic valve replacement with a #26 mm Medtronic Corevalve FX Aortic Valve (inside of a 23 mm CE valve). Cardiology consultation requested secondary to elevated troponin.Elevated high-sensitivity troponin felt to be secondary to periprocedural myocardial injury and/or embolization, occurring in the absence of overt ischemic signs and/or symptoms, EKG nondiagnostic. Cardiac pacemaker in place, functioning appropriately via recent interrogation, chronically with underlying atrial fibrillation/flutter, currently off of anticoagulation (scheduled to be resumed in a.m. of 02/25/2025). Examination without volume overload. Neurological examination benign, without focal neurological deficit. CT imaging of the head without acute abnormality. Epigastric discomfort - resolved Constipation - defer to hospitalist s/p TAVR Dizziness - resolved ?Confusion on admission - currently not confused AFib HTN - stable HLD continue Eliquis add antacid - defer to hospitalist cont statin continue metoprolol succinate adjust anti-HTN meds keeping systolic BP between 100-140 mmHg avoid hypovolemia keep patient euvolemic please recall if needed stable from cardiac standpoint for discharge f/u in cardiology clinic post discharge will sign off Admission and Anticipated Discharge Date Admission Date: February 24, 2025 Subjective Patient on exam is standing near is bed, ambulatory in NAD; no c/o cp, sob, palpitations, dizziness, LOC; DW RN - patient is asymptomatic -? erroneous orthostatics as patient denies any dizziness, lightheadedness Review of Systems Review of Systems: Complete Review of Systems: Constitutional: No recent colds, illness, fevers, chills, or night sweats. HEENT: No recent change in vision. Denies blurry vision, double vision, amaurosis fugax. Mouth: No trouble with speech, slurring words, etc. Pulmonary: Untreated obstructive sleep apnea. Denies history of asthma, emphysema, COPD, or PE. Cardiac: See above. GI/Abd: Bowels have been sluggish of weight. No dysphagia. No GERD. No melana or hematochezia. Vascular: No lower extremity claudication/PAD. Hematologic: Currently off of Eliquis, to resume in the a.m. of February 25, 2025. No abnormal bleeding. T Musculoskeletal: Arthritis. Skin: No rash. No tick bites. Neurologic: Denies history of seizure. No unilateral complaints. Male : Urinary hesitancy Complete Review of Systems is as stated above, negative, or noncontributory Physical Exam Physical Exam: General: Alert and oriented x 3. No acute distress. Pleasant. Comfortable. Cooperative. HENT: Normocephalic. Atraumatic. Eyes:Conjunctiva pink, sclera clear. Neck: Transmitted systolic murmur to the base of the right carotid. No carotid bruit on the left. No JVD. No hepatojugular reflux. Heart: Regular, paced, Grade II/ systolic ejection murmur. Grade I/ diastolic decrescendo murmur. No rub. Lungs: Dry left greater than right basilar crackles. Abdomen: +BS. Soft. Nontender. No masses or organomegaly. Femoral access sites on both the right and left look great, dressings fairly clean, dry, intact, without erythema, hematoma, or abnormal auscultation. Extremities: No clubbing, cyanosis, or edema. Limited neurological examination is without focal deficits. Results & Data Vital Signs (Past 12 Hours) Vital Signs Temp Pulse Pulse Resp BP Pulse Ox Pulse Ox 02/25/25 16:21 65 02/25/25 15:01 36.5 C 68 19 134/71 96 02/25/25 11:52 97 02/25/25 11:08 36.4 C L 64 18 118/70 98 02/25/25 08:20 36.3 C L 64 18 127/79 98 02/25/25 07:00 65 O2 Del Method O2 Flow Rate 02/25/25 16:21 02/25/25 15:01 Room Air 02/25/25 11:52 0 02/25/25 11:08 Room Air 02/25/25 08:20 Room Air 02/25/25 07:00 Laboratory Results Laboratory Results - last 48 hr 02/24/25 02/24/25 02/24/25 12:18 16:30 17:33 WBC 16.72 H RBC 3.74 L Hgb 12.2 L Hct 35.2 L MCV 94.1 MCH 32.6 MCHC 34.7 RDW Std Deviation 47.7 H RDW Coeff of Trice 13.8 Plt Count 192 MPV 9.5 Immature Gran % (Auto) 0.4 Neut % (Auto) 69.9 Lymph % (Auto) 16.5 Bosque % (Auto) 11.6 Eos % (Auto) 1.3 Baso % (Auto) 0.3 Neut # (Auto) 11.69 H Lymph # (Auto) 2.76 Bos[place] # (Auto) 1.94 H Eos # (Auto) 0.21 Baso # (Auto) 0.05 Immature Gran # (Auto) 0.07 Sodium 134 L Potassium TNP Chloride 102 Carbon Dioxide 24 Anion Gap 8 BUN 26 H Creatinine 1.03 Est Cr Clr Drug Dosing 63.4 eGFR 77.18 BUN/Creatinine Ratio 25.2 H Glucose 121 H Calcium 8.8 Magnesium 2.3 Total Bilirubin 0.8 AST TNP ALT 10 Alkaline Phosphatase 62 Troponin I High Sens 651.6 H* 554.2 H* B-Natriuretic Peptide 108 H Total Protein 6.9 Albumin 3.8 Globulin 3.1 Albumin/Globulin Ratio 1.2 Lipase 22 Procalcitonin 0.07 Urine Color Yellow Urine Appearance Clear Urine pH 7.5 Ur Specific [place] 1.017 Urine Protein Negative Urine Glucose (UA) Negative Urine Ketones Negative Urine Blood Negative Urine Nitrite Negative Urine Bilirubin Negative Urine Urobilinogen Negative Ur Leukocyte Esterase Negative Urine Comment 02/24/25 02/25/25 02/25/25 19:46 02:52 08:29 WBC 12.81 H RBC 3.84 L Hgb 12.1 L Hct 36.0 L MCV 93.8 MCH 31.5 MCHC 33.6 RDW Std Deviation 47.5 H RDW Coeff of Trice 13.8 Plt Count 189 MPV 8.8 L Immature Gran % (Auto) 0.3 Neut % (Auto) 59.0 Lymph % (Auto) 22.2 Bosque % (Auto) 13.3 Eos % (Auto) 4.5 Baso % (Auto) 0.7 Neut # (Auto) 7.54 H Lymph # (Auto) 2.85 Bosque # (Auto) 1.71 H Eos # (Auto) 0.58 H Baso # (Auto) 0.09 Immature Gran # (Auto) 0.04 Sodium 134 L Potassium 4.8 Chloride 103 Carbon Dioxide 24 Anion Gap 7 BUN 23 Creatinine 1.02 Est Cr Clr Drug Dosing 64.0 eGFR 78.09 BUN/Creatinine Ratio 22.5 H Glucose 96 Calcium 8.5 L Magnesium 2.2 Total Bilirubin 0.5 AST 22 ALT 11 Alkaline Phosphatase 54 Troponin I High Sens 506.0 H* 436.5 H* 287.5 H* D B-Natriuretic Peptide Total Protein 6.5 Albumin 3.3 L Globulin 3.2 Albumin/Globulin Ratio 1.0 Lipase Procalcitonin Urine Color Urine Appearance Urine pH Ur Specific [place] Urine Protein Urine Glucose (UA) Urine Ketones Urine Blood Urine Nitrite Urine Bilirubin Urine Urobilinogen Ur Leukocyte Esterase Urine Comment Diagnostic Findings Laboratory Results WBC 12.81 K/ul (4.8-10.8) H 02/25/25 02:52 RBC 3.84 M/uL (4.70-6.10) L 02/25/25 02:52 Hgb 12.1 g/dl (14.0-18.0) L 02/25/25 02:52 Hct 36.0 % (42.0-52.0) L 02/25/25 02:52 MCV 93.8 fL (80.0-100.0) 02/25/25 02:52 MCH 31.5 pg (25.0-34.0) 02/25/25 02:52 MCHC 33.6 g/dL (32.0-36.0) 02/25/25 02:52 RDW Std Deviation 47.5 fL (36.4-46.3) H 02/25/25 02:52 RDW Coeff of Trice 13.8 % (11.5-14.5) 02/25/25 02:52 Plt Count 189 K/uL (130-400) 02/25/25 02:52 MPV 8.8 fL (9.4-12.4) L 02/25/25 02:52 Immature Gran % (Auto) 0.3 % 02/25/25 02:52 Neut % (Auto) 59.0 % 02/25/25 02:52 Lymph % (Auto) 22.2 % 02/25/25 02:52 Bosque % (Auto) 13.3 % 02/25/25 02:52 Eos % (Auto) 4.5 % 02/25/25 02:52 Baso % (Auto) 0.7 % 02/25/25 02:52 Neut # (Auto) 7.54 K/uL (1.40-6.50) H 02/25/25 02:52 Lymph # (Auto) 2.85 K/uL (1.20-3.40) 02/25/25 02:52 Bosque # (Auto) 1.71 K/uL (0.11-0.59) H 02/25/25 02:52 Eos # (Auto) 0.58 K/uL (0.00-0.50) H 02/25/25 02:52 Baso # (Auto) 0.09 K/uL (0.00-0.20) 02/25/25 02:52 Immature Gran # (Auto) 0.04 K/uL (0.01-0.20) 02/25/25 02:52 Sodium 134 mmol/L (136-145) L 02/25/25 02:52 Potassium 4.8 mmol/L (3.5-5.1) 02/25/25 02:52 Chloride 103 mmol/L (98-107) 02/25/25 02:52 Carbon Dioxide 24 mmol/L (21-32) 02/25/25 02:52 Anion Gap 7 (3-11) 02/25/25 02:52 BUN 23 mg/dl (6-23) 02/25/25 02:52 Creatinine 1.02 mg/dl (0.6-1.4) 02/25/25 02:52 Est Cr Clr Drug Dosing 64.0 ml/min 02/25/25 02:52 eGFR 78.09 02/25/25 02:52 BUN/Creatinine Ratio 22.5 (10-20) H 02/25/25 02:52 Glucose 96 mg/dl (70-99(Fasting)) 02/25/25 02:52 Calcium 8.5 mg/dl (8.6-10.3) L 02/25/25 02:52 Magnesium 2.2 mg/dl (1.7-2.4) 02/25/25 02:52 Total Bilirubin 0.5 mg/dl (0.2-1.0) 02/25/25 02:52 AST 22 U/L (13-39) 02/25/25 02:52 ALT 11 U/L (7-52) 02/25/25 02:52 Alkaline Phosphatase 54 U/L (34-104) 02/25/25 02:52 Troponin I High Sens 287.5 pg/ml (0-20) H* D 02/25/25 08:29 B-Natriuretic Peptide 108 pg/ml (0-100) H 02/24/25 17:33 Total Protein 6.5 gm/dl (6.0-8.3) 02/25/25 02:52 Albumin 3.3 gm/dl (3.4-5.0) L 02/25/25 02:52 Globulin 3.2 gm/dl (2.5-4.0) 02/25/25 02:52 Albumin/Globulin Ratio 1.0 (0.9-2) 02/25/25 02:52 Lipase 22 U/L (11-82) 02/24/25 12:18 Procalcitonin 0.07 ng/ml (0-0.5) 02/24/25 12:18 Urine Color Yellow 02/24/25 16:30 Urine Appearance Clear (Clear) 02/24/25 16:30 Urine pH 7.5 (4.5-7.5) 02/24/25 16:30 Ur Specific [place] 1.017 (1.000-1.030) 02/24/25 16:30 Urine Protein Negative (Negative) 02/24/25 16:30 Urine Glucose (UA) Negative (Negative) 02/24/25 16:30 Urine Ketones Negative (Negative) 02/24/25 16:30 Urine Blood Negative (Negative) 02/24/25 16:30 Urine Nitrite Negative (Negative) 02/24/25 16:30 Urine Bilirubin Negative (Negative) 02/24/25 16:30 Urine Urobilinogen Negative (Negative) 02/24/25 16:30 Ur Leukocyte Esterase Negative (Negative) 02/24/25 16:30 Urine Comment 02/24/25 16:[address] 02/24/25 12:29 CT SCAN OF THE BRAIN WITHOUT IV CONTRAST CLINICAL HISTORY: Dizziness COMPARISON STUDY: No priors TECHNIQUE: Unenhanced CT scan of the brain is performed from the vertex to the skull base. Images are reviewed in the axial, sagittal, coronal planes. A dose lowering technique was utilized adhering to the principles of ALARA. CT DOSE: 969.22 mGy.cm FINDINGS: Brain parenchyma: There is age-related involutional change noting mild subcortical and periventricular microangiopathic disease. There is no hemorrhage, mass effect, or evidence of acute territorial ischemia by CT criteria. Ridley-white matter differentiation is preserved. No extra-axial fluid collection is seen. Ventricles, sulci, cisterns: Prominent secondary to involutional change. Intracranial vasculature: There is atherosclerotic calcification of the cavernous carotid and vertebral arteries. Calvarium: Unremarkable. Sinuses and mastoids: There is mild mucosal thickening in the left sphenoid sinus and the right maxillary antrum. The mastoid air cells are well pneumatized. Cerumen fills the external auditory canals. Orbits: The bony orbits are grossly intact. IMPRESSION: There is no hemorrhage, mass effect, or evidence of acute territorial ischemia by CT criteria. ACT 112: Negative or not required by law. Electronically signed by: Taqueria Hamilton M.D. 02/24/2025 1:21 PM Chest X-Ray 02/24/25 12:30 SINGLE VIEW CHEST CLINICAL HISTORY: Dizziness FINDINGS: An AP, portable, upright chest radiograph is compared to study dated 11/25/2019 and correlated with chest CT dated 12/26/2016. The patient is status post midline sternotomy and cardiac valve surgery. A stent graft is seen in the thoracic aorta. A 2-lead cardiac pacemaker is unchanged in position. The heart is enlarged. There is pulmonary vascular congestion. There is bibasilar scarring/atelectasis. No airspace consolidation or pleural effusion is identified. No pneumothorax is seen. The skeletal structures are osteopenic. The bony thorax is grossly intact. IMPRESSION: 1. Cardiomegaly and cardiac pacemaker with pulmonary vascular congestion. 2. No airspace consolidation or pleural effusion is identified. ACT 112: Negative or not required by law. Electronically signed by: Taqueria Hamilton M.D. 02/24/2025 12:51 PM 02/25/25 ECHO Interpretation Summary Left ventricular systolic function is normal. Left Ventricular Ejection Fraction = 50-55%. There is a bioprosthetic aortic valve. The prosthetic aortic valve is well-seated. There is mild mitral regurgitation. There is mild tricuspid regurgitation. Medications Administered Home Medications Medication Instructions Recorded Confirmed Last Taken garlic 1,000 mg capsule (garlic 1,000 mg PO QAM 06/16/18 02/24/25 11/24/20 oil) magnesium oxide 400 mg PO QAM 06/16/18 02/24/25 11/24/20 pravastatin 20 mg tablet 20 mg PO QAM 06/16/18 02/24/25 11/24/20 mesalamine 800 mg tablet,delayed 800 mg PO BID 08/29/20 02/24/25 11/24/20 release (Asacol HD) tamsulosin 0.4 mg capsule 0.4 mg PO DAILY 01/01/22 02/24/25 Unknown apixaban 5 mg tablet (Eliquis) 5 mg PO BID #30 tabs 01/04/22 02/24/25 Unknown fluticasone propionate 50 1 spray intranasal UD PRN 02/24/25 02/24/25 Unknown mcg/actuation nasal Congestion spray,suspension metoprolol succinate 50 mg 50 mg PO BID 02/24/25 02/24/25 Unknown tablet,extended release 24 hr Active Medications Generic Name Dose Route Start Last Admin Trade Name Freq PRN Reason Stop Dose Admin Apixaban 5 mg 02/25/25 09:00 02/25/25 08:54 Apixaban 5 Mg Tablet PO 03/27/25 08:59 5 mg BID LILIBETH Administration Sodium Chloride 1,000 mls @ 125 mls/hr 02/25/25 10:00 02/25/25 11:14 Nss IV 02/25/25 21:59 125 mls/hr .Q8H LILIBETH Administration Mesalamine 800 mg 02/24/25 21:00 02/25/25 08:54 Mesalamine 800 Mg Tabcr PO 03/26/25 20:59 800 mg BID LILIBETH Administration Metoprolol Succinate 50 mg 02/24/25 21:00 02/25/25 08:54 Metoprolol Succ 50mg Ext Rel Tab PO 03/26/25 20:59 50 mg BID LILIBETH Administration Pravastatin Sodium 20 mg 02/25/25 09:00 02/25/25 08:54 Pravastatin Sod 20 Mg Tab PO 03/27/25 08:59 20 mg QAM LILIBETH Administration Tamsulosin HCl 0.4 mg 02/25/25 09:00 02/25/25 08:54 Tamsulosin Hcl 0.4 Mg Cap PO 03/27/25 08:59 0.4 mg DAILY LILIBETH Administration PG Care Time/CCT Total # of Minutes Spent Total Time Spent with Patient: Total time spent is greater than 50% in coordination of care (as documented) at patient's floor/unit and/or counseling patient: Coding Level of Care Code 45148 SUB INP/OBS CARE 3/50MIN Diagnoses Disorientation R41.0 Dizziness R42 Elevated troponin R79.89 S/P TAVR (transcatheter aortic valve replacement) Z95.2 Chronic a-fib I48.20 Nonobstructive atherosclerosis of coronary artery I25.10 Bicuspid aortic valve Q23.1 Dyslipidemia, goal LDL below 70 E78.5 HTN, goal below 130/80 I10 Pacemaker Z95.0
[2025-02-25 20:00] VITALS: RESP 18
[2025-02-26 04:01] VITALS: O2SAT 97
[2025-02-26 06:39] LABS: Hematocrit (blood only) 37.4 % (42.0-52.0); Hemoglobin 13.1 g/dl (14.0-18.0); Immature Granulocytes # (auto) 0.05 K/uL (0.01-0.20); Immature Granulocytes % (auto) 0.4 %; Mean Corpuscular Hemoglobin 32.6 pg (25.0-34.0); Mean Corpuscular Volume 93.0 fL (80.0-100.0); Platelet Count 225 K/uL (130-400); RDW Standard Deviation 45.7 fL (36.4-46.3); Red Blood Count 4.02 M/uL (4.70-6.10); White Blood Count 12.10 K/ul (4.8-10.8)
[2025-02-26 06:57] LABS: Anion Gap 7.0 (3-11); Blood Urea Nitrogen 21.0 mg/dl (6-23); Calcium 8.8 mg/dl (8.6-10.3); Carbon Dioxide 23.0 mmol/L (21-32); Chloride 104.0 mmol/L (98-107); Creatinine Clr Calc Pharmacy 64.1 ml/min; Glucose 94.0 mg/dl (70-99(Fasting)); Potassium 4.5 mmol/L (3.5-5.1); Sodium 134.0 mmol/L (136-145)
[2025-02-26 07:43] VITALS: BP 122/88; PULSE 65; TEMP 97.7
--- NOTE | 2025-02-26 10:24 | Discharge Summary ---
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 History obtained from the patient, discussion with ED provider and associated chart review. Patient seen at bedside in the ED with Dr. Murry. Underwent TAVR procedure 2 days ago at [facility]. Describes intermittent feeling of dizziness which started prior to the TAVR procedure. Patient states this has been ongoing for "months." No visual disturbances with this. No facial drooping, extremity paraesthesias or extremity weakness. Woke up this morning with nausea, no reported vomiting. Ate breakfast this morning which consisted of cereal and orange juice. Nausea has improved. Denies any chest pain. Chronic dyspnea on exertion with negative stress testing as of April 2021 which feels unchanged from baseline. No supplemental O2 use [employer]. Some reported discomfort with urination. No hematuria. No reported fevers. Moved bowels this morning, soft. Bilateral groin insertion sites from TAVR procedure without induration or drainage, mildly TTP. Sites covered with Tegaderm. Very minimal erythema around the sites. Admission Exam Per Admitting Provider VITALS: Vitals are noted on the nurses note and reviewed by myself. Vital signs stable. GENERAL: 74-year-old male, in no acute distress, nondiaphoretic, well-developed well-nourished. SKIN: Capillary refill less than 2 seconds. HEENT: Normocephalic. PERRLA. EOMI. Nares patent. Mucous membranes moist. Neck is supple without nuchal rigidity. HEART: Regular rate and rhythm without murmurs gallops or rubs. LUNGS: CTA BL without wheezes, rales or rhonchi. No retractions or accessory muscle use. ABDOMEN: Positive BS x 4. Normal tympanic percussion. Soft, nontender, without masses or organomegaly. Medina sign negative. No guarding or rebound tenderness. MUSCULOSKELETAL: No gross musculoskeletal defects. No pedal edema. No calf tenderness. NEURO: Patient was alert and oriented to person place and time. Normal sensation to light and sharp touch. Deep tendon reflexes 2+ throughout. No focal neurological deficits. Principal Diagnosis Dizziness Orthostatic hypotension Possible BPPV Discharge Exam Constitutional: WD/WN, vitals as above, NAD, sitting up in bed, pleasant, conversing easily Respiratory: normal respiratory effort, lungs clear to auscultation, no wheeze, rales, rhonchi. Normal insp/exp effort, no accessory muscle use Cardiovascular: RRR, no murmur, no edema Vessels: no JVD or carotid bruit Chest: normal inspection of chest Abdomen: normal bowel sounds, soft, nontender, no hepatosplenomegaly Musculoskeletal: no cyanosis or clubbing, extremities motor strength 5/5 Skin: no rashes, warm and dry normal turgor Neurologic: PERRL, EOMI, accommodation nl, no face palsy, no dysarthria CN's II- XI intact bilaterally and moves all extremities Psychiatric: A+Ox3, euthymic affect Discharge Data Allergies Allergy/AdvReac Type Severity Reaction Status Date / Time Iodinated Contrast Media AdvReac Severe nausea and Verified 02/24/25 13:57 itchy legs Consultations 02/24/25 14:07 ED Decision to Admit Stat 02/24/25 15:06 Consult Cardiology Routine Ordered Studies 02/24/25 12:29 CT head/brain wo con Stat Hospital Course (1) Dizziness: (2) Nausea: (3) Severe aortic stenosis: (4) S/P TAVR (transcatheter aortic valve replacement): (5) Elevated troponin: (6) Leukocytosis: Plan Patient is a 74-year-old male with past medical history significant for bicuspid aortic valve s/p aortic valve replacement with a bioprosthetic valve along with graft repair of his ascending aorta in 2008, symptomatic severe aortic stenosis s/p TAVR with Medtronic CoreValve on 02/22/2025, coarctation of the aorta s/p endovascular repair in July 2012, 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 Dizziness Orthostatic hypotension Patient presented to the hospital with intermittent dizziness for several months. He has a history of recent TAVR procedure Patient was admitted to medical floor; cardiology was consulted for comanagement. He underwent echocardiogram which did not show any acute finding. Patient was found to have orthostatic hypotension for which he was given IV fluids with improvement in orthostatic blood pressure. At the time of the discharge, patient did not have any signs of dizziness. Patient was discharged home with instructions to follow-up with PCP Symptomatic severe aortic stenosis s/p TAVR with Medtronic CoreValve on 02/22/2025 History of bicuspid aortic valve s/p aortic valve replacement with a bioprosthetic valve in 2008 S/p outpatient TAVR with #26mm Medtronic CoreValve FX Aortic Valve on 02/22/2025 performed at [facility] by Dr. Flores Aguillon. -Procedure completed without complications. -After the procedure CXRs were WNL. EKG postprocedure was unremarkable. TTE performed 02/23/2025 to assess aortic valve replacement and showed normal functioning of the aortic valve. Elevated troponin Demand Ischemia Initial troponin 651.6, repeat troponin downtrending TTE performed yesterday as mentioned above with LVEF 55-59%, trivial paravalvular aortic valve prosthesis regurgitation, no LV segmental wall motion abnormalities. Cardiology consulted; no additional test recommended Please note the above document was generated using voice recognition software. It may contain grammatical, syntax or spelling errors. Any formal questions or concerns about the content, text or information contained within the body of this dictation should be directly addressed to the provider for clarification Total Time Total Time Spent Total Time Spent (In Minutes): 45 Total Time Includes: Examination of the Patient, Discharge Planning, Medication Reconciliation, Communication With Other Providers and Other Discharge Plan Discharge Items Patient Disposition: Home - Self-Care Reason For Visit: DIZZINESS, LIGHTHEADEDNESS S/P TAVR Discharge Diagnosis: Dizziness Orthostatic hypotension Possible BPPV Activity: Resume your previous activity Non-emergency contact: Primary Care Provider Call non-emergency contact if: you have any medication questions and your symptoms worsen Follow-up/Referrals: Mariaelena Dash DO [Primary Care Provider] - Diet: Regular Addtl Attending Provider Instructions: You were admitted to the hospital due to dizziness. The likely cause for the dizziness is dehydration. You are given IV fluids during hospitalization. Please continue to make sure that you are hydrated. Please do calf exercises before standing up. Pending Studies at Discharge: No Stand-Alone Forms: My [employer], Smoking Cessation Medications and DC Order Prescriptions: Continued pravastatin 20 mg Tablet 20 mg PO QAM magnesium oxide 400 mg Capsule 400 mg PO QAM garlic [garlic oil] 1,000 mg Capsule 1,000 mg PO QAM tamsulosin 0.4 mg capsule 0.4 mg PO DAILY Eliquis 5 mg Tablet 5 mg PO BID Qty: 30 0RF mesalamine [Asacol HD] 800 mg Tablet,Delayed Release (Dr/Ec) 800 mg PO BID metoprolol succinate 50 mg tablet extended release 24 hr 50 mg PO BID Patient Comments: 02/23- Per pt he takes BID; most recent fill 01/11 100 day supply has #300 fluticasone propionate 50 mcg/actuation spray,suspension 1 spray INTRANASAL UD PRN (Reason: Congestion) Discharge Orders: Discharge Order (Routine); Ordered 02/26/25 Ordered By: Lv Zamora Admission Data Admit Date/Time: 02/24/25 14:47 Attending Provider: Lv Zamora Admit Provider: Khanh Murry Primary Care Provider: Mariaelena Dash Other Providers: Alfonso Acosta Andrea F. Other Interventions: Discharge Summary Assessment (RN) Last Done: 02/26/25 11:02
== END 2025-02-26 12:00 | disposition home or self-care (01) | DRG 149 ==
LOC: ED 11:58 → 4W 14:47 → SUATTDRO 14:47 → 4W 15:32